=== PATIENT | female | born 1950 | race American Indian/Alaskan Native ===

== ENCOUNTER 2016-08-04 18:14 | Inpatient (IN) | payer MEDICAID ==
[2016-08-04] MEDS ORDERED: NACL 0.9% 1000 ML 1,000 ML ONE (18:52)
[2016-08-04] MEDS ORDERED: NACL 0.9% 1000 ML 1,000 ML IV ONE (18:55)
[2016-08-04] MEDS ORDERED: PROTONIX IV ONE (20:48)
--- NOTE | 2016-08-04 20:48 | Emergency Department Report ---
ED General Adult HPI - General Chief complaint: Altered Mental Status Stated complaint: AMS Time Seen by Provider: 08/04/16 20:34 Source: EMS, RN notes reviewed Mode of arrival: Stretcher Limitations: Physical Limitation - History of Present Illness Initial comments: This is a 66-year-old female. History is limited as the patient is essentially nonverbal. As per review of old medical records, her primary care doctor is Dr. Camacho Mccormack. Patient has a history of stroke with left-sided hemiparesis. Patient recently admitted to the hospital for GI bleed. Patient is sent to the ER for altered mental status. As per triage nurse documentation: Patient unresponsive with agonal breathing, per EMS arrival patient responding, blood sugar 69, given 1 L of D5." Patient found to have hypotension in the field, blood pressure 80/51. No further history is available. Patient and includes medical records are unable to describe exacerbating or relieving factors. -: unknown Severity scale (0 -10): 0 Consistency: other (per hpi) Improves with: other (per hpi) Worsens with: other (per hpi) Associated Symptoms: confusion, shortness of breath, weakness - Related Data Home Medications Medication Instructions Recorded Confirmed Last Taken Ascorbic Acid [Vitamin C] 500 mg PO Q12H 09/12/15 07/13/16 07/11/16 Aspirin [Adult Low Dose Aspirin EC] 81 mg PO DAILY 09/12/15 07/13/16 07/11/16 Baclofen [Lioresal] 10 mg PO TID 09/12/15 07/13/16 07/11/16 Carvedilol [Coreg] 12.5 mg PO BID 09/12/15 07/13/16 07/11/16 Citalopram [celeXA] 10 mg PO QDAY 09/12/15 07/13/16 07/11/16 Cyclobenzaprine [Flexeril 10 MG 10 mg PO BID PRN 09/12/15 07/13/16 07/11/16 TAB] Gabapentin [Neurontin] 600 mg PO Q8H 09/12/15 07/13/16 07/11/16 Ipratropium/Albuterol Sulfate 1 ampul IH Q6HR 09/12/15 07/13/16 Unknown [Duoneb 0.5 mg-3 mg/3 ml Soln] LORazepam [Ativan] 0.5 mg PO TID 09/12/15 07/13/16 07/11/16 Levothyroxine [Synthroid] 125 mcg PO DAILY 09/12/15 07/13/16 07/11/16 Lisinopril [Zestril TAB] 20 mg PO BID 09/12/15 07/13/16 07/11/16 Magnesium Hydroxide [Milk of 400 mg PO DAILY 09/12/15 07/13/16 07/11/16 Magnesia] Omeprazole [PriLOSEC] 40 mg PO QDAY 09/12/15 07/13/16 07/11/16 Oxycodone HCl/Acetaminophen 1 each PO Q6HR PRN 09/12/15 07/13/16 Unknown [Percocet 10/325 mg] Potassium Chloride [KCl 20 meq 20 meq PO QDAY 09/12/15 07/13/16 07/11/16 ORAL LIQ] Sennosides/Docusate Sodium [Dok 1 each PO DAILY 09/12/15 07/13/16 07/11/16 Plus Tablet] buPROPion [Wellbutrin] 75 mg PO DAILY 09/12/15 07/13/16 07/11/16 clonazePAM [KlonoPIN] 2 mg PO BID 09/12/15 07/13/16 07/10/16 Pravastatin Sodium [Pravastatin] 10 mg PO QHS 07/13/16 07/13/16 07/11/16 Previous Rx's Medication Instructions Recorded Last Taken Type Pantoprazole [Protonix TAB] 40 mg PO QDAY #30 tablet 07/15/16 Unknown Rx Allergies Allergy/AdvReac Type Severity Reaction Status Date / Time ibuprofen Allergy Unknown Verified 09/12/15 23:04 Penicillins Allergy Unknown Verified 09/12/15 23:04 ED Review of Systems ROS: Stated complaint: AMS Other details as noted in HPI ED Past Medical Hx - Past Medical History Hx Hypertension: Yes (CHF (stable), ) Hx CVA: Yes Hx Congestive Heart Failure: Yes Hx Diabetes: Yes Hx GERD: Yes Hx COPD: Yes Additional medical history: HYPOTHROIDISM - Surgical History Hx Pacemaker: Yes Hx Internal Defibrillator: Yes - Social History Smoking Status: Unknown if ever smoked - Medications Home Medications: Home Medications Medication Instructions Recorded Confirmed Last Taken Type Ascorbic Acid [Vitamin C] 500 mg PO Q12H 09/12/15 07/13/16 07/11/16 History Aspirin [Adult Low Dose Aspirin EC] 81 mg PO DAILY 09/12/15 07/13/16 07/11/16 History Baclofen [Lioresal] 10 mg PO TID 09/12/15 07/13/16 07/11/16 History Carvedilol [Coreg] 12.5 mg PO BID 09/12/15 07/13/16 07/11/16 History Citalopram [celeXA] 10 mg PO QDAY 09/12/15 07/13/16 07/11/16 History Cyclobenzaprine [Flexeril 10 MG 10 mg PO BID PRN 09/12/15 07/13/16 07/11/16 History TAB] Gabapentin [Neurontin] 600 mg PO Q8H 09/12/15 07/13/16 07/11/16 History Ipratropium/Albuterol Sulfate 1 ampul IH Q6HR 09/12/15 07/13/16 Unknown History [Duoneb 0.5 mg-3 mg/3 ml Soln] LORazepam [Ativan] 0.5 mg PO TID 09/12/15 07/13/16 07/11/16 History Levothyroxine [Synthroid] 125 mcg PO DAILY 09/12/15 07/13/16 07/11/16 History Lisinopril [Zestril TAB] 20 mg PO BID 09/12/15 07/13/16 07/11/16 History Magnesium Hydroxide [Milk of 400 mg PO DAILY 09/12/15 07/13/16 07/11/16 History Magnesia] Omeprazole [PriLOSEC] 40 mg PO QDAY 09/12/15 07/13/16 07/11/16 History Oxycodone HCl/Acetaminophen 1 each PO Q6HR PRN 09/12/15 07/13/16 Unknown History [Percocet 10/325 mg] Potassium Chloride [KCl 20 meq 20 meq PO QDAY 09/12/15 07/13/16 07/11/16 History ORAL LIQ] Sennosides/Docusate Sodium [Dok 1 each PO DAILY 09/12/15 07/13/16 07/11/16 History Plus Tablet] buPROPion [Wellbutrin] 75 mg PO DAILY 09/12/15 07/13/1617 History clonazePAM [KlonoPIN] 2 mg PO BID 09/12/15 07/13/16 07/10/16 History Pravastatin Sodium [Pravastatin] 10 mg PO QHS 07/13/16 07/13/16 07/11/16 History Pantoprazole [Protonix TAB] 40 mg PO QDAY #30 tablet 07/15/16 Unknown Rx ED Physical Exam - General Limitations: Altered Mental Status, Physical Limitation General appearance: in no apparent distress - Head Head exam: Present: atraumatic, normocephalic - Eye Eye exam: Present: normal appearance - ENT ENT exam: Present: mucous membranes moist - Neck Neck exam: Present: normal inspection - Respiratory Respiratory exam: Present: normal lung sounds bilaterally. Absent: respiratory distress, wheezes, rales, rhonchi - Cardiovascular Cardiovascular Exam: Present: regular rate, normal rhythm, normal heart sounds. Absent: bradycardia, tachycardia, irregular rhythm, systolic murmur, diastolic murmur, rubs, gallop - GI/Abdominal GI/Abdominal exam: Present: soft, normal bowel sounds. Absent: distended, tenderness, guarding, rebound, rigid, pulsatile mass - Rectal Rectal exam: Present: normal inspection, heme (+) stool (brown stool) - Extremities Exam Extremities exam: Present: normal inspection, normal capillary refill, other ( patient has left-sided hemiparesis. Moves right upper extremity, right lower extremity spontaneously). Absent: calf tenderness - Back Exam Back exam: Present: normal inspection. Absent: CVA tenderness (R), CVA tenderness (L) - Neurological Exam Neurological exam: Present: altered, motor sensory deficit, other (chronic left- sided hemiparesis. Patient makes nonsensical sounds. Moves right upper extremity, right lower extremity) - Psychiatric Psychiatric exam: Present: normal affect, normal mood, anxious - Skin Skin exam: Present: warm, dry, intact, normal color. Absent: rash ED Course Vital Signs 08/04/16 08/04/16 08/04/16 18:20 20:40 20:43 Temperature 97.8 F 97.6 F Pulse Rate 71 69 Respiratory 12 16 Rate Blood Pressure 80/51 111/55 Blood Pressure 80/51 [Right] O2 Sat by Pulse 100 100 Oximetry 08/04/16 08/04/16 08/04/16 20:44 21:00 21:33 Temperature Pulse Rate 69 71 Respiratory 8 L 14 Rate Blood Pressure 111/55 Blood Pressure 145/84 [Right] O2 Sat by Pulse 100 99 100 Oximetry 08/04/16 08/05/16 23:34 00:40 Temperature Pulse Rate Respiratory Rate Blood Pressure 145/84 147/72 Blood Pressure [Right] O2 Sat by Pulse 97 98 Oximetry - Reevaluation(s) Reevaluation #1: 08/04/16 22:23 differential diagnosis: Hypoglycemia, hypoxemic respiratory failure, pneumonia, pulmonary embolus, urinary tract infection, subacute stroke , electrolyte derangement, metabolic derangement, toxic/metabolic encephalopathy , natural history of multiple chronic issues Assessment and plan: 66-year-old female with undifferentiated hypotension, now resolving, undifferentiated agonal breathing, now resolving, somewhat hypoxemic on ABG. Noncontrast CT scan of brain is negative, the patient is not a TPA candidate given that we do not have an exact onset of symptoms. She is protecting her airway currently. X-ray the chest is negative. Laboratory studies otherwise unremarkable. Reevaluation #2: 08/05/16 01:17 patient had unexplained hypoxemia. We attempted to call family, nobody answered. Nobody has returned our phone call. Therefore, I administratively consented the patient for CT scan with contrast. The CT scan did not demonstrate pneumonia or pulmonary embolus. Patient has had some episodes of bradypnea while in the ER. Given her unexplained hypotension, unexplained respiratory rate, patient will be admitted for observation. The Hospital physician, Dr. Moore, graciously accepts the patient to his service. ED Medical Decision Making - Lab Data Result diagrams: 08/04/16 21:43 08/04/16 19:55 Vital Signs 08/04/16 08/04/16 08/04/16 18:20 20:43 20:44 Temperature 97.8 F 97.6 F Pulse Rate 71 Respiratory 12 Rate Blood Pressure 80/51 Blood Pressure 80/51 [Right] O2 Sat by Pulse 100 100 Oximetry 08/04/16 21:33 Temperature Pulse Rate 71 Respiratory 14 Rate Blood Pressure Blood Pressure 145/84 [Right] O2 Sat by Pulse 100 Oximetry Lab Results 08/04/16 08/04/16 08/04/16 Range/Units 18:46 19:55 20:29 WBC (4.5-11.0) K/mm3 RBC (3.65-5.03) M/mm3 Hgb (10.1-14.3) gm/dl Hct (30.3-42.9) % MCV (79-97) fl MCH (28-32) pg MCHC (30-34) % RDW (13.2-15.2) % Plt Count (140-440) K/mm3 Lymph % (Auto) Barren % (Auto) Eos % (Auto) Baso % (Auto) Lymph # Barren # Eos # Baso # Seg Neutrophils % Seg Neutrophils # POC ABG pH (7.35-7.45) POC ABG pCO2 (35-45) POC ABG pO2 (80-105) POC ABG HCO3 POC ABG Total CO2 POC ABG O2 Sat POC ABG Base Excess FiO2 % Sodium 139 (137-145) mmol/L Potassium 5.0 (3.6-5.0) mmol/L Chloride 99.8 (98-107) mmol/L Carbon Dioxide 26 (22-30) mmol/L Anion Gap 18 mmol/L BUN 15 (7-17) mg/dL Creatinine 1.3 H (0.7-1.2) mg/dL Estimated GFR 50 ml/min BUN/Creatinine Ratio 11.53 % Glucose 89 (65-100) mg/dL POC Glucose 132 H (70-105) Lactic Acid 2.00 (0.7-2.0) mmol/L Calcium 9.3 (8.4-10.2) mg/dL Total Bilirubin < 0.20 (0.1-1.2) mg/dL AST 13 (5-40) units/L ALT 8 (7-56) units/L Alkaline Phosphatase 138 H (35-129) units/L Total Protein 7.1 (6.3-8.2) g/dL Albumin 3.6 L (3.9-5) g/dL Albumin/Globulin Ratio 1.0 % Urine Color (Yellow) Urine Turbidity (Clear) Urine pH (5.0-7.0) Ur Specific Braggs (1.003-1.030) Urine Protein (Negative) mg/dL Urine Glucose (UA) (Negative) mg/dL Urine Ketones (Negative) mg/dL Urine Blood (Negative) Urine Nitrite (Negative) Urine Bilirubin (Negative) Urine Urobilinogen (<2.0) mg/dL Ur Leukocyte Esterase (Negative) Urine WBC (Auto) (0.0-6.0) /HPF Urine RBC (Auto) (0.0-6.0) /HPF Amorphous Crystals Urine Opiates Screen Urine Methadone Screen Acetaminophen (10.0-30.0) ug/mL Ur Barbiturates Screen Ur Phencyclidine Scrn Ur Amphetamines Screen Urine Cocaine Screen U Marijuana (THC) Screen 08/04/16 08/04/16 08/04/16 Range/Units 21:02 21:11 21:11 WBC (4.5-11.0) K/mm3 RBC (3.65-5.03) M/mm3 Hgb (10.1-14.3) gm/dl Hct (30.3-42.9) % MCV (79-97) fl MCH (28-32) pg MCHC (30-34) % RDW (13.2-15.2) % Plt Count (140-440) K/mm3 Lymph % (Auto) Barren % (Auto) Eos % (Auto) Baso % (Auto) Lymph # Barren # Eos # Baso # Seg Neutrophils % Seg Neutrophils # POC ABG pH 7.395 (7.35-7.45) POC ABG pCO2 45.0 (35-45) POC ABG pO2 74 L (80-105) POC ABG HCO3 27.6 POC ABG Total CO2 29 POC ABG O2 Sat 95 POC ABG Base Excess 3 FiO2 21 % Sodium (137-145) mmol/L Potassium (3.6-5.0) mmol/L Chloride (98-107) mmol/L Carbon Dioxide (22-30) mmol/L Anion Gap mmol/L BUN (7-17) mg/dL Creatinine (0.7-1.2) mg/dL Estimated GFR ml/min BUN/Creatinine Ratio % Glucose (65-100) mg/dL POC Glucose (70-105) Lactic Acid (0.7-2.0) mmol/L Calcium (8.4-10.2) mg/dL Total Bilirubin (0.1-1.2) mg/dL AST (5-40) units/L ALT (7-56) units/L Alkaline Phosphatase (35-129) units/L Total Protein (6.3-8.2) g/dL Albumin (3.9-5) g/dL Albumin/Globulin Ratio % Urine Color Straw (Yellow) Urine Turbidity Clear (Clear) Urine pH 5.0 (5.0-7.0) Ur Specific Braggs 1.006 (1.003-1.030) Urine Protein <15 mg/dl (Negative) mg/dL Urine Glucose (UA) 50 (Negative) mg/dL Urine Ketones Neg (Negative) mg/dL Urine Blood Neg (Negative) Urine Nitrite Neg (Negative) Urine Bilirubin Neg (Negative) Urine Urobilinogen < 2.0 (<2.0) mg/dL Ur Leukocyte Esterase Neg (Negative) Urine WBC (Auto) < 1.0 (0.0-6.0) /HPF Urine RBC (Auto) 2.0 (0.0-6.0) /HPF Amorphous Crystals Few Urine Opiates Screen Presumptive negative Urine Methadone Screen Presumptive negative Acetaminophen (10.0-30.0) ug/mL Ur Barbiturates Screen Presumptive negative Ur Phencyclidine Scrn Presumptive negative Ur Amphetamines Screen Presumptive negative Urine Cocaine Screen Presumptive negative U Marijuana (THC) Screen Presumptive negative 08/04/16 08/04/16 Range/Units 21:22 21:43 WBC 8.0 (4.5-11.0) K/mm3 RBC 3.40 L (3.65-5.03) M/mm3 Hgb 9.2 L (10.1-14.3) gm/dl Hct 29.2 L (30.3-42.9) % MCV 86 (79-97) fl MCH 27 L (28-32) pg MCHC 31 (30-34) % RDW 16.2 H (13.2-15.2) % Plt Count 383 (140-440) K/mm3 Lymph % (Auto) Environmental Journalist Barren % (Auto) Environmental Journalist Eos % (Auto) Environmental Journalist Baso % (Auto) Environmental Journalist Lymph # Environmental Journalist Barren # Environmental Journalist Eos # Environmental Journalist Baso # Environmental Journalist Seg Neutrophils % Environmental Journalist Seg Neutrophils # Environmental Journalist POC ABG pH (7.35-7.45) POC ABG pCO2 (35-45) POC ABG pO2 (80-105) POC ABG HCO3 POC ABG Total CO2 POC ABG O2 Sat POC ABG Base Excess FiO2 % Sodium (137-145) mmol/L Potassium (3.6-5.0) mmol/L Chloride (98-107) mmol/L Carbon Dioxide (22-30) mmol/L Anion Gap mmol/L BUN (7-17) mg/dL Creatinine (0.7-1.2) mg/dL Estimated GFR ml/min BUN/Creatinine Ratio % Glucose (65-100) mg/dL POC Glucose (70-105) Lactic Acid (0.7-2.0) mmol/L Calcium (8.4-10.2) mg/dL Total Bilirubin (0.1-1.2) mg/dL AST (5-40) units/L ALT (7-56) units/L Alkaline Phosphatase (35-129) units/L Total Protein (6.3-8.2) g/dL Albumin (3.9-5) g/dL Albumin/Globulin Ratio % Urine Color (Yellow) Urine Turbidity (Clear) Urine pH (5.0-7.0) Ur Specific Braggs (1.003-1.030) Urine Protein (Negative) mg/dL Urine Glucose (UA) (Negative) mg/dL Urine Ketones (Negative) mg/dL Urine Blood (Negative) Urine Nitrite (Negative) Urine Bilirubin (Negative) Urine Urobilinogen (<2.0) mg/dL Ur Leukocyte Esterase (Negative) Urine WBC (Auto) (0.0-6.0) /HPF Urine RBC (Auto) (0.0-6.0) /HPF Amorphous Crystals Urine Opiates Screen Urine Methadone Screen Acetaminophen < 15.0 (10.0-30.0) ug/mL Ur Barbiturates Screen Ur Phencyclidine Scrn Ur Amphetamines Screen Urine Cocaine Screen U Marijuana (THC) Screen - EKG Data -: EKG Interpreted by Co - EKG Data 08/04/16 22:25 normal sinus, 67 bpm, left axis deviation, motion artifact, poor R progression, first-degree AV block, abnormal EKG. Not consistent with STEMI. - Radiology Data Radiology results: report reviewed, image reviewed Noncontrast CT scan of the brain is negative. X-ray of the chest negative, left-sided cardiac device is noted. CT scan of the chest was negative for pneumonia, negative for pulmonary embolus Critical care attestation.: If time is entered above; I have spent that time in minutes in the direct care of this critically ill patient, excluding procedure time. ED Disposition Clinical Impression: Altered mental status, Hypotension, Hypoxemia Disposition: OP ADMITTED IP TO THIS HOSP Is pt being admited?: Yes Does the pt Need Aspirin: No Condition: Fair Referrals: PRIMARY CARE,MD [Primary Care Provider] - 3-5 Days
[2016-08-04 20:57] LABS: Alanine Aminotransferase 8 units/L (7-56); Albumin 3.6 g/dL (3.9-5); Alkaline Phosphatase 138 units/L (35-129); Anion Gap 18 mmol/L; BUN/Creatinine Ratio 11.53; Bilirubin,Total < 0.20 mg/dL (0.1-1.2); Blood Urea Nitrogen 15 mg/dL (7-17); Calcium 9.3 mg/dL (8.4-10.2); Carbon Dioxide 26 mmol/L (22-30); Chloride 99.8 mmol/L (98-107); Glucose 89 mg/dL (65-100); Sodium 139 mmol/L (137-145); Total Protein 7.1 g/dL (6.3-8.2)
[2016-08-04 21:09] LABS: ISTAT Base Excess 3; ISTAT HCO3 27.6; ISTAT PH 7.395 (7.35-7.45); ISTAT PO2 74 (80-105); ISTAT SO2 95; ISTAT TCO2 29
[2016-08-04 21:24] LABS: Urine Drugs of Abuse Note Disclamer
[2016-08-04 21:46] LABS: Bilirubin,Urine NEG (Negative); Blood,Urine NEG (Negative); Ketones,Urine NEG (Negative); Leukocyte Esterase,Urine NEG (Negative); Nitrite,Urine NEG (Negative); Protein,Urine <15 mg/dL mg/dL (Negative); Urobilinogen,Urine < 2.0 mg/dL (<2.0); WBC,Urine < 1.0 /HPF (0.0-6.0)
--- NOTE | 2016-08-04 21:57 | Cat Scan Report ---
FINAL REPORT PROCEDURE: CT HEAD/BRAIN WO CON TECHNIQUE: Computerized tomography of the head was performed without contrast material. HISTORY: ams COMPARISON: September 13, 2015 FINDINGS: Skull and scalp: Normal. Paranasal sinuses: Normal. Ventricles and subarachnoid spaces: Moderate dilatation. Cerebrum: No evidence of hemorrhage, acute infarction or mass. Moderate atrophy. Diffuse volume loss with encephalomalacia of the right frontal and parietal lobes. Cerebellum and brainstem: No evidence of hemorrhage, acute infarction or mass. There is stable increased density of the left side of the mid brain with calcification, axial series 2 images 30 and 31. Vasculature: Atherosclerotic calcifications. Comments: None. IMPRESSION: Involutional change with advanced volume loss and encephalomalacia on the right. Stable calcification of the left mid brain.
[2016-08-04 22:04] LABS: Hematocrit 29.2 % (30.3-42.9); Hemoglobin 9.2 gm/dl (10.1-14.3); Mean Corpuscular HGB Conc 31 % (30-34); Mean Corpuscular Hemoglobin 27 pg (28-32); Mean Corpuscular Volume 86 fl (79-97); Platelet Count 383 K/mm3 (140-440); Red Cell Distribution Width 16.2 % (13.2-15.2)
[2016-08-04 22:48] LABS: Magnesium 2.8 mg/dL (1.7-2.3)
--- NOTE | 2016-08-04 23:54 | Admit Criteria Form ---
Admission Criteria Documentation: MENTAL STATUS CHANGE Clinical Indications for Inpatient Care (Place 'X' for any and all applicable criteria): Ongoing inpatient care may be needed for 1 or more of the following(1)(2)(3)(5)( 6): [ X]I. Suspected serious etiology (eg, medical disorder, PLATING OPERATOR event) of altered mental status [ ]II. Danger to self or others not manageable at lower level of care [ ]III. Grave disability (eg, inability to perform self care necessary at lower level of care) [ ]IV. Agitation or inappropriate behavior interfering with care for primary condition (eg, attempting to discontinue lines or drains prematurely, unable to cooperate with respiratory care) [ ]V. Delirium [A] [D][E] as described by 1 or more of the following(26): [ ]a) Delirium due to alcohol or sedative [F] withdrawal [ ]b) Delirium of uncertain etiology that has not responded to appropriate empiric treatment [ ]c) Delirium that prevents performance of a life-sustaining function (eg, feeding or hydrating oneself) [ ]. General contraindications and/or Inappropriate clinical situations for Observational Care in patients with Mental Status Change, when ANY ONE of the following is required: [ ]a) Prediction of prolongation of LOS based on ANY ONE of the following may be considered as a contraindication for observational care 2, 3, 4, 5, 6, 7, 8, 9, 10, 11 [ ]i) Age > 65 yrs. [ ]ii) Patient arriving by ambulance [ ]iii) Patient with high acuity [ ]iv) Patient requiring vital sign monitoring [ ]v) Patient on IV medication [ ]b) Systolic blood pressures greater than or equal to 180mmHg 3, 12 [ ]c) Patient with altered mental status including delirium and other alteration of consciousness, (3) [ ]d) Patient whose discharge disposition will be to a [facility] home or rehabilitation home should not be managed in Emergency Department Observation Unit. CMS rule requires 3 days hospital stay before such placement.3,13 [ ]e) Patient with failure to thrive due to broad array of etiologies 3,16,17 [ ]f) Inability to ambulate 3,14 Extended stay beyond goal length of stay for the primary condition may be needed until ALL of the following are present(3)(5): [ ]a) Underlying medical etiology of mental status change is absent, or has been established and adequately treated [ ]b) Danger to self or others is absent or manageable at lower level of care. [ ]c) Behavior crisis management, including physical or chemical restraints, is not required or available at lower level of car [ ]d) Substance or alcohol withdrawal is absent or manageable at lower level of care. [ ]e) Behavioral symptoms (eg, agitation, somnolence, inappropriate behavior) are absent, or are manageable at lower level of care. The original [facility] [employer] content created by [facility] [employer] has been revised. The portions of the content which have been revised are identified through the use of italic text or in bold, and [facility] has neither reviewed nor approved the modified material. All other unmodified content is copyright [facility] [employer]. Please see references footnoted in the original [facility] edition 2016 Admission Criteria Met: Yes
--- NOTE | 2016-08-05 00:54 | Cat Scan Report ---
FINAL REPORT EXAM: CT ANGIO CHEST HISTORY: pna vs pe TECHNIQUE: High-resolution helical axial images were obtained of the chest during intravenous administration of iodinated contrast. Images are reconstructed in the sagittal and coronal planes. PRIORS: CT of the abdomen and pelvis from 07/12/2016 FINDINGS: There is no evidence of pulmonary embolism, the pulmonary arteries opacify normally. There is a left-sided AICD that appears adequately positioned. There is atherosclerotic calcification of the thoracic aorta without aneurysm or dissection. There is atherosclerotic calcification in the coronary arteries. The heart size is normal. There is mild lingular subsegmental atelectasis. Otherwise, the lungs are clear. Images through the upper abdomen are unremarkable. There is a stable moderate compression fracture of T12 vertebral body. IMPRESSION: 1. No evidence of pulmonary embolism. 2. Coronary artery atherosclerotic disease 3. Mild lingular subsegmental atelectasis 4. Stable moderate T12 compression fracture.
[2016-08-05] MEDS ORDERED: SYNTHROID IV ONE (01:18)
--- NOTE | 2016-08-05 02:41 | History and Physical Report ---
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 07/14/16 EGD done showed bleeding vessels on the lesser curvature and 3 clips were placed who present with AMS, hypotension 80/51 prior to arrival. As per triage nurse documentation: "Patient unresponsive with agonal breathing, per EMS arrival patient responding, blood sugar 69, given 1 L of D5." No further history is available. Patient and includes medical records are unable to describe exacerbating or relieving factors. CTA with chest: No PE, coronary artery disease, mild lingular subsegmental atelectasis, stable moderate T12 compression fracture. Primary care doctor is Dr. Camacho Mccormack. Past medical history: As HPI Past surgical history: Pacemaker hysterectomy Social history: [facility], no current alcohol tobacco or drug use Family history: Hypertension Medications and Allergies Allergies Allergy/AdvReac Type Severity Reaction Status Date / Time ibuprofen Allergy Unknown Verified 09/12/15 23:04 Penicillins Allergy Unknown Verified 09/12/15 23:04 Home Medications Medication Instructions Recorded Confirmed Last Taken Type Ascorbic Acid [Vitamin C] 500 mg PO Q12H 09/12/15 07/13/16 07/11/16 History Aspirin [Adult Low Dose Aspirin EC] 81 mg PO DAILY 09/12/15 07/13/16 07/11/16 History Baclofen [Lioresal] 10 mg PO TID 09/12/15 07/13/16 07/11/16 History Carvedilol [Coreg] 12.5 mg PO BID 09/12/15 07/13/16 07/11/16 History Citalopram [celeXA] 10 mg PO QDAY 09/12/15 07/13/16 07/11/16 History Cyclobenzaprine [Flexeril 10 MG 10 mg PO BID PRN 09/12/15 07/13/16 07/11/16 History TAB] Gabapentin [Neurontin] 600 mg PO Q8H 09/12/15 07/13/16 07/11/16 History Ipratropium/Albuterol Sulfate 1 ampul IH Q6HR 09/12/15 07/13/16 Unknown History [Duoneb 0.5 mg-3 mg/3 ml Soln] LORazepam [Ativan] 0.5 mg PO TID 09/12/15 07/13/16 07/11/16 History Levothyroxine [Synthroid] 125 mcg PO DAILY 09/12/15 07/13/16 07/11/16 History Lisinopril [Zestril TAB] 20 mg PO BID 09/12/15 07/13/16 07/11/16 History Magnesium Hydroxide [Milk of 400 mg PO DAILY 09/12/15 07/13/16 07/11/16 History Magnesia] Omeprazole [PriLOSEC] 40 mg PO QDAY 09/12/15 07/13/16 07/11/16 History Oxycodone HCl/Acetaminophen 1 each PO Q6HR PRN 09/12/15 07/13/16 Unknown History [Percocet 10/325 mg] Potassium Chloride [KCl 20 meq 20 meq PO QDAY 09/12/15 07/13/16 07/11/16 History ORAL LIQ] Sennosides/Docusate Sodium [Dok 1 each PO DAILY 09/12/15 07/13/16 07/11/16 History Plus Tablet] buPROPion [Wellbutrin] 75 mg PO DAILY 09/12/15 07/13/16 07/11/16 History clonazePAM [KlonoPIN] 2 mg PO BID 09/12/15 07/13/16 07/10/16 History Pravastatin Sodium [Pravastatin] 10 mg PO QHS 07/13/16 07/13/16 07/11/16 History Pantoprazole [Protonix TAB] 40 mg PO QDAY #30 tablet 07/15/16 Unknown Rx Active Meds: Active Medications Albuterol/Ipratropium (Duoneb 0.5 Mg-3 Mg/3 Ml Soln) 1 ampul IH Q12HR ZULMA Ascorbic Acid (Vitamin C) 500 mg PO Q12H ZULMA Baclofen (Lioresal) 10 mg PO TID ZULMA Bupropion HCl (Wellbutrin) 75 mg PO DAILY ZULMA Citalopram Hydrobromide (Celexa) 10 mg PO QDAY ZULMA Clonazepam (Klonopin) 2 mg PO BID ZULMA Levothyroxine Sodium (Synthroid) 125 mcg PO DAILY ZULMA Lorazepam (Ativan) 0.5 mg PO TID ZULMA Miscellaneous Medication (Gabapentin [Neurontin]) 600 mg PO Q8H ZULMA Miscellaneous Medication (Oxycodone Hcl/Acetaminophen [Percocet 10/325 Mg]) 1 each PO Q6HR PRN PRN Reason: Pain Miscellaneous Medication (Potassium Chloride [Kcl 20 Meq Oral Liq]) 20 meq PO QDAY ZULMA Miscellaneous Medication (Pravastatin Sodium [Pravastatin]) 10 mg PO QHS ZULMA Pantoprazole Sodium (Protonix) 40 mg PO QDAY ZULMA Review of Systems ROS unobtainable: due to mental status Exam - Physical Exam Narrative exam: GEN: Ill appearing chronic debilitated NAD, AWAKE, ALERT, confused HEENT: NCAT, PERRL, EOMI, OP SEVERELY DRY CRUSTY AND PASTY LIPS NECK: SUPPLE, NO THYROMEGALY, NO JVD, NO LAD CVS: RRR, NORMAL S1S2 LUNGS/CHEST: CTA B, NORMAL CHEST EXPANSION B, GOOD AIR ENTRY B ABD: SOFT NTND, GBS, NO REBOUND OR GUARDING EXT/SKIN: Poor skin turgor, capillary refill >2 seconds MSK: Severely contracted extremities 4 NEURO: CN 2-12 GROSSLY INTACT, she doesn't follow commands PSY: Confused - Constitutional Vitals: Temp Pulse Resp BP Pulse Ox 97.6 F 83 19 149/73 99 08/04/16 20:43 08/05/16 01:00 08/05/16 01:00 08/05/16 01:00 08/05/16 01:00 Results - Labs CBC & Chem 7: 08/04/16 21:43 08/04/16 19:55 Labs: Abnormal lab results 08/04/16 08/04/16 08/04/16 Range/Units 18:46 19:55 21:02 RBC (3.65-5.03) M/mm3 Hgb (10.1-14.3) gm/dl Hct (30.3-42.9) % MCH (28-32) pg RDW (13.2-15.2) % POC ABG pO2 74 L (80-105) Creatinine 1.3 H (0.7-1.2) mg/dL POC Glucose 132 H (70-105) Magnesium (1.7-2.3) mg/dL Alkaline Phosphatase 138 H (35-129) units/L Albumin 3.6 L (3.9-5) g/dL TSH (0.270-4.200) mlU/mL Salicylates (2.8-20.0) mg/dL 08/04/16 08/04/16 08/04/16 Range/Units 21:22 21:22 21:22 RBC (3.65-5.03) M/mm3 Hgb (10.1-14.3) gm/dl Hct (30.3-42.9) % MCH (28-32) pg RDW (13.2-15.2) % POC ABG pO2 (80-105) Creatinine (0.7-1.2) mg/dL POC Glucose (70-105) Magnesium 2.80 H (1.7-2.3) mg/dL Alkaline Phosphatase (35-129) units/L Albumin (3.9-5) g/dL TSH 15.540 H (0.270-4.200) mlU/mL Salicylates < 0.3 L (2.8-20.0) mg/dL 08/04/16 Range/Units 21:43 RBC 3.40 L (3.65-5.03) M/mm3 Hgb 9.2 L (10.1-14.3) gm/dl Hct 29.2 L (30.3-42.9) % MCH 27 L (28-32) pg RDW 16.2 H (13.2-15.2) % POC ABG pO2 (80-105) Creatinine (0.7-1.2) mg/dL POC Glucose (70-105) Magnesium (1.7-2.3) mg/dL Alkaline Phosphatase (35-129) units/L Albumin (3.9-5) g/dL TSH (0.270-4.200) mlU/mL Salicylates (2.8-20.0) mg/dL Assessment and Plan Patient is a 66-year-old woman from [facility] with a plethora of comorbidities including diabetes mellitus type 2, hypertension, coronary artery disease, CHF, hypothyroidism, COPD, 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 07/14/16 EGD done showed bleeding vessels on the lesser curvature and 3 clips were placed who present with AMS, hypotension 80/51 prior to arrival. As per triage nurse documentation: "Patient unresponsive with agonal breathing, per EMS arrival patient responding, blood sugar 69, given 1 L of D5." No further history is available. Patient and includes medical records are unable to describe exacerbating or relieving factors. CTA with chest: No PE, coronary artery disease, mild lingular subsegmental atelectasis, stable moderate T12 compression fracture. CT of the head without acute stroke. -Altered mental status with encephalopathy, patient appears to be severely dehydrated, I don't know if she's been eating or drinking therefore she may not be taken her medication her TSH is extremely high, will use IV levothyroxine -Hypotension due to hypovolemia: Treat with IV fluids -Acute on chronic blood loss anemia: Continue to monitor closely -DVT prophylaxis: SCDs only due to recent history of GI bleed Full code
[2016-08-05] MEDS ORDERED: PERCOCET 5/325 PO PRN (03:09)
[2016-08-05] MEDS: VITAMIN C PO SCH ×2 (03:25→18:14)
[2016-08-05] MEDS: D5NS 1,000 ML IV SCH (03:25)
[2016-08-05] MEDS: NEURONTIN PO SCH ×3 (06:14→21:54)
[2016-08-05] MEDS: SYNTHROID IV SCH (06:58)
[2016-08-05] MEDS: LIORESAL PO SCH ×3 (08:00→19:58)
[2016-08-05] MEDS: ATIVAN PO SCH ×3 (08:00→19:58)
--- NOTE | 2016-08-05 09:24 | XRay Report ---
AP CHEST: HISTORY: Altered mental status AP view of the chest demonstrates a normal mediastinal and cardiac contour with clear lungs and normal bony and soft tissue structures. Single lead pacemaker devices unchanged since 07/13/16. IMPRESSION: Unremarkable AP chest.
[2016-08-05] MEDS ORDERED: POTASSIUM CHLORIDE 20 MEQ PO SCH (10:00)
[2016-08-05] MEDS: celeXA PO SCH (10:00)
[2016-08-05] MEDS ORDERED: SYNTHROID PO SCH (10:00)
[2016-08-05] MEDS: PROTONIX PO SCH (10:00)
[2016-08-05] MEDS: WELLBUTRIN PO SCH (10:00)
[2016-08-05 10:07] LABS: Hematocrit 29.3 % (30.3-42.9); Hemoglobin 9.5 gm/dl (10.1-14.3); Mean Corpuscular HGB Conc 32 % (30-34); Mean Corpuscular Hemoglobin 27 pg (28-32); Mean Corpuscular Volume 84 fl (79-97); Platelet Count 383 K/mm3 (140-440); Red Blood Count 3.47 M/mm3 (3.65-5.03); Red Cell Distribution Width 16.3 % (13.2-15.2); White Blood Count 9.2 K/mm3 (4.5-11.0)
--- NOTE | 2016-08-05 10:39 | Event Note ---
Date: 08/05/16 Patient from SNF presented with altered mental status,hypotension. She was seen and examined. Continue current management.
[2016-08-05 10:47] LABS: Anion Gap 22 mmol/L; Blood Urea Nitrogen 11 mg/dL (7-17); Calcium 9.1 mg/dL (8.4-10.2); Carbon Dioxide 22 mmol/L (22-30); Chloride 100.7 mmol/L (98-107); Glucose 76 mg/dL (65-100); Potassium 5.1 mmol/L (3.6-5.0); Sodium 140 mmol/L (137-145)
[2016-08-05] MEDS: DUONEB 0.5 MG-3 MG/3 ML SOLN IH SCH ×2 (11:15→21:06)
[2016-08-05] MEDS: ZOCOR PO SCH (21:54)
[2016-08-06] MEDS: D5NS 1,000 ML IV SCH ×2 (00:07→09:29)
[2016-08-06] MEDS: VITAMIN C PO SCH ×3 (03:00→22:21)
[2016-08-06] MEDS: NEURONTIN PO SCH ×3 (05:47→22:21)
[2016-08-06] MEDS: SYNTHROID IV SCH (05:48)
[2016-08-06 08:37] LABS: Hematocrit 25.7 % (30.3-42.9); Hemoglobin 8.4 gm/dl (10.1-14.3); Mean Corpuscular HGB Conc 33 % (30-34); Mean Corpuscular Hemoglobin 28 pg (28-32); Mean Corpuscular Volume 85 fl (79-97); Platelet Count 316 K/mm3 (140-440); Red Blood Count 3.02 M/mm3 (3.65-5.03); Red Cell Distribution Width 16.5 % (13.2-15.2); White Blood Count 8.4 K/mm3 (4.5-11.0)
[2016-08-06] MEDS: DUONEB 0.5 MG-3 MG/3 ML SOLN IH SCH ×2 (08:47→19:40)
[2016-08-06 08:53] LABS: Anion Gap 18 mmol/L; BUN/Creatinine Ratio 7.77; Blood Urea Nitrogen 7 mg/dL (7-17); Calcium 8.8 mg/dL (8.4-10.2); Carbon Dioxide 23 mmol/L (22-30); Chloride 105.8 mmol/L (98-107); Glucose 91 mg/dL (65-100); Potassium 3.9 mmol/L (3.6-5.0); Sodium 143 mmol/L (137-145)
[2016-08-06] MEDS: LIORESAL PO SCH ×3 (09:20→21:00)
[2016-08-06] MEDS: celeXA PO SCH (09:20)
[2016-08-06] MEDS: PROTONIX PO SCH (09:20)
[2016-08-06] MEDS: WELLBUTRIN PO SCH (09:20)
[2016-08-06] MEDS: ATIVAN PO SCH ×3 (09:20→21:00)
--- NOTE | 2016-08-06 10:24 | Progress Note ---
Assessment and Plan Assessment and plan: Encephalopathy. improving. Neurochecks q 6h Hypoglycemia. On ivf D5NS Diabetes mellitus type 2. Fingerstick glucose qac and HS Hypertension. BP stable. Hypothyroidism. She is on Synthroid Chronic CHF COPD. Currently no shortness of breath. Hypotension. BP improved, on IV fluids. Full CODE STATUS DVT Prophylaxis with SCDs only. She had recent GI bleed Hospitalist Physical - Physical exam Narrative exam: Gen appearance: Not in acute distress, HEENT: Normocephalic, atraumatic Neck:supple, no JVD Lungs : Clear to auscultation Bilateral . No rales or wheezing Heart :S1-S2 regular, no murmurs, rubs or gallop Abdomen: soft, non tender, non-distended,normal bowel sounds Extremities:no edema no clubbing or cyanosis, Neuro: Lethargic, - Constitutional Vitals: Temp Pulse Resp BP Pulse Ox 98.7 F 87 18 122/75 96 08/06/16 08:15 08/06/16 08:50 08/06/16 08:50 08/06/16 08:15 08/06/16 04:25 Results - Labs CBC & Chem 7: 08/06/16 07:28 08/06/16 07:28 Labs: Laboratory Last Values WBC 8.4 K/mm3 (4.5-11.0) 08/06/16 07:28 RBC 3.02 M/mm3 (3.65-5.03) L 08/06/16 07:28 Hgb 8.4 gm/dl (10.1-14.3) L 08/06/16 07:28 Hct 25.7 % (30.3-42.9) L 08/06/16 07:28 MCV 85 fl (79-97) 08/06/16 07:28 MCH 28 pg (28-32) 08/06/16 07:28 MCHC 33 % (30-34) 08/06/16 07:28 RDW 16.5 % (13.2-15.2) H 08/06/16 07:28 Plt Count 316 K/mm3 (140-440) 08/06/16 07:28 Lymph % (Auto) Feed Research Technician 08/04/16 21:43 [place] % (Auto) Feed Research Technician 08/04/16 21:43 Eos % (Auto) Feed Research Technician 08/04/16 21:43 Baso % (Auto) Feed Research Technician 08/04/16 21:43 Lymph # Feed Research Technician 08/04/16 21:43 [place] # Feed Research Technician 08/04/16 21:43 Eos # Feed Research Technician 08/04/16 21:43 Baso # Feed Research Technician 08/04/16 21:43 Seg Neutrophils % Feed Research Technician 08/04/16 21:43 Seg Neutrophils # Feed Research Technician 08/04/16 21:43 POC ABG pH 7.395 (7.35-7.45) 08/04/16 21:02 POC ABG pCO2 45.0 (35-45) 08/04/16 21:02 POC ABG pO2 74 (80-105) L 08/04/16 21:02 POC ABG HCO3 27.6 08/04/16 21:02 POC ABG Total CO2 29 08/04/16 21:02 POC ABG O2 Sat 95 08/04/16 21:02 POC ABG Base Excess 3 08/04/16 21:02 FiO2 21 % 08/04/16 21:02 Sodium 143 mmol/L (137-145) 08/06/16 07:28 Potassium 3.9 mmol/L (3.6-5.0) D 08/06/16 07:28 Chloride 105.8 mmol/L (98-107) 08/06/16 07:28 Carbon Dioxide 23 mmol/L (22-30) 08/06/16 07:28 Anion Gap 18 mmol/L 08/06/16 07:28 BUN 7 mg/dL (7-17) 08/06/16 07:28 Creatinine 0.9 mg/dL (0.7-1.2) 08/06/16 07:28 Estimated GFR > 60 ml/min 08/06/16 07:28 BUN/Creatinine Ratio 7.77 % 08/06/16 07:28 Glucose 91 mg/dL (65-100) 08/06/16 07:28 POC Glucose 95 (70-105) 08/06/16 05:57 Lactic Acid 2.00 mmol/L (0.7-2.0) 08/04/16 20:29 Calcium 8.8 mg/dL (8.4-10.2) 08/06/16 07:28 Magnesium 2.80 mg/dL (1.7-2.3) H 08/04/16 21:22 Total Bilirubin < 0.20 mg/dL (0.1-1.2) 08/04/16 19:55 AST 13 units/L (5-40) 08/04/16 19:55 ALT 8 units/L (7-56) 08/04/16 19:55 Alkaline Phosphatase 138 units/L (35-129) H 08/04/16 19:55 Ammonia 41.0 umol/L (25-60) 08/04/16 21:43 Total Creatine Kinase 84 units/L (30-135) 08/04/16 21:22 Troponin T 0.011 ng/mL (0.00-0.029) 08/04/16 21:22 NT-Pro-B Natriuret Pep 192.9 pg/mL (0-900) 08/04/16 21:22 Total Protein 7.1 g/dL (6.3-8.2) 08/04/16 19:55 Albumin 3.6 g/dL (3.9-5) L 08/04/16 19:55 Albumin/Globulin Ratio 1.0 % 08/04/16 19:55 TSH 15.540 mlU/mL (0.270-4.200) H 08/04/16 21:22 Free T4 1.16 ng/dL (0.76-1.46) 08/05/16 09:40 Urine Color Straw (Yellow) 08/04/16 21:11 Urine Turbidity Clear (Clear) 08/04/16 21:11 Urine pH 5.0 (5.0-7.0) 08/04/16 21:11 Ur Specific [place] 1.006 (1.003-1.030) 08/04/16 21:11 Urine Protein <15 mg/dl mg/dL (Negative) 08/04/16 21:11 Urine Glucose (UA) 50 mg/dL (Negative) 08/04/16 21:11 Urine Ketones Neg mg/dL (Negative) 08/04/16 21:11 Urine Blood Neg (Negative) 08/04/16 21:11 Urine Nitrite Neg (Negative) 08/04/16 21:11 Urine Bilirubin Neg (Negative) 08/04/16 21:11 Urine Urobilinogen < 2.0 mg/dL (<2.0) 08/04/16 21:11 Ur Leukocyte Esterase Neg (Negative) 08/04/16 21:11 Urine WBC (Auto) < 1.0 /HPF (0.0-6.0) 08/04/16 21:11 Urine RBC (Auto) 2.0 /HPF (0.0-6.0) 08/04/16 21:11 Amorphous Crystals Few 08/04/16 21:11 Salicylates < 0.3 mg/dL (2.8-20.0) L 08/04/16 21:22 Urine Opiates Screen Presumptive negative 08/04/16 21:11 Urine Methadone Screen Presumptive negative 08/04/16 21:11 Acetaminophen < 15.0 ug/mL (10.0-30.0) 08/04/16 21:22 Ur Barbiturates Screen Presumptive negative 08/04/16 21:11 Ur Phencyclidine Scrn Presumptive negative 08/04/16 21:11 Ur Amphetamines Screen Presumptive negative 08/04/16 21:11 U Benzodiazepines Scrn Presumptive positive 08/04/16 21:11 Urine Cocaine Screen Presumptive negative 08/04/16 21:11 U Marijuana (THC) Screen Presumptive negative 08/04/16 21:11 Drugs of Abuse Note Disclamer 08/04/16 21:11
[2016-08-06] MEDS ORDERED: POTASSIUM CHLORIDE PO SCH (13:00)
[2016-08-06] MEDS: ZOCOR PO SCH (22:20)
[2016-08-07] MEDS: NEURONTIN PO SCH ×2 (06:15→15:16)
[2016-08-07] MEDS: SYNTHROID IV SCH (06:17)
--- NOTE | 2016-08-07 08:50 | Discharge Summary ---
Providers - Providers Date of Admission: 08/05/16 02:29 Date of discharge: 08/07/16 Attending physician: GIRISH CHUN 08/05/16 03:19 Speech Therapy Evaluation and Treat [CONS] Routine Reason For Exam: failed swallow screen Primary care physician: BREAD PACKER Hospitalization Condition: Fair Disposition: DC/TX SNF W [facility] CERT - Discharge Diagnoses (1) Acute metabolic encephalopathy due to hypoglycemia Status: Acute (2) Hypertension Status: Acute Qualifiers: Hypertension type: H (3) Hypothyroidism Status: Acute Qualifiers: Hypothyroidism type: H (4) COPD (chronic obstructive pulmonary disease) Status: Chronic Qualifiers: COPD type: C Chronic bronchitis type: C Emphysema type: E (5) History of stroke with residual deficit Status: Chronic Core Measure Documentation - Palliative Care Palliative Care/ Comfort Measures: Not Applicable Exam - Constitutional Vitals: Temp Pulse Resp BP Pulse Ox 98.1 F 113 H 20 155/97 97 08/07/16 08:10 08/07/16 08:10 08/07/16 08:10 08/07/16 08:10 08/07/16 08:10 Plan Activity: advance as tolerated Diet: other (pureed diet, low fat, low chol, low Sodium) Additional Instructions: 1.To follow up with Physician at SNF in 3-5 days Follow up with: PRIMARY CARE, [Primary Care Provider] - 3-5 Days Prescriptions: Carvedilol [Coreg] 12.5 mg PO BID #60 tablet Lisinopril [Zestril TAB] 20 mg PO QDAY #30 tablet
[2016-08-07] MEDS: LIORESAL PO SCH ×2 (08:52→15:16)
[2016-08-07] MEDS: ATIVAN PO SCH ×2 (08:53→15:16)
[2016-08-07] MEDS: DUONEB 0.5 MG-3 MG/3 ML SOLN IH SCH (10:27)
[2016-08-07] MEDS: PROTONIX PO SCH (11:13)
[2016-08-07] MEDS: WELLBUTRIN PO SCH (11:13)
[2016-08-07] MEDS: celeXA PO SCH (11:14)
[2016-08-07] MEDS: VITAMIN C PO SCH (11:14)
[2016-08-07 18:40] VITALS: BP 140/84
== END 2016-08-07 19:08 | DRG 314 ==
LOC: ED 18:14 → 3A 08-05 02:29
PROVIDERS: ADMIT Internal Medicine; ATTEND Internal Medicine
PROC: 4A033R1 Measurement of Arterial Saturation, Peripheral, Percutaneous Approach (ICD-10-PCS; principal; 2016-08-04)
DX: I95.9 Hypotension, unspecified (principal); R53.2 Functional quadriplegia; G93.41 Metabolic encephalopathy; D62 Acute posthemorrhagic anemia; E03.9 Hypothyroidism, unspecified; I69.354 Hemiplegia and hemiparesis following cerebral infarction affecting left non-dominant side; I11.0 Hypertensive heart disease with heart failure; I50.9 Heart failure, unspecified; E11.649 Type 2 diabetes mellitus with hypoglycemia without coma; K21.9 Gastro-esophageal reflux disease without esophagitis; R09.02 Hypoxemia; I25.10 Atherosclerotic heart disease of native coronary artery without angina pectoris; E86.1 Hypovolemia; J44.9 Chronic obstructive pulmonary disease, unspecified; Z88.0 Allergy status to penicillin; Z95.0 Presence of cardiac pacemaker; Z90.710 Acquired absence of both cervix and uterus; Z82.49 Family history of ischemic heart disease and other diseases of the circulatory system
CPT/HCPCS: 36415; 51701; 70450; 71010; 71275; 80048; 80053; 80307; 80320; 81001; 82140; 82271; 82550; 82803; 82962; 83735; 83880; 84439; 84443; 84484; 85025; 85027; 87086; 93005; 93010; 94640; 96361; 96374; 96375; C9113; G0480; J7030; J7042; Q9967

== ENCOUNTER 2017-03-15 09:55 | Outpatient (CLI) | payer MEDICAID ==
[2017-03-15 10:52] LABS: Blood Urea Nitrogen 8 mg/dL (7-17)
--- NOTE | 2017-03-15 14:39 | Cat Scan Report ---
CT CHEST WITH CONTRAST: HISTORY: Lung mass. COMPARISON: none. TECHNIQUE: Helical CT in 1.25mm intervals following IV contrast. Sagittal and coronal reformatted images. FINDINGS: Thyroid gland: Normal. Tracheobronchial tree: Normal. Esophagus: Normal. Heart: Normal. Single lead pacemaker device is in position. Pericardium: Normal. Mediastinum: Normal. Lung Galvan: Normal. No evidence for parenchymal lung disease, nodule or mass. Pleural Spaces: Normal. Musculoskeletal: Normal. IMPRESSION: Unremarkable CT chest with contrast. No lung mass is detected.
== END 2017-03-15 09:56 | disposition home or self-care (01) ==
LOC: CT 09:55
PROVIDERS: ATTEND Internal Medicine
DX: R91.8 Other nonspecific abnormal finding of lung field (principal); I11.0 Hypertensive heart disease with heart failure; I50.9 Heart failure, unspecified; J44.9 Chronic obstructive pulmonary disease, unspecified; Z95.0 Presence of cardiac pacemaker
CPT/HCPCS: 36415; 71260; 82565; 84520; Q9967

== ENCOUNTER 2017-04-20 21:05 | Emergency (ER) | payer MEDICAID, MEDICARE ==
[2017-04-20 22:26] LABS: Basophils % (Auto) 0.5 % (0.0-1.8); Eosinophils # (Auto) 0.4 K/mm3 (0.0-0.4); Eosinophils % (Auto) 4.3 % (0.0-4.3); Hematocrit 31.2 % (30.3-42.9); Hemoglobin 9.8 gm/dl (10.1-14.3); Lymphocytes # (Auto) 3.2 K/mm3 (1.2-5.4); Lymphocytes % (Auto) 34.9 % (13.4-35.0); Mean Corpuscular HGB Conc 31 % (30-34); Mean Corpuscular Volume 80 fl (79-97); Monocytes # (Auto) 0.7 K/mm3 (0.0-0.8); Monocytes % (Auto) 7.6 % (0.0-7.3); Platelet Count 288 K/mm3 (140-440); Red Blood Count 3.89 M/mm3 (3.65-5.03); Red Cell Distribution Width 15.9 % (13.2-15.2)
[2017-04-20 22:29] LABS: Mean Corpuscular Hemoglobin 25 pg (28-32)
[2017-04-20 22:33] LABS: Alanine Aminotransferase 7 units/L (7-56); Albumin 3.7 g/dL (3.9-5); BUN/Creatinine Ratio 28; Blood Urea Nitrogen 11 mg/dL (7-17); Calcium 8.6 mg/dL (8.4-10.2); Hemolysis Index 4
--- NOTE | 2017-04-20 23:21 | Emergency Department Report ---
ED Abdominal Pain HPI - General Chief Complaint: Abdominal Pain Stated Complaint: ABD PAIN Time Seen by Provider: 04/20/17 21:57 Source: patient, EMS Mode of arrival: Stretcher Limitations: Altered Mental Status - History of Present Illness Initial Comments: 67-year-old female with a past medical history of asthma, CHF, CVA with left- sided deficits, COPD, diabetes, GERD, hypertension, hypothyroidism, and pacemaker placement presents to the hospital complaints of abdominal pain from [facility]. Patient states she has snakes moving around her stomach and abdominal distention. Patient was given a laxative L leak C assisted prior to arrival. Positive passing gas and examination. Abdominal discomfort reported. Patient is oriented to self, place "hospital", but not to year. - Related Data Home Medications Medication Instructions Recorded Confirmed Last Taken Ascorbic Acid [Vitamin C] 500 mg PO Q12H 09/12/15 08/07/16 07/11/16 Aspirin [Adult Low Dose Aspirin EC] 81 mg PO DAILY 09/12/15 08/07/16 07/11/16 Baclofen [Lioresal] 10 mg PO TID 09/12/15 08/07/16 07/11/16 Citalopram [celeXA] 10 mg PO QDAY 09/12/15 08/07/16 07/11/16 Cyclobenzaprine [Flexeril 10 MG 10 mg PO BID PRN 09/12/15 08/07/16 07/11/16 TAB] Gabapentin [Neurontin] 600 mg PO Q8H 09/12/15 08/07/16 07/11/16 Ipratropium/Albuterol Sulfate 1 ampul IH Q6HR PRN 09/12/15 08/07/16 Unknown [DUONEB *Not for PRN Use*] LORazepam [Ativan] 0.5 mg PO TID 09/12/15 08/07/16 07/11/16 Levothyroxine [Synthroid] 125 mcg PO DAILY 09/12/15 08/07/16 07/11/16 Magnesium Hydroxide [Milk of 30 ml PO HS 09/12/15 08/07/16 07/11/16 Magnesia] Omeprazole [PriLOSEC] 40 mg PO QDAY 09/12/15 08/07/16 07/11/16 Oxycodone HCl/Acetaminophen 1 each PO Q6HR PRN 09/12/15 08/07/16 Unknown [Percocet 10/325 mg] Potassium Chloride [KCl 20 meq 20 meq PO QDAY 09/12/15 08/07/16 07/11/16 ORAL LIQ] Sennosides/Docusate Sodium [Dok 1 each PO DAILY 09/12/15 08/07/16 07/11/16 Plus Tablet] buPROPion [Wellbutrin] 75 mg PO DAILY 09/12/15 08/07/16 07/11/16 clonazePAM [KlonoPIN] 2 mg PO BID 09/12/15 08/07/16 07/10/16 Pravastatin Sodium [Pravastatin] 10 mg PO QHS 07/13/16 08/07/16 07/11/16 Previous Rx's Medication Instructions Recorded Last Taken Type Carvedilol [Coreg] 12.5 mg PO BID #60 tablet 08/07/16 Unknown Rx Lisinopril [Zestril TAB] 20 mg PO QDAY #30 tablet 08/07/16 Unknown Rx Polyethylene Glycol 3350 [Miralax 17 gm PO QDAY PRN #7 packet 04/21/17 Unknown Rx 3350] Allergies Allergy/AdvReac Type Severity Reaction Status Date / Time ibuprofen Allergy Unknown Verified 09/12/15 23:04 Penicillins Allergy Unknown Verified 09/12/15 23:04 ED Review of Systems ROS: Stated complaint: ABD PAIN Other details as noted in HPI Comment: All other systems reviewed and negative Other: Constitutional: No fevers chills Eyes: No eye pain visual changes ENT: No ear pain or throat pain Neck: Denies pain Respiratory: Denies cough wheezing shortness of breath Cardiovascular: Denies chest pain GI: As per HPI : Denies dysuria Musculoskeletal: Denies back pain Skin: Denies rash, lesions, erythema Neurologic: Denies headache, residual left-sided CVA deficits Psychiatric: Denies suicidal ideation, hallucinations ED Past Medical Hx - Past Medical History Previous Medical History?: Yes Hx Hypertension: Yes (CHF (stable), ) Hx CVA: Yes Hx Congestive Heart Failure: Yes Hx Diabetes: Yes Hx GERD: Yes Hx Asthma: No Hx COPD: Yes Additional medical history: HYPOTHROIDISM - Surgical History Past Surgical History?: Yes Hx Pacemaker: Yes Hx Internal Defibrillator: Yes - Social History Smoking Status: Never Smoker Substance Use Type: Prescribed - Medications Home Medications: Home Medications Medication Instructions Recorded Confirmed Last Taken Type Ascorbic Acid [Vitamin C] 500 mg PO Q12H 09/12/15 08/07/16 07/11/16 History Aspirin [Adult Low Dose Aspirin EC] 81 mg PO DAILY 09/12/15 08/07/16 07/11/16 History Baclofen [Lioresal] 10 mg PO TID 09/12/15 08/07/16 07/11/16 History Citalopram [celeXA] 10 mg PO QDAY 09/12/15 08/07/16 07/11/16 History Cyclobenzaprine [Flexeril 10 MG 10 mg PO BID PRN 09/12/15 08/07/16 07/11/16 History TAB] Gabapentin [Neurontin] 600 mg PO Q8H 09/12/15 08/07/16 07/11/16 History Ipratropium/Albuterol Sulfate 1 ampul IH Q6HR PRN 09/12/15 08/07/16 Unknown History [DUONEB *Not for PRN Use*] LORazepam [Ativan] 0.5 mg PO TID 09/12/15 08/07/16 07/11/16 History Levothyroxine [Synthroid] 125 mcg PO DAILY 09/12/15 08/07/16 07/11/16 History Magnesium Hydroxide [Milk of 30 ml PO HS 09/12/15 08/07/16 07/11/16 History Magnesia] Omeprazole [PriLOSEC] 40 mg PO QDAY 09/12/15 08/07/16 07/11/16 History Oxycodone HCl/Acetaminophen 1 each PO Q6HR PRN 09/12/15 08/07/16 Unknown History [Percocet 10/325 mg] Potassium Chloride [KCl 20 meq 20 meq PO QDAY 09/12/15 08/07/16 07/11/16 History ORAL LIQ] Sennosides/Docusate Sodium [Dok 1 each PO DAILY 09/12/15 08/07/16 07/11/16 History Plus Tablet] buPROPion [Wellbutrin] 75 mg PO DAILY 09/12/15 08/07/16 07/11/16 History clonazePAM [KlonoPIN] 2 mg PO BID 09/12/15 08/07/16 07/10/16 History Pravastatin Sodium [Pravastatin] 10 mg PO QHS 07/13/16 08/07/16 07/11/16 History Carvedilol [Coreg] 12.5 mg PO BID #60 tablet 08/07/16 Unknown Rx Lisinopril [Zestril TAB] 20 mg PO QDAY #30 tablet 08/07/16 Unknown Rx Polyethylene Glycol 3350 [Miralax 17 gm PO QDAY PRN #7 packet 04/21/17 Unknown Rx 3350] ED Physical Exam - General Limitations: Altered Mental Status - Other Other exam information: General: No limitations, patient is alert in no acute distress Head exam: Atraumatic, normocephalic Eyes exam: Normal appearance ENT: Moist mucous membrane, normal oropharynx Neck exam: Normal inspection, full range of motion, no meningismus nontender Respiratory exam: Clear to auscultation bilateral, no wheezes, rales, crackles Cardiovascular: Normal rate and rhythm Abdomen: Soft, distended, denies tenderness, normal bowel sounds, no rebound or guarding. Positive flatus Extremity: Full range of motion normal inspection no deformity Back: Normal Inspection, full range of motion, no tenderness Neurologic: Alert, oriented x2, cranial nerves intact, left-sided weakness with contraction and paralysis of left upper extremity. Very minimal movement of left lower extremity. No right-sided deficit Psychiatric: normal affect, normal mood Skin: Warm, dry, intact ED Course Vital Signs 04/20/17 04/20/17 04/20/17 21:31 21:37 21:44 Temperature 98.5 F 98.5 F Pulse Rate 96 H Respiratory 19 Rate Blood Pressure 101/58 101/58 O2 Sat by Pulse 100 96 Oximetry 04/20/17 04/20/17 04/20/17 21:45 22:00 22:15 Temperature Pulse Rate Respiratory Rate Blood Pressure 101/58 116/72 101/58 O2 Sat by Pulse 96 98 96 Oximetry 04/20/17 04/20/17 04/20/17 22:30 22:45 23:00 Temperature Pulse Rate Respiratory Rate Blood Pressure 117/80 116/72 115/76 O2 Sat by Pulse 99 97 95 Oximetry 04/20/17 04/20/17 04/20/17 23:15 23:30 23:36 Temperature Pulse Rate Respiratory Rate Blood Pressure 117/80 116/75 115/76 O2 Sat by Pulse 96 95 97 Oximetry 04/20/17 04/21/17 04/21/17 23:45 00:00 05:53 Temperature Pulse Rate Respiratory Rate Blood Pressure 115/76 101/63 103/78 O2 Sat by Pulse 96 94 Oximetry ED Medical Decision Making - Lab Data Result diagrams: 04/20/17 21:52 04/20/17 21:52 Lab Results 04/20/17 04/20/17 04/20/17 Range/Units 21:52 21:52 21:52 WBC 9.3 (4.5-11.0) K/mm3 RBC 3.89 (3.65-5.03) M/mm3 Hgb 9.8 L (10.1-14.3) gm/dl Hct 31.2 (30.3-42.9) % MCV 80 (79-97) fl MCH 25 L (28-32) pg MCHC 31 (30-34) % RDW 15.9 H (13.2-15.2) % Plt Count 288 (140-440) K/mm3 Lymph % (Auto) 34.9 (13.4-35.0) % Falls % (Auto) 7.6 H (0.0-7.3) % Eos % (Auto) 4.3 (0.0-4.3) % Baso % (Auto) 0.5 (0.0-1.8) % Lymph # 3.2 (1.2-5.4) K/mm3 Falls # 0.7 (0.0-0.8) K/mm3 Eos # 0.4 (0.0-0.4) K/mm3 Baso # 0.0 (0.0-0.1) K/mm3 Seg Neutrophils % 52.7 (40.0-70.0) % Seg Neutrophils # 4.9 (1.8-7.7) K/mm3 Sodium 141 (137-145) mmol/L Potassium 4.6 (3.6-5.0) mmol/L Chloride 100.9 (98-107) mmol/L Carbon Dioxide 28 (22-30) mmol/L Anion Gap 17 mmol/L BUN 11 (7-17) mg/dL Creatinine 0.4 L (0.7-1.2) mg/dL Estimated GFR > 60 ml/min BUN/Creatinine Ratio 28 % Glucose 110 H (65-100) mg/dL Calcium 8.6 (8.4-10.2) mg/dL Total Bilirubin < 0.20 (0.1-1.2) mg/dL AST 11 (5-40) units/L ALT 7 (7-56) units/L Alkaline Phosphatase 113 (35-129) units/L Total Protein 6.7 (6.3-8.2) g/dL Albumin 3.7 L (3.9-5) g/dL Albumin/Globulin Ratio 1.2 % Lipase 24 (13-60) units/L - Radiology Data Radiology results: report reviewed CT abdomen and pelvis noncontrast: Bilateral renal cysts. No kidney stones. No hydronephrosis. Large amount of stool in the colon including sigmoid and rectum. No obstruction or colitis. No free air or ascites - Medical Decision Making Abdominal distention Positive constipation comforted by CT scan without other acute findings Patient was elected to prior to arrival had some mild bowel movements prior to CT Patient received a soapsuds enema with additional bowel movement 1 dose of by mouth lactulose provided - Differential Diagnosis constipation, obstruction Critical Care Time: No Critical care attestation.: If time is entered above; I have spent that time in minutes in the direct care of this critically ill patient, excluding procedure time. ED Disposition Clinical Impression: Constipation Disposition: DC-01 TO HOME OR SELFCARE Is pt being admited?: No Does the pt Need Aspirin: No Condition: Stable Instructions: Constipation (ED) Additional Instructions: Take the prescribed medication or a laxative as needed for constipation. Return is symptoms worsen. Prescriptions: Polyethylene Glycol 3350 [Miralax 3350] 17 gm PO QDAY PRN #7 packet PRN Reason: Constipation Referrals: JODY SINGH MD [Primary Care Provider] - 3-5 Days Time of Disposition: 06:02
--- NOTE | 2017-04-21 00:48 | Cat Scan Report ---
FINAL REPORT PROCEDURE: CT ABDOMEN PELVIS WO CON TECHNIQUE: Computerized axial tomography of the abdomen and pelvis was performed without intravenous contrast. This study is performed without intravascular contrast material and its sensitivity for abdominal and pelvic pathology, including neoplasms, inflammation, abscess, free fluid, thrombosis, arterial dissection and infarction, is reduced compared with a contrast enhanced study. HISTORY: abdominal distention COMPARISON: No prior studies are available for comparison. FINDINGS: Visualized lower thorax: No significant abnormality. Liver: Normal size and attenuation. Spleen: Normal size and attenuation. Gallbladder and biliary system: Normal. Pancreas: Normal. Adrenals: Normal. Kidneys: There are bilateral kidney cysts. There are no kidney stones. There is no hydronephrosis. There are vascular calcifications at the renal [place] bilaterally.. GI tract: There is a large amount of stool in the colon including the sigmoid and rectum. There is no obstruction or colitis. The stomach and small bowel are unremarkable. The appendix is not discretely identified. There is no indirect evidence of appendicitis.. Lymph nodes and mesentery: Normal. Vasculature: There is calcified plaque in the abdominal aorta and branches. There is no aneurysm.. Bladder: Normal. Reproductive organs: There has been a hysterectomy.. Peritoneum: There is no ascites or free air, abscess or adenopathy.. Musculoskeletal structures: No significant abnormality. Other: None. IMPRESSION: There are bilateral kidney cysts. There are no kidney stones. There is no hydronephrosis. There are vascular calcifications at the renal [place] bilaterally.. There is a large amount of stool in the colon including the sigmoid and rectum. There is no obstruction or colitis. The stomach and small bowel are unremarkable. The appendix is not discretely identified. There is no indirect evidence of appendicitis.. There has been a hysterectomy.. There is no ascites or free air, abscess or adenopathy.. .
[2017-04-21] MEDS ORDERED: CEPHULAC PO ONE (01:27)
[2017-04-21] MEDS ORDERED: CEPHULAC ONE (03:43)
[2017-04-21 07:01] VITALS: BP 136/79
== END 2017-04-21 07:30 | disposition home or self-care (01) ==
LOC: ED 21:05
DX: K59.00 Constipation, unspecified (principal); I11.0 Hypertensive heart disease with heart failure; I50.9 Heart failure, unspecified; E11.9 Type 2 diabetes mellitus without complications; K21.9 Gastro-esophageal reflux disease without esophagitis; Z95.1 Presence of aortocoronary bypass graft; Z79.82 Long term (current) use of aspirin; Z88.6 Allergy status to analgesic agent; Z88.0 Allergy status to penicillin
CPT/HCPCS: 36415; 74176; 80053; 83690; 85025; 99284

== ENCOUNTER 2017-12-15 08:34 | Inpatient (IN) | payer MEDICAID ==
--- NOTE | 2017-12-15 09:14 | Emergency Department Report ---
ED General Adult HPI - General Chief complaint: Altered Mental Status Stated complaint: GENERAL WEAKNESS LABORED BREATHING Time Seen by Provider: 12/15/17 09:00 Source: EMS Mode of arrival: Stretcher Limitations: Altered Mental Status - History of Present Illness Initial comments: Patient is a 67-year-old [place] female who was sent to a [place] [facility] care facility yesterday secondary to prolonged hospital stay where the patient had a posterior intracranial hemorrhage patient is now on a trach for oxygenation and has a PEG tube for feedings. Patient was sent to the emergency department this morning because of some respiratory distress. It was noted at the [place] [facility] the patient's systolic blood pressure was in the 60s. Patient at baseline is nonverbal according to the hospitalist to care for the majority of her stay patient every once in a while will open her eyes but for the most part is nonverbal and sleeps most of the day. Patient has not been febrile to our knowledge. - Related Data Home Medications Medication Instructions Recorded Confirmed Last Taken Ascorbic Acid [Vitamin C] 500 mg PO Q12H 09/12/15 10/29/17 07/11/16 Baclofen [Lioresal] 10 mg PO TID 09/12/15 10/29/17 07/11/16 Cyclobenzaprine [Flexeril 10 MG 10 mg PO BID PRN 09/12/15 10/29/17 07/11/16 TAB] Ipratropium/Albuterol Sulfate 1 ampul IH Q6HR PRN 09/12/15 10/29/17 Unknown [DUONEB *Not for PRN Use*] LORazepam [Ativan] 0.5 mg PO TID 09/12/15 10/29/17 07/11/16 Magnesium Hydroxide [Milk of 30 ml PO HS 09/12/15 10/29/17 07/11/16 Magnesia] Oxycodone HCl/Acetaminophen 1 each PO Q6HR PRN 09/12/15 10/29/17 Unknown [Percocet 10/325 mg] clonazePAM [KlonoPIN] 2 mg PO BID 09/12/15 10/29/17 07/10/16 Pravastatin Sodium [Pravastatin] 10 mg PO QHS 07/13/16 10/29/17 07/11/16 Aspirin [Aspirin BABY CHEW TAB] 81 mg PO QDAY 10/29/17 10/29/17 Unknown Citalopram [celeXA] 20 mg PO QDAY 10/29/17 10/29/17 Unknown Docusate Sodium [Colace] 100 mg PO BID 10/29/17 10/29/17 Unknown Gabapentin [Neurontin] 600 mg PO TID 10/29/17 10/29/17 Unknown Levothyroxine [Synthroid] 125 mcg PO QAM 10/29/17 10/29/17 Unknown Lubiprostone (Nf) [Amitiza Cap 24 mcg PO BIDWM 10/29/17 10/29/17 Unknown (Nf)] Pantoprazole [Protonix] 40 mg PO QAM 10/29/17 10/29/17 Unknown Potassium Chloride [K-Dur] 20 meq PO QDAY 10/29/17 10/29/17 Unknown Sennosides [Senna] 8.6 mg PO BID 10/29/17 10/29/17 Unknown Previous Rx's Medication Instructions Recorded Last Taken Type Carvedilol [Coreg] 12.5 mg PO BID #60 tablet 08/07/16 Unknown Rx Lisinopril [Zestril TAB] 20 mg PO QDAY #30 tablet 08/07/16 Unknown Rx Polyethylene Glycol 3350 [Miralax 17 gm PO QDAY PRN #7 packet 04/21/17 Unknown Rx 3350] Allergies Allergy/AdvReac Type Severity Reaction Status Date / Time ibuprofen Allergy Unknown Verified 09/12/15 23:04 Penicillins Allergy Unknown Verified 09/12/15 23:04 ED Review of Systems ROS: Stated complaint: GENERAL WEAKNESS LABORED BREATHING Other details as noted in HPI Comment: Unobtainable due to pts medical conditions ED Past Medical Hx - Past Medical History Previous Medical History?: Yes Hx Hypertension: Yes Hx CVA: Yes Hx Congestive Heart Failure: Yes Hx Diabetes: Yes Hx Deep Vein Thrombosis: No Hx GERD: Yes Hx Renal Disease: No Hx Asthma: No Hx COPD: Yes Additional medical history: HYPOTHROIDISM - Surgical History Hx Pacemaker: No Hx Internal Defibrillator: No - Social History Smoking Status: Unknown if ever smoked - Medications Home Medications: Home Medications Medication Instructions Recorded Confirmed Last Taken Type Ascorbic Acid [Vitamin C] 500 mg PO Q12H 09/12/15 10/29/17 07/11/16 History Baclofen [Lioresal] 10 mg PO TID 09/12/15 10/29/17 07/11/16 History Cyclobenzaprine [Flexeril 10 MG 10 mg PO BID PRN 09/12/15 10/29/17 07/11/16 History TAB] Ipratropium/Albuterol Sulfate 1 ampul IH Q6HR PRN 09/12/15 10/29/17 Unknown History [DUONEB *Not for PRN Use*] LORazepam [Ativan] 0.5 mg PO TID 09/12/15 10/29/17 07/11/16 History Magnesium Hydroxide [Milk of 30 ml PO HS 09/12/15 10/29/17 07/11/16 History Magnesia] Oxycodone HCl/Acetaminophen 1 each PO Q6HR PRN 09/12/15 10/29/17 Unknown History [Percocet 10/325 mg] clonazePAM [KlonoPIN] 2 mg PO BID 09/12/15 10/29/17 07/10/16 History Pravastatin Sodium [Pravastatin] 10 mg PO QHS 07/13/16 10/29/17 07/11/16 History Carvedilol [Coreg] 12.5 mg PO BID #60 tablet 08/07/16 10/29/17 Unknown Rx Lisinopril [Zestril TAB] 20 mg PO QDAY #30 tablet 08/07/16 10/29/17 Unknown Rx Polyethylene Glycol 3350 [Miralax 17 gm PO QDAY PRN #7 packet 04/21/17 10/29/17 Unknown Rx 3350] Aspirin [Aspirin BABY CHEW TAB] 81 mg PO QDAY 10/29/17 10/29/17 Unknown History Citalopram [celeXA] 20 mg PO QDAY 10/29/17 10/29/17 Unknown History Docusate Sodium [Colace] 100 mg PO BID 10/29/17 10/29/17 Unknown History Gabapentin [Neurontin] 600 mg PO TID 10/29/17 10/29/17 Unknown History Levothyroxine [Synthroid] 125 mcg PO QAM 10/29/17 10/29/17 Unknown History Lubiprostone (Nf) [Amitiza Cap 24 mcg PO BIDWM 10/29/17 10/29/17 Unknown History (Nf)] Pantoprazole [Protonix] 40 mg PO QAM 10/29/17 10/29/17 Unknown History Potassium Chloride [K-Dur] 20 meq PO QDAY 10/29/17 10/29/17 Unknown History Sennosides [Senna] 8.6 mg PO BID 10/29/17 10/29/17 Unknown History ED Physical Exam - General Limitations: Altered Mental Status General appearance: in no apparent distress - Head Head exam: Present: atraumatic, normocephalic - Eye Eye exam: Present: normal appearance - Neck Neck exam: Present: other (patient has a trach in place. Patient has been suctioned.) - Respiratory Respiratory exam: Present: normal lung sounds bilaterally. Absent: respiratory distress, wheezes, rales, rhonchi - Cardiovascular Cardiovascular Exam: Present: regular rate, normal rhythm - GI/Abdominal GI/Abdominal exam: Present: soft, distended, normal bowel sounds. Absent: tenderness, guarding, rebound, rigid - Neurological Exam Neurological exam: Present: other (lethargic) ED Course Vital Signs 12/15/17 12/15/17 12/15/17 08:39 08:42 08:46 Temperature 98.5 F Pulse Rate 78 109 H 80 Respiratory 36 H 12 41 H Rate Blood Pressure 117/34 O2 Sat by Pulse 100 76 L Oximetry 12/15/17 12/15/17 12/15/17 09:01 09:15 09:31 Temperature Pulse Rate 78 78 Respiratory 40 H 43 H 43 H Rate Blood Pressure 77/41 77/41 O2 Sat by Pulse 72 L 76 L 65 L Oximetry 12/15/17 12/15/17 09:45 09:48 Temperature Pulse Rate Respiratory 45 H 45 H Rate Blood Pressure 84/41 O2 Sat by Pulse 82 L 98 Oximetry ED Medical Decision Making - Lab Data Result diagrams: 12/15/17 09:22 12/15/17 09:22 Lab Results 12/15/17 12/15/17 12/15/17 Range/Units 09:22 09:22 10:53 WBC 22.2 H (4.5-11.0) K/mm3 RBC 2.66 L (3.65-5.03) M/mm3 Hgb 8.1 L (10.1-14.3) gm/dl Hct 25.2 L (30.3-42.9) % MCV 95 (79-97) fl MCH 30 (28-32) pg MCHC 32 (30-34) % RDW 18.4 H (13.2-15.2) % Plt Count 529 H (140-440) K/mm3 Add Manual Diff Complete Total Counted 200 Seg Neuts % (Manual) 73.0 H (40.0-70.0) % Band Neutrophils % 5.0 % Lymphocytes % (Manual) 11.0 L (13.4-35.0) % Reactive Lymphs % (Man) 0 % Monocytes % (Manual) 6.5 (0.0-7.3) % Eosinophils % (Manual) 3.0 (0.0-4.3) % Basophils % (Manual) 1.0 (0.0-1.8) % Metamyelocytes % 0.5 % Myelocytes % 0 % Promyelocytes % 0 % Blast Cells % 0 % Nucleated RBC % Not Reportable Seg Neutrophils # Man 16.2 H (1.8-7.7) K/mm3 Band Neutrophils # 1.1 K/mm3 Lymphocytes # (Manual) 2.4 (1.2-5.4) K/mm3 Abs React Lymphs (Man) 0.0 K/mm3 Monocytes # (Manual) 1.4 H (0.0-0.8) K/mm3 Eosinophils # (Manual) 0.7 H (0.0-0.4) K/mm3 Basophils # (Manual) 0.2 H (0.0-0.1) K/mm3 Metamyelocytes # 0.1 K/mm3 Myelocytes # 0.0 K/mm3 Promyelocytes # 0.0 K/mm3 Blast Cells # 0.0 K/mm3 WBC Morphology Not Reportable Hypersegmented Neuts Not Reportable Hyposegmented Neuts Not Reportable Hypogranular Neuts Not Reportable Smudge Cells Not Reportable Toxic Granulation Not Reportable Toxic Vacuolation Not Reportable Dohle Bodies Not Reportable Pelger-Huet Anomaly Not Reportable Eileen Rods Not Reportable Platelet Estimate Consistent w auto Clumped Platelets Not Reportable Plt Clumps, EDTA Not Reportable Large Platelets Not Reportable Giant Platelets Not Reportable Platelet Satelliting Not Reportable Plt Morphology Comment Not Reportable RBC Morphology Not Reportable Dimorphic RBCs Not Reportable Polychromasia 1+ Hypochromasia 1+ Poikilocytosis Not Reportable Anisocytosis 1+ Microcytosis Not Reportable Macrocytosis 1+ Spherocytes Not Reportable Pappenheimer Bodies Not Reportable Sickle Cells Not Reportable Target Cells Not Reportable Tear Drop Cells Few Ovalocytes Few Helmet Cells Not Reportable [place] Bodies Not Reportable [place] Rings Not Reportable Beeler Cells Not Reportable Bite Cells Not Reportable Crenated Cell Not Reportable Elliptocytes Few Acanthocytes (Spur) Not Reportable Rouleaux Not Reportable Hemoglobin C Crystals Not Reportable Schistocytes Rare Malaria parasites Not Reportable Adrinao Bodies Not Reportable Hem Pathologist Commnt No Sodium 134 L (137-145) mmol/L Potassium 5.6 H D (3.6-5.0) mmol/L Chloride 96.8 L (98-107) mmol/L Carbon Dioxide 22 (22-30) mmol/L Anion Gap 21 mmol/L BUN 18 H (7-17) mg/dL Creatinine 0.9 D (0.7-1.2) mg/dL Estimated GFR > 60 ml/min BUN/Creatinine Ratio 20 % Glucose 114 H (65-100) mg/dL Lactic Acid 2.50 H* (0.7-2.0) mmol/L Calcium 9.2 (8.4-10.2) mg/dL - Radiology Data interpreted by me: X-ray shows intact trach as well as a pacing device present. On the right middle lobe there is slight haziness that could be a very early infiltrate secondary to aspiration. - Medical Decision Making Patient is a 67-year-old female coming from a [place] [facility] care facility for respiratory distress. Patient is breathing is much improved after suctioning on arrival. X -ray shows possible early infiltrate in the right middle lobe. It is possible that the patient may have aspirated during respiratory distress. [facility] Dr. schrader shows a hypo-intensive episode is improved since the patient has been here. Patient is continued to be nonverbal and poorly responsive however this is patient's baseline. Patient be admitted to the hospitalist service at this time secondary to elevated lactic acid and leukocytosis with possible aspiration pneumonitis. Critical Care Time: Yes (30) Critical care attestation.: If time is entered above; I have spent that time in minutes in the direct care of this critically ill patient, excluding procedure time. ED Disposition Clinical Impression: Aspiration pneumonia Qualifiers: Aspiration pneumonia type: unspecified Laterality: right Lung location: middle lobe of lung Qualified Code(s): J69.0 - Pneumonitis due to inhalation of food and vomit Altered mental state Qualifiers: Altered mental status type: unspecified Qualified Code(s): R41.82 - Altered mental status, unspecified Leukocytosis Qualifiers: Leukocytosis type: unspecified Qualified Code(s): D72.829 - Elevated white blood cell count, unspecified Disposition: 09 OP ADMIT IP TO THIS HOSP Is pt being admited?: Yes Does the pt Need Aspirin: No Condition: Poor Instructions: Bacterial Pneumonia (ED) Referrals: JODY SINGH MD [Primary Care Provider] - 3-5 Days Time of Disposition: 12:50
[2017-12-15 10:09] LABS: Hematocrit 25.2 % (30.3-42.9); Hemoglobin 8.1 gm/dl (10.1-14.3); Mean Corpuscular HGB Conc 32 % (30-34); Mean Corpuscular Hemoglobin 30 pg (28-32); Mean Corpuscular Volume 95 fl (79-97); Red Blood Count 2.66 M/mm3 (3.65-5.03); Red Cell Distribution Width 18.4 % (13.2-15.2)
[2017-12-15 10:22] LABS: Platelet Count 529 K/mm3 (140-440)
[2017-12-15] MEDS ORDERED: NACL 0.9% 500 ML 500 ML IV ONE (10:23)
[2017-12-15 10:36] LABS: BUN/Creatinine Ratio 20; Blood Urea Nitrogen 18 mg/dL (7-17); Calcium 9.2 mg/dL (8.4-10.2); Hemolysis Index 75
[2017-12-15] MEDS ORDERED: VANCOMYCIN 1,500 MG in NACL 0.9% 500 ML 500 ML IV ONE (10:45)
[2017-12-15] MEDS ORDERED: VANCOMYCIN PHARMACY TO DOSE IV SCH (11:00)
[2017-12-15 11:03] LABS: Band Neutrophils # (Manual) 1.1 K/mm3; Monocytes % (Manual) 6.5 % (0.0-7.3); Total Cells Counted 200
[2017-12-15 11:04] LABS: Anisocytosis 1+; Hypochromasia 1+; Macrocytosis 1+; Ovalocytes Few; Platelet Estimate Consistent w Auto; Schistocytes Rare; Tear Drop Cells Few
--- NOTE | 2017-12-15 11:13 | XRay Report ---
FINAL REPORT EXAM: XR CHEST 1V AP HISTORY: labored breathing TECHNIQUE: Frontal chest x-ray. PRIORS: Chest x-ray December 04, 2017. FINDINGS: Cardiac silhouette is within normal limits. Aortic calcifications. Left cardiac device is intact. There is no effusion. There is no pneumothorax. There is no consolidation. There are no suspicious osseous lesions. Tracheostomy tube is intact. IMPRESSION: No acute cardiopulmonary findings.
[2017-12-15] MEDS ORDERED: APRESOLINE IV ONE (11:39)
[2017-12-15 12:48] LABS: Bilirubin,Urine NEG (Negative); Blood,Urine NEG (Negative); Color,Urine Yellow (Yellow); Protein,Urine <15 mg/dL mg/dL (Negative); Urobilinogen,Urine < 2.0 mg/dL (<2.0); WBC,Urine < 1.0 /HPF (0.0-6.0)
--- NOTE | 2017-12-15 12:49 | History and Physical Report ---
History of Present Illness Chief complaint: low oxygen level History of present illness: 67 YO Female SNF Resident with COPD, Chronic Respiratory Failure (Trach to Vent) , CHF, HTN, Hypothyroidism, CVA, Contracture, CAD presents to ED for evaluation. Pt is nonverbal and unable to provide history. Pt history taken from ED staff, EMS, and SNF staff. per staff, the patient was found to have tube feeding in her oral cavity overnight as well as low oxygen saturation combined with a systolic blood pressure in the 60's. EMS notified and patient transported to [facility] for further care and evaluation. Pt seen and evaluated in ED and found to have Sepsis, Aspiration Pneumonia, Encephalopathy, and Acidosis. No further history obtainable. Pt admitted to telemetry. Past History Past Medical History: CAD, COPD, heart failure, stroke Past Surgical History: Other (Trach/Peg placement. ) Social history: . denies: smoking, alcohol abuse, prescription drug abuse Family history: hypertension Medications and Allergies Allergies Allergy/AdvReac Type Severity Reaction Status Date / Time ibuprofen Allergy Unknown Verified 09/12/15 23:04 Penicillins Allergy Unknown Verified 09/12/15 23:04 Home Medications Medication Instructions Recorded Confirmed Last Taken Type Ascorbic Acid [Vitamin C] 500 mg PO Q12H 09/12/15 10/29/17 07/11/16 History Baclofen [Lioresal] 10 mg PO TID 09/12/15 10/29/17 07/11/16 History Cyclobenzaprine [Flexeril 10 MG 10 mg PO BID PRN 09/12/15 10/29/17 07/11/16 History TAB] Ipratropium/Albuterol Sulfate 1 ampul IH Q6HR PRN 09/12/15 10/29/17 Unknown History [DUONEB *Not for PRN Use*] LORazepam [Ativan] 0.5 mg PO TID 09/12/15 10/29/17 07/11/16 History Magnesium Hydroxide [Milk of 30 ml PO HS 09/12/15 10/29/17 07/11/16 History Magnesia] Oxycodone HCl/Acetaminophen 1 each PO Q6HR PRN 09/12/15 10/29/17 Unknown History [Percocet 10/325 mg] clonazePAM [KlonoPIN] 2 mg PO BID 09/12/15 10/29/17 07/10/16 History Pravastatin Sodium [Pravastatin] 10 mg PO QHS 07/13/16 10/29/17 07/11/16 History Carvedilol [Coreg] 12.5 mg PO BID #60 tablet 08/07/16 10/29/17 Unknown Rx Lisinopril [Zestril TAB] 20 mg PO QDAY #30 tablet 08/07/16 10/29/17 Unknown Rx Polyethylene Glycol 3350 [Miralax 17 gm PO QDAY PRN #7 packet 04/21/17 10/29/17 Unknown Rx 3350] Aspirin [Aspirin BABY CHEW TAB] 81 mg PO QDAY 10/29/17 10/29/17 Unknown History Citalopram [celeXA] 20 mg PO QDAY 10/29/17 10/29/17 Unknown History Docusate Sodium [Colace] 100 mg PO BID 10/29/17 10/29/17 Unknown History Gabapentin [Neurontin] 600 mg PO TID 10/29/17 10/29/17 Unknown History Levothyroxine [Synthroid] 125 mcg PO QAM 10/29/17 10/29/17 Unknown History Lubiprostone (Nf) [Amitiza Cap 24 mcg PO BIDWM 10/29/17 10/29/17 Unknown History (Nf)] Pantoprazole [Protonix] 40 mg PO QAM 10/29/17 10/29/17 Unknown History Potassium Chloride [K-Dur] 20 meq PO QDAY 10/29/17 10/29/17 Unknown History Sennosides [Senna] 8.6 mg PO BID 10/29/17 10/29/17 Unknown History Active Meds: Active Medications Levofloxacin/Dextrose (Levaquin 750mg/150ml) 750 mg in 150 mls @ 100 mls/hr IV Q24HR ZULMA; Protocol Vancomycin HCl (Vancomycin/Ns 1 Gm/250 Ml) 1 gm in 250 mls @ 166.667 mls/hr IV Q12H ZULMA Review of Systems ROS unobtainable: due to mental status Exam - Constitutional Vitals: Temp Pulse Resp BP Pulse Ox 98.5 F 78 45 H 84/41 98 12/15/17 08:39 12/15/17 09:15 12/15/17 09:48 12/15/17 09:45 12/15/17 09:48 General appearance: Present: severe distress - EENT Eyes: Present: miosis - Neck Neck: Present: supple - Respiratory Respiratory effort: labored Respiratory: bilateral: diminished, rhonchi - Cardiovascular Rhythm: other (tachycardia) Heart Sounds: Present: S1 & S2. Absent: rub, click - Extremities Extremities: pulses symmetrical, No edema Extremity abnormal: edema Peripheral Pulses: within normal limits - Abdominal General gastrointestinal: Present: soft, non-tender, non-distended, normal bowel sounds Female genitourinary: Present: normal - Integumentary Integumentary: Present: clear, dry - Musculoskeletal Musculoskeletal: generalized weakness - Psychiatric Psychiatric: no appropriate mood/affect, no intact judgment & insight, no memory intact - Neurologic Neurologic: focal deficits, no moves all extremities, no gait normal Results - Labs CBC & Chem 7: 12/15/17 09:22 12/15/17 09:22 Labs: Abnormal lab results 12/15/17 12/15/17 12/15/17 Range/Units 09:22 09:22 10:53 WBC 22.2 H (4.5-11.0) K/mm3 RBC 2.66 L (3.65-5.03) M/mm3 Hgb 8.1 L (10.1-14.3) gm/dl Hct 25.2 L (30.3-42.9) % RDW 18.4 H (13.2-15.2) % Plt Count 529 H (140-440) K/mm3 Seg Neuts % (Manual) 73.0 H (40.0-70.0) % Lymphocytes % (Manual) 11.0 L (13.4-35.0) % Seg Neutrophils # Man 16.2 H (1.8-7.7) K/mm3 Monocytes # (Manual) 1.4 H (0.0-0.8) K/mm3 Eosinophils # (Manual) 0.7 H (0.0-0.4) K/mm3 Basophils # (Manual) 0.2 H (0.0-0.1) K/mm3 Sodium 134 L (137-145) mmol/L Potassium 5.6 H D (3.6-5.0) mmol/L Chloride 96.8 L (98-107) mmol/L BUN 18 H (7-17) mg/dL Glucose 114 H (65-100) mg/dL Lactic Acid 2.50 H* (0.7-2.0) mmol/L Assessment and Plan - Patient Problems (1) Aspiration pneumonia Current Visit: Yes Status: Acute Qualifiers: Laterality: right Lung location: middle lobe of lung Plan to address problem: IV antibiotic therapy, Chest x ray, blood cultures, aspiration precautions, continue vent support, nutrition consult for tube feedings. (2) Sepsis Current Visit: Yes Status: Acute Qualifiers: Sepsis type: sepsis due to unspecified organism Qualified Code(s): A41.9 - Sepsis, unspecified organism Plan to address problem: IV antibiotic therapy, serial lactic acid, IVF resuscitation therapy, monitor uop q shift, blood cultures, urinalysis, (3) Respiratory failure Current Visit: Yes Status: Acute Qualifiers: Chronicity: acute on chronic Respiratory failure complication: hypoxia Qualified Code(s): J96.21 - Acute and chronic respiratory failure with hypoxia Plan to address problem: supplemental oxygen, nebulizer therapy, trach to vent support, chest x ray, pulse oximetry, telemetry monitoring. (4) Acidosis Current Visit: Yes Status: Acute (5) COPD (chronic obstructive pulmonary disease) Current Visit: No Status: Chronic Qualifiers: COPD type: chronic bronchitis Plan to address problem: supportive care, trach to vent, nebulizer therapy, pulse oximetry. (6) Acidosis Current Visit: Yes Status: Acute Plan to address problem: IVf resuscitation therapy, treat sepsis, repeat bmp, (7) DVT prophylaxis Current Visit: Yes Status: Acute Plan to address problem: SCD to BLE while in bed.
[2017-12-15] MEDS ORDERED: ZOFRAN IV PRN (12:56)
[2017-12-15] MEDS ORDERED: VANCOMYCIN 1,750 MG in NACL 0.9% 500 ML 500 ML IV ONE (12:56)
[2017-12-15] MEDS ORDERED: SODIUM CHLORIDE FLUSH SYRINGE 10 ML IV PRN (12:56)
[2017-12-15] MEDS ORDERED: NACL 0.9% 1000 ML IV ONE (12:56)
[2017-12-15] MEDS ORDERED: MIRALAX 3350 PO PRN (13:03)
[2017-12-15] MEDS ORDERED: FLEXERIL PO PRN (13:03)
[2017-12-15] MEDS ORDERED: NON-FORMULARY (Oxycodone Hcl/Acetaminophen [Percocet 10/325 Mg] 1 EACH) PO PRN (13:03)
[2017-12-15] MEDS ORDERED: DUONEB *Not for PRN Use IH (13:03)
[2017-12-15] MEDS ORDERED: NON-FORMULARY (Lubiprostone (Nf) 24 MCG) PO SCH (13:15)
[2017-12-15] MEDS ORDERED: PROVENTIL IH PRN (13:32)
[2017-12-15] MEDS ORDERED: NACL 0.9% 1000 ML 2,000 ML ONE (13:40)
[2017-12-15] MEDS ORDERED: ROXICODONE PO PRN (13:55)
[2017-12-15] MEDS ORDERED: LEVAQUIN 750MG/150ML 750 MG/150 ML BAG IV ONE (14:07)
[2017-12-15] MEDS: LEVAQUIN 750MG/150ML 750 MG/150 ML BAG IV SCH (14:08)
[2017-12-15] MEDS: ATIVAN PO SCH ×2 (14:48→20:00)
[2017-12-15] MEDS: LIORESAL PO SCH ×2 (14:48→22:00)
[2017-12-15] MEDS: NEURONTIN PO SCH ×2 (14:49→20:00)
[2017-12-15] MEDS: VITAMIN C PO SCH (15:18)
[2017-12-15] MEDS: PERCOCET 5/325 PO PRN (15:19)
[2017-12-15] MEDS: PRAVACHOL PO SCH (22:00)
[2017-12-15] MEDS: COREG PO SCH (22:00)
[2017-12-15] MEDS: MILK OF MAGNESIA PO SCH (22:00)
[2017-12-15] MEDS: COLACE PO SCH (22:00)
[2017-12-15] MEDS: SENOKOT PO SCH (22:00)
[2017-12-15] MEDS: SODIUM CHLORIDE FLUSH SYRINGE 10 ML IV SCH (22:00)
[2017-12-15] MEDS: LOVENOX SUB-Q SCH (22:00)
[2017-12-15] MEDS ORDERED: NON-FORMULARY (Pravastatin Sodium [Pravastatin] 10 MG) PO SCH (22:00)
[2017-12-15] MEDS ORDERED: VANCOMYCIN/NS 1 GM/250 ML 1 GM/250 ML BAG IV SCH (23:00)
[2017-12-16] MEDS: VANCOMYCIN 1,500 MG in NACL 0.9% 500 ML 500 ML IV SCH ×2 (05:42→17:58)
[2017-12-16] MEDS: SYNTHROID PO SCH (05:47)
[2017-12-16] MEDS: VITAMIN C PO SCH ×2 (05:47→15:34)
[2017-12-16] MEDS ORDERED: K-DUR PO SCH (10:00)
[2017-12-16] MEDS: POTASSIUM CHLORIDE FEEDTUBE SCH ×2 (11:00→11:16)
[2017-12-16] MEDS: PROTONIX PO SCH (11:16)
[2017-12-16] MEDS: LEVAQUIN 750MG/150ML 750 MG/150 ML BAG IV SCH (11:16)
[2017-12-16] MEDS: BABY ASPIRIN PO SCH (11:16)
[2017-12-16] MEDS: COLACE PO SCH (11:17)
[2017-12-16] MEDS: ATIVAN PO SCH ×2 (11:19→15:28)
[2017-12-16] MEDS: celeXA PO SCH ×2 (11:19→15:27)
[2017-12-16] MEDS: SODIUM CHLORIDE FLUSH SYRINGE 10 ML IV SCH (11:20)
[2017-12-16] MEDS: SENOKOT PO SCH (11:20)
[2017-12-16] MEDS: COREG PO SCH (11:36)
[2017-12-16] MEDS: ZESTRIL PO SCH (11:38)
[2017-12-16 12:23] LABS: BUN/Creatinine Ratio 33; Blood Urea Nitrogen 13 mg/dL (7-17); Calcium 8.2 mg/dL (8.4-10.2); Hemolysis Index 15
[2017-12-16 12:25] LABS: Hematocrit 21.8 % (30.3-42.9); Hemoglobin 6.8 gm/dl (10.1-14.3); Mean Corpuscular HGB Conc 31 % (30-34); Mean Corpuscular Hemoglobin 29 pg (28-32); Mean Corpuscular Volume 94 fl (79-97); Platelet Count 467 K/mm3 (140-440); Red Blood Count 2.33 M/mm3 (3.65-5.03); Red Cell Distribution Width 18.7 % (13.2-15.2)
[2017-12-16] MEDS ORDERED: PANCREAZE DR 10,500 UNIT FEEDTUBE PRN (14:16)
[2017-12-16] MEDS ORDERED: SIMPLE SYRUP FEEDTUBE PRN ×2 (14:16)
[2017-12-16] MEDS ORDERED: SODIUM BICARBONATE FEEDTUBE PRN (14:16)
--- NOTE | 2017-12-16 14:35 | Progress Note ---
<RONNY JIMENEZ - Last Filed: 12/16/17 15:09> Assessment and Plan Assessment and plan: 1. Chronic Respiratory failure ((s/p trach)) Continue supplemental oxygen via trach Nebulizer treatment PRN chest x ray result renew, no acute findings Continue pulm toilet 2. 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 Metabolic encephalopathy Continue to Assess for responsiveness remain unresponsive, 4. Hypertension. BP stable, continue current regimen Monitor BP per unit protocol 5. CHF/Cardiomyopathy (EF unknown) 6. DM type 2 Glycemic management Insulin coverage per sliding scale 7. COPD (s/p trach) Continue nebs PRN Continue maintenance therapy 8. Hypothyroidism. Continue home meds 9. Anemia (H&H 6.2) Recheck H&H today, if continue to decrease PRBCs PRN 10. 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 Hospitalist Physical - Constitutional Vitals: Temp Pulse Resp BP Pulse Ox 98.0 F 76 18 146/69 100 12/16/17 08:44 12/16/17 11:38 12/16/17 10:00 12/16/17 11:38 12/16/17 10:00 General appearance: Present: severe distress Results - Labs CBC & Chem 7: 12/16/17 11:14 12/16/17 11:14 Labs: Laboratory Last Values WBC 13.1 K/mm3 (4.5-11.0) H 12/16/17 11:14 RBC 2.33 M/mm3 (3.65-5.03) L 12/16/17 11:14 Hgb 6.8 gm/dl (10.1-14.3) L 12/16/17 11:14 Hct 21.8 % (30.3-42.9) L 12/16/17 11:14 MCV 94 fl (79-97) 12/16/17 11:14 MCH 29 pg (28-32) 12/16/17 11:14 MCHC 31 % (30-34) 12/16/17 11:14 RDW 18.7 % (13.2-15.2) H 12/16/17 11:14 Plt Count 467 K/mm3 (140-440) H 12/16/17 11:14 Add Manual Diff Complete 12/15/17 09:22 Total Counted 200 12/15/17 09:22 Seg Neuts % (Manual) 73.0 % (40.0-70.0) H 12/15/17 09:22 Band Neutrophils % 5.0 % 12/15/17 09:22 Lymphocytes % (Manual) 11.0 % (13.4-35.0) L 12/15/17 09:22 Reactive Lymphs % (Man) 0 % 12/15/17 09:22 Monocytes % (Manual) 6.5 % (0.0-7.3) 12/15/17 09:22 Eosinophils % (Manual) 3.0 % (0.0-4.3) 12/15/17 09:22 Basophils % (Manual) 1.0 % (0.0-1.8) 12/15/17 09:22 Metamyelocytes % 0.5 % 12/15/17 09:22 Myelocytes % 0 % 12/15/17 09:22 Promyelocytes % 0 % 12/15/17 09:22 Blast Cells % 0 % 12/15/17 09:22 Nucleated RBC % Not Reportable 12/15/17 09:22 Seg Neutrophils # Man 16.2 K/mm3 (1.8-7.7) H 12/15/17 09:22 Band Neutrophils # 1.1 K/mm3 12/15/17 09:22 Lymphocytes # (Manual) 2.4 K/mm3 (1.2-5.4) 12/15/17 09:22 Abs React Lymphs (Man) 0.0 K/mm3 12/15/17 09:22 Monocytes # (Manual) 1.4 K/mm3 (0.0-0.8) H 12/15/17 09:22 Eosinophils # (Manual) 0.7 K/mm3 (0.0-0.4) H 12/15/17 09:22 Basophils # (Manual) 0.2 K/mm3 (0.0-0.1) H 12/15/17 09:22 Metamyelocytes # 0.1 K/mm3 12/15/17 09:22 Myelocytes # 0.0 K/mm3 12/15/17 09:22 Promyelocytes # 0.0 K/mm3 12/15/17 09:22 Blast Cells # 0.0 K/mm3 12/15/17 09:22 WBC Morphology Not Reportable 12/15/17 09:22 Hypersegmented Neuts Not Reportable 12/15/17 09:22 Hyposegmented Neuts Not Reportable 12/15/17 09:22 Hypogranular Neuts Not Reportable 12/15/17 09:22 Smudge Cells Not Reportable 12/15/17 09:22 Toxic Granulation Not Reportable 12/15/17 09:22 Toxic Vacuolation Not Reportable 12/15/17 09:22 Dohle Bodies Not Reportable 12/15/17 09:22 Pelger-Huet Anomaly Not Reportable 12/15/17 09:22 Eileen Rods Not Reportable 12/15/17 09:22 Platelet Estimate Consistent w auto 12/15/17 09:22 Clumped Platelets Not Reportable 12/15/17 09:22 Plt Clumps, EDTA Not Reportable 12/15/17 09:22 Large Platelets Not Reportable 12/15/17 09:22 Giant Platelets Not Reportable 12/15/17 09:22 Platelet Satelliting Not Reportable 12/15/17 09:22 Plt Morphology Comment Not Reportable 12/15/17 09:22 RBC Morphology Not Reportable 12/15/17 09:22 Dimorphic RBCs Not Reportable 12/15/17 09:22 Polychromasia 1+ 12/15/17 09:22 Hypochromasia 1+ 12/15/17 09:22 Poikilocytosis Not Reportable 12/15/17 09:22 Anisocytosis 1+ 12/15/17 09:22 Microcytosis Not Reportable 12/15/17 09:22 Macrocytosis 1+ 12/15/17 09:22 Spherocytes Not Reportable 12/15/17 09:22 Pappenheimer Bodies Not Reportable 12/15/17 09:22 Sickle Cells Not Reportable 12/15/17 09:22 Target Cells Not Reportable 12/15/17 09:22 Tear Drop Cells Few 12/15/17 09:22 Ovalocytes Few 12/15/17 09:22 Helmet Cells Not Reportable 12/15/17 09:22 [place] Bodies Not Reportable 12/15/17 09:22 [place] Rings Not Reportable 12/15/17 09:22 [place] Cells Not Reportable 12/15/17 09:22 Bite Cells Not Reportable 12/15/17 09:22 Crenated Cell Not Reportable 12/15/17 09:22 Elliptocytes Few 12/15/17 09:22 Acanthocytes (Spur) Not Reportable 12/15/17 09:22 Rouleaux Not Reportable 12/15/17 09:22 Hemoglobin C Crystals Not Reportable 12/15/17 09:22 Schistocytes Rare 12/15/17 09:22 Malaria parasites Not Reportable 12/15/17 09:22 Adriano Bodies Not Reportable 12/15/17 09:22 Hem Pathologist Commnt No 12/15/17 09:22 Sodium 137 mmol/L (137-145) 12/16/17 11:14 Potassium 4.5 mmol/L (3.6-5.0) 12/16/17 11:14 Chloride 107.0 mmol/L (98-107) 12/16/17 11:14 Carbon Dioxide 21 mmol/L (22-30) L 12/16/17 11:14 Anion Gap 14 mmol/L 12/16/17 11:14 BUN 13 mg/dL (7-17) 12/16/17 11:14 Creatinine 0.4 mg/dL (0.7-1.2) L D 12/16/17 11:14 Estimated GFR > 60 ml/min 12/16/17 11:14 BUN/Creatinine Ratio 33 % 12/16/17 11:14 Glucose 91 mg/dL (65-100) 12/16/17 11:14 Lactic Acid 1.90 mmol/L (0.7-2.0) 12/15/17 19:36 Calcium 8.2 mg/dL (8.4-10.2) L 12/16/17 11:14 Urine Color Yellow (Yellow) 12/15/17 12:39 Urine Turbidity Clear (Clear) 12/15/17 12:39 Urine pH 7.0 (5.0-7.0) 12/15/17 12:39 Ur Specific [place] 1.009 (1.003-1.030) 12/15/17 12:39 Urine Protein <15 mg/dl mg/dL (Negative) 12/15/17 12:39 Urine Glucose (UA) Neg mg/dL (Negative) 12/15/17 12:39 Urine Ketones Neg mg/dL (Negative) 12/15/17 12:39 Urine Blood Neg (Negative) 12/15/17 12:39 Urine Nitrite Neg (Negative) 12/15/17 12:39 Urine Bilirubin Neg (Negative) 12/15/17 12:39 Urine Urobilinogen < 2.0 mg/dL (<2.0) 12/15/17 12:39 Ur Leukocyte Esterase Neg (Negative) 12/15/17 12:39 Urine WBC (Auto) < 1.0 /HPF (0.0-6.0) 12/15/17 12:39 Urine RBC (Auto) 2.0 /HPF (0.0-6.0) 12/15/17 12:39 U Epithel Cells (Auto) 1.0 /HPF (0-13.0) 12/15/17 12:39 <LEXY ESTEVEZ R - Last Filed: 12/17/17 08:47> Assessment and Plan Assessment and plan: I saw and evaluated the patient on the day of service. I agree with the findings and the plan of care as documented in the Nurse Practitioner's~note, with the following corrections and additions. severe anemia: repeat h/h, if still low will transfuse 1 unit PRBC. History Interval history: pt seen and examined h/h dropped today, no active bleeding per RN No family at bedside Hospitalist Physical - Physical exam Narrative exam: General appearance: Present: mild distress - EENT Eyes: Present: miosis - Neck Neck: Present: supple - Respiratory Respiratory effort: labored Respiratory: bilateral: diminished, rhonchi - Cardiovascular Rhythm: other (tachycardia) Heart Sounds: Present: S1 & S2. Absent: rub, click - Extremities Extremities: pulses symmetrical, No edema Extremity abnormal: edema Peripheral Pulses: within normal limits - Abdominal General gastrointestinal: Present: soft, non-tender, non-distended, normal bowel sounds Female genitourinary: Present: normal - Integumentary Integumentary: Present: clear, dry - Musculoskeletal Musculoskeletal: generalized weakness - Psychiatric Psychiatric: no appropriate mood/affect, no intact judgment & insight, no memory intact - Neurologic Neurologic: focal deficits, no moves all extremities, no gait normal - Constitutional Vitals: Temp Pulse Resp BP Pulse Ox 98.0 F 64 18 104/67 100 12/17/17 06:52 12/17/17 06:52 12/17/17 06:52 12/17/17 06:52 12/17/17 06:52 Results - Labs CBC & Chem 7: 12/16/17 14:51 12/16/17 11:14 Labs: Laboratory Last Values WBC 13.1 K/mm3 (4.5-11.0) H 12/16/17 11:14 RBC 2.33 M/mm3 (3.65-5.03) L 12/16/17 11:14 Hgb 6.8 gm/dl (10.1-14.3) L 12/16/17 14:51 Hct 21.7 % (30.3-42.9) L 12/16/17 14:51 MCV 94 fl (79-97) 12/16/17 11:14 MCH 29 pg (28-32) 12/16/17 11:14 MCHC 31 % (30-34) 12/16/17 11:14 RDW 18.7 % (13.2-15.2) H 12/16/17 11:14 Plt Count 467 K/mm3 (140-440) H 12/16/17 11:14 Add Manual Diff Complete 12/15/17 09:22 Total Counted 200 12/15/17 09:22 Seg Neuts % (Manual) 73.0 % (40.0-70.0) H 12/15/17 09:22 Band Neutrophils % 5.0 % 12/15/17 09:22 Lymphocytes % (Manual) 11.0 % (13.4-35.0) L 12/15/17 09:22 Reactive Lymphs % (Man) 0 % 12/15/17 09:22 Monocytes % (Manual) 6.5 % (0.0-7.3) 12/15/17 09:22 Eosinophils % (Manual) 3.0 % (0.0-4.3) 12/15/17 09:22 Basophils % (Manual) 1.0 % (0.0-1.8) 12/15/17 09:22 Metamyelocytes % 0.5 % 12/15/17 09:22 Myelocytes % 0 % 12/15/17 09:22 Promyelocytes % 0 % 12/15/17 09:22 Blast Cells % 0 % 12/15/17 09:22 Nucleated RBC % Not Reportable 12/15/17 09:22 Seg Neutrophils # Man 16.2 K/mm3 (1.8-7.7) H 12/15/17 09:22 Band Neutrophils # 1.1 K/mm3 12/15/17 09:22 Lymphocytes # (Manual) 2.4 K/mm3 (1.2-5.4) 12/15/17 09:22 Abs React Lymphs (Man) 0.0 K/mm3 12/15/17 09:22 Monocytes # (Manual) 1.4 K/mm3 (0.0-0.8) H 12/15/17 09:22 Eosinophils # (Manual) 0.7 K/mm3 (0.0-0.4) H 12/15/17 09:22 Basophils # (Manual) 0.2 K/mm3 (0.0-0.1) H 12/15/17 09:22 Metamyelocytes # 0.1 K/mm3 12/15/17 09:22 Myelocytes # 0.0 K/mm3 12/15/17 09:22 Promyelocytes # 0.0 K/mm3 12/15/17 09:22 Blast Cells # 0.0 K/mm3 12/15/17 09:22 WBC Morphology Not Reportable 12/15/17 09:22 Hypersegmented Neuts Not Reportable 12/15/17 09:22 Hyposegmented Neuts Not Reportable 12/15/17 09:22 Hypogranular Neuts Not Reportable 12/15/17 09:22 Smudge Cells Not Reportable 12/15/17 09:22 Toxic Granulation Not Reportable 12/15/17 09:22 Toxic Vacuolation Not Reportable 12/15/17 09:22 Dohle Bodies Not Reportable 12/15/17 09:22 Pelger-Huet Anomaly Not Reportable 12/15/17 09:22 Eileen Rods Not Reportable 12/15/17 09:22 Platelet Estimate Consistent w auto 12/15/17 09:22 Clumped Platelets Not Reportable 12/15/17 09:22 Plt Clumps, EDTA Not Reportable 12/15/17 09:22 Large Platelets Not Reportable 12/15/17 09:22 Giant Platelets Not Reportable 12/15/17 09:22 Platelet Satelliting Not Reportable 12/15/17 09:22 Plt Morphology Comment Not Reportable 12/15/17 09:22 RBC Morphology Not Reportable 12/15/17 09:22 Dimorphic RBCs Not Reportable 12/15/17 09:22 Polychromasia 1+ 12/15/17 09:22 Hypochromasia 1+ 12/15/17 09:22 Poikilocytosis Not Reportable 12/15/17 09:22 Anisocytosis 1+ 12/15/17 09:22 Microcytosis Not Reportable 12/15/17 09:22 Macrocytosis 1+ 12/15/17 09:22 Spherocytes Not Reportable 12/15/17 09:22 Pappenheimer Bodies Not Reportable 12/15/17 09:22 Sickle Cells Not Reportable 12/15/17 09:22 Target Cells Not Reportable 12/15/17 09:22 Tear Drop Cells Few 12/15/17 09:22 Ovalocytes Few 12/15/17 09:22 Helmet Cells Not Reportable 12/15/17 09:22 [place] Bodies Not Reportable 12/15/17 09:22 [place] Rings Not Reportable 12/15/17 09:22 [place] Cells Not Reportable 12/15/17 09:22 Bite Cells Not Reportable 12/15/17 09:22 Crenated Cell Not Reportable 12/15/17 09:22 Elliptocytes Few 12/15/17 09:22 Acanthocytes (Spur) Not Reportable 12/15/17 09:22 Rouleaux Not Reportable 12/15/17 09:22 Hemoglobin C Crystals Not Reportable 12/15/17 09:22 Schistocytes Rare 12/15/17 09:22 Malaria parasites Not Reportable 12/15/17 09:22 Adriano Bodies Not Reportable 12/15/17 09:22 Hem Pathologist Commnt No 12/15/17 09:22 Sodium 137 mmol/L (137-145) 12/16/17 11:14 Potassium 4.5 mmol/L (3.6-5.0) 12/16/17 11:14 Chloride 107.0 mmol/L (98-107) 12/16/17 11:14 Carbon Dioxide 21 mmol/L (22-30) L 12/16/17 11:14 Anion Gap 14 mmol/L 12/16/17 11:14 BUN 13 mg/dL (7-17) 12/16/17 11:14 Creatinine 0.4 mg/dL (0.7-1.2) L D 12/16/17 11:14 Estimated GFR > 60 ml/min 12/16/17 11:14 BUN/Creatinine Ratio 33 % 12/16/17 11:14 Glucose 91 mg/dL (65-100) 12/16/17 11:14 Lactic Acid 1.90 mmol/L (0.7-2.0) 12/15/17 19:36 Calcium 8.2 mg/dL (8.4-10.2) L 12/16/17 11:14 Iron 32 ug/dL (37-170) L 12/16/17 22:27 TIBC 296 mcg/dL (250-450) 12/16/17 22:27 Vitamin B12 1675 pg/mL (211-911) H 12/16/17 22:27 Urine Color Yellow (Yellow) 12/15/17 12:39 Urine Turbidity Clear (Clear) 12/15/17 12:39 Urine pH 7.0 (5.0-7.0) 12/15/17 12:39 Ur Specific [place] 1.009 (1.003-1.030) 12/15/17 12:39 Urine Protein <15 mg/dl mg/dL (Negative) 12/15/17 12:39 Urine Glucose (UA) Neg mg/dL (Negative) 12/15/17 12:39 Urine Ketones Neg mg/dL (Negative) 12/15/17 12:39 Urine Blood Neg (Negative) 12/15/17 12:39 Urine Nitrite Neg (Negative) 12/15/17 12:39 Urine Bilirubin Neg (Negative) 12/15/17 12:39 Urine Urobilinogen < 2.0 mg/dL (<2.0) 12/15/17 12:39 Ur Leukocyte Esterase Neg (Negative) 12/15/17 12:39 Urine WBC (Auto) < 1.0 /HPF (0.0-6.0) 12/15/17 12:39 Urine RBC (Auto) 2.0 /HPF (0.0-6.0) 12/15/17 12:39 U Epithel Cells (Auto) 1.0 /HPF (0-13.0) 12/15/17 12:39 Blood Type A POSITIVE 12/16/17 22:27 Antibody Screen Negative 12/16/17 22:27 Crossmatch See Detail 12/16/17 22:27
[2017-12-16 15:21] LABS: Hematocrit 21.7 % (30.3-42.9); Hemoglobin 6.8 gm/dl (10.1-14.3)
[2017-12-16] MEDS: LIORESAL PO SCH ×3 (15:25→21:00)
[2017-12-16] MEDS: NEURONTIN PO SCH ×3 (15:25→21:00)
[2017-12-16] MEDS ORDERED: NACL 0.9% 500 ML 500 ML IV ONE (21:16)
[2017-12-16 23:06] LABS: Iron 32 ug/dL (37-170); Total Iron Binding Capacity 296 mcg/dL (250-450)
[2017-12-17] MEDS: LOVENOX SUB-Q SCH ×2 (00:08→22:24)
[2017-12-17] MEDS: PRAVACHOL PO SCH ×2 (00:09→22:24)
[2017-12-17] MEDS: COLACE PO SCH ×3 (00:10→22:29)
[2017-12-17] MEDS: SENOKOT PO SCH ×3 (00:10→22:23)
[2017-12-17] MEDS: MILK OF MAGNESIA PO SCH ×2 (00:10→22:25)
[2017-12-17] MEDS: ATIVAN PO SCH ×4 (00:11→22:25)
[2017-12-17] MEDS: COREG PO SCH ×3 (00:11→22:24)
[2017-12-17] MEDS: SODIUM CHLORIDE FLUSH SYRINGE 10 ML IV SCH ×3 (00:12→22:29)
[2017-12-17] MEDS ORDERED: NACL 0.9% 500 ML 500 ML IV ONE (05:00)
[2017-12-17] MEDS: SYNTHROID PO SCH (05:23)
[2017-12-17] MEDS: VITAMIN C PO SCH ×2 (06:16→18:47)
[2017-12-17] MEDS: VANCOMYCIN/NS 1 GM/250 ML 1 GM/250 ML BAG IV SCH (07:52)
[2017-12-17] MEDS: BABY ASPIRIN PO SCH (10:09)
[2017-12-17] MEDS: POTASSIUM CHLORIDE FEEDTUBE SCH (10:09)
[2017-12-17] MEDS: celeXA PO SCH (10:10)
[2017-12-17] MEDS: LIORESAL PO SCH ×3 (10:10→22:28)
[2017-12-17] MEDS: NEURONTIN PO SCH ×3 (10:13→22:29)
[2017-12-17] MEDS: LEVAQUIN 750MG/150ML 750 MG/150 ML BAG IV SCH (10:15)
[2017-12-17 10:24] LABS: Hematocrit 24.9 % (30.3-42.9); Mean Corpuscular HGB Conc 32 % (30-34); Mean Corpuscular Hemoglobin 30 pg (28-32); Mean Corpuscular Volume 93 fl (79-97); Platelet Count 430 K/mm3 (140-440); Red Blood Count 2.67 M/mm3 (3.65-5.03); Red Cell Distribution Width 17.5 % (13.2-15.2)
[2017-12-17] MEDS: PROTONIX PO SCH (10:38)
[2017-12-17] MEDS: ZESTRIL PO SCH (10:41)
[2017-12-17 10:56] LABS: BUN/Creatinine Ratio 20; Blood Urea Nitrogen 8 mg/dL (7-17); Calcium 8.2 mg/dL (8.4-10.2); Hemolysis Index 19
[2017-12-17] MEDS ORDERED: PANCREAZE DR 10,500 UNIT FEEDTUBE PRN (12:25)
[2017-12-17] MEDS ORDERED: SIMPLE SYRUP FEEDTUBE PRN ×2 (12:25)
[2017-12-17] MEDS ORDERED: SODIUM BICARBONATE FEEDTUBE PRN (12:25)
--- NOTE | 2017-12-17 17:42 | Progress Note ---
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 BP stable, continue current regimen Monitor BP /CHF/Cardiomyopathy (EF 45-50%) cont medical Mx /DM type 2 Glycemic management Insulin coverage per sliding scale / COPD (s/p trach) Continue nebs PRN Continue maintenance therapy / Hypothyroidism. 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 Brief history: Patient is a 67-year-old [place] female who was sent to a group home just a day ago secondary to prolonged hospital stay where the patient had a posterior intracranial hemorrhage s/p trach for oxygenation and has a PEG tube for feedings. Patient was sent to the emergency department next day because of some respiratory distress. It was noted at the group home the patient's systolic blood pressure was in the 60s. Subjective Date of service: 12/17/17 Interval history: pt seen and examined h/h dropped today, no active bleeding per RN No family at bedside Objective - Exam Narrative Exam: General appearance: Present: mild distress - EENT Eyes: Present: miosis - Neck Neck: Present: supple - Respiratory Respiratory effort: labored Respiratory: bilateral: diminished, rhonchi - Cardiovascular Rhythm: other (tachycardia) Heart Sounds: Present: S1 & S2. Absent: rub, click - Extremities Extremities: pulses symmetrical, No edema Extremity abnormal: edema Peripheral Pulses: within normal limits - Abdominal General gastrointestinal: Present: soft, non-tender, non-distended, normal bowel sounds Female genitourinary: Present: normal - Integumentary Integumentary: Present: clear, dry - Musculoskeletal Musculoskeletal: generalized weakness - Psychiatric Psychiatric: no appropriate mood/affect, no intact judgment & insight, no memory intact - Neurologic Neurologic: focal deficits, no moves all extremities, no gait normal - Constitutional Vitals: Vital Signs - 12hr 12/17/17 12/17/17 12/17/17 05:52 06:22 06:52 Temperature 97.7 F 97.9 F 98.0 F Pulse Rate 70 70 64 Respiratory 20 20 18 Rate Blood Pressure 118/55 100/70 104/67 Blood Pressure [Left] O2 Sat by Pulse 99 100 100 Oximetry O2 Sat by Pulse Oximetry [ Assessment] 12/17/17 12/17/17 12/17/17 09:03 10:00 10:21 Temperature 99.4 F Pulse Rate 66 Respiratory 24 19 Rate Blood Pressure Blood Pressure [Left] O2 Sat by Pulse 100 100 100 Oximetry O2 Sat by Pulse Oximetry [ Assessment] 12/17/17 12/17/17 11:00 12:54 Temperature 97.5 F L Pulse Rate 67 Respiratory 22 Rate Blood Pressure Blood Pressure 125/59 [Left] O2 Sat by Pulse 100 Oximetry O2 Sat by Pulse 100 Oximetry [ Assessment] - Labs CBC & Chem 7: 12/17/17 10:03 12/17/17 10:03 Labs: Abnormal lab results 12/16/17 12/16/17 12/16/17 Range/Units 22:27 22:27 22:27 RBC (3.65-5.03) M/mm3 Hgb (10.1-14.3) gm/dl Hct (30.3-42.9) % RDW (13.2-15.2) % Chloride (98-107) mmol/L Creatinine (0.7-1.2) mg/dL Calcium (8.4-10.2) mg/dL Iron 32 L (37-170) ug/dL Vitamin B12 1675 H (211-911) pg/mL Crossmatch See Detail 12/17/17 12/17/17 Range/Units 10:03 10:03 RBC 2.67 L (3.65-5.03) M/mm3 Hgb 8.0 L (10.1-14.3) gm/dl Hct 24.9 L (30.3-42.9) % RDW 17.5 H (13.2-15.2) % Chloride 107.8 H (98-107) mmol/L Creatinine 0.4 L (0.7-1.2) mg/dL Calcium 8.2 L (8.4-10.2) mg/dL Iron (37-170) ug/dL Vitamin B12 (211-911) pg/mL Crossmatch
[2017-12-18] MEDS: VITAMIN C PO SCH ×2 (01:39→14:05)
[2017-12-18 04:55] LABS: Hematocrit 25.9 % (30.3-42.9); Hemoglobin 8.4 gm/dl (10.1-14.3); Mean Corpuscular HGB Conc 33 % (30-34); Mean Corpuscular Hemoglobin 30 pg (28-32); Mean Corpuscular Volume 93 fl (79-97); Platelet Count 410 K/mm3 (140-440); Red Blood Count 2.79 M/mm3 (3.65-5.03)
[2017-12-18] MEDS: SYNTHROID PO SCH (06:10)
[2017-12-18] MEDS: LEVAQUIN 750MG/150ML 750 MG/150 ML BAG IV SCH (10:24)
[2017-12-18] MEDS: ATIVAN PO SCH ×3 (10:25→22:20)
[2017-12-18] MEDS: SENOKOT PO SCH ×2 (10:25→22:20)
[2017-12-18] MEDS: ZESTRIL PO SCH (10:25)
[2017-12-18] MEDS: NEURONTIN PO SCH ×3 (10:25→22:19)
[2017-12-18] MEDS: COLACE PO SCH (10:25)
[2017-12-18] MEDS: BABY ASPIRIN PO SCH (10:25)
[2017-12-18] MEDS: celeXA PO SCH (10:25)
[2017-12-18] MEDS: LIORESAL PO SCH ×3 (10:25→22:19)
[2017-12-18] MEDS: PROTONIX PO SCH (10:26)
[2017-12-18] MEDS: COREG PO SCH ×2 (10:26→22:20)
[2017-12-18] MEDS: SODIUM CHLORIDE FLUSH SYRINGE 10 ML IV SCH ×2 (10:26→22:21)
[2017-12-18] MEDS: POTASSIUM CHLORIDE FEEDTUBE SCH (10:26)
--- NOTE | 2017-12-18 14:35 | Progress Note ---
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 -BP stable, continue current regimen -Monitor BP H/O CHF/Cardiomyopathy (EF 45-50%) -No acute exacerbation -cont medical Mx DM type 2 -stable H/o COPD (s/p trach) -Continue nebs PRN Hypothyroidism. Continue synthroid Acute on chronic Anemia -s/p 1 unit PRBC transfusion -H/H improved, will monitor H/O Dysphagia due to CVA (s/p PEG) -Continue nutrition support via peg-tube -Aspiration precaution DVT prophylaxis- Lovenox History Interval history: Patient is nonverbal. No reported issues by the nurse. Hospitalist Physical - Constitutional Vitals: Temp Pulse Resp BP Pulse Ox 97.6 F 83 16 136/75 97 12/18/17 12:11 12/18/17 12:11 12/18/17 12:11 12/18/17 12:11 12/18/17 12:11 General appearance: Present: other (patient is tachypneic) - EENT Eyes: Present: PERRL ENT: other (excess sputum noted in mucosa) - Neck Neck: Present: supple - Respiratory Respiratory effort: labored Respiratory: bilateral: diminished - Cardiovascular Rhythm: regular Heart Sounds: Present: S1 & S2 - Extremities Extremities: No edema (with contracture) - Abdominal General gastrointestinal: soft, non-tender, normal bowel sounds, other (peg tube noted) - Neurologic Neurologic: other (patient is nonverbal) Results - Labs CBC & Chem 7: 12/18/17 03:19 12/17/17 10:03 Labs: Laboratory Last Values WBC 9.5 K/mm3 (4.5-11.0) 12/18/17 03:19 RBC 2.79 M/mm3 (3.65-5.03) L 12/18/17 03:19 Hgb 8.4 gm/dl (10.1-14.3) L 12/18/17 03:19 Hct 25.9 % (30.3-42.9) L 12/18/17 03:19 MCV 93 fl (79-97) 12/18/17 03:19 MCH 30 pg (28-32) 12/18/17 03:19 MCHC 33 % (30-34) 12/18/17 03:19 RDW 19.0 % (13.2-15.2) H 12/18/17 03:19 Plt Count 410 K/mm3 (140-440) 12/18/17 03:19 Add Manual Diff Complete 12/15/17 09:22 Total Counted 200 12/15/17 09:22 Seg Neuts % (Manual) 73.0 % (40.0-70.0) H 12/15/17 09:22 Band Neutrophils % 5.0 % 12/15/17 09:22 Lymphocytes % (Manual) 11.0 % (13.4-35.0) L 12/15/17 09:22 Reactive Lymphs % (Man) 0 % 12/15/17 09:22 Monocytes % (Manual) 6.5 % (0.0-7.3) 12/15/17 09:22 Eosinophils % (Manual) 3.0 % (0.0-4.3) 12/15/17 09:22 Basophils % (Manual) 1.0 % (0.0-1.8) 12/15/17 09:22 Metamyelocytes % 0.5 % 12/15/17 09:22 Myelocytes % 0 % 12/15/17 09:22 Promyelocytes % 0 % 12/15/17 09:22 Blast Cells % 0 % 12/15/17 09:22 Nucleated RBC % Not Reportable 12/15/17 09:22 Seg Neutrophils # Man 16.2 K/mm3 (1.8-7.7) H 12/15/17 09:22 Band Neutrophils # 1.1 K/mm3 12/15/17 09:22 Lymphocytes # (Manual) 2.4 K/mm3 (1.2-5.4) 12/15/17 09:22 Abs React Lymphs (Man) 0.0 K/mm3 12/15/17 09:22 Monocytes # (Manual) 1.4 K/mm3 (0.0-0.8) H 12/15/17 09:22 Eosinophils # (Manual) 0.7 K/mm3 (0.0-0.4) H 12/15/17 09:22 Basophils # (Manual) 0.2 K/mm3 (0.0-0.1) H 12/15/17 09:22 Metamyelocytes # 0.1 K/mm3 12/15/17 09:22 Myelocytes # 0.0 K/mm3 12/15/17 09:22 Promyelocytes # 0.0 K/mm3 12/15/17 09:22 Blast Cells # 0.0 K/mm3 12/15/17 09:22 WBC Morphology Not Reportable 12/15/17 09:22 Hypersegmented Neuts Not Reportable 12/15/17 09:22 Hyposegmented Neuts Not Reportable 12/15/17 09:22 Hypogranular Neuts Not Reportable 12/15/17 09:22 Smudge Cells Not Reportable 12/15/17 09:22 Toxic Granulation Not Reportable 12/15/17 09:22 Toxic Vacuolation Not Reportable 12/15/17 09:22 Dohle Bodies Not Reportable 12/15/17 09:22 Pelger-Huet Anomaly Not Reportable 12/15/17 09:22 Eileen Rods Not Reportable 12/15/17 09:22 Platelet Estimate Consistent w auto 12/15/17 09:22 Clumped Platelets Not Reportable 12/15/17 09:22 Plt Clumps, EDTA Not Reportable 12/15/17 09:22 Large Platelets Not Reportable 12/15/17 09:22 Giant Platelets Not Reportable 12/15/17 09:22 Platelet Satelliting Not Reportable 12/15/17 09:22 Plt Morphology Comment Not Reportable 12/15/17 09:22 RBC Morphology Not Reportable 12/15/17 09:22 Dimorphic RBCs Not Reportable 12/15/17 09:22 Polychromasia 1+ 12/15/17 09:22 Hypochromasia 1+ 12/15/17 09:22 Poikilocytosis Not Reportable 12/15/17 09:22 Anisocytosis 1+ 12/15/17 09:22 Microcytosis Not Reportable 12/15/17 09:22 Macrocytosis 1+ 12/15/17 09:22 Spherocytes Not Reportable 12/15/17 09:22 Pappenheimer Bodies Not Reportable 12/15/17 09:22 Sickle Cells Not Reportable 12/15/17 09:22 Target Cells Not Reportable 12/15/17 09:22 Tear Drop Cells Few 12/15/17 09:22 Ovalocytes Few 12/15/17 09:22 Helmet Cells Not Reportable 12/15/17 09:22 [place] Bodies Not Reportable 12/15/17 09:22 Carmi Rings Not Reportable 12/15/17 09:22 [place] Cells Not Reportable 12/15/17 09:22 Bite Cells Not Reportable 12/15/17 09:22 Crenated Cell Not Reportable 12/15/17 09:22 Elliptocytes Few 12/15/17 09:22 Acanthocytes (Spur) Not Reportable 12/15/17 09:22 Rouleaux Not Reportable 12/15/17 09:22 Hemoglobin C Crystals Not Reportable 12/15/17 09:22 Schistocytes Rare 12/15/17 09:22 Malaria parasites Not Reportable 12/15/17 09:22 Adriano Bodies Not Reportable 12/15/17 09:22 Hem Pathologist Commnt No 12/15/17 09:22 Sodium 140 mmol/L (137-145) 12/17/17 10:03 Potassium 4.0 mmol/L (3.6-5.0) 12/17/17 10:03 Chloride 107.8 mmol/L (98-107) H 12/17/17 10:03 Carbon Dioxide 22 mmol/L (22-30) 12/17/17 10:03 Anion Gap 14 mmol/L 12/17/17 10:03 BUN 8 mg/dL (7-17) 12/17/17 10:03 Creatinine 0.4 mg/dL (0.7-1.2) L 12/17/17 10:03 Estimated GFR > 60 ml/min 12/17/17 10:03 BUN/Creatinine Ratio 20 % 12/17/17 10:03 Glucose 78 mg/dL (65-100) 12/17/17 10:03 Lactic Acid 1.90 mmol/L (0.7-2.0) 12/15/17 19:36 Calcium 8.2 mg/dL (8.4-10.2) L 12/17/17 10:03 Iron 32 ug/dL (37-170) L 12/16/17 22: TIBC 296 mcg/dL (250-450) 12/16/17 22: Vitamin B12 1675 pg/mL (211-911) H 12/16/17 22:27 Urine Color Yellow (Yellow) 12/15/17 12:39 Urine Turbidity Clear (Clear) 12/15/17 12:39 Urine pH 7.0 (5.0-7.0) 12/15/17 12:39 Ur Specific [place] 1.009 (1.003-1.030) 12/15/17 12:39 Urine Protein <15 mg/dl mg/dL (Negative) 12/15/17 12:39 Urine Glucose (UA) Neg mg/dL (Negative) 12/15/17 12:39 Urine Ketones Neg mg/dL (Negative) 12/15/17 12:39 Urine Blood Neg (Negative) 12/15/17 12:39 Urine Nitrite Neg (Negative) 12/15/17 12:39 Urine Bilirubin Neg (Negative) 12/15/17 12:39 Urine Urobilinogen < 2.0 mg/dL (<2.0) 12/15/17 12:39 Ur Leukocyte Esterase Neg (Negative) 12/15/17 12:39 Urine WBC (Auto) < 1.0 /HPF (0.0-6.0) 12/15/17 12:39 Urine RBC (Auto) 2.0 /HPF (0.0-6.0) 12/15/17 12:39 U Epithel Cells (Auto) 1.0 /HPF (0-13.0) 12/15/17 12:39 Blood Type A POSITIVE 12/16/17: Antibody Screen Negative 12/16/17: Crossmatch See Detail 12/16/17
--- NOTE | 2017-12-18 15:10 | Gastroenterology Consultation ---
<FINA LAMBERT - Last Filed: 12/18/17 15:46> History of Present Illness - Reason for Consult Consult date: 12/18/17 possible GI bleed Requesting physician: LEXY ESTEVEZ - History of Present Illness Patient is a 67 y/o female SNF resident with PMH of COPD, chronic respiratory failure (s/p trach), CHF, HTN, hypothyroidism, CVA (s/p PEG), and CAD who was brought to ED via EMS for respiratory distress and was admitted for sepsis, aspiration penumonia, encephalopathy, and acidosis. GI has been consulted for a possible GI bleed after her H/H dropped 2 days ago. She received 1 unit PRBCs with H/H now stable. This afternoon patient was resting in bed w/o acute distress. She is nonverbal and unable to provide history with no family at bedside (attempted to call son with no answer). History obtained via chart review. There have been no active signs of bleeding such as hematemesis, melena , or hematochezia per nursing. Stool for occult is pending. Upon exam, PEG site is benign w/o s/s of infection or bleeding. Currently tolerating TFs. No evidence of abd pain or N/V. Rectal revealed brown stool. Patient is previously known to our service from a consult 06/2016 for a GI bleed with CGE. She underwent an EGD at that time that showed severe esophagitis and a gastric ulcer with visible vessel requiring clipping. Last or previous colonoscopy unknown. Past History Past Medical History: CAD, COPD, diabetes, heart failure, hypothyroidism, stroke Past Surgical History: hysterectomy, Other (Trach/Peg placement, pacemaker? 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 denies: smoking, alcohol abuse, prescription drug abuse Family history: hypertension Medications and Allergies Allergies Allergy/AdvReac Type Severity Reaction Status Date / Time ibuprofen Allergy Unknown Verified 09/12/15 23:04 Penicillins Allergy Unknown Verified 09/12/15 23:04 Home Medications Medication Instructions Recorded Confirmed Last Taken Type Ascorbic Acid [Vitamin C] 500 mg PO Q12H 09/12/15 12/17/17 07/11/16 History Baclofen [Lioresal] 10 mg PO TID 09/12/15 12/17/17 07/11/16 History Ipratropium/Albuterol Sulfate 1 ampul IH Q6HR PRN 09/12/15 12/17/17 Unknown History [DUONEB *Not for PRN Use*] Magnesium Hydroxide [Milk of 30 ml PO HS 09/12/15 12/17/17 07/11/16 History Magnesia] clonazePAM [KlonoPIN] 2 mg PO BID 09/12/15 12/17/17 07/10/16 History Pravastatin Sodium [Pravastatin] 10 mg PO QHS 07/13/16 12/17/17 07/11/16 History Carvedilol [Coreg] 12.5 mg PO BID #60 tablet 08/07/16 12/17/17 Unknown Rx Lisinopril [Zestril TAB] 20 mg PO QDAY #30 tablet 08/07/16 12/17/17 Unknown Rx Polyethylene Glycol 3350 [Miralax 17 gm PO QDAY PRN #7 packet 04/21/17 12/17/17 Unknown Rx 3350] Aspirin [Aspirin BABY CHEW TAB] 81 mg PO QDAY 10/29/17 12/17/17 Unknown History Citalopram [celeXA] 20 mg PO QDAY 10/29/17 12/17/17 Unknown History Docusate Sodium [Colace] 100 mg PO BID 10/29/17 12/17/17 Unknown History Gabapentin [Neurontin] 600 mg PO TID 10/29/17 12/17/17 Unknown History Levothyroxine [Synthroid] 125 mcg PO QAM 10/29/17 12/17/17 Unknown History Pantoprazole [Protonix] 40 mg PO QAM 10/29/17 12/17/17 Unknown History Potassium Chloride [K-Dur] 20 meq PO QDAY 10/29/17 12/17/17 Unknown History Sennosides [Senna] 8.6 mg PO BID 10/29/17 12/17/17 Unknown History Active Meds: Active Medications Acetaminophen (Tylenol) 650 mg PO Q4H PRN PRN Reason: Pain MILD(1-3)/Fever >100.5/BIRD Albuterol (Proventil) 2.5 mg IH Q4HRT PRN PRN Reason: Shortness Of Breath Lipase/Protease/Amylase (Ella Dr 10,500 Unit) 1 each FEEDTUBE PRN PRN PRN Reason: For Clogged Feeding Tube Ascorbic Acid (Vitamin C) 500 mg PO Q12H [facility] Last Admin: 12/18/17 14:05 Dose: 500 mg Aspirin (Baby Aspirin) 81 mg PO QDAY [facility] Last Admin: 12/18/17 10:25 Dose: 81 mg Baclofen (Lioresal) 10 mg PO TID [facility] Last Admin: 12/18/17 14:05 Dose: 10 mg Carvedilol (Coreg) 12.5 mg PO BID [facility] Last Admin: 12/18/17 10:26 Dose: 12.5 mg Citalopram Hydrobromide (Celexa) 20 mg PO QDAY [facility] Last Admin: 12/18/17 10:25 Dose: 20 mg Clonazepam (Klonopin) 2 mg PO BID [facility] Last Admin: 12/18/17 10:25 Dose: 2 mg Cyclobenzaprine HCl (Flexeril) 10 mg PO BID PRN PRN Reason: Muscle Spasm Docusate Sodium (Colace) 100 mg PO BID [facility] Last Admin: 12/18/17 10:25 Dose: 100 mg Enoxaparin Sodium (Lovenox) 40 mg SUB-Q QDAY@2200 [facility] Last Admin: 12/17/17 22:24 Dose: 40 mg Gabapentin (Neurontin) 600 mg PO TID [facility] Last Admin: 12/18/17 14:05 Dose: 600 mg Levofloxacin/Dextrose (Levaquin 750mg/150ml) 750 mg in 150 mls @ 100 mls/hr IV Q24HR [facility]; Protocol Last Admin: 12/18/17 10:24 Dose: 100 mls/hr Levothyroxine Sodium (Synthroid) 125 mcg PO QAM@0600 [facility] Last Admin: 12/18/17 06:10 Dose: 125 mcg Lisinopril (Zestril) 20 mg PO QDAY [facility] Last Admin: 12/18/17 10:25 Dose: 20 mg Lorazepam (Ativan) 0.5 mg PO TID [facility] Last Admin: 12/18/17 14:05 Dose: 0.5 mg Magnesium Hydroxide (Milk Of Magnesia) 30 ml PO HS [facility] Last Admin: 12/17/17 22:25 Dose: 30 ml Miscellaneous Medication (Lubiprostone (Nf)) 24 mcg PO BIDWM [facility] Ondansetron HCl (Zofran) 4 mg IV Q8H PRN PRN Reason: Nausea And Vomiting Oxycodone HCl (Roxicodone) 5 mg PO Q6H PRN PRN Reason: Pain, Moderate (4-6) Last Admin: 12/15/17 15:19 Dose: 5 mg Oxycodone/Acetaminophen (Percocet 5/325) 1 tab PO Q6H PRN PRN Reason: Pain, Moderate (4-6) Last Admin: 12/15/17 15:19 Dose: 1 tab Pantoprazole Sodium (Protonix) 40 mg PO QAM [facility] Last Admin: 12/18/17 10:26 Dose: 40 mg Polyethylene Glycol (Miralax 3350) 17 gm PO QDAY PRN PRN Reason: Constipation Pravastatin Sodium (Pravachol) 10 mg PO QHS [facility] Last Admin: 12/17/17 22:24 Dose: 10 mg Senna (Senokot) 8.6 mg PO BID [facility] Last Admin: 12/18/17 10:25 Dose: 8.6 mg Simple Syrup (Simple Syrup) 15 ml FEEDTUBE PRN PRN PRN Reason: Hypoglycemia Simple Syrup (Simple Syrup) 30 ml FEEDTUBE PRN PRN PRN Reason: Hypoglycemia Sodium Bicarbonate (Sodium Bicarbonate) 325 mg FEEDTUBE PRN PRN PRN Reason: For Clogged Feeding Tube Sodium Chloride (Sodium Chloride Flush Syringe 10 Ml) 10 ml IV BID [facility] Last Admin: 12/18/17 10:26 Dose: 10 ml Sodium Chloride (Sodium Chloride Flush Syringe 10 Ml) 10 ml IV PRN PRN PRN Reason: LINE FLUSH Review of Systems - Review of Systems ROS unobtainable: due to mental status Exam - Constitutional Vital Signs: Temp Pulse Resp BP Pulse Ox 97.6 F 83 16 136/75 97 12/18/17 12:11 12/18/17 12:11 12/18/17 12:11 12/18/17 12:11 12/18/17 12:11 General appearance: no acute distress, other (chronically ill) - EENT ENT: other (+trach) - Respiratory Respiratory: bilateral: other (coarse) - Cardiovascular Rhythm: regular Heart Sounds: Present: S1 & S2 - Gastrointestinal General gastrointestinal: Present: soft, non-distended, normal bowel sounds, other (+PEG) Rectal Exam: stool brown - Neurologic Neurological: other (unable to assess) - Labs CBC & Chem 7: 12/18/17 03:19 12/17/17 10:03 Lab Results: Laboratory Results - last 24 hr 12/18/17 03:19 WBC 9.5 RBC 2.79 L Hgb 8.4 L Hct 25.9 L MCV 93 MCH 30 MCHC 33 RDW 19.0 H Plt Count 410 Assessment and Plan 1.possible GI bleed? 2.acute on chronic anemia -HGB 8.4- stable s/p transfusion -continue to monitor H/H and transfuse as needed -currently on ASA and lovenox w/o active signs of bleeding -stool for occult pending -last EGD 06/2016 revealed severe esophagitis and ulcer w/ visible vessel in body of stomach (greater curvature) requiring clips x 3 -etiology unclear- likely multifactorial -given multiple comorbids, recommend conservative management at this time unless overt bleeding develops -okay to continue TFs and anticoagulation as needed -continue PPI and supportive care -will follow 3.acute on chronic hypoxic respiratory failure 4.SIRS 5.CVA (hx of dysphagia-s/p PEG) 6.chronic encephalopathy 7.HTN 8.H/O CHF/cardiomyopathy 9.H/O COPD 10.hypothyroidism <SILVINO MENDEZ - Last Filed: 12/18/17 16:06> Medications and Allergies Active Meds: Active Medications Acetaminophen (Tylenol) 650 mg PO Q4H PRN PRN Reason: Pain MILD(1-3)/Fever >100.5/BIRD Albuterol (Proventil) 2.5 mg IH Q4HRT PRN PRN Reason: Shortness Of Breath Lipase/Protease/Amylase (Ella Ochoa 10,500 Unit) 1 each FEEDTUBE PRN PRN PRN Reason: For Clogged Feeding Tube Ascorbic Acid (Vitamin C) 500 mg PO Q12H [facility] Last Admin: 12/18/17 14:05 Dose: 500 mg Aspirin (Baby Aspirin) 81 mg PO QDAY [facility] Last Admin: 12/18/17 10:25 Dose: 81 mg Baclofen (Lioresal) 10 mg PO TID [facility] Last Admin: 12/18/17 14:05 Dose: 10 mg Carvedilol (Coreg) 12.5 mg PO BID [facility] Last Admin: 12/18/17 10:26 Dose: 12.5 mg Citalopram Hydrobromide (Celexa) 20 mg PO QDAY [facility] Last Admin: 12/18/17 10:25 Dose: 20 mg Clonazepam (Klonopin) 2 mg PO BID [facility] Last Admin: 12/18/17 10:25 Dose: 2 mg Cyclobenzaprine HCl (Flexeril) 10 mg PO BID PRN PRN Reason: Muscle Spasm Docusate Sodium (Colace) 100 mg PO BID [facility] Last Admin: 12/18/17 10:25 Dose: 100 mg Enoxaparin Sodium (Lovenox) 40 mg SUB-Q QDAY@2200 [facility] Last Admin: 12/17/17 22:24 Dose: 40 mg Gabapentin (Neurontin) 600 mg PO TID [facility] Last Admin: 12/18/17 14:05 Dose: 600 mg Levofloxacin/Dextrose (Levaquin 750mg/150ml) 750 mg in 150 mls @ 100 mls/hr IV Q24HR [facility]; Protocol Last Admin: 12/18/17 10:24 Dose: 100 mls/hr Levothyroxine Sodium (Synthroid) 125 mcg PO QAM@0600 [facility] Last Admin: 12/18/17 06:10 Dose: 125 mcg Lisinopril (Zestril) 20 mg PO QDAY [facility] Last Admin: 12/18/17 10:25 Dose: 20 mg Lorazepam (Ativan) 0.5 mg PO TID [facility] Last Admin: 12/18/17 14:05 Dose: 0.5 mg Magnesium Hydroxide (Milk Of Magnesia) 30 ml PO HS [facility] Last Admin: 12/17/17 22:25 Dose: 30 ml Miscellaneous Medication (Lubiprostone (Nf)) 24 mcg PO BIDWM [facility] Ondansetron HCl (Zofran) 4 mg IV Q8H PRN PRN Reason: Nausea And Vomiting Oxycodone HCl (Roxicodone) 5 mg PO Q6H PRN PRN Reason: Pain, Moderate (4-6) Last Admin: 12/15/17 15:19 Dose: 5 mg Oxycodone/Acetaminophen (Percocet 5/325) 1 tab PO Q6H PRN PRN Reason: Pain, Moderate (4-6) Last Admin: 12/15/17 15:19 Dose: 1 tab Pantoprazole Sodium (Protonix) 40 mg PO QAM [facility] Last Admin: 09/25/18 10:26 Dose: 40 mg Polyethylene Glycol (Miralax 3350) 17 gm PO QDAY PRN PRN Reason: Constipation Pravastatin Sodium (Pravachol) 10 mg PO QHS [facility] Last Admin: 12/17/17 22:24 Dose: 10 mg Senna (Senokot) 8.6 mg PO BID [facility] Last Admin: 12/18/17 10:25 Dose: 8.6 mg Simple Syrup (Simple Syrup) 15 ml FEEDTUBE PRN PRN PRN Reason: Hypoglycemia Simple Syrup (Simple Syrup) 30 ml FEEDTUBE PRN PRN PRN Reason: Hypoglycemia Sodium Bicarbonate (Sodium Bicarbonate) 325 mg FEEDTUBE PRN PRN PRN Reason: For Clogged Feeding Tube Sodium Chloride (Sodium Chloride Flush Syringe 10 Ml) 10 ml IV BID [facility] Last Admin: 12/18/17 10:26 Dose: 10 ml Sodium Chloride (Sodium Chloride Flush Syringe 10 Ml) 10 ml IV PRN PRN PRN Reason: LINE FLUSH Exam - Constitutional Vital Signs: Temp Pulse Resp BP Pulse Ox 97.6 F 83 16 136/75 97 12/18/17 12:11 12/18/17 12:11 12/18/17 12:11 12/18/17 12:11 12/18/17 12:11 - Labs CBC & Chem 7: 12/18/17 03:19 12/17/17 10:03 Lab Results: Laboratory Results - last 24 hr 12/18/17 03:19 WBC 9.5 RBC 2.79 L Hgb 8.4 L Hct 25.9 L MCV 93 MCH 30 MCHC 33 RDW 19.0 H Plt Count 410 Assessment and Plan Pt seen and examined. Agree with note above. Pt with h/o PUD with bleeding in the past. Presents with anemia but without signs of overt gi bleeding. BUN also normal and no blood/melena on rectal exam. will monitor/manage conservatively from gi stand point unless there is a change in clinical course/ signs of bleeding. rest as above.
[2017-12-18] MEDS: VANCOMYCIN/NS 1 GM/250 ML 1 GM/250 ML BAG IV SCH (18:08)
[2017-12-18] MEDS: MILK OF MAGNESIA PO SCH (22:19)
[2017-12-18] MEDS: PRAVACHOL PO SCH (22:20)
[2017-12-18] MEDS: COLACE FEEDTUBE SCH (22:21)
[2017-12-18] MEDS: LOVENOX SUB-Q SCH (22:21)
[2017-12-19] MEDS: VITAMIN C PO SCH ×2 (02:30→14:39)
[2017-12-19] MEDS: SYNTHROID PO SCH (05:24)
[2017-12-19 05:30] LABS: Basophils # (Auto) 0.1 K/mm3 (0.0-0.1); Basophils % (Auto) 0.7 % (0.0-1.8); Eosinophils # (Auto) 0.1 K/mm3 (0.0-0.4); Eosinophils % (Auto) 1.7 % (0.0-4.3); Hematocrit 25.8 % (30.3-42.9); Hemoglobin 8.7 gm/dl (10.1-14.3); Lymphocytes % (Auto) 22.9 % (13.4-35.0); Mean Corpuscular HGB Conc 34 % (30-34); Mean Corpuscular Hemoglobin 31 pg (28-32); Mean Corpuscular Volume 92 fl (79-97); Monocytes # (Auto) 0.5 K/mm3 (0.0-0.8); Monocytes % (Auto) 5.8 % (0.0-7.3); Platelet Count 394 K/mm3 (140-440); Red Blood Count 2.81 M/mm3 (3.65-5.03); Red Cell Distribution Width 19.6 % (13.2-15.2)
--- NOTE | 2017-12-19 09:02 | Progress Note ---
Assessment and Plan Assessment and plan: Acute on chronic Anemia -s/p 1 unit PRBC transfusion -H/H improved, will monitor Acute on Chronic hypoxic respiratory failure (s/p trach)) -Continue supplemental oxygen via trach -Continue pulm toilet Chronic encephalopathy -Prognosis is poor Hypertension. -BP stable, continue current regimen -Monitor BP H/O CHF/Cardiomyopathy (EF 45-50%) -No acute exacerbation -cont medical Mx DM type 2 -stable H/o COPD (s/p trach) -Continue nebs PRN Hypothyroidism. Continue synthroid H/O Dysphagia due to CVA (s/p PEG) -Continue nutrition support via peg-tube -Aspiration precaution DVT prophylaxis- Lovenox Further patient mgt per hospital course 25 mins Total Time Spent with Patient (Minutes): 25 mins History Interval history: No new complaints No family at bedside. Hospitalist Physical - Constitutional Vitals: Temp Pulse Resp BP Pulse Ox 98.0 F 82 18 129/74 98 12/19/17 05:35 12/19/17 05:35 12/19/17 05:35 12/19/17 05:35 12/19/17 05:35 General appearance: Present: no acute distress, other (patient is tachypneic) - EENT Eyes: Present: PERRL ENT: other (increased oral secretions) - Respiratory Respiratory: bilateral: diminished, rhonchi, other (coarse AE) - Cardiovascular Rhythm: regular Heart Sounds: Present: S1 & S2 - Extremities Extremities: pulses symmetrical Extremity abnormal: edema - Abdominal General gastrointestinal: soft, non-distended, normal bowel sounds - Integumentary Integumentary: Present: clear, warm, dry - Psychiatric Psychiatric: other (UNABLE TO ASSESS) Results - Labs CBC & Chem 7: 12/19/17 04:55 12/17/17 10:03 Labs: Laboratory Last Values WBC 8.9 K/mm3 (4.5-11.0) 12/19/17 04:55 RBC 2.81 M/mm3 (3.65-5.03) L 12/19/17 04:55 Hgb 8.7 gm/dl (10.1-14.3) L 12/19/17 04:55 Hct 25.8 % (30.3-42.9) L 12/19/17 04:55 MCV 92 fl (79-97) 12/19/17 04:55 MCH 31 pg (28-32) 12/19/17 04:55 MCHC 34 % (30-34) 12/19/17 04:55 RDW 19.6 % (13.2-15.2) H 12/19/17 04:55 Plt Count 394 K/mm3 (140-440) 12/19/17 04:55 Lymph % (Auto) 22.9 % (13.4-35.0) 12/19/17 04:55 [place] % (Auto) 5.8 % (0.0-7.3) 12/19/17 04:55 Eos % (Auto) 1.7 % (0.0-4.3) 12/19/17 04:55 Baso % (Auto) 0.7 % (0.0-1.8) 12/19/17 04:55 Lymph # 2.0 K/mm3 (1.2-5.4) 12/19/17 04:55 [place] # 0.5 K/mm3 (0.0-0.8) 12/19/17 04:55 Eos # 0.1 K/mm3 (0.0-0.4) 12/19/17 04:55 Baso # 0.1 K/mm3 (0.0-0.1) 12/19/17 04:55 Add Manual Diff Complete 12/15/17 09:22 Total Counted 200 12/15/17 09:22 Seg Neutrophils % 68.9 % (40.0-70.0) 12/19/17 04:55 Seg Neuts % (Manual) 73.0 % (40.0-70.0) H 12/15/17 09:22 Band Neutrophils % 5.0 % 12/15/17 09:22 Lymphocytes % (Manual) 11.0 % (13.4-35.0) L 12/15/17 09:22 Reactive Lymphs % (Man) 0 % 12/15/17 09:22 Monocytes % (Manual) 6.5 % (0.0-7.3) 12/15/17 09:22 Eosinophils % (Manual) 3.0 % (0.0-4.3) 12/15/17 09:22 Basophils % (Manual) 1.0 % (0.0-1.8) 12/15/17 09:22 Metamyelocytes % 0.5 % 12/15/17 09:22 Myelocytes % 0 % 12/15/17 09:22 Promyelocytes % 0 % 12/15/17 09:22 Blast Cells % 0 % 12/15/17 09:22 Nucleated RBC % Not Reportable 12/15/17 09:22 Seg Neutrophils # 6.1 K/mm3 (1.8-7.7) 12/19/17 04:55 Seg Neutrophils # Man 16.2 K/mm3 (1.8-7.7) H 12/15/17 09:22 Band Neutrophils # 1.1 K/mm3 12/15/17 09:22 Lymphocytes # (Manual) 2.4 K/mm3 (1.2-5.4) 12/15/17 09:22 Abs React Lymphs (Man) 0.0 K/mm3 12/15/17 09:22 Monocytes # (Manual) 1.4 K/mm3 (0.0-0.8) H 12/15/17 09:22 Eosinophils # (Manual) 0.7 K/mm3 (0.0-0.4) H 12/15/17 09:22 Basophils # (Manual) 0.2 K/mm3 (0.0-0.1) H 12/15/17 09:22 Metamyelocytes # 0.1 K/mm3 12/15/17 09:22 Myelocytes # 0.0 K/mm3 12/15/17 09:22 Promyelocytes # 0.0 K/mm3 12/15/17 09:22 Blast Cells # 0.0 K/mm3 12/15/17 09:22 WBC Morphology Not Reportable 12/15/17 09:22 Hypersegmented Neuts Not Reportable 12/15/17 09:22 Hyposegmented Neuts Not Reportable 12/15/17 09:22 Hypogranular Neuts Not Reportable 12/15/17 09:22 Smudge Cells Not Reportable 12/15/17 09:22 Toxic Granulation Not Reportable 12/15/17 09:22 Toxic Vacuolation Not Reportable 12/15/17 09:22 Dohle Bodies Not Reportable 12/15/17 09:22 Pelger-Huet Anomaly Not Reportable 12/15/17 09:22 Eileen Rods Not Reportable 12/15/17 09:22 Platelet Estimate Consistent w auto 12/15/17 09:22 Clumped Platelets Not Reportable 12/15/17 09:22 Plt Clumps, EDTA Not Reportable 12/15/17 09:22 Large Platelets Not Reportable 12/15/17 09:22 Giant Platelets Not Reportable 12/15/17 09:22 Platelet Satelliting Not Reportable 12/15/17 09:22 Plt Morphology Comment Not Reportable 12/15/17 09:22 RBC Morphology Not Reportable 12/15/17 09:22 Dimorphic RBCs Not Reportable 12/15/17 09:22 Polychromasia 1+ 12/15/17 09:22 Hypochromasia 1+ 12/15/17 09:22 Poikilocytosis Not Reportable 12/15/17 09:22 Anisocytosis 1+ 12/15/17 09:22 Microcytosis Not Reportable 12/15/17 09:22 Macrocytosis 1+ 12/15/17 09:22 Spherocytes Not Reportable 12/15/17 09:22 Pappenheimer Bodies Not Reportable 12/15/17 09:22 Sickle Cells Not Reportable 12/15/17 09:22 Target Cells Not Reportable 12/15/17 09:22 Tear Drop Cells Few 12/15/17 09:22 Ovalocytes Few 12/15/17 09:22 Helmet Cells Not Reportable 12/15/17 09:22 [place] Bodies Not Reportable 12/15/17 09:22 [place] Rings Not Reportable 12/15/17 09:22 [place] Cells Not Reportable 12/15/17 09:22 Bite Cells Not Reportable 12/15/17 09:22 Crenated Cell Not Reportable 12/15/17 09:22 Elliptocytes Few 12/15/17 09:22 Acanthocytes (Spur) Not Reportable 12/15/17 09:22 Rouleaux Not Reportable 12/15/17 09:22 Hemoglobin C Crystals Not Reportable 12/15/17 09:22 Schistocytes Rare 12/15/17 09:22 Malaria parasites Not Reportable 12/15/17 09:22 [place] Bodies Not Reportable 12/15/17 09:22 Hem Pathologist Commnt No 12/15/17 09:22 Sodium 140 mmol/L (137-145) 12/17/17 10:03 Potassium 4.0 mmol/L (3.6-5.0) 12/17/17 10:03 Chloride 107.8 mmol/L (98-107) H 12/17/17 10:03 Carbon Dioxide 22 mmol/L (22-30) 12/17/17 10:03 Anion Gap 14 mmol/L 12/17/17 10:03 BUN 8 mg/dL (7-17) 12/17/17 10:03 Creatinine 0.4 mg/dL (0.7-1.2) L 12/17/17 10:03 Estimated GFR > 60 ml/min 12/17/17 10:03 BUN/Creatinine Ratio 20 % 12/17/17 10:03 Glucose 78 mg/dL (65-100) 12/17/17 10:03 Lactic Acid 1.90 mmol/L (0.7-2.0) 12/15/17 19:36 Calcium 8.2 mg/dL (8.4-10.2) L 12/17/17 10:03 Iron 32 ug/dL (37-170) L 12/16/17 22:27 TIBC 296 mcg/dL (250-450) 12/16/17 22:27 Vitamin B12 1675 pg/mL (211-911) H 12/16/17 22:27 Urine Color Yellow (Yellow) 12/15/17 12:39 Urine Turbidity Clear (Clear) 12/15/17 12:39 Urine pH 7.0 (5.0-7.0) 12/15/17 12:39 Ur Specific [place] 1.009 (1.003-1.030) 12/15/17 12:39 Urine Protein <15 mg/dl mg/dL (Negative) 12/15/17 12:39 Urine Glucose (UA) Neg mg/dL (Negative) 12/15/17 12:39 Urine Ketones Neg mg/dL (Negative) 12/15/17 12:39 Urine Blood Neg (Negative) 12/15/17 12:39 Urine Nitrite Neg (Negative) 12/15/17 12:39 Urine Bilirubin Neg (Negative) 12/15/17 12:39 Urine Urobilinogen < 2.0 mg/dL (<2.0) 12/15/17 12:39 Ur Leukocyte Esterase Neg (Negative) 12/15/17 12:39 Urine WBC (Auto) < 1.0 /HPF (0.0-6.0) 12/15/17 12:39 Urine RBC (Auto) 2.0 /HPF (0.0-6.0) 12/15/17 12:39 U Epithel Cells (Auto) 1.0 /HPF (0-13.0) 12/15/17 12:39 Blood Type A POSITIVE 12/16/17 22:27 Antibody Screen Negative 12/16/17 22:27 Crossmatch See Detail 12/16/17 22:27 - Imaging and Cardiology Chest x-ray: report reviewed, image reviewed
[2017-12-19] MEDS: LEVAQUIN 750MG/150ML 750 MG/150 ML BAG IV SCH (10:39)
[2017-12-19] MEDS: ZESTRIL PO SCH (10:40)
[2017-12-19] MEDS: LIORESAL PO SCH ×3 (10:40→21:02)
[2017-12-19] MEDS: BABY ASPIRIN PO SCH (10:40)
[2017-12-19] MEDS: COREG PO SCH ×2 (10:40→22:55)
[2017-12-19] MEDS: PROTONIX PO SCH (10:40)
[2017-12-19] MEDS: celeXA PO SCH (10:40)
[2017-12-19] MEDS: NEURONTIN PO SCH ×3 (10:40→21:02)
[2017-12-19] MEDS: ATIVAN PO SCH ×3 (10:40→21:02)
[2017-12-19] MEDS: SENOKOT PO SCH ×2 (10:40→22:54)
[2017-12-19] MEDS: COLACE FEEDTUBE SCH ×2 (10:40→22:54)
[2017-12-19] MEDS: SODIUM CHLORIDE FLUSH SYRINGE 10 ML IV SCH ×2 (10:41→22:55)
--- NOTE | 2017-12-19 12:18 | Gastroenterology Progress Note ---
<FINA LAMBERT - Last Filed: 12/19/17 12:18> Assessment and Plan 1.possible GI bleed? (h/o PUD) 2.acute on chronic anemia -HGB 8.7- stable s/p transfusion -continue to monitor H/H and transfuse as needed -currently on ASA and lovenox-no active signs of bleeding -last EGD 06/2016 revealed severe esophagitis and ulcer w/ visible vessel in body of stomach (greater curvature) requiring clips x 3 -etiology unclear- likely multifactorial (no clinical evidence of overt GI bleeding) -given multiple comorbids, recommend conservative management at this time unless overt bleeding develops -okay to continue TFs and anticoagulation as needed -continue PPI and supportive care -no further GI recommendations at this time -will sign off, please call if needed 3.acute on chronic hypoxic respiratory failure 4.SIRS 5.CVA (hx of dysphagia-s/p PEG) 6.chronic encephalopathy 7.HTN 8.H/O CHF/cardiomyopathy 9.H/O COPD 10.hypothyroidism Subjective Date of service: 12/19/17 Principal diagnosis: possible GI bleed Interval history: No acute distress. No active signs of bleeding overnight or this am. Objective - Constitutional Vitals: Temp Pulse Resp BP Pulse Ox 97.9 F 80 20 148/79 99 12/19/17 08:20 12/19/17 08:20 12/19/17 09:37 12/19/17 08:20 12/19/17 11:03 General appearance: no acute distress, other (chronically ill) - EENT ENT: other (+trach) - Respiratory Respiratory: bilateral: other (coarse) - Cardiovascular Rhythm: regular Heart Sounds: Present: S1 & S2 - Gastrointestinal General gastrointestinal: Present: soft, non-distended, normal bowel sounds, other (+PEG) - Labs CBC & Chem 7: 12/19/17 04:55 12/17/17 10:03 Labs: Laboratory Results - last 24 hr 12/19/17 04:55 WBC 8.9 RBC 2.81 L Hgb 8.7 L Hct 25.8 L MCV 92 MCH 31 MCHC 34 RDW 19.6 H Plt Count 394 Lymph % (Auto) 22.9 [place] % (Auto) 5.8 Eos % (Auto) 1.7 Baso % (Auto) 0.7 Lymph # 2.0 [place] # 0.5 Eos # 0.1 Baso # 0.1 Seg Neutrophils % 68.9 Seg Neutrophils # 6.1 <SILVINO MENDEZ - Last Filed: 12/19/17 23:21> Assessment and Plan Pt seen and examined. Agree with note above. No signs of overt gi bleeding. will manage conservatively from gi stand point. will sign off, please call as needed or with questions. Objective - Constitutional Vitals: Temp Pulse Resp BP Pulse Ox 98.7 F 90 22 121/68 97 12/19/17 20:05 12/19/17 22:55 12/19/17 20:05 12/19/17 22:55 12/19/17 20:05 - Labs CBC & Chem 7: 12/19/17 04:55 12/17/17 10:03 Labs: Laboratory Results - last 24 hr 12/19/17 04:55 WBC 8.9 RBC 2.81 L Hgb 8.7 L Hct 25.8 L MCV 92 MCH 31 MCHC 34 RDW 19.6 H Plt Count 394 Lymph % (Auto) 22.9 [place] % (Auto) 5.8 Eos % (Auto) 1.7 Baso % (Auto) 0.7 Lymph # 2.0 [place] # 0.5 Eos # 0.1 Baso # 0.1 Seg Neutrophils % 68.9 Seg Neutrophils # 6.1
[2017-12-19] MEDS: PRAVACHOL PO SCH (22:54)
[2017-12-19] MEDS: MILK OF MAGNESIA PO SCH (22:54)
[2017-12-19] MEDS: LOVENOX SUB-Q SCH (22:54)
[2017-12-20 01:46] LABS: Hematocrit 27.4 % (30.3-42.9); Hemoglobin 8.7 gm/dl (10.1-14.3); Mean Corpuscular HGB Conc 32 % (30-34); Mean Corpuscular Hemoglobin 30 pg (28-32); Mean Corpuscular Volume 93 fl (79-97); Platelet Count 409 K/mm3 (140-440); Red Blood Count 2.93 M/mm3 (3.65-5.03)
[2017-12-20 01:52] LABS: Red Cell Distribution Width 20.4 % (13.2-15.2)
[2017-12-20 02:20] LABS: Alanine Aminotransferase 27 units/L (7-56); Albumin 3.4 g/dL (3.9-5); BUN/Creatinine Ratio 20; Blood Urea Nitrogen 12 mg/dL (7-17); Calcium 9.2 mg/dL (8.4-10.2); Hemolysis Index 3
[2017-12-20] MEDS: VITAMIN C PO SCH ×2 (03:29→21:43)
[2017-12-20] MEDS: SYNTHROID PO SCH (06:15)
[2017-12-20] MEDS: LIORESAL PO SCH ×3 (08:36→22:34)
[2017-12-20] MEDS: NEURONTIN PO SCH ×3 (08:37→22:35)
[2017-12-20] MEDS: ATIVAN PO SCH ×3 (08:37→21:50)
[2017-12-20] MEDS: LEVAQUIN 750MG/150ML 750 MG/150 ML BAG IV SCH (11:43)
[2017-12-20] MEDS: PROTONIX PO SCH (11:44)
[2017-12-20] MEDS: COREG PO SCH ×2 (11:44→21:51)
[2017-12-20] MEDS: BABY ASPIRIN PO SCH (11:44)
[2017-12-20] MEDS: ZESTRIL PO SCH (11:44)
[2017-12-20] MEDS: celeXA PO SCH (11:44)
[2017-12-20] MEDS: SENOKOT PO SCH ×2 (11:44→21:52)
[2017-12-20] MEDS: COLACE FEEDTUBE SCH ×2 (11:44→22:11)
--- NOTE | 2017-12-20 11:52 | XRay Report ---
AP CHEST: HISTORY: Suspect aspiration AP view of the chest demonstrates a normal mediastinal and cardiac contour with clear lungs and normal bony and soft tissue structures. Tracheostomy and single lead pacemaker are in position. IMPRESSION: Unremarkable AP chest.
--- NOTE | 2017-12-20 16:46 | Progress Note ---
Assessment and Plan Assessment and plan: Suspected Aspiration repeat CXR Hold TF Suction pt prn Acute on chronic Anemia -s/p 1 unit PRBC transfusion -H/H improved, will monitor Acute on Chronic hypoxic respiratory failure (s/p trach)) -Continue supplemental oxygen via trach -Continue pulm toilet Hypertension. -BP stable, continue current regimen -Monitor BP H/O CHF/Cardiomyopathy (EF 45-50%) -No acute exacerbation -cont medical Mx Chronic physical debility. turn pt per unit protocol DM type 2 -stable H/o COPD (s/p trach) -Continue nebs PRN Hypothyroidism. Continue synthroid. Chronic encephalopathy -suspect Anoxic encephalopathy Aspiration precautions at all times DVT prophylaxis- Lovenox Further patient mgt per hospital course 30 mins Total Time Spent with Patient (Minutes): 30 mins History Interval history: Tube feeding noted in the Trach, tube feeding on hold for now. No family at bedside. Hospitalist Physical - Constitutional Vitals: Temp Pulse Resp BP Pulse Ox 98.2 F 96 H 93 H 136/70 95 12/20/17 16:12/20/17 16:12/20/17 16:12/20/17 16:12/20/17 11:52 General appearance: Present: no acute distress, mild distress, obese, other ( patient is tachypneic) - EENT Eyes: Present: PERRL ENT: other (increased oral secretions) - Neck Neck: Present: supple - Respiratory Respiratory: bilateral: diminished, rales, rhonchi - Cardiovascular Rhythm: regular Heart Sounds: Present: S1 & S2 - Extremities Extremities: pulses intact, pulses symmetrical, normal temperature, normal color Extremity abnormal: edema - Abdominal General gastrointestinal: soft, non-distended, normal bowel sounds - Integumentary Integumentary: Present: clear, warm, dry - Psychiatric Psychiatric: other (unable to assess) - Neurologic Neurologic: other (unable to assess) - Allied Health Allied health notes reviewed: nursing, social work, case management Results - Labs CBC & Chem 7: 12/20/17 00:12 12/20/17 00:12 Labs: Laboratory Last Values WBC 12.2 K/mm3 (4.5-11.0) H 12/20/17 00:12 RBC 2.93 M/mm3 (3.65-5.03) L 12/20/17 00:12 Hgb 8.7 gm/dl (10.1-14.3) L 12/20/17 00:12 Hct 27.4 % (30.3-42.9) L 12/20/17 00:12 MCV 93 fl (79-97) 12/20/17 00:12 MCH 30 pg (28-32) 12/20/17 00:12 MCHC 32 % (30-34) 12/20/17 00:12 RDW 20.4 % (13.2-15.2) H 12/20/17 00:12 Plt Count 409 K/mm3 (140-440) 12/20/17 00:12 Lymph % (Auto) 22.9 % (13.4-35.0) 12/19/17 04:55 [place] % (Auto) 5.8 % (0.0-7.3) 12/19/17 04:55 Eos % (Auto) 1.7 % (0.0-4.3) 12/19/17 04:55 Baso % (Auto) 0.7 % (0.0-1.8) 12/19/17 04:55 Lymph # 2.0 K/mm3 (1.2-5.4) 12/19/17 04:55 [place] # 0.5 K/mm3 (0.0-0.8) 12/19/17 04:55 Eos # 0.1 K/mm3 (0.0-0.4) 12/19/17 04:55 Baso # 0.1 K/mm3 (0.0-0.1) 12/19/17 04:55 Add Manual Diff Complete 12/15/17 09:22 Total Counted 200 12/15/17 09:22 Seg Neutrophils % 68.9 % (40.0-70.0) 12/19/17 04:55 Seg Neuts % (Manual) 73.0 % (40.0-70.0) H 12/15/17 09:22 Band Neutrophils % 5.0 % 12/15/17 09:22 Lymphocytes % (Manual) 11.0 % (13.4-35.0) L 12/15/17 09:22 Reactive Lymphs % (Man) 0 % 12/15/17 09:22 Monocytes % (Manual) 6.5 % (0.0-7.3) 12/15/17 09:22 Eosinophils % (Manual) 3.0 % (0.0-4.3) 12/15/17 09:22 Basophils % (Manual) 1.0 % (0.0-1.8) 12/15/17 09:22 Metamyelocytes % 0.5 % 12/15/17 09:22 Myelocytes % 0 % 12/15/17 09:22 Promyelocytes % 0 % 12/15/17 09:22 Blast Cells % 0 % 12/15/17 09:22 Nucleated RBC % Not Reportable 12/15/17 09:22 Seg Neutrophils # 6.1 K/mm3 (1.8-7.7) 12/19/17 04:55 Seg Neutrophils # Man 16.2 K/mm3 (1.8-7.7) H 12/15/17 09:22 Band Neutrophils # 1.1 K/mm3 12/15/17 09:22 Lymphocytes # (Manual) 2.4 K/mm3 (1.2-5.4) 12/15/17 09:22 Abs React Lymphs (Man) 0.0 K/mm3 12/15/17 09:22 Monocytes # (Manual) 1.4 K/mm3 (0.0-0.8) H 12/15/17 09:22 Eosinophils # (Manual) 0.7 K/mm3 (0.0-0.4) H 12/15/17 09:22 Basophils # (Manual) 0.2 K/mm3 (0.0-0.1) H 12/15/17 09:22 Metamyelocytes # 0.1 K/mm3 12/15/17 09:22 Myelocytes # 0.0 K/mm3 12/15/17 09:22 Promyelocytes # 0.0 K/mm3 12/15/17 09:22 Blast Cells # 0.0 K/mm3 12/15/17 09:22 WBC Morphology Not Reportable 12/15/17 09:22 Hypersegmented Neuts Not Reportable 12/15/17 09:22 Hyposegmented Neuts Not Reportable 12/15/17 09:22 Hypogranular Neuts Not Reportable 12/15/17 09:22 Smudge Cells Not Reportable 12/15/17 09:22 Toxic Granulation Not Reportable 12/15/17 09:22 Toxic Vacuolation Not Reportable 12/15/17 09:22 Dohle Bodies Not Reportable 12/15/17 09:22 Pelger-Huet Anomaly Not Reportable 12/15/17 09:22 Eileen Rods Not Reportable 12/15/17 09:22 Platelet Estimate Consistent w auto 12/15/17 09:22 Clumped Platelets Not Reportable 12/15/17 09:22 Plt Clumps, EDTA Not Reportable 12/15/17 09:22 Large Platelets Not Reportable 12/15/17 09:22 Giant Platelets Not Reportable 12/15/17 09:22 Platelet Satelliting Not Reportable 12/15/17 09:22 Plt Morphology Comment Not Reportable 12/15/17 09:22 RBC Morphology Not Reportable 12/15/17 09:22 Dimorphic RBCs Not Reportable 12/15/17 09:22 Polychromasia 1+ 12/15/17 09:22 Hypochromasia 1+ 12/15/17 09:22 Poikilocytosis Not Reportable 12/15/17 09:22 Anisocytosis 1+ 12/15/17 09:22 Microcytosis Not Reportable 12/15/17 09:22 Macrocytosis 1+ 12/15/17 09:22 Spherocytes Not Reportable 12/15/17 09:22 Pappenheimer Bodies Not Reportable 12/15/17 09:22 Sickle Cells Not Reportable 12/15/17 09:22 Target Cells Not Reportable 12/15/17 09:22 Tear Drop Cells Few 12/15/17 09:22 Ovalocytes Few 12/15/17 09:22 Helmet Cells Not Reportable 12/15/17 09:22 [place] Bodies Not Reportable 12/15/17 09:22 [place] Rings Not Reportable 12/15/17 09:22 [place] Cells Not Reportable 12/15/17 09:22 Bite Cells Not Reportable 12/15/17 09:22 Crenated Cell Not Reportable 12/15/17 09:22 Elliptocytes Few 12/15/17 09:22 Acanthocytes (Spur) Not Reportable 12/15/17 09:22 Rouleaux Not Reportable 12/15/17 09:22 Hemoglobin C Crystals Not Reportable 12/15/17 09:22 Schistocytes Rare 12/15/17 09:22 Malaria parasites Not Reportable 12/15/17 09:22 Adriano Bodies Not Reportable 12/15/17 09:22 Hem Pathologist Commnt No 12/15/17 09:22 Sodium 140 mmol/L (137-145) 12/20/17 00:12 Potassium 4.4 mmol/L (3.6-5.0) 12/20/17 00:12 Chloride 100.3 mmol/L (98-107) 12/20/17 00:12 Carbon Dioxide 27 mmol/L (22-30) 12/20/17 00:12 Anion Gap 17 mmol/L 12/20/17 00:12 BUN 12 mg/dL (7-17) 12/20/17 00:12 Creatinine 0.6 mg/dL (0.7-1.2) L 12/20/17 00:12 Estimated GFR > 60 ml/min 12/20/17 00:12 BUN/Creatinine Ratio 20 % 12/20/17 00:12 Glucose 102 mg/dL (65-100) H 12/20/17 00:12 POC Glucose 122 (70-105) H 12/20/17 11:51 Lactic Acid 1.90 mmol/L (0.7-2.0) 12/15/17 19:36 Calcium 9.2 mg/dL (8.4-10.2) 12/20/17 00:12 Iron 32 ug/dL (37-170) L 12/16/17 22:27 TIBC 296 mcg/dL (250-450) 12/16/17 22:27 Total Bilirubin 0.20 mg/dL (0.1-1.2) 12/20/17 00:12 AST 25 units/L (5-40) 12/20/17 00:12 ALT 27 units/L (7-56) 12/20/17 00:12 Alkaline Phosphatase 115 units/L (35-129) 12/20/17 00:12 Total Protein 7.0 g/dL (6.3-8.2) 12/20/17 00:12 Albumin 3.4 g/dL (3.9-5) L 12/20/17 00:12 Albumin/Globulin Ratio 0.9 % 12/20/17 00:12 Vitamin B12 1675 pg/mL (211-911) H 12/16/17 22:27 Urine Color Yellow (Yellow) 12/15/17 12:39 Urine Turbidity Clear (Clear) 12/15/17 12:39 Urine pH 7.0 (5.0-7.0) 12/15/17 12:39 Ur Specific [place] 1.009 (1.003-1.030) 12/15/17 12:39 Urine Protein <15 mg/dl mg/dL (Negative) 12/15/17 12:39 Urine Glucose (UA) Neg mg/dL (Negative) 12/15/17 12:39 Urine Ketones Neg mg/dL (Negative) 12/15/17 12:39 Urine Blood Neg (Negative) 12/15/17 12:39 Urine Nitrite Neg (Negative) 12/15/17 12:39 Urine Bilirubin Neg (Negative) 12/15/17 12:39 Urine Urobilinogen < 2.0 mg/dL (<2.0) 12/15/17 12:39 Ur Leukocyte Esterase Neg (Negative) 12/15/17 12:39 Urine WBC (Auto) < 1.0 /HPF (0.0-6.0) 12/15/17 12:39 Urine RBC (Auto) 2.0 /HPF (0.0-6.0) 12/15/17 12:39 U Epithel Cells (Auto) 1.0 /HPF (0-13.0) 12/15/17 12:39 Blood Type A POSITIVE 12/16/17 22: Antibody Screen Negative 12/16/17 22: Crossmatch See Detail 12/16/17 22:27 - Imaging and Cardiology Chest x-ray: report reviewed, image reviewed
[2017-12-20] MEDS ORDERED: NACL 0.9% 250ML 250 ML IV ONE (21:06)
[2017-12-20] MEDS ORDERED: NACL 0.9% 250ML 250 ML ONE (21:10)
[2017-12-20] MEDS ORDERED: AZACTAM/NS 1 GM/50 ML 1 GM/50 ML VIAL IV ONE (21:24)
--- NOTE | 2017-12-20 21:29 | Event Note ---
CODE MET Patient hypotensive with systolic blood pressure OF the 64 Give IV fluid to 50, start Levophed drip Transfer to ICU, do blood culture, give a dose of aztreonam Consult critical care The high probability of a clinically significant, sudden or life threatening deterioration of the [respiratory, hemodynamic and neurological] system(s) required my full and direct attention, intervention and personal management. The aggregate critical care time was [35] minutes. This time is in addition to time spent performing reported procedures but includes the following: [x] Data Review and interpretation [x] Patient assessment and monitoring of vital signs [x] Documentation [x] Medication orders and management
[2017-12-20] MEDS: LEVOPHED DRIP 4 MG/NS 250 ML 4 MG/250 ML BAG IV SCH (21:39)
[2017-12-20] MEDS: SODIUM CHLORIDE FLUSH SYRINGE 10 ML IV SCH ×2 (21:43→22:36)
[2017-12-20] MEDS: MILK OF MAGNESIA PO SCH (21:51)
[2017-12-20] MEDS: PRAVACHOL PO SCH (22:33)
[2017-12-20] MEDS: LOVENOX SUB-Q SCH (22:34)
--- NOTE | 2017-12-21 00:22 | XRay Report ---
FINAL REPORT EXAM: XR CHEST 1V AP HISTORY: central line placement TECHNIQUE: Single AP portable radiograph of the chest was obtained. Examination is rotated, limiting evaluation of line placement. PRIORS: Several prior radiographs, most recent dated 12/15/2017. FINDINGS: Cardiac silhouette is within normal limits. Aortic calcifications. Low lung volumes and probable bibasilar atelectasis. There is no effusion. There is no pneumothorax. There are no suspicious osseous lesions. Tracheostomy tube is intact. Left-sided dual lead pacemaker noted. A vertically oriented line is noted in the right cervical soft tissues which may represent and internal jugular line, clinical correlation requested. The distal aspect of the line overlies the mid superior vena cava. IMPRESSION: No radiographic evidence of acute cardiopulmonary disease. Tracheostomy tube and probable right IJ central line-tip overlies the medial mid superior vena cava. Recommend repeat AP radiograph without rotation when the patient is able.
[2017-12-21 01:13] LABS: Hemoglobin 8.4 gm/dl (10.1-14.3); Mean Corpuscular HGB Conc 32 % (30-34); Mean Corpuscular Hemoglobin 30 pg (28-32); Mean Corpuscular Volume 93 fl (79-97); Platelet Count 340 K/mm3 (140-440); Red Blood Count 2.79 M/mm3 (3.65-5.03)
[2017-12-21 01:14] LABS: Red Cell Distribution Width 20.7 % (13.2-15.2)
[2017-12-21] MEDS: VITAMIN C PO SCH ×2 (01:50→15:25)
--- NOTE | 2017-12-21 02:25 | Emergency Department Report ---
HPI - General Chief Complaint: Altered Mental Status Time Seen by Provider: 12/15/17 09:00 - HPI HPI: I was called by Dr. Elle Da Silva the hospitalist airline lounge receptionist to come and insert a central line for Ms. Knight who is admitted in ICU. Patient needed a central line for IV Levophed infusion. On arrival Ms. Knight is unconscious and has a tracheostomy. She is unable to give consent for the central line procedure. So double doctors signature was required because no family member could be reached at this time. Please refer to my procedure note for details of the right internal jugular central line placement by me. ED Past Medical Hx - Past Medical History Previous Medical History?: Yes Hx Hypertension: Yes Hx CVA: Yes Hx Congestive Heart Failure: Yes Hx Diabetes: Yes Hx Deep Vein Thrombosis: No Hx GERD: Yes Hx Renal Disease: No Hx Asthma: No Hx COPD: Yes Additional medical history: HYPOTHROIDISM - Surgical History Hx Pacemaker: No Hx Internal Defibrillator: No - Social History Smoking Status: Unknown if ever smoked - Medications Home Medications: Home Medications Medication Instructions Recorded Confirmed Last Taken Type Ascorbic Acid [Vitamin C] 500 mg PO Q12H 09/12/15 12/17/17 07/11/16 History Baclofen [Lioresal] 10 mg PO TID 09/12/15 12/17/17 07/11/16 History Ipratropium/Albuterol Sulfate 1 ampul IH Q6HR PRN 09/12/15 12/17/17 Unknown History [DUONEB *Not for PRN Use*] Magnesium Hydroxide [Milk of 30 ml PO HS 09/12/15 12/17/17 07/11/16 History Magnesia] clonazePAM [KlonoPIN] 2 mg PO BID 09/12/15 12/17/17 07/10/16 History Pravastatin Sodium [Pravastatin] 10 mg PO QHS 07/13/16 12/17/17 07/11/16 History Carvedilol [Coreg] 12.5 mg PO BID #60 tablet 08/07/16 12/17/17 Unknown Rx Lisinopril [Zestril TAB] 20 mg PO QDAY #30 tablet 08/07/16 12/17/17 Unknown Rx Polyethylene Glycol 3350 [Miralax 17 gm PO QDAY PRN #7 packet 04/21/17 12/17/17 Unknown Rx 3350] Aspirin [Aspirin BABY CHEW TAB] 81 mg PO QDAY 10/29/17 12/17/17 Unknown History Citalopram [celeXA] 20 mg PO QDAY 10/29/17 12/17/17 Unknown History Docusate Sodium [Colace] 100 mg PO BID 10/29/17 12/17/17 Unknown History Gabapentin [Neurontin] 600 mg PO TID 10/29/17 12/17/17 Unknown History Levothyroxine [Synthroid] 125 mcg PO QAM 10/29/17 12/17/17 Unknown History Pantoprazole [Protonix] 40 mg PO QAM 10/29/17 12/17/17 Unknown History Potassium Chloride [K-Dur] 20 meq PO QDAY 10/29/17 12/17/17 Unknown History Sennosides [Senna] 8.6 mg PO BID 10/29/17 12/17/17 Unknown History ED Review of Systems ROS: Stated complaint: GENERAL WEAKNESS LABORED BREATHING Other details as noted in HPI Physical Exam - Physical Exam Vital Signs: Vital Signs 12/15/17 12/15/17 12/15/17 08:39 08:42 08:46 Temperature 98.5 F Pulse Rate 78 109 H 80 Respiratory 36 H 12 41 H Rate Blood Pressure 117/34 O2 Sat by Pulse 100 76 L Oximetry O2 Sat by Pulse Oximetry [ Assessment] 12/15/17 12/15/17 12/15/17 09:01 09:15 09:31 Temperature Pulse Rate 78 78 Respiratory 40 H 43 H 43 H Rate Blood Pressure 77/41 77/41 O2 Sat by Pulse 72 L 76 L 65 L Oximetry O2 Sat by Pulse Oximetry [ Assessment] 12/15/17 12/15/17 12/15/17 09:45 09:48 10:01 Temperature Pulse Rate Respiratory 45 H 45 H 45 H Rate Blood Pressure 84/41 94/20 O2 Sat by Pulse 82 L 98 100 Oximetry O2 Sat by Pulse Oximetry [ Assessment] 12/15/17 12/15/17 12/15/17 10:15 10:31 10:45 Temperature Pulse Rate Respiratory 49 H 47 H 44 H Rate Blood Pressure 94/20 94/20 94/20 O2 Sat by Pulse 80 L 96 87 Oximetry O2 Sat by Pulse Oximetry [ Assessment] 12/15/17 12/15/17 12/15/17 11:01 11:15 11:31 Temperature Pulse Rate 80 Respiratory 44 H 42 H 39 H Rate Blood Pressure 164/111 164/111 189/140 O2 Sat by Pulse Oximetry O2 Sat by Pulse Oximetry [ Assessment] 12/15/17 12/15/17 12/15/17 11:45 12:01 12:15 Temperature Pulse Rate 80 80 80 Respiratory 33 H 34 H 38 H Rate Blood Pressure 199/139 111/48 111/48 O2 Sat by Pulse 99 Oximetry O2 Sat by Pulse Oximetry [ Assessment] 12/15/17 12/15/17 12/15/17 12:31 12:45 13:00 Temperature Pulse Rate 80 81 80 Respiratory 30 H 23 19 Rate Blood Pressure 110/69 103/63 101/58 O2 Sat by Pulse 90 Oximetry O2 Sat by Pulse Oximetry [ Assessment] 12/15/17 12/15/17 12/15/17 13:15 13:30 13:45 Temperature Pulse Rate 78 78 76 Respiratory 21 22 21 Rate Blood Pressure 99/58 90/54 102/51 O2 Sat by Pulse 92 87 91 Oximetry O2 Sat by Pulse Oximetry [ Assessment] 12/15/17 12/15/17 12/15/17 14:00 14:15 14:30 Temperature Pulse Rate 76 72 72 Respiratory 21 19 18 Rate Blood Pressure 96/49 93/50 89/47 O2 Sat by Pulse 91 92 Oximetry O2 Sat by Pulse 97 Oximetry [ Assessment] 12/15/17 12/15/17 12/15/17 14:45 15:00 15:15 Temperature Pulse Rate 72 72 72 Respiratory 22 20 22 Rate Blood Pressure 83/46 94/51 93/54 O2 Sat by Pulse 97 96 98 Oximetry O2 Sat by Pulse Oximetry [ Assessment] 12/15/17 12/15/17 12/15/17 15:30 15:45 16:00 Temperature Pulse Rate 72 72 72 Respiratory 16 17 15 Rate Blood Pressure 102/52 100/55 90/53 O2 Sat by Pulse 99 Oximetry O2 Sat by Pulse Oximetry [ Assessment] 12/15/17 12/15/17 12/15/17 16:15 16:30 16:51 Temperature Pulse Rate 75 74 72 Respiratory 16 18 21 Rate Blood Pressure 90/53 107/55 98/61 O2 Sat by Pulse 100 83 L Oximetry O2 Sat by Pulse Oximetry [ Assessment] 12/15/17 12/15/1718 17:00 17:11 17:21 Temperature Pulse Rate 71 71 72 Respiratory 15 16 17 Rate Blood Pressure 90/56 90/56 93/50 O2 Sat by Pulse 92 94 97 Oximetry O2 Sat by Pulse Oximetry [ Assessment] 12/15/17 12/15/17 12/15/17 17:30 17:41 17:51 Temperature Pulse Rate 72 Respiratory 13 17 24 Rate Blood Pressure 103/60 103/60 101/55 O2 Sat by Pulse 100 92 97 Oximetry O2 Sat by Pulse Oximetry [ Assessment] 12/15/17 12/15/17 12/15/17 18:00 18:30 18:32 Temperature 97.9 F Pulse Rate 73 73 Respiratory 16 20 Rate Blood Pressure 91/53 91/57 O2 Sat by Pulse 98 100 Oximetry O2 Sat by Pulse Oximetry [ Assessment] 12/15/17 12/15/17 12/15/17 18:39 19:33 19:40 Temperature Pulse Rate Respiratory Rate Blood Pressure 103/68 118/67 O2 Sat by Pulse 94 Oximetry O2 Sat by Pulse 98 Oximetry [ Assessment] 12/15/17 12/15/17 12/15/17 20:24 21:30 22:00 Temperature 97.7 F Pulse Rate 71 Respiratory 20 20 Rate Blood Pressure 96/57 O2 Sat by Pulse 100 98 Oximetry O2 Sat by Pulse 98 Oximetry [ Assessment] 12/15/17 12/16/17 12/16/17 23:51 00:56 04:24 Temperature 97.2 F L Pulse Rate 70 Respiratory 22 Rate Blood Pressure 102/56 O2 Sat by Pulse 100 Oximetry O2 Sat by Pulse 100 100 Oximetry [ Assessment] 12/16/17 05:22 Temperature 97.4 F L Pulse Rate 78 Respiratory 22 Rate Blood Pressure 116/94 O2 Sat by Pulse 100 Oximetry O2 Sat by Pulse Oximetry [ Assessment] ED Course Vital Signs 12/15/17 12/15/17 12/15/17 08:39 08:42 08:46 Temperature 98.5 F Pulse Rate 78 109 H 80 Respiratory 36 H 12 41 H Rate Blood Pressure 117/34 O2 Sat by Pulse 100 76 L Oximetry O2 Sat by Pulse Oximetry [ Assessment] 12/15/17 12/15/17 12/15/17 09:01 09:15 09:31 Temperature Pulse Rate 78 78 Respiratory 40 H 43 H 43 H Rate Blood Pressure 77/41 77/41 O2 Sat by Pulse 72 L 76 L 65 L Oximetry O2 Sat by Pulse Oximetry [ Assessment] 12/15/17 12/15/17 12/15/17 09:45 09:48 10:01 Temperature Pulse Rate Respiratory 45 H 45 H 45 H Rate Blood Pressure 84/41 94/20 O2 Sat by Pulse 82 L 98 100 Oximetry O2 Sat by Pulse Oximetry [ Assessment] 12/15/17 12/15/17 12/15/17 10:15 10:31 10:45 Temperature Pulse Rate Respiratory 49 H 47 H 44 H Rate Blood Pressure 94/20 94/20 94/20 O2 Sat by Pulse 80 L 96 87 Oximetry O2 Sat by Pulse Oximetry [ Assessment] 12/15/17 12/15/17 12/15/17 11:01 11:15 11:31 Temperature Pulse Rate 80 Respiratory 44 H 42 H 39 H Rate Blood Pressure 164/111 164/111 189/140 O2 Sat by Pulse Oximetry O2 Sat by Pulse Oximetry [ Assessment] 12/15/17 12/15/17 12/15/17 11:45 12:01 12:15 Temperature Pulse Rate 80 80 80 Respiratory 33 H 34 H 38 H Rate Blood Pressure 199/139 111/48 111/48 O2 Sat by Pulse 99 Oximetry O2 Sat by Pulse Oximetry [ Assessment] 12/15/17 12/15/17 12/15/17 12:31 12:45 13:00 Temperature Pulse Rate 80 81 80 Respiratory 30 H 23 19 Rate Blood Pressure 110/69 103/63 101/58 O2 Sat by Pulse 90 Oximetry O2 Sat by Pulse Oximetry [ Assessment] 12/15/17 12/15/17 12/15/17 13:15 13:30 13:45 Temperature Pulse Rate 78 78 76 Respiratory 21 22 21 Rate Blood Pressure 99/58 90/54 102/51 O2 Sat by Pulse 92 87 91 Oximetry O2 Sat by Pulse Oximetry [ Assessment] 12/15/17 12/15/17 12/15/17 14:00 14:15 14:30 Temperature Pulse Rate 76 72 72 Respiratory 21 19 18 Rate Blood Pressure 96/49 93/50 89/47 O2 Sat by Pulse 91 92 Oximetry O2 Sat by Pulse 97 Oximetry [ Assessment] 12/15/17 12/15/17 12/15/17 14:45 15:00 15:15 Temperature Pulse Rate 72 72 72 Respiratory 22 20 22 Rate Blood Pressure 83/46 94/51 93/54 O2 Sat by Pulse 97 96 98 Oximetry O2 Sat by Pulse Oximetry [ Assessment] 12/15/17 12/15/17 12/15/17 15:30 15:45 16:00 Temperature Pulse Rate 72 72 72 Respiratory 16 17 15 Rate Blood Pressure 102/52 100/55 90/53 O2 Sat by Pulse 99 Oximetry O2 Sat by Pulse Oximetry [ Assessment] 12/15/17 12/15/17 12/15/17 16:15 16:30 16:51 Temperature Pulse Rate 75 74 72 Respiratory 16 18 21 Rate Blood Pressure 90/53 107/55 98/61 O2 Sat by Pulse 100 83 L Oximetry O2 Sat by Pulse Oximetry [ Assessment] 12/15/17 12/15/17 12/15/17 17:00 17:11 17:21 Temperature Pulse Rate 71 71 72 Respiratory 15 16 17 Rate Blood Pressure 90/56 90/56 93/50 O2 Sat by Pulse 92 94 97 Oximetry O2 Sat by Pulse Oximetry [ Assessment] 12/15/17 12/15/17 12/15/17 17:30 17:41 17:51 Temperature Pulse Rate 72 Respiratory 13 17 24 Rate Blood Pressure 103/60 103/60 101/55 O2 Sat by Pulse 100 92 97 Oximetry O2 Sat by Pulse Oximetry [ Assessment] 12/15/17 12/15/17 12/15/17 18:00 18:30 18:32 Temperature 97.9 F Pulse Rate 73 73 Respiratory 16 20 Rate Blood Pressure 91/53 91/57 O2 Sat by Pulse 98 100 Oximetry O2 Sat by Pulse Oximetry [ Assessment] 12/15/17 12/15/17 12/15/17 18:39 19:33 19:40 Temperature Pulse Rate Respiratory Rate Blood Pressure 103/68 118/67 O2 Sat by Pulse 94 Oximetry O2 Sat by Pulse 98 Oximetry [ Assessment] 12/15/17 12/15/17 12/15/17 20:24 21:30 22:00 Temperature 97.7 F Pulse Rate 71 Respiratory 20 20 Rate Blood Pressure 96/57 O2 Sat by Pulse 100 98 Oximetry O2 Sat by Pulse 98 Oximetry [ Assessment] 12/15/17 12/16/17 12/16/17 23:51 00:56 04:24 Temperature 97.2 F L Pulse Rate 70 Respiratory 22 Rate Blood Pressure 102/56 O2 Sat by Pulse 100 Oximetry O2 Sat by Pulse 100 100 Oximetry [ Assessment] 12/16/17 05:22 Temperature 97.4 F L Pulse Rate 78 Respiratory 22 Rate Blood Pressure 116/94 O2 Sat by Pulse 100 Oximetry O2 Sat by Pulse Oximetry [ Assessment] - Central Line Placement Right IJ Consent Obtained: emergent situation (Double doctors signature completed in the chart.) Time Out Performed: Yes Patient Placed on Monitor/Pulse Ox: Yes MD Prep: mask, gown, gloves Central Line Prep: Chlorhexidine scrub, sterile drapes applied Local Anesthesia Used: Lidocaine 1% Amount of Anesthesia Used (mls): 3 Ultrasound Used for Placement: Yes Central Line Lumen Inserted: triple Bloods Obtained for Lab: Yes Central Line Position: good blood return, all ports aspirated, flus, sutured in place with 2-0 Dressing Applied: Tegaderm Post Procedure X-Ray: tip of catheter in good p Patient Tolerated Procedure: well Complications: none ED Medical Decision Making - Lab Data Result diagrams: 12/21/17 01:05 12/20/17 00:12 Critical care attestation.: If time is entered above; I have spent that time in minutes in the direct care of this critically ill patient, excluding procedure time. ED Disposition Clinical Impression: Hypotension Qualifiers: Hypotension type: unspecified hypotension type Qualified Code(s): I95.9 - Hypotension, unspecified Disposition: OP ADMIT IP TO THIS HOSP Is pt being admited?: Yes Does the pt Need Aspirin: No Condition: Poor
[2017-12-21] MEDS: LEVOPHED DRIP 4 MG/NS 250 ML 4 MG/250 ML BAG IV SCH ×3 (03:53→20:07)
[2017-12-21] MEDS: LIORESAL PO SCH ×3 (08:56→20:09)
[2017-12-21] MEDS ORDERED: LEVAQUIN 750MG/150ML 750 MG/150 ML BAG IV SCH (10:00)
[2017-12-21] MEDS: LEVAQUIN 750MG/150ML 750 MG/150 ML BAG IV SCH (10:03)
[2017-12-21] MEDS: COREG PO SCH ×2 (10:04→22:11)
[2017-12-21] MEDS: SENOKOT PO SCH ×2 (10:04→22:28)
[2017-12-21] MEDS: BABY ASPIRIN PO SCH (10:41)
[2017-12-21] MEDS: PREVACID SOLUTAB FEEDTUBE SCH (10:42)
--- NOTE | 2017-12-21 14:36 | Progress Note ---
Assessment and Plan Assessment and plan: Septic Shock continue and wean off levophed as tolerated Aspiration Pneumonia continue IV abx aspiration precautions at all times Chronic Encephalopathuy, suspect Anoxic encephalopathy aspiration precautions supportive care Chronic physical debility turn pt h/o CVA bed bound Chronic Anemia monitor H/H closely Overall prognosis is Guarded Remains at risk of deterioration, 30 mins spent Disposition Plan: per hospital course Total Time Spent with Patient (Minutes): 30 mins History Interval history: Code MET was called to pt's room last night. BP was severely low, Central line placement was done by the ED attending Pt was transferred to the ICU on Levophed drip Pt seen and exam. Remains on Levophed 7.5 mcgs. No family at bedside. Overnight update from RN by bedside appreciated. Hospitalist Physical - Constitutional Vitals: Temp Pulse Resp BP Pulse Ox 97.5 F L 68 12 116/57 100 12/21/17 12:00 12/21/17 13:15 12/21/17 13:15 12/21/17 13:15 12/21/17 13:15 General appearance: Present: no acute distress, mild distress, obese - EENT Eyes: Present: PERRL ENT: other (unable to assess as pt is encephaloapthic) - Neck Neck: Present: supple, other (TLC ) - Respiratory Respiratory: bilateral: diminished, rhonchi - Cardiovascular Rhythm: regular Heart Sounds: Present: S1 & S2 - Extremities Extremities: normal temperature, normal color Extremity abnormal: edema - Abdominal General gastrointestinal: soft, non-distended, normal bowel sounds - Integumentary Integumentary: Present: clear, warm, dry - Psychiatric Psychiatric: other (unable to assess due to AMS) - Neurologic Neurologic: other (ENCEPHALOPATHIC) - Allied Health Allied health notes reviewed: nursing, social work, case management Results - Labs CBC & Chem 7: 12/21/17 01:05 12/20/17 00:12 Labs: Laboratory Last Values WBC 13.3 K/mm3 (4.5-11.0) H 12/21/17 01:05 RBC 2.79 M/mm3 (3.65-5.03) L 12/21/17 01:05 Hgb 8.4 gm/dl (10.1-14.3) L 12/21/17 01:05 Hct 26.0 % (30.3-42.9) L 12/21/17 01:05 MCV 93 fl (79-97) 12/21/17 01:05 MCH 30 pg (28-32) 12/21/17 01:05 MCHC 32 % (30-34) 12/21/17 01:05 RDW 20.7 % (13.2-15.2) H 12/21/17 01:05 Plt Count 340 K/mm3 (140-440) 12/21/17 01:05 Lymph % (Auto) 22.9 % (13.4-35.0) 12/19/17 04:55 [place] % (Auto) 5.8 % (0.0-7.3) 12/19/17 04:55 Eos % (Auto) 1.7 % (0.0-4.3) 12/19/17 04:55 Baso % (Auto) 0.7 % (0.0-1.8) 12/19/17 04:55 Lymph # 2.0 K/mm3 (1.2-5.4) 12/19/17 04:55 [place] # 0.5 K/mm3 (0.0-0.8) 12/19/17 04:55 Eos # 0.1 K/mm3 (0.0-0.4) 12/19/17 04:55 Baso # 0.1 K/mm3 (0.0-0.1) 12/19/17 04:55 Add Manual Diff Complete 12/15/17 09:22 Total Counted 200 12/15/17 09:22 Seg Neutrophils % 68.9 % (40.0-70.0) 12/19/17 04:55 Seg Neuts % (Manual) 73.0 % (40.0-70.0) H 12/15/17 09:22 Band Neutrophils % 5.0 % 12/15/17 09:22 Lymphocytes % (Manual) 11.0 % (13.4-35.0) L 12/15/17 09:22 Reactive Lymphs % (Man) 0 % 12/15/17 09:22 Monocytes % (Manual) 6.5 % (0.0-7.3) 12/15/17 09:22 Eosinophils % (Manual) 3.0 % (0.0-4.3) 12/15/17 09:22 Basophils % (Manual) 1.0 % (0.0-1.8) 12/15/17 09:22 Metamyelocytes % 0.5 % 12/15/17 09:22 Myelocytes % 0 % 12/15/17 09:22 Promyelocytes % 0 % 12/15/17 09:22 Blast Cells % 0 % 12/15/17 09:22 Nucleated RBC % Not Reportable 12/15/17 09:22 Seg Neutrophils # 6.1 K/mm3 (1.8-7.7) 12/19/17 04:55 Seg Neutrophils # Man 16.2 K/mm3 (1.8-7.7) H 12/15/17 09:22 Band Neutrophils # 1.1 K/mm3 12/15/17 09:22 Lymphocytes # (Manual) 2.4 K/mm3 (1.2-5.4) 12/15/17 09:22 Abs React Lymphs (Man) 0.0 K/mm3 12/15/17 09:22 Monocytes # (Manual) 1.4 K/mm3 (0.0-0.8) H 12/15/17 09:22 Eosinophils # (Manual) 0.7 K/mm3 (0.0-0.4) H 12/15/17 09:22 Basophils # (Manual) 0.2 K/mm3 (0.0-0.1) H 12/15/17 09:22 Metamyelocytes # 0.1 K/mm3 12/15/17 09:22 Myelocytes # 0.0 K/mm3 12/15/17 09:22 Promyelocytes # 0.0 K/mm3 12/15/17 09:22 Blast Cells # 0.0 K/mm3 12/15/17 09:22 WBC Morphology Not Reportable 12/15/17 09:22 Hypersegmented Neuts Not Reportable 12/15/17 09:22 Hyposegmented Neuts Not Reportable 12/15/17 09:22 Hypogranular Neuts Not Reportable 12/15/17 09:22 Smudge Cells Not Reportable 12/15/17 09:22 Toxic Granulation Not Reportable 12/15/17 09:22 Toxic Vacuolation Not Reportable 12/15/17 09:22 Dohle Bodies Not Reportable 12/15/17 09:22 Pelger-Huet Anomaly Not Reportable 12/15/17 09:22 Eileen Rods Not Reportable 12/15/17 09:22 Platelet Estimate Consistent w auto 12/15/17 09:22 Clumped Platelets Not Reportable 12/15/17 09:22 Plt Clumps, EDTA Not Reportable 12/15/17 09:22 Large Platelets Not Reportable 12/15/17 09:22 Giant Platelets Not Reportable 12/15/17 09:22 Platelet Satelliting Not Reportable 12/15/17 09:22 Plt Morphology Comment Not Reportable 12/15/17 09:22 RBC Morphology Not Reportable 12/15/17 09:22 Dimorphic RBCs Not Reportable 12/15/17 09:22 Polychromasia 1+ 12/15/17 09:22 Hypochromasia 1+ 12/15/17 09:22 Poikilocytosis Not Reportable 12/15/17 09:22 Anisocytosis 1+ 12/15/17 09:22 Microcytosis Not Reportable 12/15/17 09:22 Macrocytosis 1+ 12/15/17 09:22 Spherocytes Not Reportable 12/15/17 09:22 Pappenheimer Bodies Not Reportable 12/15/17 09:22 Sickle Cells Not Reportable 12/15/17 09:22 Target Cells Not Reportable 12/15/17 09:22 Tear Drop Cells Few 12/15/17 09:22 Ovalocytes Few 12/15/17 09:22 Helmet Cells Not Reportable 12/15/17 09:22 Boone-Sachse Bodies Not Reportable 12/15/17 09:22 Taft Rings Not Reportable 12/15/17 09:22 Elvin Cells Not Reportable 12/15/17 09:22 Bite Cells Not Reportable 12/15/17 09:22 Crenated Cell Not Reportable 12/15/17 09:22 Elliptocytes Few 12/15/17 09:22 Acanthocytes (Spur) Not Reportable 12/15/17 09:22 Rouleaux Not Reportable 12/15/17 09:22 Hemoglobin C Crystals Not Reportable 12/15/17 09:22 Schistocytes Rare 12/15/17 09:22 Malaria parasites Not Reportable 12/15/17 09:22 Adriano Bodies Not Reportable 12/15/17 09:22 Hem Pathologist Commnt No 12/15/17 09:22 Sodium 140 mmol/L (137-145) 12/20/17 00:12 Potassium 4.4 mmol/L (3.6-5.0) 12/20/17 00:12 Chloride 100.3 mmol/L (98-107) 12/20/17 00:12 Carbon Dioxide 27 mmol/L (22-30) 12/20/17 00:12 Anion Gap 17 mmol/L 12/20/17 00:12 BUN 12 mg/dL (7-17) 12/20/17 00:12 Creatinine 0.6 mg/dL (0.7-1.2) L 12/20/17 00:12 Estimated GFR > 60 ml/min 12/20/17 00:12 BUN/Creatinine Ratio 20 % 12/20/17 00:12 Glucose 102 mg/dL (65-100) H 12/20/17 00:12 POC Glucose 109 (70-105) H 12/21/17 13:07 Lactic Acid 1.90 mmol/L (0.7-2.0) 12/15/17 19:36 Calcium 9.2 mg/dL (8.4-10.2) 12/20/17 00:12 Iron 32 ug/dL (37-170) L 12/16/17 22:27 TIBC 296 mcg/dL (250-450) 12/16/17 22:27 Total Bilirubin 0.20 mg/dL (0.1-1.2) 12/20/17 00:12 AST 25 units/L (5-40) 12/20/17 00:12 ALT 27 units/L (7-56) 12/20/17 00:12 Alkaline Phosphatase 115 units/L (35-129) 12/20/17 00:12 Total Protein 7.0 g/dL (6.3-8.2) 12/20/17 00:12 Albumin 3.4 g/dL (3.9-5) L 12/20/17 00:12 Albumin/Globulin Ratio 0.9 % 12/20/17 00:12 Vitamin B12 1675 pg/mL (211-911) H 12/16/17 22:27 RBC Folic Acid >1000 ng/mL (>280) 12/16/17 22:27 Urine Color Yellow (Yellow) 12/15/17 12:39 Urine Turbidity Clear (Clear) 12/15/17 12:39 Urine pH 7.0 (5.0-7.0) 12/15/17 12:39 Ur Specific [place] 1.009 (1.003-1.030) 12/15/17 12:39 Urine Protein <15 mg/dl mg/dL (Negative) 12/15/17 12:39 Urine Glucose (UA) Neg mg/dL (Negative) 12/15/17 12:39 Urine Ketones Neg mg/dL (Negative) 12/15/17 12:39 Urine Blood Neg (Negative) 12/15/17 12:39 Urine Nitrite Neg (Negative) 12/15/17 12:39 Urine Bilirubin Neg (Negative) 12/15/17 12:39 Urine Urobilinogen < 2.0 mg/dL (<2.0) 12/15/17 12:39 Ur Leukocyte Esterase Neg (Negative) 12/15/17 12:39 Urine WBC (Auto) < 1.0 /HPF (0.0-6.0) 12/15/17 12:39 Urine RBC (Auto) 2.0 /HPF (0.0-6.0) 12/15/17 12:39 U Epithel Cells (Auto) 1.0 /HPF (0-13.0) 12/15/17 12:39 Blood Type A POSITIVE 12/16/17 22:27 Antibody Screen Negative 12/16/17 22:27 Crossmatch See Detail 12/16/17 22:27 - Imaging and Cardiology Chest x-ray: report reviewed, image reviewed
[2017-12-21] MEDS: MILK OF MAGNESIA PO SCH (22:29)
[2017-12-22 00:59] LABS: Hematocrit 21.2 % (30.3-42.9); Hemoglobin 7.5 gm/dl (10.1-14.3); Mean Corpuscular HGB Conc 35 % (30-34); Mean Corpuscular Hemoglobin 32 pg (28-32); Mean Corpuscular Volume 91 fl (79-97); Platelet Count 304 K/mm3 (140-440); Red Blood Count 2.33 M/mm3 (3.65-5.03); Red Cell Distribution Width 19.4 % (13.2-15.2)
[2017-12-22 01:27] LABS: Alanine Aminotransferase 24 units/L (7-56); Albumin 3.1 g/dL (3.9-5); BUN/Creatinine Ratio 23; Blood Urea Nitrogen 14 mg/dL (7-17); Calcium 8.6 mg/dL (8.4-10.2); Hemolysis Index 0
[2017-12-22] MEDS: VITAMIN C PO SCH ×2 (02:00→14:15)
[2017-12-22] MEDS: LEVAQUIN 750MG/150ML 750 MG/150 ML BAG IV SCH (09:24)
[2017-12-22] MEDS: LIORESAL PO SCH ×3 (09:24→20:00)
[2017-12-22] MEDS: PREVACID SOLUTAB FEEDTUBE SCH (09:25)
[2017-12-22] MEDS: BABY ASPIRIN PO SCH (09:25)
[2017-12-22] MEDS: COREG PO SCH ×2 (10:00→21:42)
--- NOTE | 2017-12-22 13:01 | Progress Note ---
Assessment and Plan Assessment and plan: 67-year-old -[place] female with medical history significant for massive CVA, patient was comatose and on PEG and trach for long time. He was discharged to [facility] and presented back to the hospital, for respiratory failure, and low blood pressure. Patient is admitted to ICU Septic Shock - continue and wean off levophed as tolerated - patient is off levophed, will continue to monitor Aspiration Pneumonia continue IV abx aspiration precautions at all times Chronic Encephalopathuy, suspect Anoxic encephalopathy aspiration precautions supportive care Chronic physical debility h/o CVA bed bound, comatose, on PEG and trach Chronic Anemia monitor H/H closely Will transfuse as needed if Hemoglobin is below 7 Prognosis poor Physician to make any meaningful recovery. History Interval history: Patient was seen and evaluated this morning, patient was comatose, on PEG and trach. Patient discharged recently from the hospital. Hospitalist Physical - Physical exam Narrative exam: Not in cardiopulmonary distress. On trach and PEG. Biting her tongue. The patient appeared well nourished and normally developed. Vital signs as documented. Head exam is unremarkable. No scleral icterus . Neck is without jugular venous distension, thyromegaly, or carotid bruits. Lungs are clear to auscultation. Cardiac exam reveals regular rate and Rhythm. Abdominal exam reveals normal bowel sounds, no masses, no organomegaly and no aortic enlargement. Extremities are contracted. 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 - Constitutional Vitals: Temp Pulse Resp BP Pulse Ox 97.5 F L 87 17 112/58 100 12/22/17 08:00 12/22/17 10:00 12/22/17 10:00 12/22/17 10:00 12/22/17 10:00 General appearance: Present: no acute distress, mild distress, obese Results - Labs CBC & Chem 7: 12/22/17 00:34 12/22/17 00:34 Labs: Laboratory Last Values WBC 9.0 K/mm3 (4.5-11.0) 12/22/17 00:34 RBC 2.33 M/mm3 (3.65-5.03) L 12/22/17 00:34 Hgb 7.5 gm/dl (10.1-14.3) L 12/22/17 00:34 Hct 21.2 % (30.3-42.9) L 12/22/17 00:34 MCV 91 fl (79-97) 12/22/17 00:34 MCH 32 pg (28-32) 12/22/17 00:34 MCHC 35 % (30-34) H 12/22/17 00:34 RDW 19.4 % (13.2-15.2) H 12/22/17 00:34 Plt Count 304 K/mm3 (140-440) 12/22/17 00:34 Lymph % (Auto) 22.9 % (13.4-35.0) 12/19/17 04:55 Becker % (Auto) 5.8 % (0.0-7.3) 12/19/17 04:55 Eos % (Auto) 1.7 % (0.0-4.3) 12/19/17 04:55 Baso % (Auto) 0.7 % (0.0-1.8) 12/19/17 04:55 Lymph # 2.0 K/mm3 (1.2-5.4) 12/19/17 04:55 Becker # 0.5 K/mm3 (0.0-0.8) 12/19/17 04:55 Eos # 0.1 K/mm3 (0.0-0.4) 12/19/17 04:55 Baso # 0.1 K/mm3 (0.0-0.1) 12/19/17 04:55 Add Manual Diff Complete 12/15/17 09:22 Total Counted 200 12/15/17 09:22 Seg Neutrophils % 68.9 % (40.0-70.0) 12/19/17 04:55 Seg Neuts % (Manual) 73.0 % (40.0-70.0) H 12/15/17 09:22 Band Neutrophils % 5.0 % 12/15/17 09:22 Lymphocytes % (Manual) 11.0 % (13.4-35.0) L 12/15/17 09:22 Reactive Lymphs % (Man) 0 % 12/15/17 09:22 Monocytes % (Manual) 6.5 % (0.0-7.3) 12/15/17 09:22 Eosinophils % (Manual) 3.0 % (0.0-4.3) 12/15/17 09:22 Basophils % (Manual) 1.0 % (0.0-1.8) 12/15/17 09:22 Metamyelocytes % 0.5 % 12/15/17 09:22 Myelocytes % 0 % 12/15/17 09:22 Promyelocytes % 0 % 12/15/17 09:22 Blast Cells % 0 % 12/15/17 09:22 Nucleated RBC % Not Reportable 12/15/17 09:22 Seg Neutrophils # 6.1 K/mm3 (1.8-7.7) 12/19/17 04:55 Seg Neutrophils # Man 16.2 K/mm3 (1.8-7.7) H 12/15/17 09:22 Band Neutrophils # 1.1 K/mm3 12/15/17 09:22 Lymphocytes # (Manual) 2.4 K/mm3 (1.2-5.4) 12/15/17 09:22 Abs React Lymphs (Man) 0.0 K/mm3 12/15/17 09:22 Monocytes # (Manual) 1.4 K/mm3 (0.0-0.8) H 12/15/17 09:22 Eosinophils # (Manual) 0.7 K/mm3 (0.0-0.4) H 12/15/17 09:22 Basophils # (Manual) 0.2 K/mm3 (0.0-0.1) H 12/15/17 09:22 Metamyelocytes # 0.1 K/mm3 12/15/17 09:22 Myelocytes # 0.0 K/mm3 12/15/17 09:22 Promyelocytes # 0.0 K/mm3 12/15/17 09:22 Blast Cells # 0.0 K/mm3 12/15/17 09:22 WBC Morphology Not Reportable 12/15/17 09:22 Hypersegmented Neuts Not Reportable 12/15/17 09:22 Hyposegmented Neuts Not Reportable 12/15/17 09:22 Hypogranular Neuts Not Reportable 12/15/17 09:22 Smudge Cells Not Reportable 12/15/17 09:22 Toxic Granulation Not Reportable 12/15/17 09:22 Toxic Vacuolation Not Reportable 12/15/17 09:22 Dohle Bodies Not Reportable 12/15/17 09:22 Pelger-Huet Anomaly Not Reportable 12/15/17 09:22 Eileen Rods Not Reportable 12/15/17 09:22 Platelet Estimate Consistent w auto 12/15/17 09:22 Clumped Platelets Not Reportable 12/15/17 09:22 Plt Clumps, EDTA Not Reportable 12/15/17 09:22 Large Platelets Not Reportable 12/15/17 09:22 Giant Platelets Not Reportable 12/15/17 09:22 Platelet Satelliting Not Reportable 12/15/17 09:22 Plt Morphology Comment Not Reportable 12/15/17 09:22 RBC Morphology Not Reportable 12/15/17 09:22 Dimorphic RBCs Not Reportable 12/15/17 09:22 Polychromasia 1+ 12/15/17 09:22 Hypochromasia 1+ 12/15/17 09:22 Poikilocytosis Not Reportable 12/15/17 09:22 Anisocytosis 1+ 12/15/17 09:22 Microcytosis Not Reportable 12/15/17 09:22 Macrocytosis 1+ 12/15/17 09:22 Spherocytes Not Reportable 12/15/17 09:22 Pappenheimer Bodies Not Reportable 12/15/17 09:22 Sickle Cells Not Reportable 12/15/17 09:22 Target Cells Not Reportable 12/15/17 09:22 Tear Drop Cells Few 12/15/17 09:22 Ovalocytes Few 12/15/17 09:22 Helmet Cells Not Reportable 12/15/17 09:22 [place] Bodies Not Reportable 12/15/17 09:22 Selden Rings Not Reportable 12/15/17 09:22 Carroll Cells Not Reportable 12/15/17 09:22 Bite Cells Not Reportable 12/15/17 09:22 Crenated Cell Not Reportable 12/15/17 09:22 Elliptocytes Few 12/15/17 09:22 Acanthocytes (Spur) Not Reportable 12/15/17 09:22 Rouleaux Not Reportable 12/15/17 09:22 Hemoglobin C Crystals Not Reportable 12/15/17 09:22 Schistocytes Rare 12/15/17 09:22 Malaria parasites Not Reportable 12/15/17 09:22 Adriano Bodies Not Reportable 12/15/17 09:22 Hem Pathologist Commnt No 12/15/17 09:22 Sodium 140 mmol/L (137-145) 12/22/17 00:34 Potassium 4.1 mmol/L (3.6-5.0) 12/22/17 00:34 Chloride 103.4 mmol/L (98-107) 12/22/17 00:34 Carbon Dioxide 28 mmol/L (22-30) 12/22/17 00:34 Anion Gap 13 mmol/L 12/22/17 00:34 BUN 14 mg/dL (7-17) 12/22/17 00:34 Creatinine 0.6 mg/dL (0.7-1.2) L 12/22/17 00:34 Estimated GFR > 60 ml/min 12/22/17 00:34 BUN/Creatinine Ratio 23 % 12/22/17 00:34 Glucose 95 mg/dL (65-100) 12/22/17 00:34 POC Glucose 93 (70-105) 12/22/17 11:42 Lactic Acid 1.90 mmol/L (0.7-2.0) 12/15/17 19:36 Calcium 8.6 mg/dL (8.4-10.2) 12/22/17 00:34 Iron 32 ug/dL (37-170) L 12/16/17 22:27 TIBC 296 mcg/dL (250-450) 12/16/17 22:27 Total Bilirubin 0.20 mg/dL (0.1-1.2) 12/22/17 00:34 AST 29 units/L (5-40) 12/22/17 00:34 ALT 24 units/L (7-56) 12/22/17 00:34 Alkaline Phosphatase 108 units/L (35-129) 12/22/17 00:34 Total Protein 6.5 g/dL (6.3-8.2) 12/22/17 00:34 Albumin 3.1 g/dL (3.9-5) L 12/22/17 00:34 Albumin/Globulin Ratio 0.9 % 12/22/17 00:34 Vitamin B12 1675 pg/mL (211-911) H 12/16/17 22:27 RBC Folic Acid >1000 ng/mL (>280) 12/16/17 22:27 Urine Color Yellow (Yellow) 12/15/17 12:39 Urine Turbidity Clear (Clear) 12/15/17 12:39 Urine pH 7.0 (5.0-7.0) 12/15/17 12:39 Ur Specific Morrice 1.009 (1.003-1.030) 12/15/17 12:39 Urine Protein <15 mg/dl mg/dL (Negative) 12/15/17 12:39 Urine Glucose (UA) Neg mg/dL (Negative) 12/15/17 12:39 Urine Ketones Neg mg/dL (Negative) 12/15/17 12:39 Urine Blood Neg (Negative) 12/15/17 12:39 Urine Nitrite Neg (Negative) 12/15/17 12:39 Urine Bilirubin Neg (Negative) 12/15/17 12:39 Urine Urobilinogen < 2.0 mg/dL (<2.0) 12/15/17 12:39 Ur Leukocyte Esterase Neg (Negative) 12/15/17 12:39 Urine WBC (Auto) < 1.0 /HPF (0.0-6.0) 12/15/17 12:39 Urine RBC (Auto) 2.0 /HPF (0.0-6.0) 12/15/17 12:39 U Epithel Cells (Auto) 1.0 /HPF (0-13.0) 12/15/17 12:39 Blood Type A POSITIVE 12/16/17 22: Antibody Screen Negative 12/16/17 22: Crossmatch See Detail 12/16/17 22:27
[2017-12-22] MEDS: SENOKOT PO SCH ×2 (14:15→21:43)
--- NOTE | 2017-12-22 15:05 | Consultation ---
History of Present Illness Consult date: 12/22/17 Requesting physician: TRE MOFFETT History of present illness: PULMONARY/CCM CONSULT NOTE (Full dictation # [id number]) Please see dictated notes for full details Past History Past Medical History: CAD, COPD, diabetes, heart failure, hypothyroidism, stroke Past Surgical History: hysterectomy, Other (Trach/Peg placement, pacemaker? ) Social history: , other (long-term resident). denies: smoking, alcohol abuse, prescription drug abuse Family history: hypertension Medications and Allergies Allergies Allergy/AdvReac Type Severity Reaction Status Date / Time ibuprofen Allergy Unknown Verified 09/12/15 23:04 Penicillins Allergy Unknown Verified 09/12/15 23:04 Home Medications Medication Instructions Recorded Confirmed Last Taken Type Ascorbic Acid [Vitamin C] 500 mg PO Q12H 09/12/15 12/17/17 07/11/16 History Baclofen [Lioresal] 10 mg PO TID 09/12/15 12/17/17 07/11/16 History Ipratropium/Albuterol Sulfate 1 ampul IH Q6HR PRN 09/12/15 12/17/17 Unknown History [DUONEB *Not for PRN Use*] Magnesium Hydroxide [Milk of 30 ml PO HS 09/12/15 12/17/17 07/11/16 History Magnesia] clonazePAM [KlonoPIN] 2 mg PO BID 09/12/15 12/17/17 07/10/16 History Pravastatin Sodium [Pravastatin] 10 mg PO QHS 07/13/16 12/17/17 07/11/16 History Carvedilol [Coreg] 12.5 mg PO BID #60 tablet 08/07/16 12/17/17 Unknown Rx Lisinopril [Zestril TAB] 20 mg PO QDAY #30 tablet 08/07/16 12/17/17 Unknown Rx Polyethylene Glycol 3350 [Miralax 17 gm PO QDAY PRN #7 packet 04/21/17 12/17/17 Unknown Rx 3350] Aspirin [Aspirin BABY CHEW TAB] 81 mg PO QDAY 10/29/17 12/17/17 Unknown History Citalopram [celeXA] 20 mg PO QDAY 10/29/17 12/17/17 Unknown History Docusate Sodium [Colace] 100 mg PO BID 10/29/17 12/17/17 Unknown History Gabapentin [Neurontin] 600 mg PO TID 10/29/17 12/17/17 Unknown History Levothyroxine [Synthroid] 125 mcg PO QAM 10/29/17 12/17/17 Unknown History Pantoprazole [Protonix] 40 mg PO QAM 10/29/17 12/17/17 Unknown History Potassium Chloride [K-Dur] 20 meq PO QDAY 10/29/17 12/17/17 Unknown History Sennosides [Senna] 8.6 mg PO BID 10/29/17 12/17/17 Unknown History Active Meds: Active Medications Acetaminophen (Tylenol) 650 mg PO Q4H PRN PRN Reason: Pain MILD(1-3)/Fever >100.5/BIRD Albuterol (Proventil) 2.5 mg IH Q4HRT PRN PRN Reason: Shortness Of Breath Ascorbic Acid (Vitamin C) 500 mg PO Q12H [facility] Last Admin: 12/22/17 14:15 Dose: 500 mg Aspirin (Baby Aspirin) 81 mg PO QDAY [facility] Last Admin: 12/22/17 09:25 Dose: 81 mg Baclofen (Lioresal) 10 mg PO TID [facility] Last Admin: 12/22/17 14:15 Dose: 10 mg Carvedilol (Coreg) 12.5 mg PO BID [facility] Last Admin: 12/22/17 10:00 Dose: Not Given Clonazepam (Klonopin) 2 mg PO BID [facility] Last Admin: 12/22/17 09:25 Dose: 2 mg Cyclobenzaprine HCl (Flexeril) 10 mg PO BID PRN PRN Reason: Muscle Spasm Norepinephrine (Levophed Drip 4 Mg/Ns 250 Ml) 4 mg in 250 mls @ 7.5 mls/hr IV TITR [facility]; Protocol Last Titration: 12/22/17 09:39 Dose: 0 mcg/min, 0 mls/hr Levofloxacin/Dextrose (Levaquin 750mg/150ml) 750 mg in 150 mls @ 100 mls/hr IV Q24HR [facility]; Protocol Last Admin: 12/22/17 09:24 Dose: 100 mls/hr Lansoprazole (Prevacid Solutab) 30 mg FEEDTUBE QDAY [facility] Last Admin: 12/22/17 09:25 Dose: 30 mg Magnesium Hydroxide (Milk Of Magnesia) 30 ml PO HS [facility] Last Admin: 12/21/17 22:29 Dose: Not Given Oxycodone HCl (Roxicodone) 5 mg PO Q6H PRN PRN Reason: Pain, Moderate (4-6) Last Admin: 12/15/17 15:19 Dose: 5 mg Oxycodone/Acetaminophen (Percocet 5/325) 1 tab PO Q6H PRN PRN Reason: Pain, Moderate (4-6) Last Admin: 12/15/17 15:19 Dose: 1 tab Polyethylene Glycol (Miralax 3350) 17 gm PO QDAY PRN PRN Reason: Constipation Senna (Senokot) 8.6 mg PO BID [facility] Last Admin: 12/22/17 14:15 Dose: Not Given Simple Syrup (Simple Syrup) 15 ml FEEDTUBE PRN PRN PRN Reason: Hypoglycemia Simple Syrup (Simple Syrup) 30 ml FEEDTUBE PRN PRN PRN Reason: Hypoglycemia Physical Examination Vital signs: Vital Signs Temp Pulse Resp BP Pulse Ox 98.5 F 78 36 H 117/34 100 12/15/17 08:39 12/15/17 08:39 12/15/17 08:39 12/15/17 08:39 12/15/17 08:39 Results - Laboratory Findings CBC and BMP: 12/22/17 00:34 12/22/17 00:34 Abnormal lab findings: Abnormal Labs 12/15/17 12/15/17 12/15/17 09:22 09:22 10:53 WBC 22.2 H RBC 2.66 L Hgb 8.1 L Hct 25.2 L MCHC RDW 18.4 H Plt Count 529 H Seg Neuts % (Manual) 73.0 H Lymphocytes % (Manual) 11.0 L Seg Neutrophils # Man 16.2 H Monocytes # (Manual) 1.4 H Eosinophils # (Manual) 0.7 H Basophils # (Manual) 0.2 H Sodium 134 L Potassium 5.6 H D Chloride 96.8 L Carbon Dioxide BUN 18 H Creatinine Glucose 114 H POC Glucose Lactic Acid 2.50 H* Calcium Iron Albumin Vitamin B12 Crossmatch 12/15/17 12/16/17 12/16/17 13:21 11:14 11:14 WBC 13.1 H RBC 2.33 L Hgb 6.8 L Hct 21.8 L MCHC RDW 18.7 H Plt Count 467 H Seg Neuts % (Manual) Lymphocytes % (Manual) Seg Neutrophils # Man Monocytes # (Manual) Eosinophils # (Manual) Basophils # (Manual) Sodium Potassium Chloride Carbon Dioxide 21 L BUN Creatinine 0.4 L D Glucose POC Glucose Lactic Acid 2.60 H* Calcium 8.2 L Iron Albumin Vitamin B12 Crossmatch 12/16/17 12/16/17 12/16/17 14:51 22:27 22:27 WBC RBC Hgb 6.8 L Hct 21.7 L MCHC RDW Plt Count Seg Neuts % (Manual) Lymphocytes % (Manual) Seg Neutrophils # Man Monocytes # (Manual) Eosinophils # (Manual) Basophils # (Manual) Sodium Potassium Chloride Carbon Dioxide BUN Creatinine Glucose POC Glucose Lactic Acid Calcium Iron 32 L Albumin Vitamin B12 Crossmatch See Detail 12/16/17 12/17/17 12/17/17 22:27 10:03 10:03 WBC RBC 2.67 L Hgb 8.0 L Hct 24.9 L MCHC RDW 17.5 H Plt Count Seg Neuts % (Manual) Lymphocytes % (Manual) Seg Neutrophils # Man Monocytes # (Manual) Eosinophils # (Manual) Basophils # (Manual) Sodium Potassium Chloride 107.8 H Carbon Dioxide BUN Creatinine 0.4 L Glucose POC Glucose Lactic Acid Calcium 8.2 L Iron Albumin Vitamin B12 1675 H Crossmatch 12/18/17 12/19/17 12/20/17 03:19 04:55 00:12 WBC 12.2 H RBC 2.79 L 2.81 L 2.93 L Hgb 8.4 L 8.7 L 8.7 L Hct 25.9 L 25.8 L 27.4 L MCHC RDW 19.0 H 19.6 H 20.4 H Plt Count Seg Neuts % (Manual) Lymphocytes % (Manual) Seg Neutrophils # Man Monocytes # (Manual) Eosinophils # (Manual) Basophils # (Manual) Sodium Potassium Chloride Carbon Dioxide BUN Creatinine Glucose POC Glucose Lactic Acid Calcium Iron Albumin Vitamin B12 Crossmatch 12/20/17 12/20/17 12/20/17 00:12 11:51 21:02 WBC RBC Hgb Hct MCHC RDW Plt Count Seg Neuts % (Manual) Lymphocytes % (Manual) Seg Neutrophils # Man Monocytes # (Manual) Eosinophils # (Manual) Basophils # (Manual) Sodium Potassium Chloride Carbon Dioxide BUN Creatinine 0.6 L Glucose 102 H POC Glucose 122 H 108 H Lactic Acid Calcium Iron Albumin 3.4 L Vitamin B12 Crossmatch 12/21/17 12/21/17 12/21/17 01:05 13:07 17:43 WBC 13.3 H RBC 2.79 L Hgb 8.4 L Hct 26.0 L MCHC RDW 20.7 H Plt Count Seg Neuts % (Manual) Lymphocytes % (Manual) Seg Neutrophils # Man Monocytes # (Manual) Eosinophils # (Manual) Basophils # (Manual) Sodium Potassium Chloride Carbon Dioxide BUN Creatinine Glucose POC Glucose 109 H 115 H Lactic Acid Calcium Iron Albumin Vitamin B12 Crossmatch 12/22/17 12/22/17 00:34 00:34 WBC RBC 2.33 L Hgb 7.5 L Hct 21.2 L MCHC 35 H RDW 19.4 H Plt Count Seg Neuts % (Manual) Lymphocytes % (Manual) Seg Neutrophils # Man Monocytes # (Manual) Eosinophils # (Manual) Basophils # (Manual) Sodium Potassium Chloride Carbon Dioxide BUN Creatinine 0.6 L Glucose POC Glucose Lactic Acid Calcium Iron Albumin 3.1 L Vitamin B12 Crossmatch
[2017-12-22] MEDS ORDERED: TRANSDERM-SCOP TD SCH (16:00)
[2017-12-22 17:00] LABS: C-Reactive Protein 12.2 mg/dL (0.00-1.30)
[2017-12-22] MEDS: ROBINUL PO SCH (20:00)
[2017-12-22] MEDS: MILK OF MAGNESIA PO SCH (21:43)
[2017-12-22] MEDS: HEPARIN SUB-Q SCH (21:52)
[2017-12-23] MEDS: VITAMIN C PO SCH ×2 (02:00→14:42)
--- NOTE | 2017-12-23 03:48 | Consultation ---
PULMONARY CRITICAL CARE CONSULTATION CONSULTING PHYSICIAN: Dr. Evgeny Harrison. REASON FOR CONSULTATION: Ventilator management and sepsis. CHIEF COMPLAINT AND HISTORY OF PRESENT ILLNESS: The patient is a 67-year-old -[place] female with past medical history significant for a diagnosis of really chronic respiratory failure, status post tracheostomy and also, history of cerebrovascular accident just completed a prolonged hospitalization stay in the ICU secondary to sepsis and difficulty liberating her from the mechanical ventilator. She was transferred to SNF facility, brought back into the Emergency Room on or about the 12/15/2017 secondary to hypotension, systolic blood pressures in the 60s. In the emergency room, she was diagnosed with sepsis and an aspiration pneumonia. It seems like they were able to improve her blood pressure in the Emergency Room and transfer her to the regular medical floor. A couple of nights ago, she became hypotensive, blood pressure systolics in the 60s. She received IV fluids. She was started on Levophed drip and ultimately transferred back into the Intensive Care Unit where I was asked to assist with management. When I stopped by to see her, she was resting in bed. She remains encephalopathic and a lot of frothy secretions pink tinged occasionally were coming out of her tracheostomy tube. Since she has been here, no vomiting, although they do report an aspiration pneumonia at initial presentation from the [facility]. There has been no reported seizure activity since she has been in the hospital. The above is as much of the history of presentation as I have. PAST MEDICAL HISTORY: Hypertension, cerebrovascular accident, history of congestive heart failure, history of chronic obstructive lung disease, diabetes, hypothyroidism. She is also obese. PAST SURGICAL HISTORY: She has had an implanted cardiac device. She has had a tracheostomy. She is status post percutaneous endoscopic gastrostomy tube placement. MEDICATIONS: She was on at the time I stopped by to see her, according to the medication administration record included the following: Tylenol 650 mg p.o. q. p.r.n. mild pain or fever; all p.o. meds via the feeding tube. Albuterol 2.5 mg nebulized q. 4 hours p.r.n. shortness of breath, vitamin C 500 mg p.o. q. 12, aspirin 81 mg p.o. daily, baclofen 10 mg p.o. t.i.d., Coreg 12.5 mg p.o. b.i.d., Klonopin 2 mg p.o. b.i.d., Flexeril 10 mg p.o. b.i.d. p.r.n. muscle spasms, Prevacid 30 mg p.o. daily, Levaquin 750 mg IV daily, Levophed drip had been going at 4 mcg per minute, roxicodone 5 mg p.o. q.6 hours p.r.n. moderate pain, polyethylene glycol 17 g p.o. daily p.r.n. constipation, Senokot 8.6 mg p.o. b.i.d. scheduled. ALLERGIES: IBUPROFEN AND PENICILLINS. Nature of this allergy is unknown. DIET: Obese lady, no significant weight loss or gain since I have last seen her. FAMILY AND SOCIAL HISTORY: Resident of Healthcare associated facilities over the past few months at least that I know. No current alcohol, tobacco, or illicit drug use or abuse. Remote history is unknown. Family history otherwise unknown. REVIEW OF SYSTEMS: Unobtainable secondary to the patient's medical and mental condition since she has been here, though no gross hematochezia or melena, no gross hematuria, no hematemesis, no hemoptysis, no bloody tracheal secretions, no witnessed seizures. Review of systems is otherwise as in the body of the history above. PHYSICAL EXAMINATION: VITAL SIGNS: At presentation over here and since really she has been afebrile on presentation, temperature 98.5 degrees Fahrenheit with a pulse of 78, respiratory rate of 36, blood pressure 117/34, oxygen sats 100%, inspired oxygen concentration at that time was not recorded. At the time I stopped by to see her, she was on a trach collar, 28% FIO2 with O2 sats of about 99. GENERAL: She is elderly looking -[place] female, normocephalic, atraumatic, lying in bed with mildly increased respiratory distress. HEAD, EYES, EARS, NOSE AND THROAT: She is anicteric. No conjunctival erythema. No gross jugular venous distention. Oropharynx appears to be a Mallampati #4. Oropharynx is moist. Midline tracheostomy tube, I believe a Shiley #6 with significant frothy exudation in the tube. Grossly, no palpable lymph nodes in the supraclavicular or submandibular lymph node chains. LUNGS: Auscultation of both lung wong, bilateral rhonchi referred upper airway sounds. No active wheezing. HEART: Heart sounds 1 and 2 were heard, regular rate and rhythm at the time of my evaluation, without rubs or murmurs. ABDOMEN: Soft, full, bowel sounds are positive, nontender. No palpable hepatosplenomegaly, percutaneous endoscopic gastrostomy tube is in place. No significant bleeding or exudation around it. EXTREMITIES: Without overt digital clubbing or cyanosis. Trace pedal edema. NEUROLOGIC: Pupils are equal, round, about 4 mm bilaterally, reactive to light. Extraocular muscle movements could not be adequately assessed. She had contractures to both upper and lower extremities. Not following commands. SKIN: Poor turgor without cellulitis or overt rash. LABORATORY DATA: From my review are as follows: Admission white cell count 22,200 with a hemoglobin of 8.1, hematocrit of 25.2, platelet count 529. No band forms of significance. Serum sodium was 134, potassium 5.6, chloride 97, bicarbonate 22, BUN 18, creatinine 0.9, glucose 114. Lactic acid level was elevated at 2.5. Urinalysis is unremarkable. Today, white count is within normal limits. Hemoglobin is 7.5, BUN 14, creatinine 0.6. All cultures, tracheal blood cultures since admission, no growth to date. Stool guaiac was also done, it was positive for occult blood. Radiographic studies have been reviewed. I have also reviewed the radiologist's interpretation. Really her lung wong are mostly clear at admission. No focal infiltrates, implanted cardiac device in the left upper anterior chest wall, borderline cardiomegaly, no gross pneumothorax, no gross bony fracture. Most recent chest x-ray, mild increase in interstitial edema, possible developing right lower lobe infiltrate, probably just artifact secondary to very poor positioning of the patient. ASSESSMENT AND PLAN: 1. Severe sepsis with shock. 2. Leukocytosis, probably secondary to occult aspiration. 3. Acute on chronic hypoxemic respiratory failure. 4. Chronic encephalopathy secondary to both cerebrovascular injury, possibly or minus anoxic encephalopathy component. 5. History of cerebrovascular accident. 6. Anemia that is chronic and normocytic. 7. Oropharyngeal dysphagia. 8. Obesity. 9. Adult failure to thrive. PLAN: We will wean aggressively off the Levophed and keeping mean arterial pressures greater than or equal to about 65 mmHg. We will continue Levaquin monotherapy. I note that the lactic acid level did normalize at admission. I will repeat the lactic acid level and address. I will also repeat a CRP level at this point. We will continue to follow electrolytes and correct as necessary. She may benefit from some gentle diuresis at a point. We will add Robinul on scopolamine to help control the secretions. We will continue her chronic disease medications otherwise. Aspiration precautions will be maintained. She is appropriately on GI prophylaxis. She will be placed on DVT prophylaxis. Flu and pneumonia vaccination will be addressed per protocol. Thank you very much for the consult, Dr. Whyte and Dr. Harrison. We will follow along and make further recommendations as picture progresses/becomes clearer. She is critically ill on life-sustaining interventions including vasopressor support at high risk for further deterioration in the cardiovascular and respiratory systems including the risk of . At this point, I have spent about 40 minutes of critical care time without overlap and excluding any procedural time that may be necessary. I should mention she also has a right IJ central line tip in good position. We will keep that in place for now. It will be discontinued upon transfer out of the Intensive Care Unit. JOB# [id number] TREMAYNE/JUJU MARTÍNEZ
[2017-12-23 05:25] LABS: Hematocrit 22.5 % (30.3-42.9); Hemoglobin 7.4 gm/dl (10.1-14.3)
[2017-12-23 05:35] LABS: INR 0.99 (0.87-1.13)
[2017-12-23] MEDS: LIORESAL PO SCH ×3 (08:49→20:31)
[2017-12-23] MEDS: ROBINUL PO SCH ×3 (08:49→20:31)
[2017-12-23] MEDS: LEVAQUIN 750MG/150ML 750 MG/150 ML BAG IV SCH (11:53)
[2017-12-23] MEDS: HEPARIN SUB-Q SCH ×2 (11:53→22:21)
[2017-12-23] MEDS: BABY ASPIRIN PO SCH (11:54)
[2017-12-23] MEDS: COREG PO SCH ×2 (11:54→22:21)
[2017-12-23] MEDS: SENOKOT PO SCH ×2 (11:54→22:20)
[2017-12-23] MEDS: PREVACID SOLUTAB FEEDTUBE SCH (11:54)
--- NOTE | 2017-12-23 12:48 | Progress Note ---
Assessment and Plan Assessment and plan: 67-year-old -[place] female with medical history significant for massive CVA, patient was comatose and on PEG and trach for long time. He was discharged to [facility] from the hospital and presented back to the hospital, for respiratory failure, and low blood pressure. Patient is admitted to ICU Septic Shock - continue and wean off levophed as tolerated - patient is off levophed, will continue to monitor - Blood culture grew gram-negative rods, and is on Levaquin Aspiration Pneumonia continue IV abx aspiration precautions at all times Chronic Encephalopathuy, suspect Anoxic encephalopathy aspiration precautions supportive care Chronic physical debility h/o CVA bed bound, comatose, on PEG and trach Chronic Anemia monitor H/H closely Will transfuse as needed if Hemoglobin is below 7 Prognosis poor Physician to make any meaningful recovery. History Interval history: Patient was seen and evaluated this morning, patient was comatose, on PEG and trach. Patient discharged recently from the hospital. Hospitalist Physical - Physical exam Narrative exam: Not in cardiopulmonary distress. On trach and PEG. Biting her tongue. The patient appeared well nourished and normally developed. Vital signs as documented. Head exam is unremarkable. No scleral icterus . Neck is without jugular venous distension, thyromegaly, or carotid bruits. Lungs are clear to auscultation. Cardiac exam reveals regular rate and Rhythm. Abdominal exam reveals normal bowel sounds, no masses, no organomegaly and no aortic enlargement. Extremities are contracted. 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 - Constitutional Vitals: Temp Pulse Resp BP Pulse Ox 98.4 F 80 13 114/62 100 12/23/17 12:00 12/23/17 12:30 12/23/17 12:30 12/23/17 12:30 12/23/17 12:30 General appearance: Present: no acute distress, mild distress, obese Results - Labs CBC & Chem 7: 12/23/17 04:55 12/22/17 00:34 Labs: Laboratory Last Values WBC 9.0 K/mm3 (4.5-11.0) 12/22/17 00:34 RBC 2.33 M/mm3 (3.65-5.03) L 12/22/17 00:34 Hgb 7.4 gm/dl (10.1-14.3) L 12/23/17 04:55 Hct 22.5 % (30.3-42.9) L 12/23/17 04:55 MCV 91 fl (79-97) 12/22/17 00:34 MCH 32 pg (28-32) 12/22/17 00:34 MCHC 35 % (30-34) H 12/22/17 00:34 RDW 19.4 % (13.2-15.2) H 12/22/17 00:34 Plt Count 304 K/mm3 (140-440) 12/22/17 00:34 Lymph % (Auto) 22.9 % (13.4-35.0) 12/19/17 04:55 [place] % (Auto) 5.8 % (0.0-7.3) 12/19/17 04:55 Eos % (Auto) 1.7 % (0.0-4.3) 12/19/17 04:55 Baso % (Auto) 0.7 % (0.0-1.8) 12/19/17 04:55 Lymph # 2.0 K/mm3 (1.2-5.4) 12/19/17 04:55 [place] # 0.5 K/mm3 (0.0-0.8) 12/19/17 04:55 Eos # 0.1 K/mm3 (0.0-0.4) 12/19/17 04:55 Baso # 0.1 K/mm3 (0.0-0.1) 12/19/17 04:55 Add Manual Diff Complete 12/15/17 09:22 Total Counted 200 12/15/17 09:22 Seg Neutrophils % 68.9 % (40.0-70.0) 12/19/17 04:55 Seg Neuts % (Manual) 73.0 % (40.0-70.0) H 12/15/17 09:22 Band Neutrophils % 5.0 % 12/15/17 09:22 Lymphocytes % (Manual) 11.0 % (13.4-35.0) L 12/15/17 09:22 Reactive Lymphs % (Man) 0 % 12/15/17 09:22 Monocytes % (Manual) 6.5 % (0.0-7.3) 12/15/17 09:22 Eosinophils % (Manual) 3.0 % (0.0-4.3) 12/15/17 09:22 Basophils % (Manual) 1.0 % (0.0-1.8) 12/15/17 09:22 Metamyelocytes % 0.5 % 12/15/17 09:22 Myelocytes % 0 % 12/15/17 09:22 Promyelocytes % 0 % 12/15/17 09:22 Blast Cells % 0 % 12/15/17 09:22 Nucleated RBC % Not Reportable 12/15/17 09:22 Seg Neutrophils # 6.1 K/mm3 (1.8-7.7) 12/19/17 04:55 Seg Neutrophils # Man 16.2 K/mm3 (1.8-7.7) H 12/15/17 09:22 Band Neutrophils # 1.1 K/mm3 12/15/17 09:22 Lymphocytes # (Manual) 2.4 K/mm3 (1.2-5.4) 12/15/17 09:22 Abs React Lymphs (Man) 0.0 K/mm3 12/15/17 09:22 Monocytes # (Manual) 1.4 K/mm3 (0.0-0.8) H 12/15/17 09:22 Eosinophils # (Manual) 0.7 K/mm3 (0.0-0.4) H 12/15/17 09:22 Basophils # (Manual) 0.2 K/mm3 (0.0-0.1) H 12/15/17 09:22 Metamyelocytes # 0.1 K/mm3 12/15/17 09:22 Myelocytes # 0.0 K/mm3 12/15/17 09:22 Promyelocytes # 0.0 K/mm3 12/15/17 09:22 Blast Cells # 0.0 K/mm3 12/15/17 09:22 WBC Morphology Not Reportable 12/15/17 09:22 Hypersegmented Neuts Not Reportable 12/15/17 09:22 Hyposegmented Neuts Not Reportable 12/15/17 09:22 Hypogranular Neuts Not Reportable 12/15/17 09:22 Smudge Cells Not Reportable 12/15/17 09:22 Toxic Granulation Not Reportable 12/15/17 09:22 Toxic Vacuolation Not Reportable 12/15/17 09:22 Dohle Bodies Not Reportable 12/15/17 09:22 Pelger-Huet Anomaly Not Reportable 12/15/17 09:22 Eileen Rods Not Reportable 12/15/17 09:22 Platelet Estimate Consistent w auto 12/15/17 09:22 Clumped Platelets Not Reportable 12/15/17 09:22 Plt Clumps, EDTA Not Reportable 12/15/17 09:22 Large Platelets Not Reportable 12/15/17 09:22 Giant Platelets Not Reportable 12/15/17 09:22 Platelet Satelliting Not Reportable 12/15/17 09:22 Plt Morphology Comment Not Reportable 12/15/17 09:22 RBC Morphology Not Reportable 12/15/17 09:22 Dimorphic RBCs Not Reportable 12/15/17 09:22 Polychromasia 1+ 12/15/17 09:22 Hypochromasia 1+ 12/15/17 09:22 Poikilocytosis Not Reportable 12/15/17 09:22 Anisocytosis 1+ 12/15/17 09:22 Microcytosis Not Reportable 12/15/17 09:22 Macrocytosis 1+ 12/15/17 09:22 Spherocytes Not Reportable 12/15/17 09:22 Pappenheimer Bodies Not Reportable 12/15/17 09:22 Sickle Cells Not Reportable 12/15/17 09:22 Target Cells Not Reportable 12/15/17 09:22 Tear Drop Cells Few 12/15/17 09:22 Ovalocytes Few 12/15/17 09:22 Helmet Cells Not Reportable 12/15/17 09:22 [place] Bodies Not Reportable 12/15/17 09:22 [place] Rings Not Reportable 12/15/17 09:22 [place] Cells Not Reportable 12/15/17 09:22 Bite Cells Not Reportable 12/15/17 09:22 Crenated Cell Not Reportable 12/15/17 09:22 Elliptocytes Few 12/15/17 09:22 Acanthocytes (Spur) Not Reportable 12/15/17 09:22 Rouleaux Not Reportable 12/15/17 09:22 Hemoglobin C Crystals Not Reportable 12/15/17 09:22 Schistocytes Rare 12/15/17 09:22 Malaria parasites Not Reportable 12/15/17 09:22 Adriano Bodies Not Reportable 12/15/17 09:22 Hem Pathologist Commnt No 12/15/17 09:22 PT 13.6 Sec. (12.2-14.9) 12/23/17 04:55 INR 0.99 (0.87-1.13) 12/23/17 04:55 Sodium 140 mmol/L (137-145) 12/22/17 00:34 Potassium 4.1 mmol/L (3.6-5.0) 12/22/17 00:34 Chloride 103.4 mmol/L (98-107) 12/22/17 00:34 Carbon Dioxide 28 mmol/L (22-30) 12/22/17 00:34 Anion Gap 13 mmol/L 12/22/17 00:34 BUN 14 mg/dL (7-17) 12/22/17 00:34 Creatinine 0.6 mg/dL (0.7-1.2) L 12/22/17 00:34 Estimated GFR > 60 ml/min 12/22/17 00:34 BUN/Creatinine Ratio 23 % 12/22/17 00:34 Glucose 95 mg/dL (65-100) 12/22/17 00:34 POC Glucose 109 (70-105) H 12/23/17 12:15 Lactic Acid 0.70 mmol/L (0.7-2.0) 12/22/17 16:10 Calcium 8.6 mg/dL (8.4-10.2) 12/22/17 00:34 Magnesium 2.50 mg/dL (1.7-2.3) H 12/22/17 16:10 Iron 32 ug/dL (37-170) L 12/16/17 22:27 TIBC 296 mcg/dL (250-450) 12/16/17 22:27 Total Bilirubin 0.20 mg/dL (0.1-1.2) 12/22/17 00:34 AST 29 units/L (5-40) 12/22/17 00:34 ALT 24 units/L (7-56) 12/22/17 00:34 Alkaline Phosphatase 108 units/L (35-129) 12/22/17 00:34 C-Reactive Protein 12.20 mg/dL (0.00-1.30) H 12/22/17 16:10 Total Protein 6.5 g/dL (6.3-8.2) 12/22/17 00:34 Albumin 3.1 g/dL (3.9-5) L 12/22/17 00:34 Albumin/Globulin Ratio 0.9 % 12/22/17 00:34 Vitamin B12 1675 pg/mL (211-911) H 12/16/17 22:27 RBC Folic Acid >1000 ng/mL (>280) 12/16/17 22:27 Urine Color Yellow (Yellow) 12/15/17 12:39 Urine Turbidity Clear (Clear) 12/15/17 12:39 Urine pH 7.0 (5.0-7.0) 12/15/17 12:39 Ur Specific [place] 1.009 (1.003-1.030) 12/15/17 12:39 Urine Protein <15 mg/dl mg/dL (Negative) 12/15/17 12:39 Urine Glucose (UA) Neg mg/dL (Negative) 12/15/17 12:39 Urine Ketones Neg mg/dL (Negative) 12/15/17 12:39 Urine Blood Neg (Negative) 12/15/17 12:39 Urine Nitrite Neg (Negative) 12/15/17 12:39 Urine Bilirubin Neg (Negative) 12/15/17 12:39 Urine Urobilinogen < 2.0 mg/dL (<2.0) 12/15/17 12:39 Ur Leukocyte Esterase Neg (Negative) 12/15/17 12:39 Urine WBC (Auto) < 1.0 /HPF (0.0-6.0) 12/15/17 12:39 Urine RBC (Auto) 2.0 /HPF (0.0-6.0) 12/15/17 12:39 U Epithel Cells (Auto) 1.0 /HPF (0-13.0) 12/15/17 12:39 Blood Type A POSITIVE 12/16/17 22: Antibody Screen Negative 12/16/17 22: Crossmatch See Detail 12/16/17:
--- NOTE | 2017-12-23 16:09 | Progress Note ---
Assessment and Plan Severe sepsis with shock. Leukocytosis, probably secondary to occult aspiration. Acute on chronic hypoxemic respiratory failure. Chronic encephalopathy (secondary to both CVA +/- anoxic encephalopathy component) History of cerebrovascular accident. Anemia (chronic disease; normocytic) Oropharyngeal dysphagia. Obesity. Adult failure to thrive. Hypertension. Congestive heart failure. Diabetes. Gastroesophageal reflux disease. Chronic obstructive lung disease. Hypothyroidism. - reduce Coreg to 6.35 mg bid - continue t-piece trials RTC as tolerated - continue to wean FiO2 to keep sats > 90% - continue aspiration precautions - continue mobility protocol for pressure ulcer prophylaxis - continue robinul and scopolamine for secretion control - continue AB's (de-escalate based on clinical and microbiologic data) - continue GI & VTE prophylaxis - continue mobility protocol for pressure ulcer prophylaxis - continue other care per attending / other consultants - continue other care per attending/other consultants ... OK to transfer to medical floor Subjective Date of service: 12/23/17 Principal diagnosis: Acute CVA with encephalopathy; Acute Resp Failure s/p MVS; Sepsis Syndrome Interval history: Patient is seen today for: Acute CVA with encephalopathy; Acute Resp Failure s/ p MVS; Sepsis Syndrome Seen and examined at bedside; 24hour events reviewed; nursing and respiratory care staff consulted; no adverse overnight events reported to me; tolerating t- piece this am; no tongue biting; no emesis or overt aspiration; secretions much better; remains off levophed; SBP's a little low post Coreg dosing but good MAP Objective Vital Signs - 12hr 12/23/17 12/23/17 12/23/17 04:13 04:15 04:30 Temperature Pulse Rate 90 88 Pulse Rate [ Apical] Respiratory 19 19 Rate Blood Pressure 126/69 116/74 O2 Sat by Pulse 100 100 Oximetry O2 Sat by Pulse 100 Oximetry [ Assessment] 12/23/17 12/23/17 12/23/17 04:45 05:00 05:15 Temperature Pulse Rate 85 83 84 Pulse Rate [ Apical] Respiratory 16 17 18 Rate Blood Pressure 125/71 119/70 128/77 O2 Sat by Pulse 100 100 100 Oximetry O2 Sat by Pulse Oximetry [ Assessment] 12/23/17 12/23/17 12/23/17 05:30 05:45 05:57 Temperature Pulse Rate 87 83 Pulse Rate [ 85 Apical] Respiratory 17 17 16 Rate Blood Pressure 120/83 133/70 O2 Sat by Pulse 100 100 99 Oximetry O2 Sat by Pulse Oximetry [ Assessment] 12/23/17 12/23/17 12/23/17 06:00 06:15 06:30 Temperature Pulse Rate 85 83 87 Pulse Rate [ Apical] Respiratory 19 16 20 Rate Blood Pressure 128/76 133/81 115/90 O2 Sat by Pulse 100 100 100 Oximetry O2 Sat by Pulse Oximetry [ Assessment] 12/23/17 12/23/17 12/23/17 06:45 07:00 07:15 Temperature Pulse Rate 85 82 85 Pulse Rate [ Apical] Respiratory 16 16 17 Rate Blood Pressure 136/72 111/80 133/75 O2 Sat by Pulse 99 100 100 Oximetry O2 Sat by Pulse Oximetry [ Assessment] 12/23/17 12/23/17 12/23/17 07:30 07:45 08:00 Temperature 98.3 F Pulse Rate 93 H 83 86 Pulse Rate [ Apical] Respiratory 20 16 19 Rate Blood Pressure 121/81 123/70 132/67 O2 Sat by Pulse 100 100 100 Oximetry O2 Sat by Pulse Oximetry [ Assessment] 12/23/17 12/23/17 12/23/17 08:15 08:30 08:45 Temperature Pulse Rate 83 85 85 Pulse Rate [ Apical] Respiratory 17 18 17 Rate Blood Pressure 118/78 114/70 113/69 O2 Sat by Pulse 100 100 100 Oximetry O2 Sat by Pulse Oximetry [ Assessment] 12/23/17 12/23/17 12/23/17 09:00 09:15 09:18 Temperature Pulse Rate 87 85 Pulse Rate [ Apical] Respiratory 15 17 Rate Blood Pressure 121/76 133/73 O2 Sat by Pulse 100 100 100 Oximetry O2 Sat by Pulse 100 Oximetry [ Assessment] 12/23/17 12/23/17 12/23/17 09:30 09:45 10:00 Temperature Pulse Rate 84 85 83 Pulse Rate [ 83 Apical] Respiratory 16 16 14 Rate Blood Pressure 125/73 120/72 129/75 O2 Sat by Pulse 100 100 100 Oximetry O2 Sat by Pulse Oximetry [ Assessment] 12/23/17 12/23/17 12/23/17 10:15 10:30 10:45 Temperature Pulse Rate 84 84 83 Pulse Rate [ Apical] Respiratory 16 15 15 Rate Blood Pressure 119/83 136/70 110/74 O2 Sat by Pulse 100 100 100 Oximetry O2 Sat by Pulse Oximetry [ Assessment] 12/23/17 12/23/17 12/23/17 11:00 11:15 11:30 Temperature Pulse Rate 86 83 87 Pulse Rate [ Apical] Respiratory 13 14 16 Rate Blood Pressure 121/72 125/69 134/76 O2 Sat by Pulse 100 100 100 Oximetry O2 Sat by Pulse Oximetry [ Assessment] 12/23/17 12/23/17 12/23/17 11:45 11:54 12:00 Temperature 98.4 F Pulse Rate 85 83 86 Pulse Rate [ Apical] Respiratory 14 13 Rate Blood Pressure 130/64 130/64 129/68 O2 Sat by Pulse 100 100 Oximetry O2 Sat by Pulse Oximetry [ Assessment] 12/23/17 12/23/17 12/23/17 12:15 12:30 12:45 Temperature Pulse Rate 86 80 78 Pulse Rate [ Apical] Respiratory 13 13 13 Rate Blood Pressure 123/66 114/62 105/52 O2 Sat by Pulse 100 100 100 Oximetry O2 Sat by Pulse Oximetry [ Assessment] 12/23/17 12/23/17 12/23/17 13:00 13:15 13:30 Temperature Pulse Rate 79 78 79 Pulse Rate [ Apical] Respiratory 16 16 17 Rate Blood Pressure 92/55 99/58 96/57 O2 Sat by Pulse 100 100 100 Oximetry O2 Sat by Pulse Oximetry [ Assessment] 12/23/17 12/23/17 12/23/17 13:45 14:00 14:15 Temperature Pulse Rate 79 78 81 Pulse Rate [ 77 Apical] Respiratory 18 19 15 Rate Blood Pressure 102/60 113/57 103/68 O2 Sat by Pulse 100 100 100 Oximetry O2 Sat by Pulse Oximetry [ Assessment] 12/23/17 14:30 Temperature Pulse Rate 77 Pulse Rate [ Apical] Respiratory 15 Rate Blood Pressure 97/67 O2 Sat by Pulse 100 Oximetry O2 Sat by Pulse Oximetry [ Assessment] Constitutional: no acute distress, other (elderly AAF, normocephalic and atraumatic) Eyes: non-icteric ENT: oropharynx moist, other (midline tracheostomy tube) Neck: supple, no lymphadenopathy, no JVD, other (No thyromegaly) Effort: mildly labored Ascultation: Bilateral: diminished breath sounds, rhonchi Percussion: Bilateral: not dull Cardiovascular: regular rate and rhythm, other (No R/M) Gastrointestinal: normoactive bowel sounds, soft, non-tender, non-distended, other (PEG tube; No HSM) Integumentary: other (poor turgor) Extremities: no cyanosis, no edema, pulses normal, no ischemia or petechiae Neurologic: pupils equal and round, CN II-XII normal, other (+ pedal contractures; encephalopathic) Psychiatric: other (unable to assess) CBC and BMP: 12/23/17 04:55 12/22/17 00:34 ABG, PT/INR, D-dimer: PT/INR, D-dimer PT 13.6 Sec. (12.2-14.9) 12/23/17 04:55 INR 0.99 (0.87-1.13) 12/23/17 04:55 Abnormal lab findings: Abnormal Labs 12/15/17 12/15/17 12/15/17 09:22 09:22 10:53 WBC 22.2 H RBC 2.66 L Hgb 8.1 L Hct 25.2 L MCHC RDW 18.4 H Plt Count 529 H Seg Neuts % (Manual) 73.0 H Lymphocytes % (Manual) 11.0 L Seg Neutrophils # Man 16.2 H Monocytes # (Manual) 1.4 H Eosinophils # (Manual) 0.7 H Basophils # (Manual) 0.2 H Sodium 134 L Potassium 5.6 H D Chloride 96.8 L Carbon Dioxide BUN 18 H Creatinine Glucose 114 H POC Glucose Lactic Acid 2.50 H* Calcium Magnesium Iron C-Reactive Protein Albumin Vitamin B12 Crossmatch 12/15/17 12/16/17 12/16/17 13:21 11:14 11:14 WBC 13.1 H RBC 2.33 L Hgb 6.8 L Hct 21.8 L MCHC RDW 18.7 H Plt Count 467 H Seg Neuts % (Manual) Lymphocytes % (Manual) Seg Neutrophils # Man Monocytes # (Manual) Eosinophils # (Manual) Basophils # (Manual) Sodium Potassium Chloride Carbon Dioxide 21 L BUN Creatinine 0.4 L D Glucose POC Glucose Lactic Acid 2.60 H* Calcium 8.2 L Magnesium Iron C-Reactive Protein Albumin Vitamin B12 Crossmatch 12/16/17 12/16/17 12/16/17 14:51 22:27 22:27 WBC RBC Hgb 6.8 L Hct 21.7 L MCHC RDW Plt Count Seg Neuts % (Manual) Lymphocytes % (Manual) Seg Neutrophils # Man Monocytes # (Manual) Eosinophils # (Manual) Basophils # (Manual) Sodium Potassium Chloride Carbon Dioxide BUN Creatinine Glucose POC Glucose Lactic Acid Calcium Magnesium Iron 32 L C-Reactive Protein Albumin Vitamin B12 Crossmatch See Detail 12/16/17 12/17/17 12/17/17 22:27 10:03 10:03 WBC RBC 2.67 L Hgb 8.0 L Hct 24.9 L MCHC RDW 17.5 H Plt Count Seg Neuts % (Manual) Lymphocytes % (Manual) Seg Neutrophils # Man Monocytes # (Manual) Eosinophils # (Manual) Basophils # (Manual) Sodium Potassium Chloride 107.8 H Carbon Dioxide BUN Creatinine 0.4 L Glucose POC Glucose Lactic Acid Calcium 8.2 L Magnesium Iron C-Reactive Protein Albumin Vitamin B12 1675 H Crossmatch 12/18/17 12/19/17 12/20/17 03:19 04:55 00:12 WBC 12.2 H RBC 2.79 L 2.81 L 2.93 L Hgb 8.4 L 8.7 L 8.7 L Hct 25.9 L 25.8 L 27.4 L MCHC RDW 19.0 H 19.6 H 20.4 H Plt Count Seg Neuts % (Manual) Lymphocytes % (Manual) Seg Neutrophils # Man Monocytes # (Manual) Eosinophils # (Manual) Basophils # (Manual) Sodium Potassium Chloride Carbon Dioxide BUN Creatinine Glucose POC Glucose Lactic Acid Calcium Magnesium Iron C-Reactive Protein Albumin Vitamin B12 Crossmatch 12/20/17 12/20/17 12/20/17 00:12 11:51 21:02 WBC RBC Hgb Hct MCHC RDW Plt Count Seg Neuts % (Manual) Lymphocytes % (Manual) Seg Neutrophils # Man Monocytes # (Manual) Eosinophils # (Manual) Basophils # (Manual) Sodium Potassium Chloride Carbon Dioxide BUN Creatinine 0.6 L Glucose 102 H POC Glucose 122 H 108 H Lactic Acid Calcium Magnesium Iron C-Reactive Protein Albumin 3.4 L Vitamin B12 Crossmatch 12/21/17 12/21/17 12/21/17 01:05 13:07 17:43 WBC 13.3 H RBC 2.79 L Hgb 8.4 L Hct 26.0 L MCHC RDW 20.7 H Plt Count Seg Neuts % (Manual) Lymphocytes % (Manual) Seg Neutrophils # Man Monocytes # (Manual) Eosinophils # (Manual) Basophils # (Manual) Sodium Potassium Chloride Carbon Dioxide BUN Creatinine Glucose POC Glucose 109 H 115 H Lactic Acid Calcium Magnesium Iron C-Reactive Protein Albumin Vitamin B12 Crossmatch 12/22/17 12/22/17 12/22/17 00:34 00:34 16:10 WBC RBC 2.33 L Hgb 7.5 L Hct 21.2 L MCHC 35 H RDW 19.4 H Plt Count Seg Neuts % (Manual) Lymphocytes % (Manual) Seg Neutrophils # Man Monocytes # (Manual) Eosinophils # (Manual) Basophils # (Manual) Sodium Potassium Chloride Carbon Dioxide BUN Creatinine 0.6 L Glucose POC Glucose Lactic Acid Calcium Magnesium 2.50 H Iron C-Reactive Protein 12.20 H Albumin 3.1 L Vitamin B12 Crossmatch 12/23/17 12/23/17 04:55 12:15 WBC RBC Hgb 7.4 L Hct 22.5 L MCHC RDW Plt Count Seg Neuts % (Manual) Lymphocytes % (Manual) Seg Neutrophils # Man Monocytes # (Manual) Eosinophils # (Manual) Basophils # (Manual) Sodium Potassium Chloride Carbon Dioxide BUN Creatinine Glucose POC Glucose 109 H Lactic Acid Calcium Magnesium Iron C-Reactive Protein Albumin Vitamin B12 Crossmatch Chest x-ray: image reviewed Allied health notes reviewed: nursing
[2017-12-23] MEDS: MILK OF MAGNESIA PO SCH ×2 (23:21→23:36)
[2017-12-24] MEDS: VITAMIN C PO SCH ×2 (02:50→14:51)
[2017-12-24 07:45] LABS: BUN/Creatinine Ratio 18; Blood Urea Nitrogen 9 mg/dL (7-17); Calcium 9.1 mg/dL (8.4-10.2); Hemolysis Index 6
[2017-12-24] MEDS: LIORESAL PO SCH ×3 (09:12→20:19)
[2017-12-24] MEDS: BABY ASPIRIN PO SCH (09:37)
[2017-12-24] MEDS: SENOKOT PO SCH ×2 (09:37→21:18)
[2017-12-24] MEDS: PREVACID SOLUTAB FEEDTUBE SCH (09:37)
[2017-12-24] MEDS: COREG PO SCH ×2 (09:37→21:18)
[2017-12-24] MEDS: HEPARIN SUB-Q SCH ×2 (09:38→21:18)
[2017-12-24] MEDS: LEVAQUIN 750MG/150ML 750 MG/150 ML BAG IV SCH (09:38)
[2017-12-24] MEDS: ROBINUL PO SCH ×3 (09:44→20:19)
--- NOTE | 2017-12-24 10:41 | Progress Note ---
Assessment and Plan Severe sepsis with shock. Leukocytosis, probably secondary to occult aspiration. Acute on chronic hypoxemic respiratory failure. Chronic encephalopathy (secondary to both CVA +/- anoxic encephalopathy component) History of cerebrovascular accident. Anemia (chronic disease; normocytic) Oropharyngeal dysphagia. Obesity. Adult failure to thrive. Hypertension. Congestive heart failure. Diabetes. Gastroesophageal reflux disease. Chronic obstructive lung disease. Hypothyroidism. -secretion management, add scopolamine to therapy - continue robinul for secretion control -trach care, airway clearance - continue AB's (de-escalate based on clinical and microbiologic data) -aerosolized tobramycin for 5 days for therapy, GNR in tracheal aspirate with increased tracheal secretions - continue t-piece trials RTC as tolerated - continue to wean FiO2 to keep sats > 90% - continue aspiration precautions - continue mobility protocol for pressure ulcer prevention ... OK to transfer to [facility] -discharge planning discussed in rounds FULL CODE status Subjective Date of service: 12/24/17 Principal diagnosis: Acute CVA with encephalopathy; Acute Resp Failure s/p MVS; Sepsis Syndrome Interval history: Patient is seen today for: Acute CVA with encephalopathy; Acute Respiratory Failure s/p MVS; Sepsis Syndrome Seen and examined at bedside; 24hour events reviewed; nursing and respiratory care staff consulted; no adverse overnight events reported to me; tolerating ATP ; episodically bites her tongue, tracheal secretions on going, no emesis or overt aspiration; remains off vasopressor support; RN and RT do not report any overnight events Discussed in IDT rounds Objective Vital Signs - 12hr 12/23/17 12/23/17 12/23/17 22:45 23:00 23:15 Temperature Pulse Rate 91 H 92 H 87 Pulse Rate [ Apical] Respiratory 17 20 19 Rate Blood Pressure 140/78 143/78 144/69 O2 Sat by Pulse 100 100 99 Oximetry 12/23/17 12/23/17 12/23/17 23:25 23:30 23:45 Temperature 98.4 F Pulse Rate 85 86 Pulse Rate [ Apical] Respiratory 18 18 Rate Blood Pressure 156/63 143/78 O2 Sat by Pulse 98 99 Oximetry 12/24/17 12/24/17 12/24/17 00:00 00:15 00:30 Temperature Pulse Rate 86 85 85 Pulse Rate [ Apical] Respiratory 18 17 17 Rate Blood Pressure 143/70 129/75 118/69 O2 Sat by Pulse 98 98 98 Oximetry 12/24/17 12/24/17 12/24/17 00:45 01:00 01:15 Temperature Pulse Rate 85 88 79 Pulse Rate [ Apical] Respiratory 18 46 H 14 Rate Blood Pressure 132/60 142/80 142/80 O2 Sat by Pulse 98 99 99 Oximetry 12/24/17 12/24/17 12/24/17 01:31 01:45 02:00 Temperature Pulse Rate 84 80 84 Pulse Rate [ Apical] Respiratory 19 16 18 Rate Blood Pressure 124/67 122/61 134/67 O2 Sat by Pulse 100 98 99 Oximetry 12/24/17 12/24/17 12/24/17 02:15 02:30 02:45 Temperature Pulse Rate 79 78 85 Pulse Rate [ Apical] Respiratory 15 15 18 Rate Blood Pressure 123/62 112/59 132/71 O2 Sat by Pulse 99 99 99 Oximetry 12/24/17 12/24/17 12/24/17 03:00 03:15 03:30 Temperature Pulse Rate 85 83 82 Pulse Rate [ Apical] Respiratory 18 19 17 Rate Blood Pressure 130/65 125/68 117/70 O2 Sat by Pulse 99 99 99 Oximetry 12/24/17 12/24/17 12/24/17 03:37 03:45 04:00 Temperature 97.7 F Pulse Rate 83 81 Pulse Rate [ 82 Apical] Respiratory 19 15 Rate Blood Pressure 123/81 112/71 O2 Sat by Pulse 100 100 Oximetry 12/24/17 12/24/17 12/24/17 04:15 04:31 04:45 Temperature Pulse Rate 83 85 78 Pulse Rate [ Apical] Respiratory 17 20 14 Rate Blood Pressure 116/67 127/67 118/58 O2 Sat by Pulse 99 100 100 Oximetry 12/24/17 12/24/17 12/24/17 05:00 05:15 05:30 Temperature Pulse Rate 83 84 82 Pulse Rate [ Apical] Respiratory 18 18 15 Rate Blood Pressure 107/60 125/65 113/59 O2 Sat by Pulse 100 100 100 Oximetry 12/24/17 12/24/17 12/24/17 05:45 06:01 06:15 Temperature Pulse Rate 83 84 Pulse Rate [ Apical] Respiratory 18 19 20 Rate Blood Pressure 110/63 113/59 113/59 O2 Sat by Pulse 100 100 100 Oximetry 12/24/17 12/24/17 12/24/17 06:30 06:45 07:00 Temperature Pulse Rate 81 81 79 Pulse Rate [ Apical] Respiratory 17 17 17 Rate Blood Pressure 117/66 125/68 134/70 O2 Sat by Pulse 100 99 99 Oximetry 12/24/17 12/24/17 12/24/17 07:15 07:30 07:45 Temperature Pulse Rate 87 81 81 Pulse Rate [ Apical] Respiratory 22 18 18 Rate Blood Pressure 134/70 156/79 141/75 O2 Sat by Pulse 100 100 100 Oximetry 12/24/17 12/24/17 12/24/17 08:00 08:15 08:30 Temperature 98.1 F Pulse Rate 81 82 83 Pulse Rate [ Apical] Respiratory 18 19 18 Rate Blood Pressure 130/76 136/66 153/72 O2 Sat by Pulse 100 100 100 Oximetry 12/24/17 12/24/17 12/24/17 08:39 08:45 09:00 Temperature Pulse Rate 85 83 Pulse Rate [ Apical] Respiratory 19 19 Rate Blood Pressure 149/78 140/81 O2 Sat by Pulse 100 100 100 Oximetry 12/24/17 12/24/17 09:15 09:37 Temperature Pulse Rate 85 86 Pulse Rate [ Apical] Respiratory 19 Rate Blood Pressure 155/79 113/49 O2 Sat by Pulse 99 Oximetry Constitutional: no acute distress, other (elderly AAF, normocephalic and atraumatic) Eyes: non-icteric ENT: oropharynx moist, other (midline tracheostomy tube) Neck: supple, no lymphadenopathy, no JVD, other (No thyromegaly) Effort: mildly labored Ascultation: Bilateral: diminished breath sounds, rhonchi Percussion: Bilateral: not dull Cardiovascular: regular rate and rhythm, other (No R/M) Gastrointestinal: normoactive bowel sounds, soft, non-tender, non-distended, other (PEG tube; No HSM) Integumentary: other (poor turgor) Extremities: no cyanosis, no edema, pulses normal, no ischemia or petechiae Neurologic: pupils equal and round, CN II-XII normal, other (+ pedal contractures; encephalopathic) Psychiatric: other (unable to assess) CBC and BMP: 12/23/17 04:55 12/24/17 06:45 ABG, PT/INR, D-dimer: PT/INR, D-dimer PT 13.6 Sec. (12.2-14.9) 12/23/17 04:55 INR 0.99 (0.87-1.13) 12/23/17 04:55 Abnormal lab findings: Abnormal Labs 12/15/17 12/15/17 12/15/17 09:22 09:22 10:53 WBC 22.2 H RBC 2.66 L Hgb 8.1 L Hct 25.2 L MCHC RDW 18.4 H Plt Count 529 H Seg Neuts % (Manual) 73.0 H Lymphocytes % (Manual) 11.0 L Seg Neutrophils # Man 16.2 H Monocytes # (Manual) 1.4 H Eosinophils # (Manual) 0.7 H Basophils # (Manual) 0.2 H Sodium 134 L Potassium 5.6 H D Chloride 96.8 L Carbon Dioxide BUN 18 H Creatinine Glucose 114 H POC Glucose Lactic Acid 2.50 H* Calcium Magnesium Iron C-Reactive Protein Albumin Vitamin B12 Crossmatch 12/15/17 12/16/17 12/16/17 13:21 11:14 11:14 WBC 13.1 H RBC 2.33 L Hgb 6.8 L Hct 21.8 L MCHC RDW 18.7 H Plt Count 467 H Seg Neuts % (Manual) Lymphocytes % (Manual) Seg Neutrophils # Man Monocytes # (Manual) Eosinophils # (Manual) Basophils # (Manual) Sodium Potassium Chloride Carbon Dioxide 21 L BUN Creatinine 0.4 L D Glucose POC Glucose Lactic Acid 2.60 H* Calcium 8.2 L Magnesium Iron C-Reactive Protein Albumin Vitamin B12 Crossmatch 12/16/17 12/16/17 12/16/17 14:51 22:27 22:27 WBC RBC Hgb 6.8 L Hct 21.7 L MCHC RDW Plt Count Seg Neuts % (Manual) Lymphocytes % (Manual) Seg Neutrophils # Man Monocytes # (Manual) Eosinophils # (Manual) Basophils # (Manual) Sodium Potassium Chloride Carbon Dioxide BUN Creatinine Glucose POC Glucose Lactic Acid Calcium Magnesium Iron 32 L C-Reactive Protein Albumin Vitamin B12 Crossmatch See Detail 12/16/17 12/17/17 12/17/17 22:27 10:03 10:03 WBC RBC 2.67 L Hgb 8.0 L Hct 24.9 L MCHC RDW 17.5 H Plt Count Seg Neuts % (Manual) Lymphocytes % (Manual) Seg Neutrophils # Man Monocytes # (Manual) Eosinophils # (Manual) Basophils # (Manual) Sodium Potassium Chloride 107.8 H Carbon Dioxide BUN Creatinine 0.4 L Glucose POC Glucose Lactic Acid Calcium 8.2 L Magnesium Iron C-Reactive Protein Albumin Vitamin B12 1675 H Crossmatch 12/18/17 12/19/17 12/20/17 03:19 04:55 00:12 WBC 12.2 H RBC 2.79 L 2.81 L 2.93 L Hgb 8.4 L 8.7 L 8.7 L Hct 25.9 L 25.8 L 27.4 L MCHC RDW 19.0 H 19.6 H 20.4 H Plt Count Seg Neuts % (Manual) Lymphocytes % (Manual) Seg Neutrophils # Man Monocytes # (Manual) Eosinophils # (Manual) Basophils # (Manual) Sodium Potassium Chloride Carbon Dioxide BUN Creatinine Glucose POC Glucose Lactic Acid Calcium Magnesium Iron C-Reactive Protein Albumin Vitamin B12 Crossmatch 12/20/17 12/20/17 12/20/17 00:12 11:51 21:02 WBC RBC Hgb Hct MCHC RDW Plt Count Seg Neuts % (Manual) Lymphocytes % (Manual) Seg Neutrophils # Man Monocytes # (Manual) Eosinophils # (Manual) Basophils # (Manual) Sodium Potassium Chloride Carbon Dioxide BUN Creatinine 0.6 L Glucose 102 H POC Glucose 122 H 108 H Lactic Acid Calcium Magnesium Iron C-Reactive Protein Albumin 3.4 L Vitamin B12 Crossmatch 12/21/17 12/21/17 12/21/17 01:05 13:07 17:43 WBC 13.3 H RBC 2.79 L Hgb 8.4 L Hct 26.0 L MCHC RDW 20.7 H Plt Count Seg Neuts % (Manual) Lymphocytes % (Manual) Seg Neutrophils # Man Monocytes # (Manual) Eosinophils # (Manual) Basophils # (Manual) Sodium Potassium Chloride Carbon Dioxide BUN Creatinine Glucose POC Glucose 109 H 115 H Lactic Acid Calcium Magnesium Iron C-Reactive Protein Albumin Vitamin B12 Crossmatch 12/22/17 12/22/17 12/22/17 00:34 00:34 16:10 WBC RBC 2.33 L Hgb 7.5 L Hct 21.2 L MCHC 35 H RDW 19.4 H Plt Count Seg Neuts % (Manual) Lymphocytes % (Manual) Seg Neutrophils # Man Monocytes # (Manual) Eosinophils # (Manual) Basophils # (Manual) Sodium Potassium Chloride Carbon Dioxide BUN Creatinine 0.6 L Glucose POC Glucose Lactic Acid Calcium Magnesium 2.50 H Iron C-Reactive Protein 12.20 H Albumin 3.1 L Vitamin B12 Crossmatch 12/23/17 12/23/17 12/24/17 04:55 12:15 05:16 WBC RBC Hgb 7.4 L Hct 22.5 L MCHC RDW Plt Count Seg Neuts % (Manual) Lymphocytes % (Manual) Seg Neutrophils # Man Monocytes # (Manual) Eosinophils # (Manual) Basophils # (Manual) Sodium Potassium Chloride Carbon Dioxide BUN Creatinine Glucose POC Glucose 109 H 111 H Lactic Acid Calcium Magnesium Iron C-Reactive Protein Albumin Vitamin B12 Crossmatch 12/24/17 06:45 WBC RBC Hgb Hct MCHC RDW Plt Count Seg Neuts % (Manual) Lymphocytes % (Manual) Seg Neutrophils # Man Monocytes # (Manual) Eosinophils # (Manual) Basophils # (Manual) Sodium 136 L Potassium Chloride Carbon Dioxide BUN Creatinine 0.5 L Glucose POC Glucose Lactic Acid Calcium Magnesium Iron C-Reactive Protein Albumin Vitamin B12 Crossmatch Allied health notes reviewed: nursing
--- NOTE | 2017-12-24 12:57 | Progress Note ---
Assessment and Plan Assessment and plan: 67-year-old -[place] female with medical history significant for massive CVA, patient was comatose and on PEG and trach for long time. [facility] and presented back to the hospital, for respiratory failure, and low blood pressure. Patient is admitted to ICU Septic Shock - continue and wean off levophed as tolerated - patient is off levophed, will continue to monitor - Blood culture grew gram-negative rods, and is on Levaquin Aspiration Pneumonia continue IV abx aspiration precautions at all times Pulmonary recommends to transfer her to MICU for frequent suction on scopolamine Chronic Encephalopathuy, suspect Anoxic encephalopathy aspiration precautions supportive care Chronic physical debility h/o CVA bed bound, comatose, on PEG and trach Chronic Anemia monitor H/H closely Will transfuse as needed if Hemoglobin is below 7 Prognosis poor Physician to make any meaningful recovery. Disposition - transfer to MICU History Interval history: Patient was seen and evaluated this morning, patient was comatose, on PEG and trach. Patient is comatose. No family member were in the room. Hospitalist Physical - Physical exam Narrative exam: Not in cardiopulmonary distress. On trach and PEG. Biting her tongue. The patient appeared well nourished and normally developed. Vital signs as documented. Head exam is unremarkable. No scleral icterus . Neck is without jugular venous distension, thyromegaly, or carotid bruits. Lungs are clear to auscultation. Cardiac exam reveals regular rate and Rhythm. Abdominal exam reveals normal bowel sounds, no masses, no organomegaly and no aortic enlargement. Extremities are contracted. [employer]: Comatose. - Constitutional Vitals: Temp Pulse Resp BP Pulse Ox 98.1 F 82 18 96/51 99 12/24/17 08:00 12/24/17 11:15 12/24/17 11:15 12/24/17 11:15 12/24/17 11:15 General appearance: Present: no acute distress, mild distress, obese Results - Labs CBC & Chem 7: 12/23/17 04:55 12/24/17 06:45 Labs: Laboratory Last Values WBC 9.0 K/mm3 (4.5-11.0) 12/22/17 00:34 RBC 2.33 M/mm3 (3.65-5.03) L 12/22/17 00:34 Hgb 7.4 gm/dl (10.1-14.3) L 12/23/17 04:55 Hct 22.5 % (30.3-42.9) L 12/23/17 04:55 MCV 91 fl (79-97) 12/22/17 00:34 MCH 32 pg (28-32) 12/22/17 00:34 MCHC 35 % (30-34) H 12/22/17 00:34 RDW 19.4 % (13.2-15.2) H 12/22/17 00:34 Plt Count 304 K/mm3 (140-440) 12/22/17 00:34 Lymph % (Auto) 22.9 % (13.4-35.0) 12/19/17 04:55 [place] % (Auto) 5.8 % (0.0-7.3) 12/19/17 04:55 Eos % (Auto) 1.7 % (0.0-4.3) 12/19/17 04:55 Baso % (Auto) 0.7 % (0.0-1.8) 12/19/17 04:55 Lymph # 2.0 K/mm3 (1.2-5.4) 12/19/17 04:55 [place] # 0.5 K/mm3 (0.0-0.8) 12/19/17 04:55 Eos # 0.1 K/mm3 (0.0-0.4) 12/19/17 04:55 Baso # 0.1 K/mm3 (0.0-0.1) 12/19/17 04:55 Add Manual Diff Complete 12/15/17 09:22 Total Counted 200 12/15/17 09:22 Seg Neutrophils % 68.9 % (40.0-70.0) 12/19/17 04:55 Seg Neuts % (Manual) 73.0 % (40.0-70.0) H 12/15/17 09:22 Band Neutrophils % 5.0 % 12/15/17 09:22 Lymphocytes % (Manual) 11.0 % (13.4-35.0) L 12/15/17 09:22 Reactive Lymphs % (Man) 0 % 12/15/17 09:22 Monocytes % (Manual) 6.5 % (0.0-7.3) 12/15/17 09:22 Eosinophils % (Manual) 3.0 % (0.0-4.3) 12/15/17 09:22 Basophils % (Manual) 1.0 % (0.0-1.8) 12/15/17 09:22 Metamyelocytes % 0.5 % 12/15/17 09:22 Myelocytes % 0 % 12/15/17 09:22 Promyelocytes % 0 % 12/15/17 09:22 Blast Cells % 0 % 12/15/17 09:22 Nucleated RBC % Not Reportable 12/15/17 09:22 Seg Neutrophils # 6.1 K/mm3 (1.8-7.7) 12/19/17 04:55 Seg Neutrophils # Man 16.2 K/mm3 (1.8-7.7) H 12/15/17 09:22 Band Neutrophils # 1.1 K/mm3 12/15/17 09:22 Lymphocytes # (Manual) 2.4 K/mm3 (1.2-5.4) 12/15/17 09:22 Abs React Lymphs (Man) 0.0 K/mm3 12/15/17 09:22 Monocytes # (Manual) 1.4 K/mm3 (0.0-0.8) H 12/15/17 09:22 Eosinophils # (Manual) 0.7 K/mm3 (0.0-0.4) H 12/15/17 09:22 Basophils # (Manual) 0.2 K/mm3 (0.0-0.1) H 12/15/17 09:22 Metamyelocytes # 0.1 K/mm3 12/15/17 09:22 Myelocytes # 0.0 K/mm3 12/15/17 09:22 Promyelocytes # 0.0 K/mm3 12/15/17 09:22 Blast Cells # 0.0 K/mm3 12/15/17 09:22 WBC Morphology Not Reportable 12/15/17 09:22 Hypersegmented Neuts Not Reportable 12/15/17 09:22 Hyposegmented Neuts Not Reportable 12/15/17 09:22 Hypogranular Neuts Not Reportable 12/15/17 09:22 Smudge Cells Not Reportable 12/15/17 09:22 Toxic Granulation Not Reportable 12/15/17 09:22 Toxic Vacuolation Not Reportable 12/15/17 09:22 Dohle Bodies Not Reportable 12/15/17 09:22 Pelger-Huet Anomaly Not Reportable 12/15/17 09:22 Eileen Rods Not Reportable 12/15/17 09:22 Platelet Estimate Consistent w auto 12/15/17 09:22 Clumped Platelets Not Reportable 12/15/17 09:22 Plt Clumps, EDTA Not Reportable 12/15/17 09:22 Large Platelets Not Reportable 12/15/17 09:22 Giant Platelets Not Reportable 12/15/17 09:22 Platelet Satelliting Not Reportable 12/15/17 09:22 Plt Morphology Comment Not Reportable 12/15/17 09:22 RBC Morphology Not Reportable 12/15/17 09:22 Dimorphic RBCs Not Reportable 12/15/17 09:22 Polychromasia 1+ 12/15/17 09:22 Hypochromasia 1+ 12/15/17 09:22 Poikilocytosis Not Reportable 12/15/17 09:22 Anisocytosis 1+ 12/15/17 09:22 Microcytosis Not Reportable 12/15/17 09:22 Macrocytosis 1+ 12/15/17 09:22 Spherocytes Not Reportable 12/15/17 09:22 Pappenheimer Bodies Not Reportable 12/15/17 09:22 Sickle Cells Not Reportable 12/15/17 09:22 Target Cells Not Reportable 12/15/17 09:22 Tear Drop Cells Few 12/15/17 09:22 Ovalocytes Few 12/15/17 09:22 Helmet Cells Not Reportable 12/15/17 09:22 [place]-Kathleen Bodies Not Reportable 12/15/17 09:22 [place] Rings Not Reportable 12/15/17 09:22 [place] Cells Not Reportable 12/15/17 09:22 Bite Cells Not Reportable 12/15/17 09:22 Crenated Cell Not Reportable 12/15/17 09:22 Elliptocytes Few 12/15/17 09:22 Acanthocytes (Spur) Not Reportable 12/15/17 09:22 Rouleaux Not Reportable 12/15/17 09:22 Hemoglobin C Crystals Not Reportable 12/15/17 09:22 Schistocytes Rare 12/15/17 09:22 Malaria parasites Not Reportable 12/15/17 09:22 Adriano Bodies Not Reportable 12/15/17 09:22 Hem Pathologist Commnt No 12/15/17 09:22 PT 13.6 Sec. (12.2-14.9) 12/23/17 04:55 INR 0.99 (0.87-1.13) 12/23/17 04:55 Sodium 136 mmol/L (137-145) L 12/24/17 06:45 Potassium 3.9 mmol/L (3.6-5.0) 12/24/17 06:45 Chloride 98.0 mmol/L (98-107) 12/24/17 06:45 Carbon Dioxide 28 mmol/L (22-30) 12/24/17 06:45 Anion Gap 14 mmol/L 12/24/17 06:45 BUN 9 mg/dL (7-17) 12/24/17 06:45 Creatinine 0.5 mg/dL (0.7-1.2) L 12/24/17 06:45 Estimated GFR > 60 ml/min 12/24/17 06:45 BUN/Creatinine Ratio 18 % 12/24/17 06:45 Glucose 92 mg/dL (65-100) 12/24/17 06:45 POC Glucose 111 (70-105) H 12/24/17 05:16 Lactic Acid 0.70 mmol/L (0.7-2.0) 12/22/17 16:10 Calcium 9.1 mg/dL (8.4-10.2) 12/24/17 06:45 Magnesium 2.50 mg/dL (1.7-2.3) H 12/22/17 16:10 Iron 32 ug/dL (37-170) L 12/16/17 22:27 TIBC 296 mcg/dL (250-450) 12/16/17 22:27 Total Bilirubin 0.20 mg/dL (0.1-1.2) 12/22/17 00:34 AST 29 units/L (5-40) 12/22/17 00:34 ALT 24 units/L (7-56) 12/22/17 00:34 Alkaline Phosphatase 108 units/L (35-129) 12/22/17 00:34 C-Reactive Protein 12.20 mg/dL (0.00-1.30) H 12/22/17 16:10 Total Protein 6.5 g/dL (6.3-8.2) 12/22/17 00:34 Albumin 3.1 g/dL (3.9-5) L 12/22/17 00:34 Albumin/Globulin Ratio 0.9 % 12/22/17 00:34 Vitamin B12 1675 pg/mL (211-911) H 12/16/17 22:27 RBC Folic Acid >1000 ng/mL (>280) 12/16/17 22:27 Urine Color Yellow (Yellow) 12/15/17 12:39 Urine Turbidity Clear (Clear) 12/15/17 12:39 Urine pH 7.0 (5.0-7.0) 12/15/17 12:39 Ur Specific [place] 1.009 (1.003-1.030) 12/15/17 12:39 Urine Protein <15 mg/dl mg/dL (Negative) 12/15/17 12:39 Urine Glucose (UA) Neg mg/dL (Negative) 12/15/17 12:39 Urine Ketones Neg mg/dL (Negative) 12/15/17 12:39 Urine Blood Neg (Negative) 12/15/17 12:39 Urine Nitrite Neg (Negative) 12/15/17 12:39 Urine Bilirubin Neg (Negative) 12/15/17 12:39 Urine Urobilinogen < 2.0 mg/dL (<2.0) 12/15/17 12:39 Ur Leukocyte Esterase Neg (Negative) 12/15/17 12:39 Urine WBC (Auto) < 1.0 /HPF (0.0-6.0) 12/15/17 12:39 Urine RBC (Auto) 2.0 /HPF (0.0-6.0) 12/15/17 12:39 U Epithel Cells (Auto) 1.0 /HPF (0-13.0) 12/15/17 12:39 Blood Type A POSITIVE 12/16/17 Antibody Screen Negative 12/16/17 Crossmatch See Detail 12/16/17:
[2017-12-24] MEDS: TRANSDERM-SCOP TD SCH (13:01)
[2017-12-24] MEDS: MILK OF MAGNESIA PO SCH (21:18)
[2017-12-24] MEDS: TOBRAMYCIN INHALATION (ADULT) IH SCH (22:00)
[2017-12-25] MEDS: VITAMIN C PO SCH ×2 (01:54→15:50)
[2017-12-25] MEDS: LIORESAL PO SCH ×3 (08:30→20:30)
[2017-12-25] MEDS: ROBINUL PO SCH ×3 (08:30→20:30)
[2017-12-25] MEDS: BABY ASPIRIN PO SCH (09:39)
[2017-12-25] MEDS: HEPARIN SUB-Q SCH ×2 (09:39→21:55)
[2017-12-25] MEDS: COREG PO SCH ×2 (09:39→21:54)
[2017-12-25] MEDS: SENOKOT PO SCH ×2 (09:40→21:54)
[2017-12-25] MEDS: PREVACID SOLUTAB FEEDTUBE SCH (09:40)
[2017-12-25] MEDS: TOBRAMYCIN INHALATION (ADULT) IH SCH ×2 (15:53→20:35)
--- NOTE | 2017-12-25 16:32 | Progress Note ---
Assessment and Plan Severe sepsis with shock. Leukocytosis, probably secondary to occult aspiration. Acute on chronic hypoxemic respiratory failure. Chronic encephalopathy (secondary to both CVA +/- anoxic encephalopathy component) History of cerebrovascular accident. Anemia (chronic disease; normocytic) Oropharyngeal dysphagia. Obesity. Adult failure to thrive. Hypertension. Congestive heart failure. Diabetes. Gastroesophageal reflux disease. Chronic obstructive lung disease. Hypothyroidism. - continue secretion management - continue robinul and scopolamine for secretion control -trach care, airway clearance - continue AB's (de-escalate based on clinical and microbiologic data) -aerosolized tobramycin for 5 days for therapy, GNR in tracheal aspirate with increased tracheal secretions -get CXR - continue t-piece trials RTC as tolerated - continue to wean FiO2 to keep sats > 90% - continue aspiration precautions - continue mobility protocol for pressure ulcer prevention FULL CODE status Subjective Date of service: 12/25/17 Principal diagnosis: Acute CVA with encephalopathy; Acute Resp Failure s/p MVS; Sepsis Syndrome Interval history: Patient is seen today for: Acute CVA with encephalopathy; Acute Respiratory Failure s/p MVS; Sepsis Syndrome Seen and examined at bedside; 24hour events reviewed; nursing and respiratory care staff consulted; no adverse overnight events reported to me; tolerating ATP ; episodically bites her tongue, tracheal secretions on going, no emesis or overt aspiration; remains off vasopressor support; RN and RT do not report any overnight events This afternoon, RN notes tachypnea Objective Vital Signs - 12hr 12/25/17 12/25/17 12/25/17 04:55 05:00 05:15 Temperature Pulse Rate 103 H 101 H 98 H Respiratory 27 H 29 H 25 H Rate Blood Pressure 113/63 118/68 118/68 O2 Sat by Pulse 97 97 Oximetry O2 Sat by Pulse 97 Oximetry [ Assessment] 12/25/17 12/25/17 12/25/17 05:31 05:45 06:00 Temperature Pulse Rate 96 H 96 H 90 Respiratory 22 24 18 Rate Blood Pressure 118/68 118/68 118/68 O2 Sat by Pulse 95 99 98 Oximetry O2 Sat by Pulse Oximetry [ Assessment] 12/25/17 12/25/17 12/25/17 06:15 06:31 06:45 Temperature Pulse Rate 97 H 96 H 92 H Respiratory 25 H 23 20 Rate Blood Pressure 120/83 120/83 120/83 O2 Sat by Pulse 96 97 97 Oximetry O2 Sat by Pulse Oximetry [ Assessment] 12/25/17 12/25/17 12/25/17 07:00 07:15 07:31 Temperature Pulse Rate 96 H 97 H 97 H Respiratory 24 26 H 23 Rate Blood Pressure 124/70 124/70 124/70 O2 Sat by Pulse 98 97 98 Oximetry O2 Sat by Pulse Oximetry [ Assessment] 12/25/17 12/25/17 12/25/17 07:45 08:00 08:15 Temperature 98.2 F Pulse Rate 99 H 100 H 100 H Respiratory 27 H 27 H 28 H Rate Blood Pressure 124/70 134/65 134/65 O2 Sat by Pulse 98 97 98 Oximetry O2 Sat by Pulse Oximetry [ Assessment] 12/25/17 12/25/17 12/25/17 08:31 08:45 09:00 Temperature Pulse Rate 100 H 100 H 101 H Respiratory 25 H 24 28 H Rate Blood Pressure 134/65 134/65 127/71 O2 Sat by Pulse 97 99 97 Oximetry O2 Sat by Pulse Oximetry [ Assessment] 12/25/17 12/25/17 12/25/17 09:15 09:31 09:39 Temperature Pulse Rate 101 H 100 H 100 H Respiratory 29 H 23 Rate Blood Pressure 127/71 127/71 127/71 O2 Sat by Pulse 98 98 Oximetry O2 Sat by Pulse Oximetry [ Assessment] 12/25/17 12/25/17 12/25/17 09:45 10:00 10:15 Temperature Pulse Rate 101 H 102 H 101 H Respiratory 27 H 26 H 31 H Rate Blood Pressure 127/71 126/70 126/70 O2 Sat by Pulse 98 98 98 Oximetry O2 Sat by Pulse Oximetry [ Assessment] 12/25/17 12/25/17 12/25/17 10:31 10:45 11:00 Temperature Pulse Rate 95 H 97 H 99 H Respiratory 21 25 H 28 H Rate Blood Pressure 126/70 126/70 117/68 O2 Sat by Pulse 98 98 97 Oximetry O2 Sat by Pulse Oximetry [ Assessment] 12/25/17 12/25/17 12/25/17 11:15 11:31 11:45 Temperature Pulse Rate 99 H 98 H 100 H Respiratory 29 H 22 29 H Rate Blood Pressure 117/68 117/68 117/68 O2 Sat by Pulse 97 97 97 Oximetry O2 Sat by Pulse Oximetry [ Assessment] 12/25/17 12/25/17 12/25/17 12:00 12:15 12:30 Temperature 99.7 F H Pulse Rate 102 H 102 H 102 H Respiratory 32 H 24 28 H Rate Blood Pressure 118/71 118/71 O2 Sat by Pulse 97 97 97 Oximetry O2 Sat by Pulse Oximetry [ Assessment] 12/25/17 12/25/17 12/25/17 12:46 13:00 13:16 Temperature Pulse Rate 108 H 109 H 106 H Respiratory 36 H 33 H 30 H Rate Blood Pressure 118/71 125/74 125/74 O2 Sat by Pulse 96 95 94 Oximetry O2 Sat by Pulse Oximetry [ Assessment] 12/25/17 12/25/17 12/25/17 13:30 13:46 14:00 Temperature Pulse Rate 108 H 107 H 107 H Respiratory 34 H 33 H 29 H Rate Blood Pressure 125/74 125/74 118/69 O2 Sat by Pulse 95 93 94 Oximetry O2 Sat by Pulse Oximetry [ Assessment] 12/25/17 12/25/17 12/25/17 14:16 14:30 14:46 Temperature Pulse Rate 105 H 105 H 104 H Respiratory 30 H 28 H 28 H Rate Blood Pressure 118/69 118/69 118/69 O2 Sat by Pulse 97 98 98 Oximetry O2 Sat by Pulse Oximetry [ Assessment] 12/25/17 12/25/17 12/25/17 15:00 15:16 15:30 Temperature Pulse Rate 107 H 106 H 106 H Respiratory 32 H 30 H 35 H Rate Blood Pressure 118/69 118/69 118/69 O2 Sat by Pulse 98 96 98 Oximetry O2 Sat by Pulse Oximetry [ Assessment] Constitutional: no acute distress, other (elderly AAF, normocephalic and atraumatic) Eyes: non-icteric ENT: oropharynx moist, other (midline tracheostomy tube) Neck: supple, no lymphadenopathy, no JVD, other (No thyromegaly) Effort: mildly labored Ascultation: Bilateral: diminished breath sounds, rhonchi Percussion: Bilateral: not dull Cardiovascular: regular rate and rhythm, other (No R/M) Gastrointestinal: normoactive bowel sounds, soft, non-tender, non-distended, other (PEG tube; No HSM) Integumentary: other (poor turgor) Extremities: no cyanosis, no edema, pulses normal, no ischemia or petechiae Neurologic: pupils equal and round, unable to assess, other (+ pedal contractures; encephalopathic) Psychiatric: other (unable to assess) CBC and BMP: 12/23/17 04:55 12/24/17 06:45 ABG, PT/INR, D-dimer: PT/INR, D-dimer PT 13.6 Sec. (12.2-14.9) 12/23/17 04:55 INR 0.99 (0.87-1.13) 12/23/17 04:55 Abnormal lab findings: Abnormal Labs 12/15/17 12/15/17 12/15/17 09:22 09:22 10:53 WBC 22.2 H RBC 2.66 L Hgb 8.1 L Hct 25.2 L MCHC RDW 18.4 H Plt Count 529 H Seg Neuts % (Manual) 73.0 H Lymphocytes % (Manual) 11.0 L Seg Neutrophils # Man 16.2 H Monocytes # (Manual) 1.4 H Eosinophils # (Manual) 0.7 H Basophils # (Manual) 0.2 H Sodium 134 L Potassium 5.6 H D Chloride 96.8 L Carbon Dioxide BUN 18 H Creatinine Glucose 114 H POC Glucose Lactic Acid 2.50 H* Calcium Magnesium Iron C-Reactive Protein Albumin Vitamin B12 Crossmatch 12/15/17 12/16/17 12/16/17 13:21 11:14 11:14 WBC 13.1 H RBC 2.33 L Hgb 6.8 L Hct 21.8 L MCHC RDW 18.7 H Plt Count 467 H Seg Neuts % (Manual) Lymphocytes % (Manual) Seg Neutrophils # Man Monocytes # (Manual) Eosinophils # (Manual) Basophils # (Manual) Sodium Potassium Chloride Carbon Dioxide 21 L BUN Creatinine 0.4 L D Glucose POC Glucose Lactic Acid 2.60 H* Calcium 8.2 L Magnesium Iron C-Reactive Protein Albumin Vitamin B12 Crossmatch 12/16/17 12/16/17 12/16/17 14:51 22:27 22:27 WBC RBC Hgb 6.8 L Hct 21.7 L MCHC RDW Plt Count Seg Neuts % (Manual) Lymphocytes % (Manual) Seg Neutrophils # Man Monocytes # (Manual) Eosinophils # (Manual) Basophils # (Manual) Sodium Potassium Chloride Carbon Dioxide BUN Creatinine Glucose POC Glucose Lactic Acid Calcium Magnesium Iron 32 L C-Reactive Protein Albumin Vitamin B12 Crossmatch See Detail 12/16/17 12/17/17 12/17/17 22:27 10:03 10:03 WBC RBC 2.67 L Hgb 8.0 L Hct 24.9 L MCHC RDW 17.5 H Plt Count Seg Neuts % (Manual) Lymphocytes % (Manual) Seg Neutrophils # Man Monocytes # (Manual) Eosinophils # (Manual) Basophils # (Manual) Sodium Potassium Chloride 107.8 H Carbon Dioxide BUN Creatinine 0.4 L Glucose POC Glucose Lactic Acid Calcium 8.2 L Magnesium Iron C-Reactive Protein Albumin Vitamin B12 1675 H Crossmatch 12/18/17 12/19/17 12/20/17 03:19 04:55 00:12 WBC 12.2 H RBC 2.79 L 2.81 L 2.93 L Hgb 8.4 L 8.7 L 8.7 L Hct 25.9 L 25.8 L 27.4 L MCHC RDW 19.0 H 19.6 H 20.4 H Plt Count Seg Neuts % (Manual) Lymphocytes % (Manual) Seg Neutrophils # Man Monocytes # (Manual) Eosinophils # (Manual) Basophils # (Manual) Sodium Potassium Chloride Carbon Dioxide BUN Creatinine Glucose POC Glucose Lactic Acid Calcium Magnesium Iron C-Reactive Protein Albumin Vitamin B12 Crossmatch 12/20/17 12/20/17 12/20/17 00:12 11:51 21:02 WBC RBC Hgb Hct MCHC RDW Plt Count Seg Neuts % (Manual) Lymphocytes % (Manual) Seg Neutrophils # Man Monocytes # (Manual) Eosinophils # (Manual) Basophils # (Manual) Sodium Potassium Chloride Carbon Dioxide BUN Creatinine 0.6 L Glucose 102 H POC Glucose 122 H 108 H Lactic Acid Calcium Magnesium Iron C-Reactive Protein Albumin 3.4 L Vitamin B12 Crossmatch 12/21/17 12/21/17 12/21/17 01:05 13:07 17:43 WBC 13.3 H RBC 2.79 L Hgb 8.4 L Hct 26.0 L MCHC RDW 20.7 H Plt Count Seg Neuts % (Manual) Lymphocytes % (Manual) Seg Neutrophils # Man Monocytes # (Manual) Eosinophils # (Manual) Basophils # (Manual) Sodium Potassium Chloride Carbon Dioxide BUN Creatinine Glucose POC Glucose 109 H 115 H Lactic Acid Calcium Magnesium Iron C-Reactive Protein Albumin Vitamin B12 Crossmatch 12/22/17 12/22/17 12/22/17 00:34 00:34 16:10 WBC RBC 2.33 L Hgb 7.5 L Hct 21.2 L MCHC 35 H RDW 19.4 H Plt Count Seg Neuts % (Manual) Lymphocytes % (Manual) Seg Neutrophils # Man Monocytes # (Manual) Eosinophils # (Manual) Basophils # (Manual) Sodium Potassium Chloride Carbon Dioxide BUN Creatinine 0.6 L Glucose POC Glucose Lactic Acid Calcium Magnesium 2.50 H Iron C-Reactive Protein 12.20 H Albumin 3.1 L Vitamin B12 Crossmatch 12/23/17 12/23/17 12/24/17 04:55 12:15 05:16 WBC RBC Hgb 7.4 L Hct 22.5 L MCHC RDW Plt Count Seg Neuts % (Manual) Lymphocytes % (Manual) Seg Neutrophils # Man Monocytes # (Manual) Eosinophils # (Manual) Basophils # (Manual) Sodium Potassium Chloride Carbon Dioxide BUN Creatinine Glucose POC Glucose 109 H 111 H Lactic Acid Calcium Magnesium Iron C-Reactive Protein Albumin Vitamin B12 Crossmatch 12/24/17 12/24/17 12/24/17 06:45 17:57 23:45 WBC RBC Hgb Hct MCHC RDW Plt Count Seg Neuts % (Manual) Lymphocytes % (Manual) Seg Neutrophils # Man Monocytes # (Manual) Eosinophils # (Manual) Basophils # (Manual) Sodium 136 L Potassium Chloride Carbon Dioxide BUN Creatinine 0.5 L Glucose POC Glucose 108 H 108 H Lactic Acid Calcium Magnesium Iron C-Reactive Protein Albumin Vitamin B12 Crossmatch 12/25/17 12/25/17 05:28 11:57 WBC RBC Hgb Hct MCHC RDW Plt Count Seg Neuts % (Manual) Lymphocytes % (Manual) Seg Neutrophils # Man Monocytes # (Manual) Eosinophils # (Manual) Basophils # (Manual) Sodium Potassium Chloride Carbon Dioxide BUN Creatinine Glucose POC Glucose 109 H 113 H Lactic Acid Calcium Magnesium Iron C-Reactive Protein Albumin Vitamin B12 Crossmatch Allied health notes reviewed: nursing
[2017-12-25] MEDS: PERCOCET 5/325 PO PRN (17:00)
--- NOTE | 2017-12-25 18:36 | Progress Note ---
Assessment and Plan Assessment and plan: 67-year-old -[place] female with medical history significant for massive CVA, patient was comatose and on PEG and trach for long time. [facility] was [facility] and presented back to the hospital, for respiratory failure, and low blood pressure. Patient is admitted to ICU Septic Shock - patient is off levophed, will continue to monitor - Blood culture grew gram-negative rods, and is on Levaquin Aspiration Pneumonia continue IV abx aspiration precautions at all times Pulmonary recommends to transfer her to MICU for frequent suction on scopolamine Chronic Encephalopathuy, suspect Anoxic encephalopathy aspiration precautions supportive care Chronic physical debility h/o CVA bed bound, comatose, on PEG and trach Chronic Anemia monitor H/H closely Will transfuse as needed if Hemoglobin is below 7 ?seizure - Discussed with Neurologist - EEG ordered - Will follow Prognosis poor Physician to make any meaningful recovery. Disposition -Discuss with family following Neurology eval History Interval history: Patient was seen and evaluated this morning, patient was comatose, on PEG and trach. Patient is comatose. No family member were in the room. Per nursing staff still requiring lots of suction Hospitalist Physical - Physical exam Narrative exam: Not in cardiopulmonary distress. On trach and PEG. Biting her tongue. The patient appeared well nourished and normally developed. Vital signs as documented. Head exam is unremarkable. No scleral icterus . Neck is without jugular venous distension, thyromegaly, or carotid bruits. Lungs are clear to auscultation. Cardiac exam reveals regular rate and Rhythm. Abdominal exam reveals normal bowel sounds, no masses, no organomegaly and no aortic enlargement. Extremities are contracted. [employer]: Comatose. - Constitutional Vitals: Temp Pulse Resp BP Pulse Ox 99.7 F H 106 H 35 H 118/69 98 12/25/17 12:00 12/25/17 15:30 12/25/17 15:30 12/25/17 15:30 12/25/17 15:30 General appearance: Present: no acute distress, mild distress, obese Results - Labs CBC & Chem 7: 12/26/17 04:21 12/26/17 04:21 Labs: Laboratory Last Values WBC 9.0 K/mm3 (4.5-11.0) 12/22/17 00:34 RBC 2.33 M/mm3 (3.65-5.03) L 12/22/17 00:34 Hgb 7.4 gm/dl (10.1-14.3) L 12/23/17 04:55 Hct 22.5 % (30.3-42.9) L 12/23/17 04:55 MCV 91 fl (79-97) 12/22/17 00:34 MCH 32 pg (28-32) 12/22/17 00:34 MCHC 35 % (30-34) H 12/22/17 00:34 RDW 19.4 % (13.2-15.2) H 12/22/17 00:34 Plt Count 304 K/mm3 (140-440) 12/22/17 00:34 Lymph % (Auto) 22.9 % (13.4-35.0) 12/19/17 04:55 [place] % (Auto) 5.8 % (0.0-7.3) 12/19/17 04:55 Eos % (Auto) 1.7 % (0.0-4.3) 12/19/17 04:55 Baso % (Auto) 0.7 % (0.0-1.8) 12/19/17 04:55 Lymph # 2.0 K/mm3 (1.2-5.4) 12/19/17 04:55 [place] # 0.5 K/mm3 (0.0-0.8) 12/19/17 04:55 Eos # 0.1 K/mm3 (0.0-0.4) 12/19/17 04:55 Baso # 0.1 K/mm3 (0.0-0.1) 12/19/17 04:55 Add Manual Diff Complete 12/15/17 09:22 Total Counted 200 12/15/17 09:22 Seg Neutrophils % 68.9 % (40.0-70.0) 12/19/17 04:55 Seg Neuts % (Manual) 73.0 % (40.0-70.0) H 12/15/17 09:22 Band Neutrophils % 5.0 % 12/15/17 09:22 Lymphocytes % (Manual) 11.0 % (13.4-35.0) L 12/15/17 09:22 Reactive Lymphs % (Man) 0 % 12/15/17 09:22 Monocytes % (Manual) 6.5 % (0.0-7.3) 12/15/17 09:22 Eosinophils % (Manual) 3.0 % (0.0-4.3) 12/15/17 09:22 Basophils % (Manual) 1.0 % (0.0-1.8) 12/15/17 09:22 Metamyelocytes % 0.5 % 12/15/17 09:22 Myelocytes % 0 % 12/15/17 09:22 Promyelocytes % 0 % 12/15/17 09:22 Blast Cells % 0 % 12/15/17 09:22 Nucleated RBC % Not Reportable 12/15/17 09:22 Seg Neutrophils # 6.1 K/mm3 (1.8-7.7) 12/19/17 04:55 Seg Neutrophils # Man 16.2 K/mm3 (1.8-7.7) H 12/15/17 09:22 Band Neutrophils # 1.1 K/mm3 12/15/17 09:22 Lymphocytes # (Manual) 2.4 K/mm3 (1.2-5.4) 12/15/17 09:22 Abs React Lymphs (Man) 0.0 K/mm3 12/15/17 09:22 Monocytes # (Manual) 1.4 K/mm3 (0.0-0.8) H 12/15/17 09:22 Eosinophils # (Manual) 0.7 K/mm3 (0.0-0.4) H 12/15/17 09:22 Basophils # (Manual) 0.2 K/mm3 (0.0-0.1) H 12/15/17 09:22 Metamyelocytes # 0.1 K/mm3 12/15/17 09:22 Myelocytes # 0.0 K/mm3 12/15/17 09:22 Promyelocytes # 0.0 K/mm3 12/15/17 09:22 Blast Cells # 0.0 K/mm3 12/15/17 09:22 WBC Morphology Not Reportable 12/15/17 09:22 Hypersegmented Neuts Not Reportable 12/15/17 09:22 Hyposegmented Neuts Not Reportable 12/15/17 09:22 Hypogranular Neuts Not Reportable 12/15/17 09:22 Smudge Cells Not Reportable 12/15/17 09:22 Toxic Granulation Not Reportable 12/15/17 09:22 Toxic Vacuolation Not Reportable 12/15/17 09:22 Dohle Bodies Not Reportable 12/15/17 09:22 Pelger-Huet Anomaly Not Reportable 12/15/17 09:22 Eileen Rods Not Reportable 12/15/17 09:22 Platelet Estimate Consistent w auto 12/15/17 09:22 Clumped Platelets Not Reportable 12/15/17 09:22 Plt Clumps, EDTA Not Reportable 12/15/17 09:22 Large Platelets Not Reportable 12/15/17 09:22 Giant Platelets Not Reportable 12/15/17 09:22 Platelet Satelliting Not Reportable 12/15/17 09:22 Plt Morphology Comment Not Reportable 12/15/17 09:22 RBC Morphology Not Reportable 12/15/17 09:22 Dimorphic RBCs Not Reportable 12/15/17 09:22 Polychromasia 1+ 12/15/17 09:22 Hypochromasia 1+ 12/15/17 09:22 Poikilocytosis Not Reportable 12/15/17 09:22 Anisocytosis 1+ 12/15/17 09:22 Microcytosis Not Reportable 12/15/17 09:22 Macrocytosis 1+ 12/15/17 09:22 Spherocytes Not Reportable 12/15/17 09:22 Pappenheimer Bodies Not Reportable 12/15/17 09:22 Sickle Cells Not Reportable 12/15/17 09:22 Target Cells Not Reportable 12/15/17 09:22 Tear Drop Cells Few 12/15/17 09:22 Ovalocytes Few 12/15/17 09:22 Helmet Cells Not Reportable 12/15/17 09:22 [place] Bodies Not Reportable 12/15/17 09:22 [place] Rings Not Reportable 12/15/17 09:22 [place] Cells Not Reportable 12/15/17 09:22 Bite Cells Not Reportable 12/15/17 09:22 Crenated Cell Not Reportable 12/15/17 09:22 Elliptocytes Few 12/15/17 09:22 Acanthocytes (Spur) Not Reportable 12/15/17 09:22 Rouleaux Not Reportable 12/15/17 09:22 Hemoglobin C Crystals Not Reportable 12/15/17 09:22 Schistocytes Rare 12/15/17 09:22 Malaria parasites Not Reportable 12/15/17 09:22 [place] Bodies Not Reportable 12/15/17 09:22 Hem Pathologist Commnt No 12/15/17 09:22 PT 13.6 Sec. (12.2-14.9) 12/23/17 04:55 INR 0.99 (0.87-1.13) 12/23/17 04:55 Sodium 136 mmol/L (137-145) L 12/24/17 06:45 Potassium 3.9 mmol/L (3.6-5.0) 12/24/17 06:45 Chloride 98.0 mmol/L (98-107) 12/24/17 06:45 Carbon Dioxide 28 mmol/L (22-30) 12/24/17 06:45 Anion Gap 14 mmol/L 12/24/17 06:45 BUN 9 mg/dL (7-17) 12/24/17 06:45 Creatinine 0.5 mg/dL (0.7-1.2) L 12/24/17 06:45 Estimated GFR > 60 ml/min 12/24/17 06:45 BUN/Creatinine Ratio 18 % 12/24/17 06:45 Glucose 92 mg/dL (65-100) 12/24/17 06:45 POC Glucose 110 (70-105) H 12/25/17 17:49 Lactic Acid 0.70 mmol/L (0.7-2.0) 12/22/17 16:10 Calcium 9.1 mg/dL (8.4-10.2) 12/24/17 06:45 Magnesium 2.50 mg/dL (1.7-2.3) H 12/22/17 16:10 Iron 32 ug/dL (37-170) L 12/16/17 22:27 TIBC 296 mcg/dL (250-450) 12/16/17 22:27 Total Bilirubin 0.20 mg/dL (0.1-1.2) 12/22/17 00:34 AST 29 units/L (5-40) 12/22/17 00:34 ALT 24 units/L (7-56) 12/22/17 00:34 Alkaline Phosphatase 108 units/L (35-129) 12/22/17 00:34 C-Reactive Protein 12.20 mg/dL (0.00-1.30) H 12/22/17 16:10 Total Protein 6.5 g/dL (6.3-8.2) 12/22/17 00:34 Albumin 3.1 g/dL (3.9-5) L 12/22/17 00:34 Albumin/Globulin Ratio 0.9 % 12/22/17 00:34 Vitamin B12 1675 pg/mL (211-911) H 12/16/17 22:27 RBC Folic Acid >1000 ng/mL (>280) 12/16/17 22:27 Urine Color Yellow (Yellow) 12/15/17 12:39 Urine Turbidity Clear (Clear) 12/15/17 12:39 Urine pH 7.0 (5.0-7.0) 12/15/17 12:39 Ur Specific [place] 1.009 (1.003-1.030) 12/15/17 12:39 Urine Protein <15 mg/dl mg/dL (Negative) 12/15/17 12:39 Urine Glucose (UA) Neg mg/dL (Negative) 12/15/17 12:39 Urine Ketones Neg mg/dL (Negative) 12/15/17 12:39 Urine Blood Neg (Negative) 12/15/17 12:39 Urine Nitrite Neg (Negative) 12/15/17 12:39 Urine Bilirubin Neg (Negative) 12/15/17 12:39 Urine Urobilinogen < 2.0 mg/dL (<2.0) 12/15/17 12:39 Ur Leukocyte Esterase Neg (Negative) 12/15/17 12:39 Urine WBC (Auto) < 1.0 /HPF (0.0-6.0) 12/15/17 12:39 Urine RBC (Auto) 2.0 /HPF (0.0-6.0) 12/15/17 12:39 U Epithel Cells (Auto) 1.0 /HPF (0-13.0) 12/15/17 12:39 Blood Type A POSITIVE 12/16/17 Antibody Screen Negative 12/16/17 Crossmatch See Detail 12/16/17
--- NOTE | 2017-12-25 18:40 | XRay Report ---
FINAL REPORT EXAM: XR CHEST 1V AP HISTORY: respiratory failure, tacyhpnea TECHNIQUE: Frontal portable view of the chest Comparison: Chest x-ray dated December 21, 2017 FINDINGS: The tracheostomy tube and right central venous catheter are not significantly changed in appearance. There prominence of the interstitial markings in both lungs similar in appearance to the previous study. The cardiac silhouette is enlarged with single lead AICD. There is atherosclerotic vascular calcification of the thoracic aorta. The bony structures are unremarkable. IMPRESSION: 1. No evidence of an acute pulmonary process. No significant change since previous study dated December 21, 2017.
[2017-12-25] MEDS: MILK OF MAGNESIA PO SCH (21:54)
[2017-12-26] MEDS: VITAMIN C PO SCH ×2 (01:58→17:59)
[2017-12-26 04:58] LABS: Hemoglobin 8.5 gm/dl (10.1-14.3); Mean Corpuscular HGB Conc 33 % (30-34); Mean Corpuscular Hemoglobin 30 pg (28-32); Mean Corpuscular Volume 90 fl (79-97); Platelet Count 321 K/mm3 (140-440); Red Blood Count 2.88 M/mm3 (3.65-5.03); Red Cell Distribution Width 19.4 % (13.2-15.2)
[2017-12-26 05:14] LABS: BUN/Creatinine Ratio 19; Blood Urea Nitrogen 13 mg/dL (7-17); Calcium 9.5 mg/dL (8.4-10.2); Hemolysis Index 6
[2017-12-26] MEDS: ROBINUL PO SCH ×3 (08:28→21:36)
[2017-12-26] MEDS: LIORESAL PO SCH ×3 (08:29→21:36)
--- NOTE | 2017-12-26 08:51 | Progress Note ---
Assessment and Plan Severe sepsis with shock. Leukocytosis, probably secondary to occult aspiration. Acute on chronic hypoxemic respiratory failure. Chronic encephalopathy (secondary to both CVA +/- anoxic encephalopathy component) History of cerebrovascular accident. Anemia (chronic disease; normocytic) Oropharyngeal dysphagia. Obesity. Adult failure to thrive. Hypertension. Congestive heart failure. Diabetes. Gastroesophageal reflux disease. Chronic obstructive lung disease. Hypothyroidism. - continue secretion management - continue robinul and scopolamine for secretion control -trach care, airway clearance - continue AB's (de-escalate based on clinical and microbiologic data) -aerosolized tobramycin for 5 days for therapy, GNR in tracheal aspirate with increased tracheal secretions -get CXR - continue t-piece trials RTC as tolerated - continue to wean FiO2 to keep sats > 90% - continue aspiration precautions - continue mobility protocol for pressure ulcer prevention FULL CODE status Subjective Date of service: 12/26/17 Principal diagnosis: Acute CVA with encephalopathy; Acute Resp Failure s/p MVS; Sepsis Syndrome Interval history: Patient is seen today for: Acute CVA with encephalopathy; Acute Respiratory Failure s/p MVS; Sepsis Syndrome Seen and examined at bedside; 24hour events reviewed; nursing and respiratory care staff consulted; no adverse overnight events reported to me; tolerating ATP ; episodically bites her tongue, tracheal secretions on going, no emesis or overt aspiration; remains off vasopressor support; RN and RT do not report any overnight events This afternoon, RN notes tachypnea Objective Vital Signs - 12hr 12/25/17 12/25/17 12/25/17 21:00 21:16 21:30 Temperature Pulse Rate 105 H 106 H 107 H Respiratory 24 24 25 H Rate Blood Pressure 133/68 131/73 131/73 O2 Sat by Pulse 98 97 98 Oximetry O2 Sat by Pulse 100 Oximetry [ Assessment] 12/25/17 12/25/17 12/25/17 21:46 21:54 22:00 Temperature Pulse Rate 108 H 101 H 101 H Respiratory 27 H 22 Rate Blood Pressure 131/73 133/68 126/57 O2 Sat by Pulse 97 95 Oximetry O2 Sat by Pulse Oximetry [ Assessment] 12/25/17 12/25/17 12/25/17 22:16 22:30 22:39 Temperature Pulse Rate 97 H 97 H 97 H Respiratory 17 18 21 Rate Blood Pressure 133/68 133/68 126/57 O2 Sat by Pulse 95 94 94 Oximetry O2 Sat by Pulse Oximetry [ Assessment] 12/25/17 12/25/17 12/25/17 22:46 23:00 23:08 Temperature Pulse Rate 97 H 97 H 97 H Respiratory 22 20 19 Rate Blood Pressure 133/68 115/64 115/64 O2 Sat by Pulse 94 95 94 Oximetry O2 Sat by Pulse Oximetry [ Assessment] 12/25/17 12/25/17 12/25/17 23:16 23:30 23:46 Temperature Pulse Rate 97 H 97 H 96 H Respiratory 20 21 20 Rate Blood Pressure 126/57 126/57 126/57 O2 Sat by Pulse 95 95 96 Oximetry O2 Sat by Pulse Oximetry [ Assessment] 12/26/17 12/26/17 12/26/17 00:00 00:16 00:30 Temperature 98.6 F Pulse Rate 97 H 97 H 98 H Respiratory 23 20 21 Rate Blood Pressure 122/59 122/59 115/64 O2 Sat by Pulse 96 95 98 Oximetry O2 Sat by Pulse Oximetry [ Assessment] 12/26/17 12/26/17 12/26/17 00:46 01:00 01:16 Temperature Pulse Rate 96 H 95 H 97 H Respiratory 21 20 21 Rate Blood Pressure 115/64 122/59 112/60 O2 Sat by Pulse 98 97 97 Oximetry O2 Sat by Pulse Oximetry [ Assessment] 12/26/17 12/26/17 12/26/17 01:30 01:46 02:00 Temperature Pulse Rate 94 H 97 H 96 H Respiratory 18 29 H 21 Rate Blood Pressure 112/60 112/60 104/61 O2 Sat by Pulse 97 99 96 Oximetry O2 Sat by Pulse Oximetry [ Assessment] 12/26/17 12/26/17 12/26/17 02:16 02:30 02:46 Temperature Pulse Rate 97 H 98 H 97 H Respiratory 24 28 H 28 H Rate Blood Pressure 104/61 104/61 104/61 O2 Sat by Pulse 98 97 97 Oximetry O2 Sat by Pulse Oximetry [ Assessment] 12/26/17 12/26/17 12/26/17 03:00 03:16 03:30 Temperature Pulse Rate 95 H 95 H 97 H Respiratory 21 20 24 Rate Blood Pressure 123/69 123/69 123/69 O2 Sat by Pulse 98 98 98 Oximetry O2 Sat by Pulse Oximetry [ Assessment] 12/26/17 12/26/1718 03:46 04:00 04:16 Temperature 98.5 F Pulse Rate 97 H 96 H 95 H Respiratory 24 22 22 Rate Blood Pressure 123/69 125/69 125/69 O2 Sat by Pulse 98 98 97 Oximetry O2 Sat by Pulse Oximetry [ Assessment] 12/26/17 12/26/17 12/26/17 04:21 04:30 04:46 Temperature Pulse Rate 96 H 95 H Respiratory 21 20 Rate Blood Pressure 125/69 125/69 O2 Sat by Pulse 96 96 Oximetry O2 Sat by Pulse 100 Oximetry [ Assessment] 12/26/17 12/26/17 12/26/17 05:00 05:16 05:30 Temperature Pulse Rate 97 H 96 H 98 H Respiratory 19 23 22 Rate Blood Pressure 125/69 131/78 131/78 O2 Sat by Pulse 97 97 97 Oximetry O2 Sat by Pulse Oximetry [ Assessment] 12/26/17 12/26/17 12/26/17 05:46 06:00 06:16 Temperature Pulse Rate 96 H 94 H 92 H Respiratory 24 22 18 Rate Blood Pressure 131/78 131/78 110/63 O2 Sat by Pulse 99 97 98 Oximetry O2 Sat by Pulse Oximetry [ Assessment] 12/26/17 12/26/17 12/26/17 06:30 06:46 07:00 Temperature Pulse Rate 92 H 93 H 93 H Respiratory 21 22 22 Rate Blood Pressure 110/63 110/63 116/67 O2 Sat by Pulse 98 98 99 Oximetry O2 Sat by Pulse Oximetry [ Assessment] 12/26/17 07:16 Temperature Pulse Rate 92 H Respiratory 21 Rate Blood Pressure 116/67 O2 Sat by Pulse 99 Oximetry O2 Sat by Pulse Oximetry [ Assessment] Constitutional: no acute distress, other (elderly AAF, normocephalic and atraumatic) Eyes: non-icteric ENT: oropharynx moist, other (midline tracheostomy tube) Neck: supple, no lymphadenopathy, no JVD, other (No thyromegaly) Effort: mildly labored Ascultation: Bilateral: diminished breath sounds, rhonchi Percussion: Bilateral: not dull Cardiovascular: regular rate and rhythm, other (No R/M) Gastrointestinal: normoactive bowel sounds, soft, non-tender, non-distended, other (PEG tube; No HSM) Integumentary: other (poor turgor) Extremities: no cyanosis, no edema, pulses normal, no ischemia or petechiae Neurologic: pupils equal and round, unable to assess, other (+ pedal contractures; encephalopathic) Psychiatric: other (unable to assess) CBC and BMP: 12/26/17 04:21 12/26/17 04:21 ABG, PT/INR, D-dimer: PT/INR, D-dimer PT 13.6 Sec. (12.2-14.9) 12/23/17 04:55 INR 0.99 (0.87-1.13) 12/23/17 04:55 Abnormal lab findings: Abnormal Labs 12/15/17 12/15/17 12/15/17 09:22 09:22 10:53 WBC 22.2 H RBC 2.66 L Hgb 8.1 L Hct 25.2 L MCHC RDW 18.4 H Plt Count 529 H Seg Neuts % (Manual) 73.0 H Lymphocytes % (Manual) 11.0 L Seg Neutrophils # Man 16.2 H Monocytes # (Manual) 1.4 H Eosinophils # (Manual) 0.7 H Basophils # (Manual) 0.2 H Sodium 134 L Potassium 5.6 H D Chloride 96.8 L Carbon Dioxide BUN 18 H Creatinine Glucose 114 H POC Glucose Lactic Acid 2.50 H* Calcium Magnesium Iron C-Reactive Protein Albumin Vitamin B12 Crossmatch 12/15/17 12/16/17 12/16/17 13:21 11:14 11:14 WBC 13.1 H RBC 2.33 L Hgb 6.8 L Hct 21.8 L MCHC RDW 18.7 H Plt Count 467 H Seg Neuts % (Manual) Lymphocytes % (Manual) Seg Neutrophils # Man Monocytes # (Manual) Eosinophils # (Manual) Basophils # (Manual) Sodium Potassium Chloride Carbon Dioxide 21 L BUN Creatinine 0.4 L D Glucose POC Glucose Lactic Acid 2.60 H* Calcium 8.2 L Magnesium Iron C-Reactive Protein Albumin Vitamin B12 Crossmatch 12/16/17 12/16/17 12/16/17 14:51 22:27 22:27 WBC RBC Hgb 6.8 L Hct 21.7 L MCHC RDW Plt Count Seg Neuts % (Manual) Lymphocytes % (Manual) Seg Neutrophils # Man Monocytes # (Manual) Eosinophils # (Manual) Basophils # (Manual) Sodium Potassium Chloride Carbon Dioxide BUN Creatinine Glucose POC Glucose Lactic Acid Calcium Magnesium Iron 32 L C-Reactive Protein Albumin Vitamin B12 Crossmatch See Detail 12/16/17 12/17/17 12/17/17 22:27 10:03 10:03 WBC RBC 2.67 L Hgb 8.0 L Hct 24.9 L MCHC RDW 17.5 H Plt Count Seg Neuts % (Manual) Lymphocytes % (Manual) Seg Neutrophils # Man Monocytes # (Manual) Eosinophils # (Manual) Basophils # (Manual) Sodium Potassium Chloride 107.8 H Carbon Dioxide BUN Creatinine 0.4 L Glucose POC Glucose Lactic Acid Calcium 8.2 L Magnesium Iron C-Reactive Protein Albumin Vitamin B12 1675 H Crossmatch 12/18/17 12/19/17 12/20/17 03:19 04:55 00:12 WBC 12.2 H RBC 2.79 L 2.81 L 2.93 L Hgb 8.4 L 8.7 L 8.7 L Hct 25.9 L 25.8 L 27.4 L MCHC RDW 19.0 H 19.6 H 20.4 H Plt Count Seg Neuts % (Manual) Lymphocytes % (Manual) Seg Neutrophils # Man Monocytes # (Manual) Eosinophils # (Manual) Basophils # (Manual) Sodium Potassium Chloride Carbon Dioxide BUN Creatinine Glucose POC Glucose Lactic Acid Calcium Magnesium Iron C-Reactive Protein Albumin Vitamin B12 Crossmatch 12/20/17 12/20/17 12/20/17 00:12 11:51 21:02 WBC RBC Hgb Hct MCHC RDW Plt Count Seg Neuts % (Manual) Lymphocytes % (Manual) Seg Neutrophils # Man Monocytes # (Manual) Eosinophils # (Manual) Basophils # (Manual) Sodium Potassium Chloride Carbon Dioxide BUN Creatinine 0.6 L Glucose 102 H POC Glucose 122 H 108 H Lactic Acid Calcium Magnesium Iron C-Reactive Protein Albumin 3.4 L Vitamin B12 Crossmatch 12/21/17 12/21/17 12/21/17 01:05 13:07 17:43 WBC 13.3 H RBC 2.79 L Hgb 8.4 L Hct 26.0 L MCHC RDW 20.7 H Plt Count Seg Neuts % (Manual) Lymphocytes % (Manual) Seg Neutrophils # Man Monocytes # (Manual) Eosinophils # (Manual) Basophils # (Manual) Sodium Potassium Chloride Carbon Dioxide BUN Creatinine Glucose POC Glucose 109 H 115 H Lactic Acid Calcium Magnesium Iron C-Reactive Protein Albumin Vitamin B12 Crossmatch 12/22/17 12/22/17 12/22/17 00:34 00:34 16:10 WBC RBC 2.33 L Hgb 7.5 L Hct 21.2 L MCHC 35 H RDW 19.4 H Plt Count Seg Neuts % (Manual) Lymphocytes % (Manual) Seg Neutrophils # Man Monocytes # (Manual) Eosinophils # (Manual) Basophils # (Manual) Sodium Potassium Chloride Carbon Dioxide BUN Creatinine 0.6 L Glucose POC Glucose Lactic Acid Calcium Magnesium 2.50 H Iron C-Reactive Protein 12.20 H Albumin 3.1 L Vitamin B12 Crossmatch 12/23/17 12/23/17 12/24/17 04:55 12:15 05:16 WBC RBC Hgb 7.4 L Hct 22.5 L MCHC RDW Plt Count Seg Neuts % (Manual) Lymphocytes % (Manual) Seg Neutrophils # Man Monocytes # (Manual) Eosinophils # (Manual) Basophils # (Manual) Sodium Potassium Chloride Carbon Dioxide BUN Creatinine Glucose POC Glucose 109 H 111 H Lactic Acid Calcium Magnesium Iron C-Reactive Protein Albumin Vitamin B12 Crossmatch 12/24/17 12/24/17 12/24/17 06:45 17:57 23:45 WBC RBC Hgb Hct MCHC RDW Plt Count Seg Neuts % (Manual) Lymphocytes % (Manual) Seg Neutrophils # Man Monocytes # (Manual) Eosinophils # (Manual) Basophils # (Manual) Sodium 136 L Potassium Chloride Carbon Dioxide BUN Creatinine 0.5 L Glucose POC Glucose 108 H 108 H Lactic Acid Calcium Magnesium Iron C-Reactive Protein Albumin Vitamin B12 Crossmatch 12/25/17 12/25/17 12/25/17 05:28 11:57 17:49 WBC RBC Hgb Hct MCHC RDW Plt Count Seg Neuts % (Manual) Lymphocytes % (Manual) Seg Neutrophils # Man Monocytes # (Manual) Eosinophils # (Manual) Basophils # (Manual) Sodium Potassium Chloride Carbon Dioxide BUN Creatinine Glucose POC Glucose 109 H 113 H 110 H Lactic Acid Calcium Magnesium Iron C-Reactive Protein Albumin Vitamin B12 Crossmatch 12/26/17 12/26/17 12/26/17 00:02 04:21 04:21 WBC 11.5 H RBC 2.88 L Hgb 8.5 L Hct 26.0 L MCHC RDW 19.4 H Plt Count Seg Neuts % (Manual) Lymphocytes % (Manual) Seg Neutrophils # Man Monocytes # (Manual) Eosinophils # (Manual) Basophils # (Manual) Sodium 136 L Potassium Chloride 97.8 L Carbon Dioxide BUN Creatinine Glucose 114 H POC Glucose 123 H Lactic Acid Calcium Magnesium Iron C-Reactive Protein Albumin Vitamin B12 Crossmatch Allied health notes reviewed: nursing
[2017-12-26] MEDS: PREVACID SOLUTAB FEEDTUBE SCH (10:31)
[2017-12-26] MEDS: BABY ASPIRIN PO SCH (10:31)
[2017-12-26] MEDS: COREG PO SCH ×2 (10:31→21:36)
[2017-12-26] MEDS: SENOKOT PO SCH ×2 (10:33→21:37)
[2017-12-26] MEDS: HEPARIN SUB-Q SCH ×2 (10:33→21:37)
[2017-12-26] MEDS: TOBRAMYCIN INHALATION (ADULT) IH SCH ×2 (11:09→19:46)
[2017-12-26] MEDS ORDERED: KEPPRA IV ONE (11:30)
[2017-12-26] MEDS ORDERED: D5W IV ONE (11:30)
--- NOTE | 2017-12-26 17:26 | Progress Note ---
Assessment and Plan Assessment and plan: 67-year-old -[place] female with medical history significant for massive CVA, patient was comatose and on PEG and trach for long time. [facility] was [facility] and presented back to the hospital, for respiratory failure, and low blood pressure. Patient is admitted to ICU Septic Shock - patient is off levophed, will continue to monitor - Blood culture grew gram-negative rods, and is on Levaquin Aspiration Pneumonia continue IV abx aspiration precautions at all times Pulmonary recommends to transfer her to MICU for frequent suction on scopolamine Chronic Encephalopathuy, suspect Anoxic encephalopathy aspiration precautions supportive care Chronic physical debility h/o CVA bed bound, comatose, on PEG and trach Chronic Anemia monitor H/H closely Will transfuse as needed if Hemoglobin is below 7 ?seizure - Discussed with Neurologist - EEG ordered - Will follow Prognosis poor Physician to make any meaningful recovery. Disposition -Discuss with family following Neurology eval History Interval history: Patient was seen and evaluated this morning, patient was comatose, on PEG and trach. Patient is comatose. No family member were in the room. Per nursing staff still requiring lots of suction Hospitalist Physical - Physical exam Narrative exam: Not in cardiopulmonary distress. On trach and PEG. Biting her tongue. The patient appeared well nourished and normally developed. Vital signs as documented. Head exam is unremarkable. No scleral icterus . Neck is without jugular venous distension, thyromegaly, or carotid bruits. Lungs are clear to auscultation. Cardiac exam reveals regular rate and Rhythm. Abdominal exam reveals normal bowel sounds, no masses, no organomegaly and no aortic enlargement. Extremities are contracted. AC/DC REWINDER: Comatose. - Constitutional Vitals: Temp Pulse Resp BP Pulse Ox 98.9 F 92 H 19 119/64 97 12/26/17 12:00 12/26/17 17:00 12/26/17 17:00 12/26/17 17:00 12/26/17 17:00 General appearance: Present: no acute distress, mild distress, obese Results - Labs CBC & Chem 7: 12/26/17 04:21 12/26/17 04:21 Labs: Laboratory Last Values WBC 11.5 K/mm3 (4.5-11.0) H 12/26/17 04:21 RBC 2.88 M/mm3 (3.65-5.03) L 12/26/17 04:21 Hgb 8.5 gm/dl (10.1-14.3) L 12/26/17 04:21 Hct 26.0 % (30.3-42.9) L 12/26/17 04:21 MCV 90 fl (79-97) 12/26/17 04:21 MCH 30 pg (28-32) 12/26/17 04:21 MCHC 33 % (30-34) 12/26/17 04:21 RDW 19.4 % (13.2-15.2) H 12/26/17 04:21 Plt Count 321 K/mm3 (140-440) 12/26/17 04:21 Lymph % (Auto) 22.9 % (13.4-35.0) 12/19/17 04:55 Williamson % (Auto) 5.8 % (0.0-7.3) 12/19/17 04:55 Eos % (Auto) 1.7 % (0.0-4.3) 12/19/17 04:55 Baso % (Auto) 0.7 % (0.0-1.8) 12/19/17 04:55 Lymph # 2.0 K/mm3 (1.2-5.4) 12/19/17 04:55 Williamson # 0.5 K/mm3 (0.0-0.8) 12/19/17 04:55 Eos # 0.1 K/mm3 (0.0-0.4) 12/19/17 04:55 Baso # 0.1 K/mm3 (0.0-0.1) 12/19/17 04:55 Add Manual Diff Complete 12/15/17 09:22 Total Counted 200 12/15/17 09:22 Seg Neutrophils % 68.9 % (40.0-70.0) 12/19/17 04:55 Seg Neuts % (Manual) 73.0 % (40.0-70.0) H 12/15/17 09:22 Band Neutrophils % 5.0 % 12/15/17 09:22 Lymphocytes % (Manual) 11.0 % (13.4-35.0) L 12/15/17 09:22 Reactive Lymphs % (Man) 0 % 12/15/17 09:22 Monocytes % (Manual) 6.5 % (0.0-7.3) 12/15/17 09:22 Eosinophils % (Manual) 3.0 % (0.0-4.3) 12/15/17 09:22 Basophils % (Manual) 1.0 % (0.0-1.8) 12/15/17 09:22 Metamyelocytes % 0.5 % 12/15/17 09:22 Myelocytes % 0 % 12/15/17 09:22 Promyelocytes % 0 % 12/15/17 09:22 Blast Cells % 0 % 12/15/17 09:22 Nucleated RBC % Not Reportable 12/15/17 09:22 Seg Neutrophils # 6.1 K/mm3 (1.8-7.7) 12/19/17 04:55 Seg Neutrophils # Man 16.2 K/mm3 (1.8-7.7) H 12/15/17 09:22 Band Neutrophils # 1.1 K/mm3 12/15/17 09:22 Lymphocytes # (Manual) 2.4 K/mm3 (1.2-5.4) 12/15/17 09:22 Abs React Lymphs (Man) 0.0 K/mm3 12/15/17 09:22 Monocytes # (Manual) 1.4 K/mm3 (0.0-0.8) H 12/15/17 09:22 Eosinophils # (Manual) 0.7 K/mm3 (0.0-0.4) H 12/15/17 09:22 Basophils # (Manual) 0.2 K/mm3 (0.0-0.1) H 12/15/17 09:22 Metamyelocytes # 0.1 K/mm3 12/15/17 09:22 Myelocytes # 0.0 K/mm3 12/15/17 09:22 Promyelocytes # 0.0 K/mm3 12/15/17 09:22 Blast Cells # 0.0 K/mm3 12/15/17 09:22 WBC Morphology Not Reportable 12/15/17 09:22 Hypersegmented Neuts Not Reportable 12/15/17 09:22 Hyposegmented Neuts Not Reportable 12/15/17 09:22 Hypogranular Neuts Not Reportable 12/15/17 09:22 Smudge Cells Not Reportable 12/15/17 09:22 Toxic Granulation Not Reportable 09/22/18 09:22 Toxic Vacuolation Not Reportable 12/15/17 09:22 Dohle Bodies Not Reportable 12/15/17 09:22 Pelger-Huet Anomaly Not Reportable 12/15/17 09:22 Eileen Rods Not Reportable 12/15/17 09:22 Platelet Estimate Consistent w auto 12/15/17 09:22 Clumped Platelets Not Reportable 12/15/17 09:22 Plt Clumps, EDTA Not Reportable 12/15/17 09:22 Large Platelets Not Reportable 12/15/17 09:22 Giant Platelets Not Reportable 12/15/17 09:22 Platelet Satelliting Not Reportable 12/15/17 09:22 Plt Morphology Comment Not Reportable 12/15/17 09:22 RBC Morphology Not Reportable 12/15/17 09:22 Dimorphic RBCs Not Reportable 12/15/17 09:22 Polychromasia 1+ 12/15/17 09:22 Hypochromasia 1+ 12/15/17 09:22 Poikilocytosis Not Reportable 12/15/17 09:22 Anisocytosis 1+ 12/15/17 09:22 Microcytosis Not Reportable 12/15/17 09:22 Macrocytosis 1+ 12/15/17 09:22 Spherocytes Not Reportable 12/15/17 09:22 Pappenheimer Bodies Not Reportable 12/15/17 09:22 Sickle Cells Not Reportable 12/15/17 09:22 Target Cells Not Reportable 12/15/17 09:22 Tear Drop Cells Few 12/15/17 09:22 Ovalocytes Few 12/15/17 09:22 Helmet Cells Not Reportable 12/15/17 09:22 Boone-Pinckard Bodies Not Reportable 12/15/17 09:22 [place] Rings Not Reportable 12/15/17 09:22 Elvin Cells Not Reportable 12/15/17 09:22 Bite Cells Not Reportable 12/15/17 09:22 Crenated Cell Not Reportable 12/15/17 09:22 Elliptocytes Few 12/15/17 09:22 Acanthocytes (Spur) Not Reportable 12/15/17 09:22 Rouleaux Not Reportable 12/15/17 09:22 Hemoglobin C Crystals Not Reportable 12/15/17 09:22 Schistocytes Rare 12/15/17 09:22 Malaria parasites Not Reportable 12/15/17 09:22 Adriano Bodies Not Reportable 12/15/17 09:22 Hem Pathologist Commnt No 12/15/17 09:22 PT 13.6 Sec. (12.2-14.9) 12/23/17 04:55 INR 0.99 (0.87-1.13) 12/23/17 04:55 Sodium 136 mmol/L (137-145) L 12/26/17 04:21 Potassium 4.2 mmol/L (3.6-5.0) 12/26/17 04:21 Chloride 97.8 mmol/L (98-107) L 12/26/17 04:21 Carbon Dioxide 27 mmol/L (22-30) 12/26/17 04:21 Anion Gap 15 mmol/L 12/26/17 04:21 BUN 13 mg/dL (7-17) 12/26/17 04:21 Creatinine 0.7 mg/dL (0.7-1.2) 12/26/17 04:21 Estimated GFR > 60 ml/min 12/26/17 04:21 BUN/Creatinine Ratio 19 % 12/26/17 04:21 Glucose 114 mg/dL (65-100) H 12/26/17 04:21 POC Glucose 108 (70-105) H 12/26/17 11:54 Lactic Acid 0.70 mmol/L (0.7-2.0) 12/22/17 16:10 Calcium 9.5 mg/dL (8.4-10.2) 12/26/17 04:21 Magnesium 2.50 mg/dL (1.7-2.3) H 12/22/17 16:10 Iron 32 ug/dL (37-170) L 12/16/17 22:27 TIBC 296 mcg/dL (250-450) 12/16/17 22:27 Total Bilirubin 0.20 mg/dL (0.1-1.2) 12/22/17 00:34 AST 29 units/L (5-40) 12/22/17 00:34 ALT 24 units/L (7-56) 12/22/17 00:34 Alkaline Phosphatase 108 units/L (35-129) 12/22/17 00:34 C-Reactive Protein 12.20 mg/dL (0.00-1.30) H 12/22/17 16:10 Total Protein 6.5 g/dL (6.3-8.2) 12/22/17 00:34 Albumin 3.1 g/dL (3.9-5) L 12/22/17 00:34 Albumin/Globulin Ratio 0.9 % 12/22/17 00:34 Vitamin B12 1675 pg/mL (211-911) H 12/16/17 22:27 RBC Folic Acid >1000 ng/mL (>280) 12/16/17 22:27 Urine Color Yellow (Yellow) 12/15/17 12:39 Urine Turbidity Clear (Clear) 12/15/17 12:39 Urine pH 7.0 (5.0-7.0) 12/15/17 12:39 Ur Specific Needles 1.009 (1.003-1.030) 12/15/17 12:39 Urine Protein <15 mg/dl mg/dL (Negative) 12/15/17 12:39 Urine Glucose (UA) Neg mg/dL (Negative) 12/15/17 12:39 Urine Ketones Neg mg/dL (Negative) 12/15/17 12:39 Urine Blood Neg (Negative) 12/15/17 12:39 Urine Nitrite Neg (Negative) 12/15/17 12:39 Urine Bilirubin Neg (Negative) 12/15/17 12:39 Urine Urobilinogen < 2.0 mg/dL (<2.0) 12/15/17 12:39 Ur Leukocyte Esterase Neg (Negative) 12/15/17 12:39 Urine WBC (Auto) < 1.0 /HPF (0.0-6.0) 12/15/17 12:39 Urine RBC (Auto) 2.0 /HPF (0.0-6.0) 12/15/17 12:39 U Epithel Cells (Auto) 1.0 /HPF (0-13.0) 12/15/17 12:39 Blood Type A POSITIVE 12/16/17 Antibody Screen Negative 12/16/17: Crossmatch See Detail 12/16/17
--- NOTE | 2017-12-26 17:48 | Electroencephalogram Report ---
Electroencephalogram EEG Date of exam: 12/26/17 Description: Preliminary findings: Tachycardia and the EKG channel, slowing diffusely on the right compared to the left, some EMG artifact, no sleep architecture. No epileptiform activity. Interpretation: Preliminary reading: Abnormal comatose electroencephalogram due to slowing on the right for which correlation with imaging is advised. This EEG does not exclude epilepsy of partial onset, up to 4 EEGs over several months may be needed to capture interictal epileptiform activity.
--- NOTE | 2017-12-26 17:59 | Consultation ---
History of Present Illness Consult date: 12/26/17 Requesting physician: SUNDAY SARGETN Reason for Consult: encephalopathy Chief complaint: tongue biting, encephalopathy History of present illness: This 67-year-old -[place] female was readmitted December 15 for respiratory distress with systolic pressure in the 60s. She has been noted to have tongue biting since her teeth tend to be clenched. I started Keppra in case this represented myoclonus related to anoxic encephalopathy from perhaps cardiac arrest or hypoperfusion related to the hypotension. No CT scan of brain is been done this admission. I saw her here in October for acute left middle cerebral artery stroke and noted old right middle cerebral strokes too. Past History Past Medical History: CAD, COPD, diabetes, heart failure, hypothyroidism, stroke Past Surgical History: hysterectomy, Other (Trach/Peg placement, pacemaker? ) Social history: , other (residential resident). denies: smoking, alcohol abuse, prescription drug abuse Family history: hypertension Medications and Allergies Allergies Allergy/AdvReac Type Severity Reaction Status Date / Time ibuprofen Allergy Unknown Verified 09/12/15 23:04 Penicillins Allergy Unknown Verified 09/12/15 23:04 Home Medications Medication Instructions Recorded Confirmed Last Taken Type Ascorbic Acid [Vitamin C] 500 mg PO Q12H 09/12/15 12/17/17 07/11/16 History Baclofen [Lioresal] 10 mg PO TID 09/12/15 12/17/17 07/11/16 History Ipratropium/Albuterol Sulfate 1 ampul IH Q6HR PRN 09/12/15 12/17/17 Unknown History [DUONEB *Not for PRN Use*] Magnesium Hydroxide [Milk of 30 ml PO HS 09/12/15 12/17/17 07/11/16 History Magnesia] clonazePAM [KlonoPIN] 2 mg PO BID 09/12/15 12/17/17 07/10/16 History Pravastatin Sodium [Pravastatin] 10 mg PO QHS 07/13/16 12/17/17 07/11/16 History Carvedilol [Coreg] 12.5 mg PO BID #60 tablet 08/07/16 12/17/17 Unknown Rx Lisinopril [Zestril TAB] 20 mg PO QDAY #30 tablet 08/07/16 12/17/17 Unknown Rx Polyethylene Glycol 3350 [Miralax 17 gm PO QDAY PRN #7 packet 04/21/17 12/17/17 Unknown Rx 3350] Aspirin [Aspirin BABY CHEW TAB] 81 mg PO QDAY 10/29/17 12/17/17 Unknown History Citalopram [celeXA] 20 mg PO QDAY 10/29/17 12/17/17 Unknown History Docusate Sodium [Colace] 100 mg PO BID 10/29/17 12/17/17 Unknown History Gabapentin [Neurontin] 600 mg PO TID 10/29/17 12/17/17 Unknown History Levothyroxine [Synthroid] 125 mcg PO QAM 10/29/17 12/17/17 Unknown History Pantoprazole [Protonix] 40 mg PO QAM 10/29/17 12/17/17 Unknown History Potassium Chloride [K-Dur] 20 meq PO QDAY 10/29/17 12/17/17 Unknown History Sennosides [Senna] 8.6 mg PO BID 10/29/17 12/17/17 Unknown History Active Meds: Active Medications Acetaminophen (Tylenol) 650 mg PO Q4H PRN PRN Reason: Pain MILD(1-3)/Fever >100.5/BIRD Albuterol (Proventil) 2.5 mg IH Q4HRT PRN PRN Reason: Shortness Of Breath Ascorbic Acid (Vitamin C) 500 mg PO Q12H [facility] Last Admin: 12/26/17 01:58 Dose: 500 mg Aspirin (Baby Aspirin) 81 mg PO QDAY [facility] Last Admin: 12/26/17 10:31 Dose: 81 mg Baclofen (Lioresal) 10 mg PO TID [facility] Last Admin: 12/26/17 13:43 Dose: 10 mg Carvedilol (Coreg) 6.25 mg PO BID [facility] Last Admin: 12/26/17 10:31 Dose: 6.25 mg Clonazepam (Klonopin) 2 mg PO BID [facility] Last Admin: 12/26/17 10:31 Dose: 2 mg Cyclobenzaprine HCl (Flexeril) 10 mg PO BID PRN PRN Reason: Muscle Spasm Glycopyrrolate (Robinul) 2 mg PO TID [facility] Last Admin: 12/26/17 13:43 Dose: 2 mg Heparin Sodium (Porcine) (Heparin) 5,000 unit SUB-Q Q12HR [facility] Last Admin: 12/26/17 10:33 Dose: 5,000 unit Lansoprazole (Prevacid Solutab) 30 mg FEEDTUBE QDAY [facility] Last Admin: 12/26/17 10:31 Dose: 30 mg Levetiracetam (Keppra) 750 mg FEEDTUBE Q6H [facility] Magnesium Hydroxide (Milk Of Magnesia) 30 ml PO HS [facility] Last Admin: 12/25/17 21:54 Dose: 30 ml Oxycodone HCl (Roxicodone) 5 mg PO Q6H PRN PRN Reason: Pain, Moderate (4-6) Last Admin: 12/15/17 15:19 Dose: 5 mg Oxycodone/Acetaminophen (Percocet 5/325) 1 tab PO Q6H PRN PRN Reason: Pain, Moderate (4-6) Last Admin: 12/25/17 17:00 Dose: 1 tab Polyethylene Glycol (Miralax 3350) 17 gm PO QDAY PRN PRN Reason: Constipation Scopolamine (Transderm-Scop) 1 each TD Q3D [facility] Last Admin: 12/24/17 13:01 Dose: 1 each Senna (Senokot) 8.6 mg PO BID [facility] Last Admin: 12/26/17 10:33 Dose: 8.6 mg Simple Syrup (Simple Syrup) 15 ml FEEDTUBE PRN PRN PRN Reason: Hypoglycemia Simple Syrup (Simple Syrup) 30 ml FEEDTUBE PRN PRN PRN Reason: Hypoglycemia Tobramycin Sulfate (Tobramycin Inhalation (Adult)) 300 mg IH Q12HRT [facility] Stop: 12/29/17 08:01 Last Admin: 12/26/17 11:09 Dose: Not Given Tobramycin Sulfate (Tobramycin Inhalation (Nicu) (40 Mg/Ml)) 40 mg IH Q12HRT [facility] Review of Systems ROS unobtainable: due to mental status Physical Examination - Vital Signs Vital Signs: Vital Signs Temp Pulse Resp BP Pulse Ox 98.5 F 78 36 H 117/34 100 12/15/17 08:39 12/15/17 08:39 12/15/17 08:39 12/15/17 08:39 12/15/17 08:39 - Physical Exam Narrative exam: General appearance: well developed but obese (per BMI) mid 60s -[place] female in NAD, with tracheotomy tube on T piece setting. HEENT: atraumatic, normocephalic, Neda not enlarged or indurated. No bruits. Oropharynx obscured by endotracheal tube. Neck: supple, no bruits. Heart: cannot hear heart sounds. Extremities: no clubbing or cyanosis, no edema. Cannot feel posterior tibial or dorsalis pedis pulses on either side. Clenched left fist with cortical thumb. Neurologic Exam: Mental status: eyes closed initially but opens them briefly to pain. Does not obey commands. No response to orientation questions. Cranial nerves: no blink to threat, no papilledema on the left but lenses is too opaque on the right to see fundus, (+) SVPs on the left, right pupil is 4 mm and nonreactive perhaps due to dense cataract, (+) Doll's eyes but at times has some quick beating nystagmus to the left, corneals present, no grimace to supraorbital pressure but occasional facial twitching with stimulation as when attempting to open jaw to test gag, cannot assess Lobo, gags slightly positive , cough positive to tracheal suction, cannot assess shoulder shrug or tongue protrusion though spontaneously seems to thrust tongue out left side of mouth but I was able to push it back in after opening the jaw a bit with tongue blade. Cerebellar: cannot assess. Sensory: flexes right upper extremity to nailbed pressure but not on the left. Right foot and knee adducts to nailbed pressure with some knee flexion, left lower extremity produces slight motion to nailbed pressure.. Motor Exam Upper Extremities: pinching of right side of neck results in some tremors of left hand and slight elbow flexion bilaterally and some adduction of right knee and foot. Pinching of left side of neck produces slight flexion both arms and slight wiggling of left toes though not purposeful. No reaction to sternal rub or chest skin pinch Motor Exam Lower Extremities: right knee flexion withdrawal more than left with plantar rub. Reflexes: palmomental is negative, snout is positive, jaw jerk is negative. Triceps are 3 right and 2+ left, biceps are 2+ and brachioradialis are 3 right and 2+ left. Bela's is strongly positive right but cannot test on the left due to clenched fist. Knee jerks are trace to 1, and ankle jerks are 5 right with sustained clonus and one left without clonus. Toes are upgoing bilaterally to Babinski testing. Results - Laboratory Findings CBC and BMP: 12/26/17 04:21 12/26/17 04:21 Abnormal Lab Findings: Abnormal Labs 12/15/17 12/15/17 12/15/17 09:22 09:22 10:53 WBC 22.2 H RBC 2.66 L Hgb 8.1 L Hct 25.2 L MCHC RDW 18.4 H Plt Count 529 H Seg Neuts % (Manual) 73.0 H Lymphocytes % (Manual) 11.0 L Seg Neutrophils # Man 16.2 H Monocytes # (Manual) 1.4 H Eosinophils # (Manual) 0.7 H Basophils # (Manual) 0.2 H Sodium 134 L Potassium 5.6 H D Chloride 96.8 L Carbon Dioxide BUN 18 H Creatinine Glucose 114 H POC Glucose Lactic Acid 2.50 H* Calcium Magnesium Iron C-Reactive Protein Albumin Vitamin B12 Crossmatch 12/15/17 12/16/17 12/16/17 13:21 11:14 11:14 WBC 13.1 H RBC 2.33 L Hgb 6.8 L Hct 21.8 L MCHC RDW 18.7 H Plt Count 467 H Seg Neuts % (Manual) Lymphocytes % (Manual) Seg Neutrophils # Man Monocytes # (Manual) Eosinophils # (Manual) Basophils # (Manual) Sodium Potassium Chloride Carbon Dioxide 21 L BUN Creatinine 0.4 L D Glucose POC Glucose Lactic Acid 2.60 H* Calcium 8.2 L Magnesium Iron C-Reactive Protein Albumin Vitamin B12 Crossmatch 12/16/17 12/16/17 12/16/17 14:51 22:27 22:27 WBC RBC Hgb 6.8 L Hct 21.7 L MCHC RDW Plt Count Seg Neuts % (Manual) Lymphocytes % (Manual) Seg Neutrophils # Man Monocytes # (Manual) Eosinophils # (Manual) Basophils # (Manual) Sodium Potassium Chloride Carbon Dioxide BUN Creatinine Glucose POC Glucose Lactic Acid Calcium Magnesium Iron 32 L C-Reactive Protein Albumin Vitamin B12 Crossmatch See Detail 12/16/17 12/17/17 12/17/17 22:27 10:03 10:03 WBC RBC 2.67 L Hgb 8.0 L Hct 24.9 L MCHC RDW 17.5 H Plt Count Seg Neuts % (Manual) Lymphocytes % (Manual) Seg Neutrophils # Man Monocytes # (Manual) Eosinophils # (Manual) Basophils # (Manual) Sodium Potassium Chloride 107.8 H Carbon Dioxide BUN Creatinine 0.4 L Glucose POC Glucose Lactic Acid Calcium 8.2 L Magnesium Iron C-Reactive Protein Albumin Vitamin B12 1675 H Crossmatch 12/18/17 12/19/17 12/20/17 03:19 04:55 00:12 WBC 12.2 H RBC 2.79 L 2.81 L 2.93 L Hgb 8.4 L 8.7 L 8.7 L Hct 25.9 L 25.8 L 27.4 L MCHC RDW 19.0 H 19.6 H 20.4 H Plt Count Seg Neuts % (Manual) Lymphocytes % (Manual) Seg Neutrophils # Man Monocytes # (Manual) Eosinophils # (Manual) Basophils # (Manual) Sodium Potassium Chloride Carbon Dioxide BUN Creatinine Glucose POC Glucose Lactic Acid Calcium Magnesium Iron C-Reactive Protein Albumin Vitamin B12 Crossmatch 12/20/17 12/20/17 12/20/17 00:12 11:51 21:02 WBC RBC Hgb Hct MCHC RDW Plt Count Seg Neuts % (Manual) Lymphocytes % (Manual) Seg Neutrophils # Man Monocytes # (Manual) Eosinophils # (Manual) Basophils # (Manual) Sodium Potassium Chloride Carbon Dioxide BUN Creatinine 0.6 L Glucose 102 H POC Glucose 122 H 108 H Lactic Acid Calcium Magnesium Iron C-Reactive Protein Albumin 3.4 L Vitamin B12 Crossmatch 12/21/17 12/21/17 12/21/17 01:05 13:07 17:43 WBC 13.3 H RBC 2.79 L Hgb 8.4 L Hct 26.0 L MCHC RDW 20.7 H Plt Count Seg Neuts % (Manual) Lymphocytes % (Manual) Seg Neutrophils # Man Monocytes # (Manual) Eosinophils # (Manual) Basophils # (Manual) Sodium Potassium Chloride Carbon Dioxide BUN Creatinine Glucose POC Glucose 109 H 115 H Lactic Acid Calcium Magnesium Iron C-Reactive Protein Albumin Vitamin B12 Crossmatch 12/22/17 12/22/17 12/22/17 00:34 00:34 16:10 WBC RBC 2.33 L Hgb 7.5 L Hct 21.2 L MCHC 35 H RDW 19.4 H Plt Count Seg Neuts % (Manual) Lymphocytes % (Manual) Seg Neutrophils # Man Monocytes # (Manual) Eosinophils # (Manual) Basophils # (Manual) Sodium Potassium Chloride Carbon Dioxide BUN Creatinine 0.6 L Glucose POC Glucose Lactic Acid Calcium Magnesium 2.50 H Iron C-Reactive Protein 12.20 H Albumin 3.1 L Vitamin B12 Crossmatch 12/23/17 12/23/17 12/24/17 04:55 12:15 05:16 WBC RBC Hgb 7.4 L Hct 22.5 L MCHC RDW Plt Count Seg Neuts % (Manual) Lymphocytes % (Manual) Seg Neutrophils # Man Monocytes # (Manual) Eosinophils # (Manual) Basophils # (Manual) Sodium Potassium Chloride Carbon Dioxide BUN Creatinine Glucose POC Glucose 109 H 111 H Lactic Acid Calcium Magnesium Iron C-Reactive Protein Albumin Vitamin B12 Crossmatch 12/24/17 12/24/17 12/24/17 06:45 17:57 23:45 WBC RBC Hgb Hct MCHC RDW Plt Count Seg Neuts % (Manual) Lymphocytes % (Manual) Seg Neutrophils # Man Monocytes # (Manual) Eosinophils # (Manual) Basophils # (Manual) Sodium 136 L Potassium Chloride Carbon Dioxide BUN Creatinine 0.5 L Glucose POC Glucose 108 H 108 H Lactic Acid Calcium Magnesium Iron C-Reactive Protein Albumin Vitamin B12 Crossmatch 12/25/17 12/25/17 12/25/17 05:28 11:57 17:49 WBC RBC Hgb Hct MCHC RDW Plt Count Seg Neuts % (Manual) Lymphocytes % (Manual) Seg Neutrophils # Man Monocytes # (Manual) Eosinophils # (Manual) Basophils # (Manual) Sodium Potassium Chloride Carbon Dioxide BUN Creatinine Glucose POC Glucose 109 H 113 H 110 H Lactic Acid Calcium Magnesium Iron C-Reactive Protein Albumin Vitamin B12 Crossmatch 12/26/17 12/26/17 12/26/17 00:02 04:21 04:21 WBC 11.5 H RBC 2.88 L Hgb 8.5 L Hct 26.0 L MCHC RDW 19.4 H Plt Count Seg Neuts % (Manual) Lymphocytes % (Manual) Seg Neutrophils # Man Monocytes # (Manual) Eosinophils # (Manual) Basophils # (Manual) Sodium 136 L Potassium Chloride 97.8 L Carbon Dioxide BUN Creatinine Glucose 114 H POC Glucose 123 H Lactic Acid Calcium Magnesium Iron C-Reactive Protein Albumin Vitamin B12 Crossmatch 12/26/17 11:54 WBC RBC Hgb Hct MCHC RDW Plt Count Seg Neuts % (Manual) Lymphocytes % (Manual) Seg Neutrophils # Man Monocytes # (Manual) Eosinophils # (Manual) Basophils # (Manual) Sodium Potassium Chloride Carbon Dioxide BUN Creatinine Glucose POC Glucose 108 H Lactic Acid Calcium Magnesium Iron C-Reactive Protein Albumin Vitamin B12 Crossmatch Assessment and Plan Impression: 1. Possible hypoxic-ischemic encephalopathy 2. Embolic strokes, bilateral 3. Right internal carotid artery occlusion 4. Severe left internal carotid stenosis Plan: 1. EEG which showed slowing on the right, to correlate with CT which I am ordering. 2. CT to be done. 3. I am giving Keppra to see if it helps prevent the tongue biting. 40 min critical care time spent with this patient. Thank you for an interesting re-consultation on this unfortunate mid 60s lady. Will sign off for now, could give [id number] low-dose lorazepam if need be to control the tongue biting if not resolving with Keppra. Will address CT findings if any significant change.
[2017-12-26] MEDS: TOBRAMYCIN INHALATION (NICU) (40 MG/ML) IH SCH (19:46)
--- NOTE | 2017-12-26 21:30 | Cat Scan Report ---
FINAL REPORT PROCEDURE: CT HEAD/BRAIN WO CON TECHNIQUE: Computerized tomography of the head was performed without contrast material. HISTORY: possible new stroke COMPARISON: 11/05/2017 FINDINGS: Skull and scalp: Normal. Paranasal sinuses: There fluid in the sphenoid sinus. The paranasal sinuses otherwise clear.. Ventricles and subarachnoid spaces: There is advanced central and cortical atrophy.. Cerebrum: No evidence of hemorrhage, acute infarction or mass. There is chronic periventricular deep white matter ischemic gliosis. Cerebellum and brainstem: No evidence of hemorrhage, acute infarction or mass. There is a 4 millimeter calcification in the left periaqueductal irizarry matter of the brainstem. This is unchanged from the prior study. Vasculature: There is calcified plaque in the vertebral arteries and the cavernous portions of the internal carotid arteries.. Comments: There is fluid in the left mastoid air cells.. IMPRESSION: There are chronic involutional and ischemic changes. There is an old calcification in the brainstem. There is no acute abnormality. There is left mastoiditis. There is sphenoid sinusitis.
[2017-12-26] MEDS: TYLENOL PO PRN (21:36)
[2017-12-26] MEDS: MILK OF MAGNESIA PO SCH (21:38)
[2017-12-27] MEDS: KEPPRA FEEDTUBE SCH ×2 (01:14→05:13)
[2017-12-27] MEDS: VITAMIN C PO SCH ×2 (01:15→13:51)
[2017-12-27] MEDS: TOBRAMYCIN INHALATION (NICU) (40 MG/ML) IH SCH ×2 (07:42→21:31)
[2017-12-27] MEDS: ROBINUL PO SCH ×3 (08:58→21:19)
[2017-12-27] MEDS: LIORESAL PO SCH ×3 (08:58→21:19)
[2017-12-27] MEDS: PREVACID SOLUTAB FEEDTUBE SCH (09:00)
[2017-12-27] MEDS: SENOKOT PO SCH ×2 (09:00→21:20)
[2017-12-27] MEDS: BABY ASPIRIN PO SCH (09:00)
[2017-12-27] MEDS: COREG PO SCH ×2 (09:00→21:19)
[2017-12-27] MEDS: HEPARIN SUB-Q SCH ×2 (09:01→21:18)
--- NOTE | 2017-12-27 09:04 | Progress Note ---
Assessment and Plan Assessment and plan: 67-year-old -[place] female with medical history significant for massive CVA, patient was comatose and on PEG and trach for long time. He was discharged to [facility] from the [facility] and presented back to the hospital, for respiratory failure, and low blood pressure. Patient is admitted to ICU Septic Shock - patient is off levophed, will continue to monitor - Blood culture grew gram-negative rods, was treated with merrem prior. Now on tobramycin. Aspiration Pneumonia continue IV abx aspiration precautions at all times Pulmonary recommends to transfer her to MICU for frequent suction on scopolamine Chronic Encephalopathuy, suspect Anoxic encephalopathy aspiration precautions supportive care STILL REQUIRING Q1 HR SUCTIONING Chronic physical debility h/o CVA bed bound, comatose, on PEG and trach Chronic Anemia monitor H/H closely Will transfuse as needed if Hemoglobin is below 7 ?seizure - Discussed with Neurologist - Started on Keppra. EEG done, showing some slowing. Awaiting final report from Neurologist Prognosis poor Physician to make any meaningful recovery. Disposition -no family present will call them following Neurology eval History Interval history: Patient was seen and evaluated this morning, patient was comatose, on PEG and trach. Patient is comatose. No family member were in the room. Per nursing staff still requiring lots of suction Hospitalist Physical - Physical exam Narrative exam: Not in cardiopulmonary distress. On trach and PEG. Biting her tongue. The patient appeared well nourished and normally developed. Vital signs as documented. Head exam is unremarkable. No scleral icterus . Neck is without jugular venous distension, thyromegaly, or carotid bruits. Lungs are clear to auscultation. Cardiac exam reveals regular rate and Rhythm. Abdominal exam reveals normal bowel sounds, no masses, no organomegaly and no aortic enlargement. Extremities are contracted. 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 - Constitutional Vitals: Temp Pulse Resp BP Pulse Ox 96.7 F L 90 21 121/74 100 12/27/17 08:00 12/27/17 09:00 12/27/17 08:30 12/27/17 09:00 12/27/17 08:30 General appearance: Present: no acute distress, mild distress, obese Results - Labs CBC & Chem 7: 12/28/17 04:47 12/26/17 04:21 Labs: Laboratory Last Values WBC 11.5 K/mm3 (4.5-11.0) H 12/26/17 04:21 RBC 2.88 M/mm3 (3.65-5.03) L 12/26/17 04:21 Hgb 8.5 gm/dl (10.1-14.3) L 12/26/17 04:21 Hct 26.0 % (30.3-42.9) L 12/26/17 04:21 MCV 90 fl (79-97) 12/26/17 04:21 MCH 30 pg (28-32) 12/26/17 04:21 MCHC 33 % (30-34) 12/26/17 04:21 RDW 19.4 % (13.2-15.2) H 12/26/17 04:21 Plt Count 321 K/mm3 (140-440) 12/26/17 04:21 Lymph % (Auto) 22.9 % (13.4-35.0) 12/19/17 04:55 [place] % (Auto) 5.8 % (0.0-7.3) 12/19/17 04:55 Eos % (Auto) 1.7 % (0.0-4.3) 12/19/17 04:55 Baso % (Auto) 0.7 % (0.0-1.8) 12/19/17 04:55 Lymph # 2.0 K/mm3 (1.2-5.4) 12/19/17 04:55 [place] # 0.5 K/mm3 (0.0-0.8) 12/19/17 04:55 Eos # 0.1 K/mm3 (0.0-0.4) 12/19/17 04:55 Baso # 0.1 K/mm3 (0.0-0.1) 12/19/17 04:55 Add Manual Diff Complete 12/15/17 09:22 Total Counted 200 12/15/17 09:22 Seg Neutrophils % 68.9 % (40.0-70.0) 12/19/17 04:55 Seg Neuts % (Manual) 73.0 % (40.0-70.0) H 12/15/17 09:22 Band Neutrophils % 5.0 % 12/15/17 09:22 Lymphocytes % (Manual) 11.0 % (13.4-35.0) L 12/15/17 09:22 Reactive Lymphs % (Man) 0 % 12/15/17 09:22 Monocytes % (Manual) 6.5 % (0.0-7.3) 12/15/17 09:22 Eosinophils % (Manual) 3.0 % (0.0-4.3) 12/15/17 09:22 Basophils % (Manual) 1.0 % (0.0-1.8) 12/15/17 09:22 Metamyelocytes % 0.5 % 12/15/17 09:22 Myelocytes % 0 % 12/15/17 09:22 Promyelocytes % 0 % 12/15/17 09:22 Blast Cells % 0 % 12/15/17 09:22 Nucleated RBC % Not Reportable 12/15/17 09:22 Seg Neutrophils # 6.1 K/mm3 (1.8-7.7) 12/19/17 04:55 Seg Neutrophils # Man 16.2 K/mm3 (1.8-7.7) H 12/15/17 09:22 Band Neutrophils # 1.1 K/mm3 12/15/17 09:22 Lymphocytes # (Manual) 2.4 K/mm3 (1.2-5.4) 12/15/17 09:22 Abs React Lymphs (Man) 0.0 K/mm3 12/15/17 09:22 Monocytes # (Manual) 1.4 K/mm3 (0.0-0.8) H 12/15/17 09:22 Eosinophils # (Manual) 0.7 K/mm3 (0.0-0.4) H 12/15/17 09:22 Basophils # (Manual) 0.2 K/mm3 (0.0-0.1) H 12/15/17 09:22 Metamyelocytes # 0.1 K/mm3 12/15/17 09:22 Myelocytes # 0.0 K/mm3 12/15/17 09:22 Promyelocytes # 0.0 K/mm3 12/15/17 09:22 Blast Cells # 0.0 K/mm3 12/15/17 09:22 WBC Morphology Not Reportable 12/15/17 09:22 Hypersegmented Neuts Not Reportable 12/15/17 09:22 Hyposegmented Neuts Not Reportable 12/15/17 09:22 Hypogranular Neuts Not Reportable 12/15/17 09:22 Smudge Cells Not Reportable 12/15/17 09:22 Toxic Granulation Not Reportable 12/15/17 09:22 Toxic Vacuolation Not Reportable 12/15/17 09:22 Dohle Bodies Not Reportable 12/15/17 09:22 Pelger-Huet Anomaly Not Reportable 12/15/17 09:22 Eileen Rods Not Reportable 12/15/17 09:22 Platelet Estimate Consistent w auto 12/15/17 09:22 Clumped Platelets Not Reportable 12/15/17 09:22 Plt Clumps, EDTA Not Reportable 12/15/17 09:22 Large Platelets Not Reportable 12/15/17 09:22 Giant Platelets Not Reportable 12/15/17 09:22 Platelet Satelliting Not Reportable 12/15/17 09:22 Plt Morphology Comment Not Reportable 12/15/17 09:22 RBC Morphology Not Reportable 12/15/17 09:22 Dimorphic RBCs Not Reportable 12/15/17 09:22 Polychromasia 1+ 12/15/17 09:22 Hypochromasia 1+ 12/15/17 09:22 Poikilocytosis Not Reportable 12/15/17 09:22 Anisocytosis 1+ 12/15/17 09:22 Microcytosis Not Reportable 12/15/17 09:22 Macrocytosis 1+ 12/15/17 09:22 Spherocytes Not Reportable 12/15/17 09:22 Pappenheimer Bodies Not Reportable 12/15/17 09:22 Sickle Cells Not Reportable 12/15/17 09:22 Target Cells Not Reportable 12/15/17 09:22 Tear Drop Cells Few 12/15/17 09:22 Ovalocytes Few 12/15/17 09:22 Helmet Cells Not Reportable 12/15/17 09:22 [place] Bodies Not Reportable 12/15/17 09:22 [place] Rings Not Reportable 12/15/17 09:22 [place] Cells Not Reportable 12/15/17 09:22 Bite Cells Not Reportable 12/15/17 09:22 Crenated Cell Not Reportable 12/15/17 09:22 Elliptocytes Few 12/15/17 09:22 Acanthocytes (Spur) Not Reportable 12/15/17 09:22 Rouleaux Not Reportable 12/15/17 09:22 Hemoglobin C Crystals Not Reportable 12/15/17 09:22 Schistocytes Rare 12/15/17 09:22 Malaria parasites Not Reportable 12/15/17 09:22 [place] Bodies Not Reportable 12/15/17 09:22 Hem Pathologist Commnt No 12/15/17 09:22 PT 13.6 Sec. (12.2-14.9) 12/23/17 04:55 INR 0.99 (0.87-1.13) 12/23/17 04:55 Sodium 136 mmol/L (137-145) L 12/26/17 04:21 Potassium 4.2 mmol/L (3.6-5.0) 12/26/17 04:21 Chloride 97.8 mmol/L (98-107) L 12/26/17 04:21 Carbon Dioxide 27 mmol/L (22-30) 12/26/17 04:21 Anion Gap 15 mmol/L 12/26/17 04:21 BUN 13 mg/dL (7-17) 12/26/17 04:21 Creatinine 0.7 mg/dL (0.7-1.2) 12/26/17 04:21 Estimated GFR > 60 ml/min 12/26/17 04:21 BUN/Creatinine Ratio 19 % 12/26/17 04:21 Glucose 114 mg/dL (65-100) H 12/26/17 04:21 POC Glucose 117 (70-105) H 12/27/17 05:02 Lactic Acid 0.70 mmol/L (0.7-2.0) 12/22/17 16:10 Calcium 9.5 mg/dL (8.4-10.2) 12/26/17 04:21 Magnesium 2.50 mg/dL (1.7-2.3) H 12/22/17 16:10 Iron 32 ug/dL (37-170) L 12/16/17 22:27 TIBC 296 mcg/dL (250-450) 12/16/17 22:27 Total Bilirubin 0.20 mg/dL (0.1-1.2) 12/22/17 00:34 AST 29 units/L (5-40) 12/22/17 00:34 ALT 24 units/L (7-56) 12/22/17 00:34 Alkaline Phosphatase 108 units/L (35-129) 12/22/17 00:34 C-Reactive Protein 12.20 mg/dL (0.00-1.30) H 12/22/17 16:10 Total Protein 6.5 g/dL (6.3-8.2) 12/22/17 00:34 Albumin 3.1 g/dL (3.9-5) L 12/22/17 00:34 Albumin/Globulin Ratio 0.9 % 12/22/17 00:34 Vitamin B12 1675 pg/mL (211-911) H 12/16/17 22:27 RBC Folic Acid >1000 ng/mL (>280) 12/16/17 22:27 Urine Color Yellow (Yellow) 12/15/17 12:39 Urine Turbidity Clear (Clear) 12/15/17 12:39 Urine pH 7.0 (5.0-7.0) 12/15/17 12:39 Ur Specific [place] 1.009 (1.003-1.030) 12/15/17 12:39 Urine Protein <15 mg/dl mg/dL (Negative) 12/15/17 12:39 Urine Glucose (UA) Neg mg/dL (Negative) 12/15/17 12:39 Urine Ketones Neg mg/dL (Negative) 12/15/17 12:39 Urine Blood Neg (Negative) 12/15/17 12:39 Urine Nitrite Neg (Negative) 12/15/17 12:39 Urine Bilirubin Neg (Negative) 12/15/17 12:39 Urine Urobilinogen < 2.0 mg/dL (<2.0) 12/15/17 12:39 Ur Leukocyte Esterase Neg (Negative) 12/15/17 12:39 Urine WBC (Auto) < 1.0 /HPF (0.0-6.0) 12/15/17 12:39 Urine RBC (Auto) 2.0 /HPF (0.0-6.0) 12/15/17 12:39 U Epithel Cells (Auto) 1.0 /HPF (0-13.0) 12/15/17 12:39 Blood Type A POSITIVE 12/16/17 22: Antibody Screen Negative 12/16/17 22: Crossmatch See Detail 12/16/17 22:27
--- NOTE | 2017-12-27 09:30 | Progress Note ---
Assessment and Plan Severe sepsis with shock. Leukocytosis, probably secondary to occult aspiration. Acute on chronic hypoxemic respiratory failure. Chronic encephalopathy (secondary to both CVA +/- anoxic encephalopathy component) History of cerebrovascular accident. Anemia (chronic disease; normocytic) Oropharyngeal dysphagia. Obesity. Adult failure to thrive. Hypertension. Congestive heart failure. Diabetes. Gastroesophageal reflux disease. Chronic obstructive lung disease. Hypothyroidism. - reduced Coreg to 6.35 mg bid - continue t-piece trials RTC as tolerated - continue to wean FiO2 to keep sats > 90% - continue aspiration precautions - continue mobility protocol for pressure ulcer prophylaxis - continue robinul and scopolamine for secretion control - continue AB's (de-escalate based on clinical and microbiologic data) - continue GI & VTE prophylaxis - continue mobility protocol for pressure ulcer prophylaxis - continue other care per attending / other consultants - continue other care per attending/other consultants ... re-evaluate in am & prn Subjective Date of service: 12/27/17 Principal diagnosis: Acute CVA with encephalopathy; Acute Resp Failure s/p MVS; Sepsis Syndrome Interval history: Patient is seen today for: Acute CVA with encephalopathy; Acute Resp Failure s/ p MVS; Sepsis Syndrome Seen and examined at bedside; 24hour events reviewed; nursing and respiratory care staff consulted; no adverse overnight events reported to me; resting in bed ; AMS is persistent; no emesis or overt aspiration; secretions still mild to mod but overall improving Objective Vital Signs - 12hr 12/26/17 12/26/17 12/26/17 21:36 21:46 22:00 Temperature Pulse Rate 95 H 93 H 93 H Pulse Rate [ Anterior Bilateral Throughout] Pulse Rate [ Apical] Respiratory 22 23 Rate Respiratory Rate [Anterior Bilateral Throughout] Blood Pressure 112/59 112/59 100/60 O2 Sat by Pulse 97 95 Oximetry O2 Sat by Pulse Oximetry [ Assessment] 12/26/17 12/26/17 12/26/17 22:16 22:30 22:46 Temperature Pulse Rate 92 H 90 92 H Pulse Rate [ Anterior Bilateral Throughout] Pulse Rate [ Apical] Respiratory 23 20 27 H Rate Respiratory Rate [Anterior Bilateral Throughout] Blood Pressure 100/60 100/60 O2 Sat by Pulse 95 94 96 Oximetry O2 Sat by Pulse Oximetry [ Assessment] 12/26/17 12/26/17 12/26/17 23:00 23:16 23:30 Temperature Pulse Rate 90 87 87 Pulse Rate [ Anterior Bilateral Throughout] Pulse Rate [ Apical] Respiratory 21 20 19 Rate Respiratory Rate [Anterior Bilateral Throughout] Blood Pressure 100/54 100/54 100/54 O2 Sat by Pulse 95 93 95 Oximetry O2 Sat by Pulse Oximetry [ Assessment] 12/26/17 12/27/17 12/27/17 23:46 00:00 00:16 Temperature 97.8 F Pulse Rate 89 90 88 Pulse Rate [ Anterior Bilateral Throughout] Pulse Rate [ 96 H Apical] Respiratory 21 21 19 Rate Respiratory Rate [Anterior Bilateral Throughout] Blood Pressure 100/54 105/63 105/63 O2 Sat by Pulse 95 94 94 Oximetry O2 Sat by Pulse Oximetry [ Assessment] 12/27/17 12/27/17 12/27/17 00:30 00:46 01:00 Temperature Pulse Rate 89 90 89 Pulse Rate [ Anterior Bilateral Throughout] Pulse Rate [ Apical] Respiratory 19 22 21 Rate Respiratory Rate [Anterior Bilateral Throughout] Blood Pressure 105/63 105/63 101/59 O2 Sat by Pulse 94 95 95 Oximetry O2 Sat by Pulse Oximetry [ Assessment] 12/27/17 12/27/17 12/27/17 01:16 01:30 01:46 Temperature Pulse Rate 91 H 90 89 Pulse Rate [ Anterior Bilateral Throughout] Pulse Rate [ Apical] Respiratory 22 25 H 23 Rate Respiratory Rate [Anterior Bilateral Throughout] Blood Pressure 101/59 101/59 101/59 O2 Sat by Pulse 94 96 95 Oximetry O2 Sat by Pulse Oximetry [ Assessment] 12/27/17 12/27/17 12/27/17 02:00 02:16 02:30 Temperature Pulse Rate 89 88 88 Pulse Rate [ Anterior Bilateral Throughout] Pulse Rate [ Apical] Respiratory 23 21 22 Rate Respiratory Rate [Anterior Bilateral Throughout] Blood Pressure 106/62 106/62 106/62 O2 Sat by Pulse 95 95 100 Oximetry O2 Sat by Pulse Oximetry [ Assessment] 12/27/17 12/27/17 12/27/17 02:46 03:00 03:16 Temperature Pulse Rate 88 86 85 Pulse Rate [ Anterior Bilateral Throughout] Pulse Rate [ Apical] Respiratory 22 18 18 Rate Respiratory Rate [Anterior Bilateral Throughout] Blood Pressure 106/62 92/60 92/60 O2 Sat by Pulse 100 99 98 Oximetry O2 Sat by Pulse Oximetry [ Assessment] 12/27/17 12/27/17 12/27/17 03:20 03:30 03:46 Temperature Pulse Rate 86 89 Pulse Rate [ Anterior Bilateral Throughout] Pulse Rate [ Apical] Respiratory 18 16 Rate Respiratory Rate [Anterior Bilateral Throughout] Blood Pressure 92/60 92/60 O2 Sat by Pulse 98 100 Oximetry O2 Sat by Pulse 99 Oximetry [ Assessment] 12/27/17 12/27/17 12/27/17 04:00 04:16 04:30 Temperature 98.2 F Pulse Rate 88 88 88 Pulse Rate [ Anterior Bilateral Throughout] Pulse Rate [ 96 H Apical] Respiratory 21 22 20 Rate Respiratory Rate [Anterior Bilateral Throughout] Blood Pressure 91/61 91/61 91/61 O2 Sat by Pulse 98 98 100 Oximetry O2 Sat by Pulse Oximetry [ Assessment] 12/27/17 12/27/17 12/27/17 04:46 05:00 05:16 Temperature Pulse Rate 87 86 84 Pulse Rate [ Anterior Bilateral Throughout] Pulse Rate [ Apical] Respiratory 20 17 17 Rate Respiratory Rate [Anterior Bilateral Throughout] Blood Pressure 91/61 106/71 106/71 O2 Sat by Pulse 100 100 100 Oximetry O2 Sat by Pulse Oximetry [ Assessment] 12/27/17 12/27/17 12/27/17 05:30 05:46 06:00 Temperature Pulse Rate 88 88 88 Pulse Rate [ Anterior Bilateral Throughout] Pulse Rate [ Apical] Respiratory 20 20 21 Rate Respiratory Rate [Anterior Bilateral Throughout] Blood Pressure 106/71 106/71 103/63 O2 Sat by Pulse 100 100 99 Oximetry O2 Sat by Pulse Oximetry [ Assessment] 12/27/17 12/27/17 12/27/17 06:16 06:30 06:46 Temperature Pulse Rate 88 86 92 H Pulse Rate [ Anterior Bilateral Throughout] Pulse Rate [ Apical] Respiratory 22 18 26 H Rate Respiratory Rate [Anterior Bilateral Throughout] Blood Pressure 103/63 103/63 103/63 O2 Sat by Pulse 100 99 100 Oximetry O2 Sat by Pulse Oximetry [ Assessment] 12/27/17 12/27/17 12/27/17 07:00 07:16 07:30 Temperature Pulse Rate 87 85 88 Pulse Rate [ Anterior Bilateral Throughout] Pulse Rate [ Apical] Respiratory 20 18 20 Rate Respiratory Rate [Anterior Bilateral Throughout] Blood Pressure 115/59 115/59 115/59 O2 Sat by Pulse 99 100 99 Oximetry O2 Sat by Pulse Oximetry [ Assessment] 12/27/17 12/27/17 12/27/17 07:43 07:44 07:45 Temperature Pulse Rate Pulse Rate [ 90 90 Anterior Bilateral Throughout] Pulse Rate [ Apical] Respiratory Rate Respiratory 21 21 Rate [Anterior Bilateral Throughout] Blood Pressure O2 Sat by Pulse Oximetry O2 Sat by Pulse 100 Oximetry [ Assessment] 12/27/17 12/27/17 12/27/17 07:46 08:00 08:16 Temperature 96.7 F L Pulse Rate 89 89 87 Pulse Rate [ Anterior Bilateral Throughout] Pulse Rate [ 88 Apical] Respiratory 20 21 19 Rate Respiratory Rate [Anterior Bilateral Throughout] Blood Pressure 115/59 115/59 109/59 O2 Sat by Pulse 100 95 100 Oximetry O2 Sat by Pulse Oximetry [ Assessment] 12/27/17 12/27/17 08:30 09:00 Temperature Pulse Rate 89 90 Pulse Rate [ Anterior Bilateral Throughout] Pulse Rate [ Apical] Respiratory 21 Rate Respiratory Rate [Anterior Bilateral Throughout] Blood Pressure 109/59 121/74 O2 Sat by Pulse 100 Oximetry O2 Sat by Pulse Oximetry [ Assessment] Constitutional: no acute distress, other (elderly AAF, normocephalic and atraumatic) Eyes: non-icteric ENT: oropharynx moist, other (midline tracheostomy tube) Neck: supple, no lymphadenopathy, no JVD, other (No thyromegaly) Effort: mildly labored Ascultation: Bilateral: diminished breath sounds, rhonchi Percussion: Bilateral: not dull Cardiovascular: regular rate and rhythm, other (No R/M) Gastrointestinal: normoactive bowel sounds, soft, non-tender, non-distended, other (PEG tube; No HSM) Integumentary: other (poor turgor) Extremities: no cyanosis, no edema, pulses normal, no ischemia or petechiae Neurologic: pupils equal and round, unable to assess, other (+ pedal contractures; encephalopathic) Psychiatric: other (unable to assess) CBC and BMP: 12/29/17 04:50 12/29/17 04:50 ABG, PT/INR, D-dimer: PT/INR, D-dimer PT 13.6 Sec. (12.2-14.9) 12/23/17 04:55 INR 0.99 (0.87-1.13) 12/23/17 04:55 Abnormal lab findings: Abnormal Labs 12/15/17 12/15/17 12/15/17 09:22 09:22 10:53 WBC 22.2 H RBC 2.66 L Hgb 8.1 L Hct 25.2 L MCHC RDW 18.4 H Plt Count 529 H Seg Neuts % (Manual) 73.0 H Lymphocytes % (Manual) 11.0 L Seg Neutrophils # Man 16.2 H Monocytes # (Manual) 1.4 H Eosinophils # (Manual) 0.7 H Basophils # (Manual) 0.2 H Sodium 134 L Potassium 5.6 H D Chloride 96.8 L Carbon Dioxide BUN 18 H Creatinine Glucose 114 H POC Glucose Lactic Acid 2.50 H* Calcium Magnesium Iron C-Reactive Protein Albumin Vitamin B12 Crossmatch 12/15/17 12/16/17 12/16/17 13:21 11:14 11:14 WBC 13.1 H RBC 2.33 L Hgb 6.8 L Hct 21.8 L MCHC RDW 18.7 H Plt Count 467 H Seg Neuts % (Manual) Lymphocytes % (Manual) Seg Neutrophils # Man Monocytes # (Manual) Eosinophils # (Manual) Basophils # (Manual) Sodium Potassium Chloride Carbon Dioxide 21 L BUN Creatinine 0.4 L D Glucose POC Glucose Lactic Acid 2.60 H* Calcium 8.2 L Magnesium Iron C-Reactive Protein Albumin Vitamin B12 Crossmatch 12/16/17 12/16/17 12/16/17 14:51 22:27 22:27 WBC RBC Hgb 6.8 L Hct 21.7 L MCHC RDW Plt Count Seg Neuts % (Manual) Lymphocytes % (Manual) Seg Neutrophils # Man Monocytes # (Manual) Eosinophils # (Manual) Basophils # (Manual) Sodium Potassium Chloride Carbon Dioxide BUN Creatinine Glucose POC Glucose Lactic Acid Calcium Magnesium Iron 32 L C-Reactive Protein Albumin Vitamin B12 Crossmatch See Detail 12/16/17 12/17/17 12/17/17 22:27 10:03 10:03 WBC RBC 2.67 L Hgb 8.0 L Hct 24.9 L MCHC RDW 17.5 H Plt Count Seg Neuts % (Manual) Lymphocytes % (Manual) Seg Neutrophils # Man Monocytes # (Manual) Eosinophils # (Manual) Basophils # (Manual) Sodium Potassium Chloride 107.8 H Carbon Dioxide BUN Creatinine 0.4 L Glucose POC Glucose Lactic Acid Calcium 8.2 L Magnesium Iron C-Reactive Protein Albumin Vitamin B12 1675 H Crossmatch 12/18/17 12/19/17 12/20/17 03:19 04:55 00:12 WBC 12.2 H RBC 2.79 L 2.81 L 2.93 L Hgb 8.4 L 8.7 L 8.7 L Hct 25.9 L 25.8 L 27.4 L MCHC RDW 19.0 H 19.6 H 20.4 H Plt Count Seg Neuts % (Manual) Lymphocytes % (Manual) Seg Neutrophils # Man Monocytes # (Manual) Eosinophils # (Manual) Basophils # (Manual) Sodium Potassium Chloride Carbon Dioxide BUN Creatinine Glucose POC Glucose Lactic Acid Calcium Magnesium Iron C-Reactive Protein Albumin Vitamin B12 Crossmatch 12/20/17 12/20/17 12/20/17 00:12 11:51 21:02 WBC RBC Hgb Hct MCHC RDW Plt Count Seg Neuts % (Manual) Lymphocytes % (Manual) Seg Neutrophils # Man Monocytes # (Manual) Eosinophils # (Manual) Basophils # (Manual) Sodium Potassium Chloride Carbon Dioxide BUN Creatinine 0.6 L Glucose 102 H POC Glucose 122 H 108 H Lactic Acid Calcium Magnesium Iron C-Reactive Protein Albumin 3.4 L Vitamin B12 Crossmatch 12/21/17 12/21/17 12/21/17 01:05 13:07 17:43 WBC 13.3 H RBC 2.79 L Hgb 8.4 L Hct 26.0 L MCHC RDW 20.7 H Plt Count Seg Neuts % (Manual) Lymphocytes % (Manual) Seg Neutrophils # Man Monocytes # (Manual) Eosinophils # (Manual) Basophils # (Manual) Sodium Potassium Chloride Carbon Dioxide BUN Creatinine Glucose POC Glucose 109 H 115 H Lactic Acid Calcium Magnesium Iron C-Reactive Protein Albumin Vitamin B12 Crossmatch 12/22/17 12/22/17 12/22/17 00:34 00:34 16:10 WBC RBC 2.33 L Hgb 7.5 L Hct 21.2 L MCHC 35 H RDW 19.4 H Plt Count Seg Neuts % (Manual) Lymphocytes % (Manual) Seg Neutrophils # Man Monocytes # (Manual) Eosinophils # (Manual) Basophils # (Manual) Sodium Potassium Chloride Carbon Dioxide BUN Creatinine 0.6 L Glucose POC Glucose Lactic Acid Calcium Magnesium 2.50 H Iron C-Reactive Protein 12.20 H Albumin 3.1 L Vitamin B12 Crossmatch 12/23/17 12/23/17 12/24/17 04:55 12:15 05:16 WBC RBC Hgb 7.4 L Hct 22.5 L MCHC RDW Plt Count Seg Neuts % (Manual) Lymphocytes % (Manual) Seg Neutrophils # Man Monocytes # (Manual) Eosinophils # (Manual) Basophils # (Manual) Sodium Potassium Chloride Carbon Dioxide BUN Creatinine Glucose POC Glucose 109 H 111 H Lactic Acid Calcium Magnesium Iron C-Reactive Protein Albumin Vitamin B12 Crossmatch 12/24/17 12/24/17 12/24/17 06:45 17:57 23:45 WBC RBC Hgb Hct MCHC RDW Plt Count Seg Neuts % (Manual) Lymphocytes % (Manual) Seg Neutrophils # Man Monocytes # (Manual) Eosinophils # (Manual) Basophils # (Manual) Sodium 136 L Potassium Chloride Carbon Dioxide BUN Creatinine 0.5 L Glucose POC Glucose 108 H 108 H Lactic Acid Calcium Magnesium Iron C-Reactive Protein Albumin Vitamin B12 Crossmatch 12/25/17 12/25/17 12/25/17 05:28 11:57 17:49 WBC RBC Hgb Hct MCHC RDW Plt Count Seg Neuts % (Manual) Lymphocytes % (Manual) Seg Neutrophils # Man Monocytes # (Manual) Eosinophils # (Manual) Basophils # (Manual) Sodium Potassium Chloride Carbon Dioxide BUN Creatinine Glucose POC Glucose 109 H 113 H 110 H Lactic Acid Calcium Magnesium Iron C-Reactive Protein Albumin Vitamin B12 Crossmatch 12/26/17 12/26/17 12/26/17 00:02 04:21 04:21 WBC 11.5 H RBC 2.88 L Hgb 8.5 L Hct 26.0 L MCHC RDW 19.4 H Plt Count Seg Neuts % (Manual) Lymphocytes % (Manual) Seg Neutrophils # Man Monocytes # (Manual) Eosinophils # (Manual) Basophils # (Manual) Sodium 136 L Potassium Chloride 97.8 L Carbon Dioxide BUN Creatinine Glucose 114 H POC Glucose 123 H Lactic Acid Calcium Magnesium Iron C-Reactive Protein Albumin Vitamin B12 Crossmatch 12/26/17 12/26/17 12/26/17 11:54 18:31 23:45 WBC RBC Hgb Hct MCHC RDW Plt Count Seg Neuts % (Manual) Lymphocytes % (Manual) Seg Neutrophils # Man Monocytes # (Manual) Eosinophils # (Manual) Basophils # (Manual) Sodium Potassium Chloride Carbon Dioxide BUN Creatinine Glucose POC Glucose 108 H 110 H 116 H Lactic Acid Calcium Magnesium Iron C-Reactive Protein Albumin Vitamin B12 Crossmatch 12/27/17 05:02 WBC RBC Hgb Hct MCHC RDW Plt Count Seg Neuts % (Manual) Lymphocytes % (Manual) Seg Neutrophils # Man Monocytes # (Manual) Eosinophils # (Manual) Basophils # (Manual) Sodium Potassium Chloride Carbon Dioxide BUN Creatinine Glucose POC Glucose 117 H Lactic Acid Calcium Magnesium Iron C-Reactive Protein Albumin Vitamin B12 Crossmatch Allied health notes reviewed: nursing
[2017-12-27] MEDS: TRANSDERM-SCOP TD SCH (13:18)
[2017-12-27] MEDS: MILK OF MAGNESIA PO SCH (21:19)
[2017-12-27] MEDS: TOBRAMYCIN INHALATION (ADULT) IH SCH (21:31)
[2017-12-28] MEDS: VITAMIN C PO SCH ×2 (02:40→17:02)
[2017-12-28 05:18] LABS: Hematocrit 25.2 % (30.3-42.9); Hemoglobin 8.4 gm/dl (10.1-14.3); Mean Corpuscular HGB Conc 34 % (30-34); Mean Corpuscular Hemoglobin 30 pg (28-32); Mean Corpuscular Volume 89 fl (79-97); Red Blood Count 2.81 M/mm3 (3.65-5.03); Red Cell Distribution Width 19.7 % (13.2-15.2)
[2017-12-28 05:20] LABS: Platelet Count 240 K/mm3 (140-440)
[2017-12-28] MEDS: KEPPRA FEEDTUBE SCH ×6 (06:28→19:50)
--- NOTE | 2017-12-28 08:20 | Progress Note ---
Assessment and Plan Patient not responding to verbal stimuli.Resting on T tube, FIO2 28% and O2 saturation running 99%. - Patient Problems (1) Aspiration pneumonia Current Visit: Yes Status: Acute Qualifiers: Laterality: right Lung location: middle lobe of lung Plan to address problem: Patient is on tobramycin inhalational treatment. (2) Acute cerebrovascular accident (CVA) Current Visit: No Status: Acute Plan to address problem: Management as per primary and neurology. (3) Altered mental status Current Visit: Yes Status: Acute Qualifiers: Altered mental status type: unspecified Qualified Code(s): R41.82 - Altered mental status, unspecified Plan to address problem: Management as per primary care. (4) Acute kidney injury Current Visit: No Status: Acute Plan to address problem: Management as per nephrology. Subjective Date of service: 12/28/17 Principal diagnosis: Acute CVA with encephalopathy; Acute Resp Failure s/p MVS; Sepsis Syndrome Interval history: Patient not responding to verbal stimuli.Resting on T tube, FIO2 28% and O2 saturation running 99%. Objective Vital Signs - 12hr 12/27/17 12/27/17 12/27/17 20:30 20:46 21:00 Temperature Pulse Rate 91 H 90 91 H Pulse Rate [ Anterior Bilateral Throughout] Pulse Rate [ Apical] Respiratory 18 19 18 Rate Respiratory Rate [Anterior Bilateral Throughout] Blood Pressure 113/68 113/68 119/68 O2 Sat by Pulse 100 100 100 Oximetry O2 Sat by Pulse Oximetry [ Assessment] 12/27/17 12/27/17 12/27/17 21:16 21:19 21:29 Temperature Pulse Rate 91 H 92 H Pulse Rate [ Anterior Bilateral Throughout] Pulse Rate [ Apical] Respiratory 19 Rate Respiratory Rate [Anterior Bilateral Throughout] Blood Pressure 119/68 119/68 O2 Sat by Pulse 100 100 Oximetry O2 Sat by Pulse Oximetry [ Assessment] 12/27/17 12/27/17 12/27/17 21:30 21:31 21:43 Temperature Pulse Rate 91 H Pulse Rate [ 92 H 90 Anterior Bilateral Throughout] Pulse Rate [ Apical] Respiratory 20 Rate Respiratory 18 16 Rate [Anterior Bilateral Throughout] Blood Pressure 119/68 O2 Sat by Pulse 100 Oximetry O2 Sat by Pulse Oximetry [ Assessment] 12/27/17 12/27/17 12/27/17 21:46 22:00 22:16 Temperature Pulse Rate 91 H 90 90 Pulse Rate [ Anterior Bilateral Throughout] Pulse Rate [ 92 H Apical] Respiratory 20 20 18 Rate Respiratory Rate [Anterior Bilateral Throughout] Blood Pressure 119/68 113/71 113/71 O2 Sat by Pulse 98 100 98 Oximetry O2 Sat by Pulse Oximetry [ Assessment] 12/27/17 12/27/17 12/27/17 22:30 22:46 23:00 Temperature Pulse Rate 88 86 85 Pulse Rate [ Anterior Bilateral Throughout] Pulse Rate [ Apical] Respiratory 17 18 19 Rate Respiratory Rate [Anterior Bilateral Throughout] Blood Pressure 113/71 113/71 118/70 O2 Sat by Pulse 99 99 99 Oximetry O2 Sat by Pulse Oximetry [ Assessment] 12/27/17 12/27/17 12/27/17 23:16 23:30 23:46 Temperature Pulse Rate 86 86 85 Pulse Rate [ Anterior Bilateral Throughout] Pulse Rate [ Apical] Respiratory 19 19 17 Rate Respiratory Rate [Anterior Bilateral Throughout] Blood Pressure 118/70 118/70 118/70 O2 Sat by Pulse 100 99 98 Oximetry O2 Sat by Pulse Oximetry [ Assessment] 12/27/17 12/28/17 12/28/17 23:59 00:00 00:16 Temperature Pulse Rate 86 96 H Pulse Rate [ Anterior Bilateral Throughout] Pulse Rate [ Apical] Respiratory 19 26 H Rate Respiratory Rate [Anterior Bilateral Throughout] Blood Pressure 119/72 119/72 O2 Sat by Pulse 100 97 Oximetry O2 Sat by Pulse 100 Oximetry [ Assessment] 12/28/17 12/28/17 12/28/17 00:30 00:43 00:46 Temperature 98.1 F Pulse Rate 87 88 Pulse Rate [ Anterior Bilateral Throughout] Pulse Rate [ Apical] Respiratory 19 21 Rate Respiratory Rate [Anterior Bilateral Throughout] Blood Pressure 119/72 119/72 O2 Sat by Pulse 93 93 Oximetry O2 Sat by Pulse Oximetry [ Assessment] 12/28/17 12/28/17 12/28/17 00:59 01:00 01:16 Temperature Pulse Rate 86 87 Pulse Rate [ Anterior Bilateral Throughout] Pulse Rate [ Apical] Respiratory 20 19 Rate Respiratory Rate [Anterior Bilateral Throughout] Blood Pressure 99/61 99/61 O2 Sat by Pulse 99 99 Oximetry O2 Sat by Pulse 100 Oximetry [ Assessment] 12/28/17 12/28/17 12/28/17 01:30 01:46 02:00 Temperature Pulse Rate 86 89 91 H Pulse Rate [ Anterior Bilateral Throughout] Pulse Rate [ Apical] Respiratory 16 16 19 Rate Respiratory Rate [Anterior Bilateral Throughout] Blood Pressure 99/61 99/61 118/69 O2 Sat by Pulse 99 100 100 Oximetry O2 Sat by Pulse Oximetry [ Assessment] 12/28/17 12/28/17 12/28/17 02:16 02:30 02:46 Temperature Pulse Rate 94 H 96 H 98 H Pulse Rate [ Anterior Bilateral Throughout] Pulse Rate [ Apical] Respiratory 22 23 26 H Rate Respiratory Rate [Anterior Bilateral Throughout] Blood Pressure 118/69 118/69 118/69 O2 Sat by Pulse 100 100 100 Oximetry O2 Sat by Pulse Oximetry [ Assessment] 12/28/17 12/28/17 12/28/17 03:00 03:16 03:30 Temperature Pulse Rate 97 H 100 H 101 H Pulse Rate [ Anterior Bilateral Throughout] Pulse Rate [ Apical] Respiratory 25 H 25 H 30 H Rate Respiratory Rate [Anterior Bilateral Throughout] Blood Pressure 130/76 130/76 130/76 O2 Sat by Pulse 100 99 99 Oximetry O2 Sat by Pulse Oximetry [ Assessment] 12/28/17 12/28/17 12/28/17 03:46 04:00 04:16 Temperature Pulse Rate 102 H 103 H Pulse Rate [ Anterior Bilateral Throughout] Pulse Rate [ Apical] Respiratory 29 H 30 H Rate Respiratory Rate [Anterior Bilateral Throughout] Blood Pressure 130/76 148/79 148/79 O2 Sat by Pulse 100 99 93 Oximetry O2 Sat by Pulse Oximetry [ Assessment] 12/28/17 12/28/17 12/28/17 04:30 04:41 04:46 Temperature 98.2 F Pulse Rate 94 H 94 H Pulse Rate [ Anterior Bilateral Throughout] Pulse Rate [ Apical] Respiratory 17 16 Rate Respiratory Rate [Anterior Bilateral Throughout] Blood Pressure 148/79 O2 Sat by Pulse 90 98 Oximetry O2 Sat by Pulse Oximetry [ Assessment] 12/28/17 12/28/17 12/28/17 05:00 05:16 05:30 Temperature Pulse Rate 92 H 92 H 91 H Pulse Rate [ Anterior Bilateral Throughout] Pulse Rate [ Apical] Respiratory 18 23 18 Rate Respiratory Rate [Anterior Bilateral Throughout] Blood Pressure 107/59 107/59 107/59 O2 Sat by Pulse 96 97 99 Oximetry O2 Sat by Pulse Oximetry [ Assessment] 12/28/17 12/28/17 12/28/17 05:46 06:00 06:16 Temperature Pulse Rate 92 H 91 H 89 Pulse Rate [ Anterior Bilateral Throughout] Pulse Rate [ Apical] Respiratory 19 21 18 Rate Respiratory Rate [Anterior Bilateral Throughout] Blood Pressure 107/59 107/59 107/59 O2 Sat by Pulse 98 99 98 Oximetry O2 Sat by Pulse Oximetry [ Assessment] Constitutional: no acute distress, other (Encephalopathic. Not responding to verbal stimuli.) Eyes: non-icteric ENT: oropharynx moist, other (midline tracheostomy tube) Neck: supple, no lymphadenopathy, no JVD, other (No thyromegaly) Effort: mildly labored Ascultation: Bilateral: diminished breath sounds, rhonchi Percussion: Bilateral: not dull Cardiovascular: regular rate and rhythm, other (No R/M) Gastrointestinal: normoactive bowel sounds, soft, non-tender, non-distended, other (PEG tube; No HSM) Integumentary: other (poor turgor) Extremities: no cyanosis, no edema, pulses normal, no ischemia or petechiae Neurologic: pupils equal and round, unable to assess, other (+ pedal contractures; encephalopathic) Psychiatric: other (unable to assess) CBC and BMP: 12/28/17 04:47 12/26/17 04:21 ABG, PT/INR, D-dimer: PT/INR, D-dimer PT 13.6 Sec. (12.2-14.9) 12/23/17 04:55 INR 0.99 (0.87-1.13) 12/23/17 04:55 Abnormal lab findings: Abnormal Labs 12/15/17 12/15/17 12/15/17 09:22 09:22 10:53 WBC 22.2 H RBC 2.66 L Hgb 8.1 L Hct 25.2 L MCHC RDW 18.4 H Plt Count 529 H Seg Neuts % (Manual) 73.0 H Lymphocytes % (Manual) 11.0 L Seg Neutrophils # Man 16.2 H Monocytes # (Manual) 1.4 H Eosinophils # (Manual) 0.7 H Basophils # (Manual) 0.2 H Sodium 134 L Potassium 5.6 H D Chloride 96.8 L Carbon Dioxide BUN 18 H Creatinine Glucose 114 H POC Glucose Lactic Acid 2.50 H* Calcium Magnesium Iron C-Reactive Protein Albumin Vitamin B12 Crossmatch 12/15/17 12/16/17 12/16/17 13:21 11:14 11:14 WBC 13.1 H RBC 2.33 L Hgb 6.8 L Hct 21.8 L MCHC RDW 18.7 H Plt Count 467 H Seg Neuts % (Manual) Lymphocytes % (Manual) Seg Neutrophils # Man Monocytes # (Manual) Eosinophils # (Manual) Basophils # (Manual) Sodium Potassium Chloride Carbon Dioxide 21 L BUN Creatinine 0.4 L D Glucose POC Glucose Lactic Acid 2.60 H* Calcium 8.2 L Magnesium Iron C-Reactive Protein Albumin Vitamin B12 Crossmatch 12/16/17 12/16/17 12/16/17 14:51 22:27 22:27 WBC RBC Hgb 6.8 L Hct 21.7 L MCHC RDW Plt Count Seg Neuts % (Manual) Lymphocytes % (Manual) Seg Neutrophils # Man Monocytes # (Manual) Eosinophils # (Manual) Basophils # (Manual) Sodium Potassium Chloride Carbon Dioxide BUN Creatinine Glucose POC Glucose Lactic Acid Calcium Magnesium Iron 32 L C-Reactive Protein Albumin Vitamin B12 Crossmatch See Detail 12/16/17 12/17/17 12/17/17 22:27 10:03 10:03 WBC RBC 2.67 L Hgb 8.0 L Hct 24.9 L MCHC RDW 17.5 H Plt Count Seg Neuts % (Manual) Lymphocytes % (Manual) Seg Neutrophils # Man Monocytes # (Manual) Eosinophils # (Manual) Basophils # (Manual) Sodium Potassium Chloride 107.8 H Carbon Dioxide BUN Creatinine 0.4 L Glucose POC Glucose Lactic Acid Calcium 8.2 L Magnesium Iron C-Reactive Protein Albumin Vitamin B12 1675 H Crossmatch 12/18/17 12/19/17 12/20/17 03:19 04:55 00:12 WBC 12.2 H RBC 2.79 L 2.81 L 2.93 L Hgb 8.4 L 8.7 L 8.7 L Hct 25.9 L 25.8 L 27.4 L MCHC RDW 19.0 H 19.6 H 20.4 H Plt Count Seg Neuts % (Manual) Lymphocytes % (Manual) Seg Neutrophils # Man Monocytes # (Manual) Eosinophils # (Manual) Basophils # (Manual) Sodium Potassium Chloride Carbon Dioxide BUN Creatinine Glucose POC Glucose Lactic Acid Calcium Magnesium Iron C-Reactive Protein Albumin Vitamin B12 Crossmatch 12/20/17 12/20/17 12/20/17 00:12 11:51 21:02 WBC RBC Hgb Hct MCHC RDW Plt Count Seg Neuts % (Manual) Lymphocytes % (Manual) Seg Neutrophils # Man Monocytes # (Manual) Eosinophils # (Manual) Basophils # (Manual) Sodium Potassium Chloride Carbon Dioxide BUN Creatinine 0.6 L Glucose 102 H POC Glucose 122 H 108 H Lactic Acid Calcium Magnesium Iron C-Reactive Protein Albumin 3.4 L Vitamin B12 Crossmatch 12/21/17 12/21/17 12/21/17 01:05 13:07 17:43 WBC 13.3 H RBC 2.79 L Hgb 8.4 L Hct 26.0 L MCHC RDW 20.7 H Plt Count Seg Neuts % (Manual) Lymphocytes % (Manual) Seg Neutrophils # Man Monocytes # (Manual) Eosinophils # (Manual) Basophils # (Manual) Sodium Potassium Chloride Carbon Dioxide BUN Creatinine Glucose POC Glucose 109 H 115 H Lactic Acid Calcium Magnesium Iron C-Reactive Protein Albumin Vitamin B12 Crossmatch 12/22/17 12/22/17 12/22/17 00:34 00:34 16:10 WBC RBC 2.33 L Hgb 7.5 L Hct 21.2 L MCHC 35 H RDW 19.4 H Plt Count Seg Neuts % (Manual) Lymphocytes % (Manual) Seg Neutrophils # Man Monocytes # (Manual) Eosinophils # (Manual) Basophils # (Manual) Sodium Potassium Chloride Carbon Dioxide BUN Creatinine 0.6 L Glucose POC Glucose Lactic Acid Calcium Magnesium 2.50 H Iron C-Reactive Protein 12.20 H Albumin 3.1 L Vitamin B12 Crossmatch 12/23/17 12/23/17 12/24/17 04:55 12:15 05:16 WBC RBC Hgb 7.4 L Hct 22.5 L MCHC RDW Plt Count Seg Neuts % (Manual) Lymphocytes % (Manual) Seg Neutrophils # Man Monocytes # (Manual) Eosinophils # (Manual) Basophils # (Manual) Sodium Potassium Chloride Carbon Dioxide BUN Creatinine Glucose POC Glucose 109 H 111 H Lactic Acid Calcium Magnesium Iron C-Reactive Protein Albumin Vitamin B12 Crossmatch 12/24/17 12/24/17 12/24/17 06:45 17:57 23:45 WBC RBC Hgb Hct MCHC RDW Plt Count Seg Neuts % (Manual) Lymphocytes % (Manual) Seg Neutrophils # Man Monocytes # (Manual) Eosinophils # (Manual) Basophils # (Manual) Sodium 136 L Potassium Chloride Carbon Dioxide BUN Creatinine 0.5 L Glucose POC Glucose 108 H 108 H Lactic Acid Calcium Magnesium Iron C-Reactive Protein Albumin Vitamin B12 Crossmatch 12/25/17 12/25/17 12/25/17 05:28 11:57 17:49 WBC RBC Hgb Hct MCHC RDW Plt Count Seg Neuts % (Manual) Lymphocytes % (Manual) Seg Neutrophils # Man Monocytes # (Manual) Eosinophils # (Manual) Basophils # (Manual) Sodium Potassium Chloride Carbon Dioxide BUN Creatinine Glucose POC Glucose 109 H 113 H 110 H Lactic Acid Calcium Magnesium Iron C-Reactive Protein Albumin Vitamin B12 Crossmatch 12/26/17 12/26/17 12/26/17 00:02 04:21 04:21 WBC 11.5 H RBC 2.88 L Hgb 8.5 L Hct 26.0 L MCHC RDW 19.4 H Plt Count Seg Neuts % (Manual) Lymphocytes % (Manual) Seg Neutrophils # Man Monocytes # (Manual) Eosinophils # (Manual) Basophils # (Manual) Sodium 136 L Potassium Chloride 97.8 L Carbon Dioxide BUN Creatinine Glucose 114 H POC Glucose 123 H Lactic Acid Calcium Magnesium Iron C-Reactive Protein Albumin Vitamin B12 Crossmatch 12/26/17 12/26/17 12/26/17 11:54 18:31 23:45 WBC RBC Hgb Hct MCHC RDW Plt Count Seg Neuts % (Manual) Lymphocytes % (Manual) Seg Neutrophils # Man Monocytes # (Manual) Eosinophils # (Manual) Basophils # (Manual) Sodium Potassium Chloride Carbon Dioxide BUN Creatinine Glucose POC Glucose 108 H 110 H 116 H Lactic Acid Calcium Magnesium Iron C-Reactive Protein Albumin Vitamin B12 Crossmatch 12/27/17 12/27/17 12/27/17 05:02 12:31 18:19 WBC RBC Hgb Hct MCHC RDW Plt Count Seg Neuts % (Manual) Lymphocytes % (Manual) Seg Neutrophils # Man Monocytes # (Manual) Eosinophils # (Manual) Basophils # (Manual) Sodium Potassium Chloride Carbon Dioxide BUN Creatinine Glucose POC Glucose 117 H 115 H 117 H Lactic Acid Calcium Magnesium Iron C-Reactive Protein Albumin Vitamin B12 Crossmatch 12/28/17 12/28/17 12/28/17 00:10 04:47 06:30 WBC 13.7 H RBC 2.81 L Hgb 8.4 L Hct 25.2 L MCHC RDW 19.7 H Plt Count Seg Neuts % (Manual) Lymphocytes % (Manual) Seg Neutrophils # Man Monocytes # (Manual) Eosinophils # (Manual) Basophils # (Manual) Sodium Potassium Chloride Carbon Dioxide BUN Creatinine Glucose POC Glucose 108 H 114 H Lactic Acid Calcium Magnesium Iron C-Reactive Protein Albumin Vitamin B12 Crossmatch Chest x-ray: report reviewed (Reported no evidence of acute pulmonary process.) , image reviewed Allied health notes reviewed: nursing
[2017-12-28] MEDS: TOBRAMYCIN INHALATION (ADULT) IH SCH ×2 (08:44→19:48)
[2017-12-28] MEDS: ROBINUL PO SCH ×3 (08:55→19:50)
[2017-12-28] MEDS: LIORESAL PO SCH ×2 (08:55→17:02)
[2017-12-28] MEDS: HEPARIN SUB-Q SCH ×2 (11:00→23:00)
[2017-12-28] MEDS: PREVACID SOLUTAB FEEDTUBE SCH (11:01)
[2017-12-28] MEDS: BABY ASPIRIN PO SCH (11:01)
[2017-12-28] MEDS: SENOKOT PO SCH (11:01)
[2017-12-28] MEDS: COREG PO SCH (11:01)
[2017-12-28] MEDS: TOBRAMYCIN INHALATION (NICU) (40 MG/ML) IH SCH (16:10)
--- NOTE | 2017-12-28 18:55 | Progress Note ---
Assessment and Plan Assessment and plan: 67-year-old -Swiss female with medical history significant for massive CVA, patient was comatose and on PEG and trach for long time. [facility] and presented back to the hospital, for respiratory failure, and low blood pressure. Patient is admitted to ICU Septic Shock - patient is off levophed, will continue to monitor - Blood culture grew gram-negative rods, was treated with merrem prior. Now on tobramycin. Aspiration Pneumonia continue IV abx aspiration precautions at all times Transfered her to MICU for frequent suction on scopolamine Chronic Encephalopathy, suspect Anoxic encephalopathy aspiration precautions supportive care Improving on secretion management Chronic physical debility h/o CVA bed bound, comatose, on PEG and trach Chronic Anemia monitor H/H closely Will transfuse as needed if Hemoglobin is below 7 ?seizure - Discussed with Neurologist - Started on Keppra. EEG done, showing some slowing. Awaiting final report from Neurologist Prognosis poor Physician to make any meaningful recovery. Disposition -no family present will call them following Neurology eval Will transfer to [facility] AND IF SUCTIONING INTERVAL IS IMPROVING CAN PROCEED WITH SNF DISCHARGE IN A FEW DAYS History Interval history: Patient was seen and evaluated this morning, patient was comatose, on PEG and trach. Patient is comatose. No family member were in the room. Hospitalist Physical - Physical exam Narrative exam: Not in cardiopulmonary distress. On trach and PEG. Biting her tongue. The patient appeared well nourished and normally developed. Vital signs as documented. Head exam is unremarkable. No scleral icterus . Neck is without jugular venous distension, thyromegaly, or carotid bruits. Lungs are clear to auscultation. Cardiac exam reveals regular rate and Rhythm. Abdominal exam reveals normal bowel sounds, no masses, no organomegaly and no aortic enlargement. Extremities are contracted. 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 - Constitutional Vitals: Temp Pulse Resp BP Pulse Ox 98.7 F 89 26 H 114/72 98 12/28/17 16:00 12/28/17 14:46 12/28/17 14:46 12/28/17 14:46 12/28/17 16:20 General appearance: Present: no acute distress, mild distress, obese Results - Labs CBC & Chem 7: 12/28/17 04:47 12/26/17 04:21 Labs: Laboratory Last Values WBC 13.7 K/mm3 (4.5-11.0) H 12/28/17 04:47 RBC 2.81 M/mm3 (3.65-5.03) L 12/28/17 04:47 Hgb 8.4 gm/dl (10.1-14.3) L 12/28/17 04:47 Hct 25.2 % (30.3-42.9) L 12/28/17 04:47 MCV 89 fl (79-97) 12/28/17 04:47 MCH 30 pg (28-32) 12/28/17 04:47 MCHC 34 % (30-34) 12/28/17 04:47 RDW 19.7 % (13.2-15.2) H 12/28/17 04:47 Plt Count 240 K/mm3 (140-440) 12/28/17 04:47 Lymph % (Auto) 22.9 % (13.4-35.0) 12/19/17 04:55 [place] % (Auto) 5.8 % (0.0-7.3) 12/19/17 04:55 Eos % (Auto) 1.7 % (0.0-4.3) 12/19/17 04:55 Baso % (Auto) 0.7 % (0.0-1.8) 12/19/17 04:55 Lymph # 2.0 K/mm3 (1.2-5.4) 12/19/17 04:55 [place]uyler # 0.5 K/mm3 (0.0-0.8) 12/19/17 04:55 Eos # 0.1 K/mm3 (0.0-0.4) 12/19/17 04:55 Baso # 0.1 K/mm3 (0.0-0.1) 12/19/17 04:55 Add Manual Diff Complete 12/15/17 09:22 Total Counted 200 12/15/17 09:22 Seg Neutrophils % 68.9 % (40.0-70.0) 12/19/17 04:55 Seg Neuts % (Manual) 73.0 % (40.0-70.0) H 12/15/17 09:22 Band Neutrophils % 5.0 % 12/15/17 09:22 Lymphocytes % (Manual) 11.0 % (13.4-35.0) L 12/15/17 09:22 Reactive Lymphs % (Man) 0 % 12/15/17 09:22 Monocytes % (Manual) 6.5 % (0.0-7.3) 12/15/17 09:22 Eosinophils % (Manual) 3.0 % (0.0-4.3) 12/15/17 09:22 Basophils % (Manual) 1.0 % (0.0-1.8) 12/15/17 09:22 Metamyelocytes % 0.5 % 12/15/17 09:22 Myelocytes % 0 % 12/15/17 09:22 Promyelocytes % 0 % 12/15/17 09:22 Blast Cells % 0 % 12/15/17 09:22 Nucleated RBC % Not Reportable 12/15/17 09:22 Seg Neutrophils # 6.1 K/mm3 (1.8-7.7) 12/19/17 04:55 Seg Neutrophils # Man 16.2 K/mm3 (1.8-7.7) H 12/15/17 09:22 Band Neutrophils # 1.1 K/mm3 12/15/17 09:22 Lymphocytes # (Manual) 2.4 K/mm3 (1.2-5.4) 12/15/17 09:22 Abs React Lymphs (Man) 0.0 K/mm3 12/15/17 09:22 Monocytes # (Manual) 1.4 K/mm3 (0.0-0.8) H 12/15/17 09:22 Eosinophils # (Manual) 0.7 K/mm3 (0.0-0.4) H 12/15/17 09:22 Basophils # (Manual) 0.2 K/mm3 (0.0-0.1) H 12/15/17 09:22 Metamyelocytes # 0.1 K/mm3 12/15/17 09:22 Myelocytes # 0.0 K/mm3 12/15/17 09:22 Promyelocytes # 0.0 K/mm3 12/15/17 09:22 Blast Cells # 0.0 K/mm3 12/15/17 09:22 WBC Morphology Not Reportable 12/15/17 09:22 Hypersegmented Neuts Not Reportable 12/15/17 09:22 Hyposegmented Neuts Not Reportable 12/15/17 09:22 Hypogranular Neuts Not Reportable 12/15/17 09:22 Smudge Cells Not Reportable 12/15/17 09:22 Toxic Granulation Not Reportable 12/15/17 09:22 Toxic Vacuolation Not Reportable 12/15/17 09:22 Dohle Bodies Not Reportable 12/15/17 09:22 Pelger-Huet Anomaly Not Reportable 12/15/17 09:22 Eileen Rods Not Reportable 12/15/17 09:22 Platelet Estimate Consistent w auto 12/15/17 09:22 Clumped Platelets Not Reportable 12/15/17 09:22 Plt Clumps, EDTA Not Reportable 12/15/17 09:22 Large Platelets Not Reportable 12/15/17 09:22 Giant Platelets Not Reportable 12/15/17 09:22 Platelet Satelliting Not Reportable 12/15/17 09:22 Plt Morphology Comment Not Reportable 12/15/17 09:22 RBC Morphology Not Reportable 12/15/17 09:22 Dimorphic RBCs Not Reportable 12/15/17 09:22 Polychromasia 1+ 12/15/17 09:22 Hypochromasia 1+ 12/15/17 09:22 Poikilocytosis Not Reportable 12/15/17 09:22 Anisocytosis 1+ 12/15/17 09:22 Microcytosis Not Reportable 12/15/17 09:22 Macrocytosis 1+ 12/15/17 09:22 Spherocytes Not Reportable 12/15/17 09:22 Pappenheimer Bodies Not Reportable 12/15/17 09:22 Sickle Cells Not Reportable 12/15/17 09:22 Target Cells Not Reportable 12/15/17 09:22 Tear Drop Cells Few 12/15/17 09:22 Ovalocytes Few 12/15/17 09:22 Helmet Cells Not Reportable 12/15/17 09:22 [place] Bodies Not Reportable 12/15/17 09:22 Hersey Rings Not Reportable 12/15/17 09:22 [place] Cells Not Reportable 12/15/17 09:22 Bite Cells Not Reportable 12/15/17 09:22 Crenated Cell Not Reportable 12/15/17 09:22 Elliptocytes Few 12/15/17 09:22 Acanthocytes (Spur) Not Reportable 12/15/17 09:22 Rouleaux Not Reportable 12/15/17 09:22 Hemoglobin C Crystals Not Reportable 12/15/17 09:22 Schistocytes Rare 12/15/17 09:22 Malaria parasites Not Reportable 12/15/17 09:22 Adriano Bodies Not Reportable 12/15/17 09:22 Hem Pathologist Commnt No 12/15/17 09:22 PT 13.6 Sec. (12.2-14.9) 12/23/17 04:55 INR 0.99 (0.87-1.13) 12/23/17 04:55 Sodium 136 mmol/L (137-145) L 12/26/17 04:21 Potassium 4.2 mmol/L (3.6-5.0) 12/26/17 04:21 Chloride 97.8 mmol/L (98-107) L 12/26/17 04:21 Carbon Dioxide 27 mmol/L (22-30) 12/26/17 04:21 Anion Gap 15 mmol/L 12/26/17 04:21 BUN 13 mg/dL (7-17) 12/26/17 04:21 Creatinine 0.7 mg/dL (0.7-1.2) 12/26/17 04:21 Estimated GFR > 60 ml/min 12/26/17 04:21 BUN/Creatinine Ratio 19 % 12/26/17 04:21 Glucose 114 mg/dL (65-100) H 12/26/17 04:21 POC Glucose 117 (70-105) H 12/28/17 18:21 Lactic Acid 0.70 mmol/L (0.7-2.0) 12/22/17 16:10 Calcium 9.5 mg/dL (8.4-10.2) 12/26/17 04:21 Magnesium 2.50 mg/dL (1.7-2.3) H 12/22/17 16:10 Iron 32 ug/dL (37-170) L 12/16/17 22:27 TIBC 296 mcg/dL (250-450) 12/16/17 22:27 Total Bilirubin 0.20 mg/dL (0.1-1.2) 12/22/17 00:34 AST 29 units/L (5-40) 12/22/17 00:34 ALT 24 units/L (7-56) 12/22/17 00:34 Alkaline Phosphatase 108 units/L (35-129) 12/22/17 00:34 C-Reactive Protein 12.20 mg/dL (0.00-1.30) H 12/22/17 16:10 Total Protein 6.5 g/dL (6.3-8.2) 12/22/17 00:34 Albumin 3.1 g/dL (3.9-5) L 12/22/17 00:34 Albumin/Globulin Ratio 0.9 % 12/22/17 00:34 Vitamin B12 1675 pg/mL (211-911) H 12/16/17 22:27 RBC Folic Acid >1000 ng/mL (>280) 12/16/17 22:27 Urine Color Yellow (Yellow) 12/15/17 12:39 Urine Turbidity Clear (Clear) 12/15/17 12:39 Urine pH 7.0 (5.0-7.0) 12/15/17 12:39 Ur Specific [place] 1.009 (1.003-1.030) 12/15/17 12:39 Urine Protein <15 mg/dl mg/dL (Negative) 12/15/17 12:39 Urine Glucose (UA) Neg mg/dL (Negative) 12/15/17 12:39 Urine Ketones Neg mg/dL (Negative) 12/15/17 12:39 Urine Blood Neg (Negative) 12/15/17 12:39 Urine Nitrite Neg (Negative) 12/15/17 12:39 Urine Bilirubin Neg (Negative) 12/15/17 12:39 Urine Urobilinogen < 2.0 mg/dL (<2.0) 12/15/17 12:39 Ur Leukocyte Esterase Neg (Negative) 12/15/17 12:39 Urine WBC (Auto) < 1.0 /HPF (0.0-6.0) 12/15/17 12:39 Urine RBC (Auto) 2.0 /HPF (0.0-6.0) 12/15/17 12:39 U Epithel Cells (Auto) 1.0 /HPF (0-13.0) 12/15/17 12:39 Blood Type A POSITIVE 12/16/17 22:27 Antibody Screen Negative 12/16/17 22:27 Crossmatch See Detail 12/16/17 22:27
[2017-12-29] MEDS: KEPPRA FEEDTUBE SCH ×3 (02:01→18:04)
[2017-12-29] MEDS: TOBRAMYCIN INHALATION (NICU) (40 MG/ML) IH SCH (04:37)
[2017-12-29] MEDS: TOBRAMYCIN INHALATION (ADULT) IH SCH ×2 (04:38→08:14)
[2017-12-29 05:19] LABS: Hematocrit 25.7 % (30.3-42.9); Hemoglobin 8.8 gm/dl (10.1-14.3); Mean Corpuscular HGB Conc 34 % (30-34); Mean Corpuscular Hemoglobin 30 pg (28-32); Mean Corpuscular Volume 88 fl (79-97); Platelet Count 394 K/mm3 (140-440); Red Blood Count 2.92 M/mm3 (3.65-5.03); Red Cell Distribution Width 19.6 % (13.2-15.2)
[2017-12-29 05:45] LABS: BUN/Creatinine Ratio 20; Blood Urea Nitrogen 12 mg/dL (7-17); Calcium 9.4 mg/dL (8.4-10.2); Hemolysis Index 160
[2017-12-29] MEDS ORDERED: COREG PO SCH (08:00)
[2017-12-29] MEDS ORDERED: KIONEX PO NR (08:03)
[2017-12-29] MEDS: ROBINUL PO SCH ×3 (09:35→22:03)
[2017-12-29] MEDS: SENOKOT PO SCH ×2 (09:35→22:04)
[2017-12-29] MEDS: LIORESAL PO SCH ×3 (09:35→22:03)
[2017-12-29] MEDS: PREVACID SOLUTAB FEEDTUBE SCH (09:35)
[2017-12-29] MEDS: BABY ASPIRIN PO SCH (09:36)
[2017-12-29] MEDS: HEPARIN SUB-Q SCH ×2 (09:36→22:04)
[2017-12-29] MEDS: COREG PO SCH ×2 (09:36→22:04)
--- NOTE | 2017-12-29 14:38 | Progress Note ---
Assessment and Plan Severe sepsis with shock. Leukocytosis, probably secondary to occult aspiration. Acute on chronic hypoxemic respiratory failure. Chronic encephalopathy (secondary to both CVA +/- anoxic encephalopathy component) History of cerebrovascular accident. Anemia (chronic disease; normocytic) Oropharyngeal dysphagia. Obesity. Adult failure to thrive. Hypertension. Congestive heart failure. Diabetes. Gastroesophageal reflux disease. Chronic obstructive lung disease. Hypothyroidism. - continue robinul and scopolamine for secretion control - continue t-piece trials RTC as tolerated - continue to wean FiO2 to keep sats > 90% - coreg uptitrated with better BP's - continue aspiration precautions - continue mobility protocol for pressure ulcer prophylaxis - de-escalate AB's - continue GI & VTE prophylaxis - continue mobility protocol for pressure ulcer prophylaxis - continue other care per attending / other consultants - continue other care per attending/other consultants ... re-evaluate in am & prn Subjective Date of service: 12/29/17 Principal diagnosis: Acute CVA with encephalopathy; Acute Resp Failure s/p MVS; Sepsis Syndrome Interval history: Patient is seen today for: Acute CVA with encephalopathy; Acute Resp Failure s/ p MVS; Sepsis Syndrome Seen and examined at bedside; 24hour events reviewed; nursing and respiratory care staff consulted; no adverse overnight events reported to me; resting in bed ; secretion moderate at times; no emesis or overt aspiration; no seizure activity Objective Vital Signs - 12hr 12/29/17 12/29/17 12/29/17 03:05 07:06 08:00 Temperature 99.4 F Pulse Rate 107 H 109 H Respiratory 30 H 32 H Rate Blood Pressure Blood Pressure 151/88 [Left] O2 Sat by Pulse 97 99 Oximetry O2 Sat by Pulse 100 96 Oximetry [ Assessment] 12/29/17 12/29/17 08:08 09:36 Temperature Pulse Rate 109 H Respiratory Rate Blood Pressure 151/88 Blood Pressure [Left] O2 Sat by Pulse 96 Oximetry O2 Sat by Pulse Oximetry [ Assessment] Constitutional: no acute distress, other (elderly AAF, normocephalic and atraumatic) Eyes: non-icteric ENT: oropharynx moist, oropharyngeal exudate pre, other (midline tracheostomy tube) Neck: supple, no lymphadenopathy, no JVD, other (No thyromegaly) Effort: mildly labored Ascultation: Bilateral: diminished breath sounds, rhonchi Percussion: Bilateral: not dull Cardiovascular: regular rate and rhythm, other (No R/M) Gastrointestinal: normoactive bowel sounds, soft, non-tender, non-distended, other (PEG tube; No HSM) Integumentary: other (poor turgor) Extremities: no cyanosis, no edema, pulses normal, no ischemia or petechiae Neurologic: pupils equal and round, unable to assess, other (+ pedal contractures; encephalopathic) Psychiatric: other (unable to assess) CBC and BMP: 12/31/17 00:43 12/30/17 04:06 ABG, PT/INR, D-dimer: PT/INR, D-dimer PT 13.6 Sec. (12.2-14.9) 12/23/17 04:55 INR 0.99 (0.87-1.13) 12/23/17 04:55 Abnormal lab findings: Abnormal Labs 12/15/17 12/15/17 12/15/17 09:22 09:22 10:53 WBC 22.2 H RBC 2.66 L Hgb 8.1 L Hct 25.2 L MCHC RDW 18.4 H Plt Count 529 H Seg Neuts % (Manual) 73.0 H Lymphocytes % (Manual) 11.0 L Seg Neutrophils # Man 16.2 H Monocytes # (Manual) 1.4 H Eosinophils # (Manual) 0.7 H Basophils # (Manual) 0.2 H Sodium 134 L Potassium 5.6 H D Chloride 96.8 L Carbon Dioxide BUN 18 H Creatinine Glucose 114 H POC Glucose Lactic Acid 2.50 H* Calcium Magnesium Iron C-Reactive Protein Albumin Vitamin B12 Crossmatch 12/15/17 12/16/17 12/16/17 13:21 11:14 11:14 WBC 13.1 H RBC 2.33 L Hgb 6.8 L Hct 21.8 L MCHC RDW 18.7 H Plt Count 467 H Seg Neuts % (Manual) Lymphocytes % (Manual) Seg Neutrophils # Man Monocytes # (Manual) Eosinophils # (Manual) Basophils # (Manual) Sodium Potassium Chloride Carbon Dioxide 21 L BUN Creatinine 0.4 L D Glucose POC Glucose Lactic Acid 2.60 H* Calcium 8.2 L Magnesium Iron C-Reactive Protein Albumin Vitamin B12 Crossmatch 12/16/17 12/16/17 12/16/17 14:51 22:27 22:27 WBC RBC Hgb 6.8 L Hct 21.7 L MCHC RDW Plt Count Seg Neuts % (Manual) Lymphocytes % (Manual) Seg Neutrophils # Man Monocytes # (Manual) Eosinophils # (Manual) Basophils # (Manual) Sodium Potassium Chloride Carbon Dioxide BUN Creatinine Glucose POC Glucose Lactic Acid Calcium Magnesium Iron 32 L C-Reactive Protein Albumin Vitamin B12 Crossmatch See Detail 12/16/17 12/17/17 12/17/17 22:27 10:03 10:03 WBC RBC 2.67 L Hgb 8.0 L Hct 24.9 L MCHC RDW 17.5 H Plt Count Seg Neuts % (Manual) Lymphocytes % (Manual) Seg Neutrophils # Man Monocytes # (Manual) Eosinophils # (Manual) Basophils # (Manual) Sodium Potassium Chloride 107.8 H Carbon Dioxide BUN Creatinine 0.4 L Glucose POC Glucose Lactic Acid Calcium 8.2 L Magnesium Iron C-Reactive Protein Albumin Vitamin B12 1675 H Crossmatch 12/18/17 12/19/17 12/20/17 03:19 04:55 00:12 WBC 12.2 H RBC 2.79 L 2.81 L 2.93 L Hgb 8.4 L 8.7 L 8.7 L Hct 25.9 L 25.8 L 27.4 L MCHC RDW 19.0 H 19.6 H 20.4 H Plt Count Seg Neuts % (Manual) Lymphocytes % (Manual) Seg Neutrophils # Man Monocytes # (Manual) Eosinophils # (Manual) Basophils # (Manual) Sodium Potassium Chloride Carbon Dioxide BUN Creatinine Glucose POC Glucose Lactic Acid Calcium Magnesium Iron C-Reactive Protein Albumin Vitamin B12 Crossmatch 12/20/17 12/20/17 12/20/17 00:12 11:51 21:02 WBC RBC Hgb Hct MCHC RDW Plt Count Seg Neuts % (Manual) Lymphocytes % (Manual) Seg Neutrophils # Man Monocytes # (Manual) Eosinophils # (Manual) Basophils # (Manual) Sodium Potassium Chloride Carbon Dioxide BUN Creatinine 0.6 L Glucose 102 H POC Glucose 122 H 108 H Lactic Acid Calcium Magnesium Iron C-Reactive Protein Albumin 3.4 L Vitamin B12 Crossmatch 12/21/17 12/21/17 12/21/17 01:05 13:07 17:43 WBC 13.3 H RBC 2.79 L Hgb 8.4 L Hct 26.0 L MCHC RDW 20.7 H Plt Count Seg Neuts % (Manual) Lymphocytes % (Manual) Seg Neutrophils # Man Monocytes # (Manual) Eosinophils # (Manual) Basophils # (Manual) Sodium Potassium Chloride Carbon Dioxide BUN Creatinine Glucose POC Glucose 109 H 115 H Lactic Acid Calcium Magnesium Iron C-Reactive Protein Albumin Vitamin B12 Crossmatch 12/22/17 12/22/17 12/22/17 00:34 00:34 16:10 WBC RBC 2.33 L Hgb 7.5 L Hct 21.2 L MCHC 35 H RDW 19.4 H Plt Count Seg Neuts % (Manual) Lymphocytes % (Manual) Seg Neutrophils # Man Monocytes # (Manual) Eosinophils # (Manual) Basophils # (Manual) Sodium Potassium Chloride Carbon Dioxide BUN Creatinine 0.6 L Glucose POC Glucose Lactic Acid Calcium Magnesium 2.50 H Iron C-Reactive Protein 12.20 H Albumin 3.1 L Vitamin B12 Crossmatch 12/23/17 12/23/17 12/24/17 04:55 12:15 05:16 WBC RBC Hgb 7.4 L Hct 22.5 L MCHC RDW Plt Count Seg Neuts % (Manual) Lymphocytes % (Manual) Seg Neutrophils # Man Monocytes # (Manual) Eosinophils # (Manual) Basophils # (Manual) Sodium Potassium Chloride Carbon Dioxide BUN Creatinine Glucose POC Glucose 109 H 111 H Lactic Acid Calcium Magnesium Iron C-Reactive Protein Albumin Vitamin B12 Crossmatch 12/24/17 12/24/17 12/24/17 06:45 17:57 23:45 WBC RBC Hgb Hct MCHC RDW Plt Count Seg Neuts % (Manual) Lymphocytes % (Manual) Seg Neutrophils # Man Monocytes # (Manual) Eosinophils # (Manual) Basophils # (Manual) Sodium 136 L Potassium Chloride Carbon Dioxide BUN Creatinine 0.5 L Glucose POC Glucose 108 H 108 H Lactic Acid Calcium Magnesium Iron C-Reactive Protein Albumin Vitamin B12 Crossmatch 12/25/17 12/25/17 12/25/17 05:28 11:57 17:49 WBC RBC Hgb Hct MCHC RDW Plt Count Seg Neuts % (Manual) Lymphocytes % (Manual) Seg Neutrophils # Man Monocytes # (Manual) Eosinophils # (Manual) Basophils # (Manual) Sodium Potassium Chloride Carbon Dioxide BUN Creatinine Glucose POC Glucose 109 H 113 H 110 H Lactic Acid Calcium Magnesium Iron C-Reactive Protein Albumin Vitamin B12 Crossmatch 12/26/17 12/26/17 12/26/17 00:02 04:21 04:21 WBC 11.5 H RBC 2.88 L Hgb 8.5 L Hct 26.0 L MCHC RDW 19.4 H Plt Count Seg Neuts % (Manual) Lymphocytes % (Manual) Seg Neutrophils # Man Monocytes # (Manual) Eosinophils # (Manual) Basophils # (Manual) Sodium 136 L Potassium Chloride 97.8 L Carbon Dioxide BUN Creatinine Glucose 114 H POC Glucose 123 H Lactic Acid Calcium Magnesium Iron C-Reactive Protein Albumin Vitamin B12 Crossmatch 12/26/17 12/26/17 12/26/17 11:54 18:31 23:45 WBC RBC Hgb Hct MCHC RDW Plt Count Seg Neuts % (Manual) Lymphocytes % (Manual) Seg Neutrophils # Man Monocytes # (Manual) Eosinophils # (Manual) Basophils # (Manual) Sodium Potassium Chloride Carbon Dioxide BUN Creatinine Glucose POC Glucose 108 H 110 H 116 H Lactic Acid Calcium Magnesium Iron C-Reactive Protein Albumin Vitamin B12 Crossmatch 12/27/17 12/27/17 12/27/17 05:02 12:31 18:19 WBC RBC Hgb Hct MCHC RDW Plt Count Seg Neuts % (Manual) Lymphocytes % (Manual) Seg Neutrophils # Man Monocytes # (Manual) Eosinophils # (Manual) Basophils # (Manual) Sodium Potassium Chloride Carbon Dioxide BUN Creatinine Glucose POC Glucose 117 H 115 H 117 H Lactic Acid Calcium Magnesium Iron C-Reactive Protein Albumin Vitamin B12 Crossmatch 12/28/17 12/28/17 12/28/17 00:10 04:47 06:30 WBC 13.7 H RBC 2.81 L Hgb 8.4 L Hct 25.2 L MCHC RDW 19.7 H Plt Count Seg Neuts % (Manual) Lymphocytes % (Manual) Seg Neutrophils # Man Monocytes # (Manual) Eosinophils # (Manual) Basophils # (Manual) Sodium Potassium Chloride Carbon Dioxide BUN Creatinine Glucose POC Glucose 108 H 114 H Lactic Acid Calcium Magnesium Iron C-Reactive Protein Albumin Vitamin B12 Crossmatch 12/28/17 12/28/17 12/29/17 11:54 18:21 00:06 WBC RBC Hgb Hct MCHC RDW Plt Count Seg Neuts % (Manual) Lymphocytes % (Manual) Seg Neutrophils # Man Monocytes # (Manual) Eosinophils # (Manual) Basophils # (Manual) Sodium Potassium Chloride Carbon Dioxide BUN Creatinine Glucose POC Glucose 148 H 117 H 114 H Lactic Acid Calcium Magnesium Iron C-Reactive Protein Albumin Vitamin B12 Crossmatch 12/29/17 12/29/17 12/29/17 04:50 04:50 06:58 WBC 12.8 H RBC 2.92 L Hgb 8.8 L Hct 25.7 L MCHC RDW 19.6 H Plt Count Seg Neuts % (Manual) Lymphocytes % (Manual) Seg Neutrophils # Man Monocytes # (Manual) Eosinophils # (Manual) Basophils # (Manual) Sodium 135 L Potassium 5.3 H D Chloride 96.4 L Carbon Dioxide BUN Creatinine 0.6 L Glucose 109 H POC Glucose 117 H Lactic Acid Calcium Magnesium Iron C-Reactive Protein Albumin Vitamin B12 Crossmatch 12/29/17 11:56 WBC RBC Hgb Hct MCHC RDW Plt Count Seg Neuts % (Manual) Lymphocytes % (Manual) Seg Neutrophils # Man Monocytes # (Manual) Eosinophils # (Manual) Basophils # (Manual) Sodium Potassium Chloride Carbon Dioxide BUN Creatinine Glucose POC Glucose 121 H Lactic Acid Calcium Magnesium Iron C-Reactive Protein Albumin Vitamin B12 Crossmatch Allied health notes reviewed: nursing
--- NOTE | 2017-12-29 14:47 | Progress Note ---
Assessment and Plan Assessment and plan: Severe sepsis with Shock - patient is off levophed, will continue to monitor - Blood culture grew gram-negative rods - off iv antibiotic Aspiration Pneumonia - off IV abx - on scopolamine - cont frequent suctioning and aspiration precautions Chronic encephalopathy, suspect Anoxic encephalopathy - aspiration precautions - supportive care - Prognosis is very poor h/o CVA -bed bound and comatose Acute on Chronic hypoxic respiratory failure -Status post tracheostomy on t-piece -Continue oxygen supplementation as needed Chronic Anemia - H/H stable - Will transfuse as needed if Hemoglobin is below 7 Possible seizure -on Keppra per neurology recommendation -EEG showed some slowing. No definite epileptiform activity seen. Mild hyperkalemia -Status post Kayexalate, will monitor level HTN -Uncontrolled -Coreg dose increased Chronic physical debility Chronic dysphagia -Status post PEG tube placement and tube feeding Disposition: Prognosis is very poor. Patient will benefit from palliative/ hospice care History Interval history: Patient is nonverbal. Her nurse reported high respiratory rate Hospitalist Physical - Constitutional Vitals: Temp Pulse Resp BP Pulse Ox 99.4 F 109 H 32 H 151/88 96 12/29/17 08:00 12/29/17 09:36 12/29/17 08:00 12/29/17 09:36 12/29/17 08:08 General appearance: Present: mild distress, obese - EENT Eyes: Present: PERRL ENT: clear oral mucosa - Neck Neck: Present: supple, other (status post tracheostomy on t-piece) - Respiratory Respiratory effort: labored Respiratory: bilateral: diminished - Cardiovascular Rhythm: other (tachycardia with regular rhythm) Heart Sounds: Present: S1 & S2 - Extremities Extremity abnormal: edema (in both feet with contraction) - Abdominal General gastrointestinal: non-tender, distended, normal bowel sounds, other ( firm on palpation) - Neurologic Neurologic: other (patient is unresponsive) Results - Labs CBC & Chem 7: 12/29/17 04:50 12/29/17 04:50 Labs: Laboratory Last Values WBC 12.8 K/mm3 (4.5-11.0) H 12/29/17 04:50 RBC 2.92 M/mm3 (3.65-5.03) L 12/29/17 04:50 Hgb 8.8 gm/dl (10.1-14.3) L 12/29/17 04:50 Hct 25.7 % (30.3-42.9) L 12/29/17 04:50 MCV 88 fl (79-97) 12/29/17 04:50 MCH 30 pg (28-32) 12/29/17 04:50 MCHC 34 % (30-34) 12/29/17 04:50 RDW 19.6 % (13.2-15.2) H 12/29/17 04:50 Plt Count 394 K/mm3 (140-440) 12/29/17 04:50 Lymph % (Auto) 22.9 % (13.4-35.0) 12/19/17 04:55 [place] % (Auto) 5.8 % (0.0-7.3) 12/19/17 04:55 Eos % (Auto) 1.7 % (0.0-4.3) 12/19/17 04:55 Baso % (Auto) 0.7 % (0.0-1.8) 12/19/17 04:55 Lymph # 2.0 K/mm3 (1.2-5.4) 12/19/17 04:55 [place] # 0.5 K/mm3 (0.0-0.8) 12/19/17 04:55 Eos # 0.1 K/mm3 (0.0-0.4) 12/19/17 04:55 Baso # 0.1 K/mm3 (0.0-0.1) 12/19/17 04:55 Add Manual Diff Complete 12/15/17 09:22 Total Counted 200 12/15/17 09:22 Seg Neutrophils % 68.9 % (40.0-70.0) 12/19/17 04:55 Seg Neuts % (Manual) 73.0 % (40.0-70.0) H 12/15/17 09:22 Band Neutrophils % 5.0 % 12/15/17 09:22 Lymphocytes % (Manual) 11.0 % (13.4-35.0) L 12/15/17 09:22 Reactive Lymphs % (Man) 0 % 12/15/17 09:22 Monocytes % (Manual) 6.5 % (0.0-7.3) 12/15/17 09:22 Eosinophils % (Manual) 3.0 % (0.0-4.3) 12/15/17 09:22 Basophils % (Manual) 1.0 % (0.0-1.8) 12/15/17 09:22 Metamyelocytes % 0.5 % 12/15/17 09:22 Myelocytes % 0 % 12/15/17 09:22 Promyelocytes % 0 % 12/15/17 09:22 Blast Cells % 0 % 12/15/17 09:22 Nucleated RBC % Not Reportable 12/15/17 09:22 Seg Neutrophils # 6.1 K/mm3 (1.8-7.7) 12/19/17 04:55 Seg Neutrophils # Man 16.2 K/mm3 (1.8-7.7) H 12/15/17 09:22 Band Neutrophils # 1.1 K/mm3 12/15/17 09:22 Lymphocytes # (Manual) 2.4 K/mm3 (1.2-5.4) 12/15/17 09:22 Abs React Lymphs (Man) 0.0 K/mm3 12/15/17 09:22 Monocytes # (Manual) 1.4 K/mm3 (0.0-0.8) H 12/15/17 09:22 Eosinophils # (Manual) 0.7 K/mm3 (0.0-0.4) H 12/15/17 09:22 Basophils # (Manual) 0.2 K/mm3 (0.0-0.1) H 12/15/17 09:22 Metamyelocytes # 0.1 K/mm3 12/15/17 09:22 Myelocytes # 0.0 K/mm3 12/15/17 09:22 Promyelocytes # 0.0 K/mm3 12/15/17 09:22 Blast Cells # 0.0 K/mm3 12/15/17 09:22 WBC Morphology Not Reportable 12/15/17 09:22 Hypersegmented Neuts Not Reportable 12/15/17 09:22 Hyposegmented Neuts Not Reportable 12/15/17 09:22 Hypogranular Neuts Not Reportable 12/15/17 09:22 Smudge Cells Not Reportable 12/15/17 09:22 Toxic Granulation Not Reportable 12/15/17 09:22 Toxic Vacuolation Not Reportable 12/15/17 09:22 Dohle Bodies Not Reportable 12/15/17 09:22 Pelger-Huet Anomaly Not Reportable 12/15/17 09:22 Eileen Rods Not Reportable 12/15/17 09:22 Platelet Estimate Consistent w auto 12/15/17 09:22 Clumped Platelets Not Reportable 12/15/17 09:22 Plt Clumps, EDTA Not Reportable 12/15/17 09:22 Large Platelets Not Reportable 12/15/17 09:22 Giant Platelets Not Reportable 12/15/17 09:22 Platelet Satelliting Not Reportable 12/15/17 09:22 Plt Morphology Comment Not Reportable 12/15/17 09:22 RBC Morphology Not Reportable 12/15/17 09:22 Dimorphic RBCs Not Reportable 12/15/17 09:22 Polychromasia 1+ 12/15/17 09:22 Hypochromasia 1+ 12/15/17 09:22 Poikilocytosis Not Reportable 12/15/17 09:22 Anisocytosis 1+ 12/15/17 09:22 Microcytosis Not Reportable 12/15/17 09:22 Macrocytosis 1+ 12/15/17 09:22 Spherocytes Not Reportable 12/15/17 09:22 Pappenheimer Bodies Not Reportable 12/15/17 09:22 Sickle Cells Not Reportable 12/15/17 09:22 Target Cells Not Reportable 12/15/17 09:22 Tear Drop Cells Few 12/15/17 09:22 Ovalocytes Few 12/15/17 09:22 Helmet Cells Not Reportable 12/15/17 09:22 [place] Bodies Not Reportable 12/15/17 09:22 [place] Rings Not Reportable 12/15/17 09:22 [place] Cells Not Reportable 12/15/17 09:22 Bite Cells Not Reportable 12/15/17 09:22 Crenated Cell Not Reportable 12/15/17 09:22 Elliptocytes Few 12/15/17 09:22 Acanthocytes (Spur) Not Reportable 12/15/17 09:22 Rouleaux Not Reportable 12/15/17 09:22 Hemoglobin C Crystals Not Reportable 12/15/17 09:22 Schistocytes Rare 12/15/17 09:22 Malaria parasites Not Reportable 12/15/17 09:22 Adriano Bodies Not Reportable 12/15/17 09:22 Hem Pathologist Commnt No 12/15/17 09:22 PT 13.6 Sec. (12.2-14.9) 12/23/17 04:55 INR 0.99 (0.87-1.13) 12/23/17 04:55 Sodium 135 mmol/L (137-145) L 12/29/17 04:50 Potassium 5.3 mmol/L (3.6-5.0) H D 12/29/17 04:50 Chloride 96.4 mmol/L (98-107) L 12/29/17 04:50 Carbon Dioxide 22 mmol/L (22-30) 12/29/17 04:50 Anion Gap 22 mmol/L 12/29/17 04:50 BUN 12 mg/dL (7-17) 12/29/17 04:50 Creatinine 0.6 mg/dL (0.7-1.2) L 12/29/17 04:50 Estimated GFR > 60 ml/min 12/29/17 04:50 BUN/Creatinine Ratio 20 % 12/29/17 04:50 Glucose 109 mg/dL (65-100) H 12/29/17 04:50 POC Glucose 121 (70-105) H 12/29/17 11:56 Lactic Acid 0.70 mmol/L (0.7-2.0) 12/22/17 16:10 Calcium 9.4 mg/dL (8.4-10.2) 12/29/17 04:50 Magnesium 2.50 mg/dL (1.7-2.3) H 12/22/17 16:10 Iron 32 ug/dL (37-170) L 12/16/17 22:27 TIBC 296 mcg/dL (250-450) 12/16/17 22:27 Total Bilirubin 0.20 mg/dL (0.1-1.2) 12/22/17 00:34 AST 29 units/L (5-40) 12/22/17 00:34 ALT 24 units/L (7-56) 12/22/17 00:34 Alkaline Phosphatase 108 units/L (35-129) 12/22/17 00:34 C-Reactive Protein 12.20 mg/dL (0.00-1.30) H 12/22/17 16:10 Total Protein 6.5 g/dL (6.3-8.2) 12/22/17 00:34 Albumin 3.1 g/dL (3.9-5) L 12/22/17 00:34 Albumin/Globulin Ratio 0.9 % 12/22/17 00:34 Vitamin B12 1675 pg/mL (211-911) H 12/16/17 22:27 RBC Folic Acid >1000 ng/mL (>280) 12/16/17 22:27 Urine Color Yellow (Yellow) 12/15/17 12:39 Urine Turbidity Clear (Clear) 12/15/17 12:39 Urine pH 7.0 (5.0-7.0) 12/15/17 12:39 Ur Specific [place] 1.009 (1.003-1.030) 12/15/17 12:39 Urine Protein <15 mg/dl mg/dL (Negative) 12/15/17 12:39 Urine Glucose (UA) Neg mg/dL (Negative) 12/15/17 12:39 Urine Ketones Neg mg/dL (Negative) 12/15/17 12:39 Urine Blood Neg (Negative) 12/15/17 12:39 Urine Nitrite Neg (Negative) 12/15/17 12:39 Urine Bilirubin Neg (Negative) 12/15/17 12:39 Urine Urobilinogen < 2.0 mg/dL (<2.0) 12/15/17 12:39 Ur Leukocyte Esterase Neg (Negative) 12/15/17 12:39 Urine WBC (Auto) < 1.0 /HPF (0.0-6.0) 12/15/17 12:39 Urine RBC (Auto) 2.0 /HPF (0.0-6.0) 12/15/17 12:39 U Epithel Cells (Auto) 1.0 /HPF (0-13.0) 12/15/17 12:39 Blood Type A POSITIVE 12/16/17: Antibody Screen Negative 12/16/17: Crossmatch See Detail 12/16/17
[2017-12-29] MEDS: VITAMIN C PO SCH (14:54)
[2017-12-29] MEDS: MILK OF MAGNESIA PO SCH (22:04)
[2017-12-30] MEDS: KEPPRA FEEDTUBE SCH ×4 (01:16→19:00)
[2017-12-30] MEDS: VITAMIN C PO SCH ×2 (01:17→15:30)
[2017-12-30 04:51] LABS: Basophils # (Auto) 0.1 K/mm3 (0.0-0.1); Basophils % (Auto) 0.6 % (0.0-1.8); Eosinophils # (Auto) 0.2 K/mm3 (0.0-0.4); Eosinophils % (Auto) 1.7 % (0.0-4.3); Hemoglobin 8.1 gm/dl (10.1-14.3); Lymphocytes # (Auto) 2.8 K/mm3 (1.2-5.4); Lymphocytes % (Auto) 20.6 % (13.4-35.0); Mean Corpuscular HGB Conc 34 % (30-34); Mean Corpuscular Hemoglobin 31 pg (28-32); Mean Corpuscular Volume 91 fl (79-97); Monocytes # (Auto) 0.8 K/mm3 (0.0-0.8); Platelet Count 391 K/mm3 (140-440); Red Blood Count 2.64 M/mm3 (3.65-5.03)
[2017-12-30 05:11] LABS: BUN/Creatinine Ratio 28; Blood Urea Nitrogen 14 mg/dL (7-17); Calcium 9.3 mg/dL (8.4-10.2); Hemolysis Index 2
[2017-12-30 05:16] LABS: Red Cell Distribution Width 20.3 % (13.2-15.2)
--- NOTE | 2017-12-30 09:03 | Progress Note ---
Assessment and Plan Assessment and plan: 67-year-old -[place]inames[place] female with medical history significant for massive CVA, patient was comatose and on PEG and trach for long time. He was discharged to [facility] from the hospital and presented back to the hospital, for respiratory failure, and low blood pressure. Patient is admitted to ICU Severe sepsis with Shock - patient is off levophed, will continue to monitor - Worsening leukocytosis - Blood culture grew gram-negative rods - off iv antibiotic -Blood culture grew gram-negative rods, was treated with merrem prior. Now on tobramycin. appears on final to be resistant. - ID consult Due to worsening leukocytosis Aspiration Pneumonia - off IV abx - on scopolamine - cont frequent suctioning and aspiration precautions Chronic encephalopathy, suspect Anoxic encephalopathy - aspiration precautions - supportive care - Prognosis is very poor h/o CVA -bed bound and comatose Acute on Chronic hypoxic respiratory failure -Status post tracheostomy on t-piece -Continue oxygen supplementation as needed Chronic Anemia - H/H stable - Will transfuse as needed if Hemoglobin is below 7 Possible seizure -on Keppra per neurology recommendation -EEG showed some slowing. No definite epileptiform activity seen. Mild hyperkalemia -Status post Kayexalate, will monitor level HTN -Uncontrolled -Coreg dose increased Chronic physical debility Chronic dysphagia -Status post PEG tube placement and tube feeding Disposition: Prognosis is very poor. Patient will benefit from palliative/ hospice care History Interval history: Patient was seen and evaluated this morning, patient remains comatose, on PEG and trach. No family member were in the room. continues with blood tinged secretions on suctioning Hospitalist Physical - Physical exam Narrative exam: Not in cardiopulmonary distress. On trach and PEG. Biting her tongue. The patient appeared well nourished and normally developed. Vital signs as documented. Head exam is unremarkable. No scleral icterus . Neck is without jugular venous distension, thyromegaly, or carotid bruits. Lungs are clear to auscultation. Cardiac exam reveals regular rate and Rhythm. Abdominal exam reveals normal bowel sounds, no masses, no organomegaly and no aortic enlargement. Extremities are contracted. [employer]: Comatose. - Constitutional Vitals: Temp Pulse Resp BP Pulse Ox 99.6 F 100 H 28 H 120/67 98 12/30/17 07:32 12/30/17 07:32 12/30/17 07:32 12/30/17 07:32 12/30/17 07:32 General appearance: Present: mild distress, obese Results - Labs CBC & Chem 7: 12/30/17 04:06 12/30/17 04:06 Labs: Laboratory Last Values WBC 13.8 K/mm3 (4.5-11.0) H 12/30/17 04:06 RBC 2.64 M/mm3 (3.65-5.03) L 12/30/17 04:06 Hgb 8.1 gm/dl (10.1-14.3) L 12/30/17 04:06 Hct 24.0 % (30.3-42.9) L 12/30/17 04:06 MCV 91 fl (79-97) 12/30/17 04:06 MCH 31 pg (28-32) 12/30/17 04:06 MCHC 34 % (30-34) 12/30/17 04:06 RDW 20.3 % (13.2-15.2) H 12/30/17 04:06 Plt Count 391 K/mm3 (140-440) 12/30/17 04:06 Lymph % (Auto) 20.6 % (13.4-35.0) 12/30/17 04:06 Blaine % (Auto) 6.0 % (0.0-7.3) 12/30/17 04:06 Eos % (Auto) 1.7 % (0.0-4.3) 12/30/17 04:06 Baso % (Auto) 0.6 % (0.0-1.8) 12/30/17 04:06 Lymph # 2.8 K/mm3 (1.2-5.4) 12/30/17 04:06 Blaine # 0.8 K/mm3 (0.0-0.8) 12/30/17 04:06 Eos # 0.2 K/mm3 (0.0-0.4) 12/30/17 04:06 Baso # 0.1 K/mm3 (0.0-0.1) 12/30/17 04:06 Add Manual Diff Complete 12/15/17 09:22 Total Counted 200 12/15/17 09:22 Seg Neutrophils % 71.1 % (40.0-70.0) H 12/30/17 04:06 Seg Neuts % (Manual) 73.0 % (40.0-70.0) H 12/15/17 09:22 Band Neutrophils % 5.0 % 12/15/17 09:22 Lymphocytes % (Manual) 11.0 % (13.4-35.0) L 12/15/17 09:22 Reactive Lymphs % (Man) 0 % 12/15/17 09:22 Monocytes % (Manual) 6.5 % (0.0-7.3) 12/15/17 09:22 Eosinophils % (Manual) 3.0 % (0.0-4.3) 12/15/17 09:22 Basophils % (Manual) 1.0 % (0.0-1.8) 12/15/17 09: Metamyelocytes % 0.5 % 12/15/17 09: Myelocytes % 0 % 12/15/17 09:22 Promyelocytes % 0 % 12/15/17 09:22 Blast Cells % 0 % 12/15/17 09:22 Nucleated RBC % Not Reportable 12/15/17 09:22 Seg Neutrophils # 9.8 K/mm3 (1.8-7.7) H 12/30/17 04:06 Seg Neutrophils # Man 16.2 K/mm3 (1.8-7.7) H 12/15/17 09:22 Band Neutrophils # 1.1 K/mm3 12/15/17 09:22 Lymphocytes # (Manual) 2.4 K/mm3 (1.2-5.4) 12/15/17 09:22 Abs React Lymphs (Man) 0.0 K/mm3 12/15/17 09:22 Monocytes # (Manual) 1.4 K/mm3 (0.0-0.8) H 12/15/17 09:22 Eosinophils # (Manual) 0.7 K/mm3 (0.0-0.4) H 12/15/17 09:22 Basophils # (Manual) 0.2 K/mm3 (0.0-0.1) H 12/15/17 09:22 Metamyelocytes # 0.1 K/mm3 12/15/17 09:22 Myelocytes # 0.0 K/mm3 12/15/17 09:22 Promyelocytes # 0.0 K/mm3 12/15/17 09:22 Blast Cells # 0.0 K/mm3 12/15/17 09:22 WBC Morphology Not Reportable 12/15/17 09:22 Hypersegmented Neuts Not Reportable 12/15/17 09:22 Hyposegmented Neuts Not Reportable 12/15/17 09:22 Hypogranular Neuts Not Reportable 12/15/17 09:22 Smudge Cells Not Reportable 12/15/17 09:22 Toxic Granulation Not Reportable 12/15/17 09:22 Toxic Vacuolation Not Reportable 12/15/17 09:22 Dohle Bodies Not Reportable 12/15/17 09:22 Pelger-Huet Anomaly Not Reportable 12/15/17 09:22 Eileen Rods Not Reportable 12/15/17 09:22 Platelet Estimate Consistent w auto 12/15/17 09:22 Clumped Platelets Not Reportable 12/15/17 09:22 Plt Clumps, EDTA Not Reportable 12/15/17 09:22 Large Platelets Not Reportable 12/15/17 09:22 Giant Platelets Not Reportable 12/15/17 09:22 Platelet Satelliting Not Reportable 12/15/17 09:22 Plt Morphology Comment Not Reportable 12/15/17 09:22 RBC Morphology Not Reportable 12/15/17 09:22 Dimorphic RBCs Not Reportable 12/15/17 09:22 Polychromasia 1+ 12/15/17 09:22 Hypochromasia 1+ 12/15/17 09:22 Poikilocytosis Not Reportable 12/15/17 09:22 Anisocytosis 1+ 12/15/17 09:22 Microcytosis Not Reportable 12/15/17 09:22 Macrocytosis 1+ 12/15/17 09:22 Spherocytes Not Reportable 12/15/17 09:22 Pappenheimer Bodies Not Reportable 12/15/17 09:22 Sickle Cells Not Reportable 12/15/17 09:22 Target Cells Not Reportable 12/15/17 09:22 Tear Drop Cells Few 12/15/17 09:22 Ovalocytes Few 12/15/17 09:22 Helmet Cells Not Reportable 12/15/17 09:22 Boone-Green Level Bodies Not Reportable 12/15/17 09:22 Syosset Rings Not Reportable 12/15/17 09:22 Elvin Cells Not Reportable 12/15/17 09:22 Bite Cells Not Reportable 12/15/17 09:22 Crenated Cell Not Reportable 12/15/17 09:22 Elliptocytes Few 12/15/17 09:22 Acanthocytes (Spur) Not Reportable 12/15/17 09:22 Rouleaux Not Reportable 12/15/17 09:22 Hemoglobin C Crystals Not Reportable 12/15/17 09:22 Schistocytes Rare 12/15/17 09:22 Malaria parasites Not Reportable 12/15/17 09:22 Adriano Bodies Not Reportable 12/15/17 09:22 Hem Pathologist Commnt No 12/15/17 09:22 PT 13.6 Sec. (12.2-14.9) 12/23/17 04:55 INR 0.99 (0.87-1.13) 12/23/17 04:55 Sodium 138 mmol/L (137-145) 12/30/17 04:06 Potassium 3.9 mmol/L (3.6-5.0) D 12/30/17 04:06 Chloride 98.5 mmol/L (98-107) 12/30/17 04:06 Carbon Dioxide 27 mmol/L (22-30) 12/30/17 04:06 Anion Gap 16 mmol/L 12/30/17 04:06 BUN 14 mg/dL (7-17) 12/30/17 04:06 Creatinine 0.5 mg/dL (0.7-1.2) L 12/30/17 04:06 Estimated GFR > 60 ml/min 12/30/17 04:06 BUN/Creatinine Ratio 28 % 12/30/17 04:06 Glucose 116 mg/dL (65-100) H 12/30/17 04:06 POC Glucose 129 (70-105) H 12/30/17 06:27 Lactic Acid 0.70 mmol/L (0.7-2.0) 12/22/17 16:10 Calcium 9.3 mg/dL (8.4-10.2) 12/30/17 04:06 Magnesium 2.50 mg/dL (1.7-2.3) H 12/22/17 16:10 Iron 32 ug/dL (37-170) L 12/16/17 22:27 TIBC 296 mcg/dL (250-450) 12/16/17 22:27 Total Bilirubin 0.20 mg/dL (0.1-1.2) 12/22/17 00:34 AST 29 units/L (5-40) 12/22/17 00:34 ALT 24 units/L (7-56) 12/22/17 00:34 Alkaline Phosphatase 108 units/L (35-129) 12/22/17 00:34 C-Reactive Protein 12.20 mg/dL (0.00-1.30) H 12/22/17 16:10 Total Protein 6.5 g/dL (6.3-8.2) 12/22/17 00:34 Albumin 3.1 g/dL (3.9-5) L 12/22/17 00:34 Albumin/Globulin Ratio 0.9 % 12/22/17 00:34 Vitamin B12 1675 pg/mL (211-911) H 12/16/17 22:27 RBC Folic Acid >1000 ng/mL (>280) 12/16/17 22:27 Urine Color Yellow (Yellow) 12/15/17 12:39 Urine Turbidity Clear (Clear) 12/15/17 12:39 Urine pH 7.0 (5.0-7.0) 12/15/17 12:39 Ur Specific [place] 1.009 (1.003-1.030) 12/15/17 12:39 Urine Protein <15 mg/dl mg/dL (Negative) 12/15/17 12:39 Urine Glucose (UA) Neg mg/dL (Negative) 12/15/17 12:39 Urine Ketones Neg mg/dL (Negative) 12/15/17 12:39 Urine Blood Neg (Negative) 12/15/17 12:39 Urine Nitrite Neg (Negative) 12/15/17 12:39 Urine Bilirubin Neg (Negative) 12/15/17 12:39 Urine Urobilinogen < 2.0 mg/dL (<2.0) 12/15/17 12:39 Ur Leukocyte Esterase Neg (Negative) 12/15/17 12:39 Urine WBC (Auto) < 1.0 /HPF (0.0-6.0) 12/15/17 12:39 Urine RBC (Auto) 2.0 /HPF (0.0-6.0) 12/15/17 12:39 U Epithel Cells (Auto) 1.0 /HPF (0-13.0) 12/15/17 12:39 Blood Type A POSITIVE 12/16/17 22:27 Antibody Screen Negative 12/16/17 22:27 Crossmatch See Detail 12/16/17 22:27
[2017-12-30] MEDS: LIORESAL PO SCH ×3 (09:58→21:54)
[2017-12-30] MEDS: ROBINUL PO SCH ×3 (09:58→21:54)
[2017-12-30] MEDS: BABY ASPIRIN PO SCH (10:00)
[2017-12-30] MEDS: PREVACID SOLUTAB FEEDTUBE SCH (10:00)
[2017-12-30] MEDS: SENOKOT PO SCH ×2 (10:00→21:54)
[2017-12-30] MEDS: HEPARIN SUB-Q SCH ×2 (10:02→21:56)
[2017-12-30] MEDS: COREG PO SCH ×2 (10:02→21:55)
--- NOTE | 2017-12-30 12:15 | Consultation ---
History of Present Illness - Reason for Consult Consult date: 12/30/17 Worsening leucocytosis Requesting physician: SUNDAY TURK - History of Present Illness The patient is a 67-year-old female retirement resident with COPD, chronic respiratory failure status post tracheostomy, congestive heart failure, hypertension, hypothyroidism, coronary artery disease, CVA status post PEG tube who was brought to the emergency room by EMS with respiratory distress. She is nonverbal and able to provide any history. History was obtained by chart review and discussing with patient's nurse at bedside. Upon initial evaluation in ER, patient was noted to have hypotension and hypoxia. She was admitted to the hospital with concerns for aspiration pneumonia since there was report of tube feeds in her oral cavity. Patient was given IV fluids, transferred to ICU and also started on pressors briefly and placed on the ventilator. Due to penicillin allergy, patient was started on aztreonam. Sputum cultures / tracheal aspirate grew gram-negative rods. Due to worsening leukocytosis, infectious diseases was consulted today. Patient continues with low-grade temperatures in the 99F range. She has been on the floor, receiving suction, otherwise hemodynamically stable. Antibiotics received: Levofloxacin from 12/21/2017 to 12/24/2017 Tobramycin inhalation from 12/24/2017 to 12/29/2017 Past History Past Medical History: CAD, COPD, diabetes, heart failure, hypothyroidism, stroke Past Surgical History: hysterectomy, Other (Trach/Peg placement, pacemaker? ) Social history: , other (retirement resident). denies: smoking, alcohol abuse, prescription drug abuse Family history: hypertension Medications and Allergies Allergies Allergy/AdvReac Type Severity Reaction Status Date / Time ibuprofen Allergy Unknown Verified 09/12/15 23:04 Penicillins Allergy Unknown Verified 09/12/15 23:04 Home Medications Medication Instructions Recorded Confirmed Last Taken Type Ascorbic Acid [Vitamin C] 500 mg PO Q12H 09/12/15 12/17/17 07/11/16 History Baclofen [Lioresal] 10 mg PO TID 09/12/15 12/17/17 07/11/16 History Ipratropium/Albuterol Sulfate 1 ampul IH Q6HR PRN 09/12/15 12/17/17 Unknown History [DUONEB *Not for PRN Use*] Magnesium Hydroxide [Milk of 30 ml PO HS 09/12/15 12/17/17 07/11/16 History Magnesia] clonazePAM [KlonoPIN] 2 mg PO BID 09/12/15 12/17/17 07/10/16 History Pravastatin Sodium [Pravastatin] 10 mg PO QHS 07/13/16 12/17/17 07/11/16 History Carvedilol [Coreg] 12.5 mg PO BID #60 tablet 08/07/16 12/17/17 Unknown Rx Lisinopril [Zestril TAB] 20 mg PO QDAY #30 tablet 08/07/16 12/17/17 Unknown Rx Polyethylene Glycol 3350 [Miralax 17 gm PO QDAY PRN #7 packet 04/21/17 12/17/17 Unknown Rx 3350] Aspirin [Aspirin BABY CHEW TAB] 81 mg PO QDAY 10/29/17 12/17/17 Unknown History Citalopram [celeXA] 20 mg PO QDAY 10/29/17 12/17/17 Unknown History Docusate Sodium [Colace] 100 mg PO BID 10/29/17 12/17/17 Unknown History Gabapentin [Neurontin] 600 mg PO TID 10/29/17 12/17/17 Unknown History Levothyroxine [Synthroid] 125 mcg PO QAM 10/29/17 12/17/17 Unknown History Pantoprazole [Protonix] 40 mg PO QAM 10/29/17 12/17/17 Unknown History Potassium Chloride [K-Dur] 20 meq PO QDAY 10/29/17 12/17/17 Unknown History Sennosides [Senna] 8.6 mg PO BID 10/29/17 12/17/17 Unknown History Active Meds: Active Medications Acetaminophen (Tylenol) 650 mg PO Q4H PRN PRN Reason: Pain MILD(1-3)/Fever >100.5/BIRD Last Admin: 12/26/17 21:36 Dose: 650 mg Albuterol (Proventil) 2.5 mg IH Q4HRT PRN PRN Reason: Shortness Of Breath Ascorbic Acid (Vitamin C) 500 mg PO Q12H [facility] Last Admin: 12/30/17 01:17 Dose: 500 mg Aspirin (Baby Aspirin) 81 mg PO QDAY [facility] Last Admin: 12/30/17 10:00 Dose: 81 mg Baclofen (Lioresal) 10 mg PO TID [facility] Last Admin: 12/30/17 09:58 Dose: 10 mg Carvedilol (Coreg) 12.5 mg PO BID [facility] Last Admin: 12/30/17 10:02 Dose: Not Given Clonazepam (Klonopin) 2 mg PO BID [facility] Last Admin: 12/30/17 10:00 Dose: 2 mg Cyclobenzaprine HCl (Flexeril) 10 mg PO BID PRN PRN Reason: Muscle Spasm Glycopyrrolate (Robinul) 2 mg PO TID [facility] Last Admin: 12/30/17 09:58 Dose: 2 mg Heparin Sodium (Porcine) (Heparin) 5,000 unit SUB-Q Q12HR [facility] Last Admin: 12/30/17 10:02 Dose: 5,000 unit Lansoprazole (Prevacid Solutab) 30 mg FEEDTUBE QDAY [facility] Last Admin: 12/30/17 10:00 Dose: 30 mg Levetiracetam (Keppra) 750 mg FEEDTUBE Q6H [facility] Last Admin: 12/30/17 05:28 Dose: 750 mg Magnesium Hydroxide (Milk Of Magnesia) 30 ml PO HS [facility] Last Admin: 12/29/17 22:04 Dose: 30 ml Oxycodone HCl (Roxicodone) 5 mg PO Q6H PRN PRN Reason: Pain, Moderate (4-6) Last Admin: 12/15/17 15:19 Dose: 5 mg Oxycodone/Acetaminophen (Percocet 5/325) 1 tab PO Q6H PRN PRN Reason: Pain, Moderate (4-6) Last Admin: 12/25/17 17:00 Dose: 1 tab Polyethylene Glycol (Miralax 3350) 17 gm PO QDAY PRN PRN Reason: Constipation Scopolamine (Transderm-Scop) 1 each TD Q3D [facility] Last Admin: 12/27/17 13:18 Dose: Not Given Senna (Senokot) 8.6 mg PO BID [facility] Last Admin: 12/30/17 10:00 Dose: 8.6 mg Simple Syrup (Simple Syrup) 15 ml FEEDTUBE PRN PRN PRN Reason: Hypoglycemia Simple Syrup (Simple Syrup) 30 ml FEEDTUBE PRN PRN PRN Reason: Hypoglycemia Review of Systems ROS unobtainable: due to endotracheal tube (patient with trach and non verbal at baseline), due to mental status Physical Examination - Physical Exam Narrative exam: Physical Exam: Constitutional: non verbal. No acute distress Head, Ears, Nose: Normocephalic, atraumatic. External ears, nose normal Eyes: No icterus. No ptosis. Neck: Supple, no meningeal signs, trach + Oral: could not be examined since patient doesn't open mouth on command Cardiovascular: S1, S2 normal. Respiratory: extensive gurgling and transmitted upper airway sounds GI: Soft, non-tender; bowel sounds normal. No peritoneal signs. PEG tube +, RLQ subcutaneous lump felt on palpation, non tender Musculoskeletal: No pedal edema, no cyanosis. right neck CVL + Skin: No rash or abscess Hem/Lymphatic: No palpable cervical or supraclavicular nodes. No lymphangitis Psych: no agitation Neurological: non verbal, doesn't follow commands. exam limited. - Constitutional Vitals: Vital Signs Temp Pulse Resp BP Pulse Ox 99.6 F 100 H 28 H 120/67 99 12/30/17 07:32 12/30/17 10:02 12/30/17 09:11 12/30/17 10:02 12/30/17 09:02 Temperature -Last 24 Hours Temperature 99.6 F Temperature 99.4 F Temperature 99.3 F Temperature 99.6 F General appearance: Present: no acute distress, well-nourished Results - Labs CBC & Chem 7: 12/30/17 04:06 12/30/17 04:06 Labs: Abnormal lab results 12/29/17 12/29/17 12/30/17 Range/Units 16:39 23:09 04:06 WBC 13.8 H (4.5-11.0) K/mm3 RBC 2.64 L (3.65-5.03) M/mm3 Hgb 8.1 L (10.1-14.3) gm/dl Hct 24.0 L (30.3-42.9) % RDW 20.3 H (13.2-15.2) % Seg Neutrophils % 71.1 H (40.0-70.0) % Seg Neutrophils # 9.8 H (1.8-7.7) K/mm3 Creatinine (0.7-1.2) mg/dL Glucose (65-100) mg/dL POC Glucose 131 H 117 H (70-105) 12/30/17 12/30/17 12/30/17 Range/Units 04:06 06:27 11:48 WBC (4.5-11.0) K/mm3 RBC (3.65-5.03) M/mm3 Hgb (10.1-14.3) gm/dl Hct (30.3-42.9) % RDW (13.2-15.2) % Seg Neutrophils % (40.0-70.0) % Seg Neutrophils # (1.8-7.7) K/mm3 Creatinine 0.5 L (0.7-1.2) mg/dL Glucose 116 H (65-100) mg/dL POC Glucose 129 H 126 H (70-105) - Imaging and Cardiology Chest x-ray: report reviewed, image reviewed (Chest x-ray shows tracheostomy in place, AICD in place, no evidence of pneumonia.) CT Scan - head: report reviewed, image reviewed (CT head shows chronic ischemic changes.) Assessment and Plan Cultures: 12/15/2017 Blood cultures: No growth 12/20/2017 tracheal aspirate culture: light growth of Acinetobacter baumannii, rare growth of ESBL Klebsiella pneumoniae. 12/20/2017 blood culture: No growth Previous cultures reviewed: October 2017 sputum culture grew Acinetobacter baumannii, prior to that she grew MSSA. Assessment & Plan: 67-year-old female retirement resident with COPD, chronic respiratory failure status post tracheostomy, congestive heart failure, hypertension, hypothyroidism , coronary artery disease, CVA status post PEG tube: 1) Acute on chronic respiratory failure 2) MDRO colonization 3) chronic recurrent aspiration 4) Tracheobronchitis and aspiration pneumonitis 5) Penicillin allergy, though has tolerated Meropenem in the past 6) Leucocytosis, probably secondary to aspiration pneumonitis Patient with significant gurgling suggestive of chronic recurrent aspiration. Chest x-ray is without any evidence of pneumonia, she is stable from a respiratory standpoint with oxygen requirements being quite minimal at 28%. 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 Blood cultures negative. Continued antibiotics are unlikely to be of much benefit and will only breed further resistance. Hence, at this point would recommend holding off on additional antibiotics. Continue to trend CBC, we will follow along. Recs: - Continue aggressive suctioning and supportive care - Hold off on additional antibiotics at this moment - follow up CBC in AM (ordered) - Prognosis is poor - continue contact isolation due to MDRO colonization Please call with questions. Plan discussed with Dr. Truk. Jeronimo Olvera MD [facility] C: [phone] O: [phone] F: [phone]
[2017-12-30] MEDS: TYLENOL PO PRN (13:30)
--- NOTE | 2017-12-30 13:53 | Progress Note ---
Assessment and Plan Severe sepsis with shock. Leukocytosis, probably secondary to occult aspiration. Acute on chronic hypoxemic respiratory failure. Chronic encephalopathy (secondary to both CVA +/- anoxic encephalopathy component) History of cerebrovascular accident. Anemia (chronic disease; normocytic) Oropharyngeal dysphagia. Obesity. Adult failure to thrive. Hypertension. Congestive heart failure. Diabetes. Gastroesophageal reflux disease. Chronic obstructive lung disease. Hypothyroidism. - continue robinul and scopolamine for secretion control - continue t-piece trials RTC as tolerated - continue to wean FiO2 to keep sats > 90% - continue coreg re: CMOP - continue aspiration precautions - continue mobility protocol for pressure ulcer prophylaxis - de-escalate AB's - continue GI & VTE prophylaxis - continue mobility protocol for pressure ulcer prophylaxis - continue other care per attending / other consultants - continue other care per attending/other consultants ... re-evaluate in am & prn Subjective Date of service: 12/30/17 Principal diagnosis: Acute CVA with encephalopathy; Acute Resp Failure s/p MVS; Sepsis Syndrome Interval history: Patient is seen today for: Acute CVA with encephalopathy; Acute Resp Failure s/ p MVS; Sepsis Syndrome Seen and examined at bedside; 24hour events reviewed; nursing and respiratory care staff consulted; no adverse overnight events reported to me; resting in bed ; no new issues respiratory-lora Objective Vital Signs - 12hr 12/30/17 12/30/17 12/30/17 02:57 07:32 09:02 Temperature 99.4 F 99.6 F Pulse Rate 105 H 100 H Respiratory 22 28 H Rate Blood Pressure 144/69 120/67 O2 Sat by Pulse 98 98 99 Oximetry O2 Sat by Pulse 99 Oximetry [ Assessment] 12/30/17 12/30/17 09:11 10:02 Temperature Pulse Rate 100 H Respiratory 28 H Rate Blood Pressure 120/67 O2 Sat by Pulse Oximetry O2 Sat by Pulse Oximetry [ Assessment] Constitutional: no acute distress, other (elderly AAF, normocephalic and atraumatic) Eyes: non-icteric ENT: oropharynx moist, oropharyngeal exudate pre, other (midline tracheostomy tube) Neck: supple, no lymphadenopathy, no JVD, other (No thyromegaly) Effort: mildly labored Ascultation: Bilateral: diminished breath sounds, rhonchi Percussion: Bilateral: not dull Cardiovascular: regular rate and rhythm, other (No R/M) Gastrointestinal: normoactive bowel sounds, soft, non-tender, non-distended, other (PEG tube; No HSM) Integumentary: other (poor turgor) Extremities: no cyanosis, no edema, pulses normal, no ischemia or petechiae Neurologic: pupils equal and round, unable to assess, other (+ pedal contractures; encephalopathic) Psychiatric: other (unable to assess) CBC and BMP: 12/31/17 00:43 12/30/17 04:06 ABG, PT/INR, D-dimer: PT/INR, D-dimer PT 13.6 Sec. (12.2-14.9) 12/23/17 04:55 INR 0.99 (0.87-1.13) 12/23/17 04:55 Abnormal lab findings: Abnormal Labs 12/15/17 12/15/17 12/15/17 09:22 09:22 10:53 WBC 22.2 H RBC 2.66 L Hgb 8.1 L Hct 25.2 L MCHC RDW 18.4 H Plt Count 529 H Seg Neutrophils % Seg Neuts % (Manual) 73.0 H Lymphocytes % (Manual) 11.0 L Seg Neutrophils # Seg Neutrophils # Man 16.2 H Monocytes # (Manual) 1.4 H Eosinophils # (Manual) 0.7 H Basophils # (Manual) 0.2 H Sodium 134 L Potassium 5.6 H D Chloride 96.8 L Carbon Dioxide BUN 18 H Creatinine Glucose 114 H POC Glucose Lactic Acid 2.50 H* Calcium Magnesium Iron C-Reactive Protein Albumin Vitamin B12 Crossmatch 12/15/17 12/16/17 12/16/17 13:21 11:14 11:14 WBC 13.1 H RBC 2.33 L Hgb 6.8 L Hct 21.8 L MCHC RDW 18.7 H Plt Count 467 H Seg Neutrophils % Seg Neuts % (Manual) Lymphocytes % (Manual) Seg Neutrophils # Seg Neutrophils # Man Monocytes # (Manual) Eosinophils # (Manual) Basophils # (Manual) Sodium Potassium Chloride Carbon Dioxide 21 L BUN Creatinine 0.4 L D Glucose POC Glucose Lactic Acid 2.60 H* Calcium 8.2 L Magnesium Iron C-Reactive Protein Albumin Vitamin B12 Crossmatch 12/16/17 12/16/17 12/16/17 14:51 22:27 22:27 WBC RBC Hgb 6.8 L Hct 21.7 L MCHC RDW Plt Count Seg Neutrophils % Seg Neuts % (Manual) Lymphocytes % (Manual) Seg Neutrophils # Seg Neutrophils # Man Monocytes # (Manual) Eosinophils # (Manual) Basophils # (Manual) Sodium Potassium Chloride Carbon Dioxide BUN Creatinine Glucose POC Glucose Lactic Acid Calcium Magnesium Iron 32 L C-Reactive Protein Albumin Vitamin B12 Crossmatch See Detail 12/16/17 12/17/17 12/17/17 22:27 10:03 10:03 WBC RBC 2.67 L Hgb 8.0 L Hct 24.9 L MCHC RDW 17.5 H Plt Count Seg Neutrophils % Seg Neuts % (Manual) Lymphocytes % (Manual) Seg Neutrophils # Seg Neutrophils # Man Monocytes # (Manual) Eosinophils # (Manual) Basophils # (Manual) Sodium Potassium Chloride 107.8 H Carbon Dioxide BUN Creatinine 0.4 L Glucose POC Glucose Lactic Acid Calcium 8.2 L Magnesium Iron C-Reactive Protein Albumin Vitamin B12 1675 H Crossmatch 12/18/17 12/19/17 12/20/17 03:19 04:55 00:12 WBC 12.2 H RBC 2.79 L 2.81 L 2.93 L Hgb 8.4 L 8.7 L 8.7 L Hct 25.9 L 25.8 L 27.4 L MCHC RDW 19.0 H 19.6 H 20.4 H Plt Count Seg Neutrophils % Seg Neuts % (Manual) Lymphocytes % (Manual) Seg Neutrophils # Seg Neutrophils # Man Monocytes # (Manual) Eosinophils # (Manual) Basophils # (Manual) Sodium Potassium Chloride Carbon Dioxide BUN Creatinine Glucose POC Glucose Lactic Acid Calcium Magnesium Iron C-Reactive Protein Albumin Vitamin B12 Crossmatch 12/20/17 12/20/17 12/20/17 00:12 11:51 21:02 WBC RBC Hgb Hct MCHC RDW Plt Count Seg Neutrophils % Seg Neuts % (Manual) Lymphocytes % (Manual) Seg Neutrophils # Seg Neutrophils # Man Monocytes # (Manual) Eosinophils # (Manual) Basophils # (Manual) Sodium Potassium Chloride Carbon Dioxide BUN Creatinine 0.6 L Glucose 102 H POC Glucose 122 H 108 H Lactic Acid Calcium Magnesium Iron C-Reactive Protein Albumin 3.4 L Vitamin B12 Crossmatch 12/21/17 12/21/17 12/21/17 01:05 13:07 17:43 WBC 13.3 H RBC 2.79 L Hgb 8.4 L Hct 26.0 L MCHC RDW 20.7 H Plt Count Seg Neutrophils % Seg Neuts % (Manual) Lymphocytes % (Manual) Seg Neutrophils # Seg Neutrophils # Man Monocytes # (Manual) Eosinophils # (Manual) Basophils # (Manual) Sodium Potassium Chloride Carbon Dioxide BUN Creatinine Glucose POC Glucose 109 H 115 H Lactic Acid Calcium Magnesium Iron C-Reactive Protein Albumin Vitamin B12 Crossmatch 12/22/17 12/22/17 12/22/17 00:34 00:34 16:10 WBC RBC 2.33 L Hgb 7.5 L Hct 21.2 L MCHC 35 H RDW 19.4 H Plt Count Seg Neutrophils % Seg Neuts % (Manual) Lymphocytes % (Manual) Seg Neutrophils # Seg Neutrophils # Man Monocytes # (Manual) Eosinophils # (Manual) Basophils # (Manual) Sodium Potassium Chloride Carbon Dioxide BUN Creatinine 0.6 L Glucose POC Glucose Lactic Acid Calcium Magnesium 2.50 H Iron C-Reactive Protein 12.20 H Albumin 3.1 L Vitamin B12 Crossmatch 12/23/17 12/23/17 12/24/17 04:55 12:15 05:16 WBC RBC Hgb 7.4 L Hct 22.5 L MCHC RDW Plt Count Seg Neutrophils % Seg Neuts % (Manual) Lymphocytes % (Manual) Seg Neutrophils # Seg Neutrophils # Man Monocytes # (Manual) Eosinophils # (Manual) Basophils # (Manual) Sodium Potassium Chloride Carbon Dioxide BUN Creatinine Glucose POC Glucose 109 H 111 H Lactic Acid Calcium Magnesium Iron C-Reactive Protein Albumin Vitamin B12 Crossmatch 12/24/17 12/24/17 12/24/17 06:45 17:57 23:45 WBC RBC Hgb Hct MCHC RDW Plt Count Seg Neutrophils % Seg Neuts % (Manual) Lymphocytes % (Manual) Seg Neutrophils # Seg Neutrophils # Man Monocytes # (Manual) Eosinophils # (Manual) Basophils # (Manual) Sodium 136 L Potassium Chloride Carbon Dioxide BUN Creatinine 0.5 L Glucose POC Glucose 108 H 108 H Lactic Acid Calcium Magnesium Iron C-Reactive Protein Albumin Vitamin B12 Crossmatch 12/25/17 12/25/17 12/25/17 05:28 11:57 17:49 WBC RBC Hgb Hct MCHC RDW Plt Count Seg Neutrophils % Seg Neuts % (Manual) Lymphocytes % (Manual) Seg Neutrophils # Seg Neutrophils # Man Monocytes # (Manual) Eosinophils # (Manual) Basophils # (Manual) Sodium Potassium Chloride Carbon Dioxide BUN Creatinine Glucose POC Glucose 109 H 113 H 110 H Lactic Acid Calcium Magnesium Iron C-Reactive Protein Albumin Vitamin B12 Crossmatch 12/26/17 12/26/17 12/26/17 00:02 04:21 04:21 WBC 11.5 H RBC 2.88 L Hgb 8.5 L Hct 26.0 L MCHC RDW 19.4 H Plt Count Seg Neutrophils % Seg Neuts % (Manual) Lymphocytes % (Manual) Seg Neutrophils # Seg Neutrophils # Man Monocytes # (Manual) Eosinophils # (Manual) Basophils # (Manual) Sodium 136 L Potassium Chloride 97.8 L Carbon Dioxide BUN Creatinine Glucose 114 H POC Glucose 123 H Lactic Acid Calcium Magnesium Iron C-Reactive Protein Albumin Vitamin B12 Crossmatch 12/26/17 12/26/17 12/26/17 11:54 18:31 23:45 WBC RBC Hgb Hct MCHC RDW Plt Count Seg Neutrophils % Seg Neuts % (Manual) Lymphocytes % (Manual) Seg Neutrophils # Seg Neutrophils # Man Monocytes # (Manual) Eosinophils # (Manual) Basophils # (Manual) Sodium Potassium Chloride Carbon Dioxide BUN Creatinine Glucose POC Glucose 108 H 110 H 116 H Lactic Acid Calcium Magnesium Iron C-Reactive Protein Albumin Vitamin B12 Crossmatch 12/27/17 12/27/17 12/27/17 05:02 12:31 18:19 WBC RBC Hgb Hct MCHC RDW Plt Count Seg Neutrophils % Seg Neuts % (Manual) Lymphocytes % (Manual) Seg Neutrophils # Seg Neutrophils # Man Monocytes # (Manual) Eosinophils # (Manual) Basophils # (Manual) Sodium Potassium Chloride Carbon Dioxide BUN Creatinine Glucose POC Glucose 117 H 115 H 117 H Lactic Acid Calcium Magnesium Iron C-Reactive Protein Albumin Vitamin B12 Crossmatch 12/28/17 12/28/17 12/28/17 00:10 04:47 06:30 WBC 13.7 H RBC 2.81 L Hgb 8.4 L Hct 25.2 L MCHC RDW 19.7 H Plt Count Seg Neutrophils % Seg Neuts % (Manual) Lymphocytes % (Manual) Seg Neutrophils # Seg Neutrophils # Man Monocytes # (Manual) Eosinophils # (Manual) Basophils # (Manual) Sodium Potassium Chloride Carbon Dioxide BUN Creatinine Glucose POC Glucose 108 H 114 H Lactic Acid Calcium Magnesium Iron C-Reactive Protein Albumin Vitamin B12 Crossmatch 12/28/17 12/28/17 12/29/17 11:54 18:21 00:06 WBC RBC Hgb Hct MCHC RDW Plt Count Seg Neutrophils % Seg Neuts % (Manual) Lymphocytes % (Manual) Seg Neutrophils # Seg Neutrophils # Man Monocytes # (Manual) Eosinophils # (Manual) Basophils # (Manual) Sodium Potassium Chloride Carbon Dioxide BUN Creatinine Glucose POC Glucose 148 H 117 H 114 H Lactic Acid Calcium Magnesium Iron C-Reactive Protein Albumin Vitamin B12 Crossmatch 12/29/17 12/29/17 12/29/17 04:50 04:50 06:58 WBC 12.8 H RBC 2.92 L Hgb 8.8 L Hct 25.7 L MCHC RDW 19.6 H Plt Count Seg Neutrophils % Seg Neuts % (Manual) Lymphocytes % (Manual) Seg Neutrophils # Seg Neutrophils # Man Monocytes # (Manual) Eosinophils # (Manual) Basophils # (Manual) Sodium 135 L Potassium 5.3 H D Chloride 96.4 L Carbon Dioxide BUN Creatinine 0.6 L Glucose 109 H POC Glucose 117 H Lactic Acid Calcium Magnesium Iron C-Reactive Protein Albumin Vitamin B12 Crossmatch 12/29/17 12/29/17 12/29/17 11:56 16:39 23:09 WBC RBC Hgb Hct MCHC RDW Plt Count Seg Neutrophils % Seg Neuts % (Manual) Lymphocytes % (Manual) Seg Neutrophils # Seg Neutrophils # Man Monocytes # (Manual) Eosinophils # (Manual) Basophils # (Manual) Sodium Potassium Chloride Carbon Dioxide BUN Creatinine Glucose POC Glucose 121 H 131 H 117 H Lactic Acid Calcium Magnesium Iron C-Reactive Protein Albumin Vitamin B12 Crossmatch 12/30/17 12/30/17 12/30/17 04:06 04:06 06:27 WBC 13.8 H RBC 2.64 L Hgb 8.1 L Hct 24.0 L MCHC RDW 20.3 H Plt Count Seg Neutrophils % 71.1 H Seg Neuts % (Manual) Lymphocytes % (Manual) Seg Neutrophils # 9.8 H Seg Neutrophils # Man Monocytes # (Manual) Eosinophils # (Manual) Basophils # (Manual) Sodium Potassium Chloride Carbon Dioxide BUN Creatinine 0.5 L Glucose 116 H POC Glucose 129 H Lactic Acid Calcium Magnesium Iron C-Reactive Protein Albumin Vitamin B12 Crossmatch 12/30/17 11:48 WBC RBC Hgb Hct MCHC RDW Plt Count Seg Neutrophils % Seg Neuts % (Manual) Lymphocytes % (Manual) Seg Neutrophils # Seg Neutrophils # Man Monocytes # (Manual) Eosinophils # (Manual) Basophils # (Manual) Sodium Potassium Chloride Carbon Dioxide BUN Creatinine Glucose POC Glucose 126 H Lactic Acid Calcium Magnesium Iron C-Reactive Protein Albumin Vitamin B12 Crossmatch Allied health notes reviewed: nursing
[2017-12-30] MEDS: TRANSDERM-SCOP TD SCH (15:00)
[2017-12-30] MEDS: MILK OF MAGNESIA PO SCH (21:55)
[2017-12-31 01:02] LABS: Hematocrit 23.4 % (30.3-42.9); Hemoglobin 8.2 gm/dl (10.1-14.3); Mean Corpuscular HGB Conc 35 % (30-34); Mean Corpuscular Hemoglobin 32 pg (28-32); Mean Corpuscular Volume 90 fl (79-97); Platelet Count 378 K/mm3 (140-440); Red Blood Count 2.59 M/mm3 (3.65-5.03); Red Cell Distribution Width 19.8 % (13.2-15.2)
[2017-12-31] MEDS: VITAMIN C PO SCH ×3 (01:48→20:49)
[2017-12-31] MEDS: KEPPRA FEEDTUBE SCH ×5 (01:48→20:50)
--- NOTE | 2017-12-31 08:08 | Progress Note ---
Assessment and Plan Cultures: 12/15/2017 Blood cultures: No growth 12/20/2017 tracheal aspirate culture: light growth of Acinetobacter baumannii, rare growth of ESBL Klebsiella pneumoniae. 12/20/2017 blood culture: No growth Previous cultures reviewed: October 2017 sputum culture grew Acinetobacter baumannii, prior to that she grew MSSA. Assessment & Plan: 67-year-old female long-term resident with COPD, chronic respiratory failure status post tracheostomy, congestive heart failure, hypertension, hypothyroidism , coronary artery disease, CVA status post PEG tube: 1) Acute on chronic respiratory failure 2) MDRO colonization 3) chronic recurrent aspiration 4) Tracheobronchitis and aspiration pneumonitis 5) Penicillin allergy, though has tolerated Meropenem in the past 6) Leucocytosis, probably secondary to aspiration pneumonitis Patient contnues to have significant gurgling suggestive of chronic recurrent aspiration. Chest x-ray is without any evidence of pneumonia, she is stable from a respiratory standpoint with oxygen requirements being quite minimal at 28 %. 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 Blood cultures negative. Continued antibiotics are unlikely to be of much benefit and will only breed further resistance. Continue to hold off on antibiotics. Continue to trend CBC. Recs: - Continue aggressive suctioning and supportive care - Hold off on additional antibiotics at this moment - Prognosis is poor - continue contact isolation due to MDRO colonization Subjective Date of service: 12/31/17 Principal diagnosis: Acute CVA with encephalopathy; Acute Resp Failure s/p MVS; Sepsis Syndrome Interval history: Patient seen at the bedside this morning. No family members at bedside. Patient has endotracheal tube , with extensive gurgling and transmitted upper airway sounds. Current Antimicrobials: Previous Antimicrobials: Levofloxacin from 12/21/2017 to 12/24/2017 Tobramycin inhalation from 12/24/2017 to 12/29/2017 Objective - Exam Narrative Exam: Constitutional: non verbal. No acute distress Head, Ears, Nose: Normocephalic, atraumatic. External ears, nose normal Eyes: No icterus. No ptosis. Neck: Supple, no meningeal signs, trach + Oral: could not be examined since patient doesn't open mouth on command Cardiovascular: S1, S2 normal. Respiratory: significant gurgling GI: Soft, non-tender; bowel sounds normal. No peritoneal signs. PEG tube +, RLQ subcutaneous lump felt on palpation, non tender Musculoskeletal: No pedal edema, no cyanosis. right neck CVL + Skin: No rash or abscess Hem/Lymphatic: No palpable cervical or supraclavicular nodes. No lymphangitis Psych: no agitation Neurological: non verbal, doesn't follow commands. exam limited. - Constitutional Vitals: Vital Signs Temp Pulse Resp BP Pulse Ox 99.5 F 104 H 20 142/80 98 12/31/17 02:00 12/31/17 02:00 12/31/17 02:00 12/31/17 02:00 12/31/17 03:05 Temperature -Last 24 Hours Temperature 99.5 F Temperature 99.5 F Temperature 100.2 F - Labs CBC & Chem 7: 12/31/17 00:43 12/30/17 04:06 Labs: Abnormal lab results 12/30/17 12/30/17 12/31/17 Range/Units 11:48 17:41 00:15 WBC (4.5-11.0) K/mm3 RBC (3.65-5.03) M/mm3 Hgb (10.1-14.3) gm/dl Hct (30.3-42.9) % MCHC (30-34) % RDW (13.2-15.2) % POC Glucose 126 H 124 H 116 H (70-105) 12/31/17 12/31/17 Range/Units 00:43 06:27 WBC 12.3 H (4.5-11.0) K/mm3 RBC 2.59 L (3.65-5.03) M/mm3 Hgb 8.2 L (10.1-14.3) gm/dl Hct 23.4 L (30.3-42.9) % MCHC 35 H (30-34) % RDW 19.8 H (13.2-15.2) % POC Glucose 116 H (70-105)
--- NOTE | 2017-12-31 09:58 | Progress Note ---
Assessment and Plan Assessment and plan: 67-year-old -[place] female with medical history significant for massive CVA, patient was comatose and on PEG and trach for long time. He was discharged to [facility] from the [facility] and presented back to the hospital, for respiratory failure, and low blood pressure. Patient is admitted to ICU Severe sepsis with Shock - Patient was managed with pressors and discontinued,. Continues to have persistent leukocytosis - ID consulted. will hold off on abx. Patient treated initially with Levaquin and then Merrem and recently Tobramycing -Cultures grew MRDO-GNR species Aspiration Pneumonia - off IV abx - on scopolamine - cont frequent suctioning and aspiration precautions Chronic encephalopathy, suspect Anoxic encephalopathy - aspiration precautions - supportive care - Prognosis is very poor h/o CVA -bed bound and comatose Acute on Chronic hypoxic respiratory failure -Status post tracheostomy on t-piece -Continue oxygen supplementation as needed Chronic Anemia - H/H stable - Will transfuse as needed if Hemoglobin is below 7 Possible seizure -on Keppra per neurology recommendation -EEG showed some slowing. No definite epileptiform activity seen. Mild hyperkalemia -Status post Kayexalate, will monitor level HTN -Uncontrolled -Coreg dose increased Chronic physical debility Chronic dysphagia -Status post PEG tube placement and tube feeding Due to high suctioning requirement patient is a poor candidiate for SNF placement until this resolves. Called son and left message, awaiting call back to discuss goals of care. Disposition: Prognosis is very poor. Patient will benefit from palliative/ hospice care History Interval history: Patient was seen and evaluated this morning, patient remains comatose, No family member were in the room, called and left message to the son to call me back. continues with blood tinged secretions on suctioning Hospitalist Physical - Physical exam Narrative exam: Mild respiratory cardiopulmonary distress. On trach and PEG. no new tongue biting noted. chronically ill The patient appeared well nourished and normally developed. Vital signs as documented. Head exam is unremarkable. No scleral icterus . Neck is without jugular venous distension, thyromegaly, or carotid bruits. Lungs are clear to auscultation. Cardiac exam reveals regular rate and Rhythm. Abdominal exam reveals normal bowel sounds, no masses, no organomegaly and no aortic enlargement. Extremities are contracted. 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 - Constitutional Vitals: Temp Pulse Resp BP Pulse Ox 99.6 F 105 H 22 123/65 100 12/31/17 08:17 12/31/17 08:17 12/31/17 08:17 12/31/17 08:17 12/31/17 09:31 General appearance: Present: no acute distress, well-nourished Results - Labs CBC & Chem 7: 12/31/17 00:43 12/30/17 04:06 Labs: Laboratory Last Values WBC 12.3 K/mm3 (4.5-11.0) H 12/31/17 00:43 RBC 2.59 M/mm3 (3.65-5.03) L 12/31/17 00:43 Hgb 8.2 gm/dl (10.1-14.3) L 12/31/17 00:43 Hct 23.4 % (30.3-42.9) L 12/31/17 00:43 MCV 90 fl (79-97) 12/31/17 00:43 MCH 32 pg (28-32) 12/31/17 00:43 MCHC 35 % (30-34) H 12/31/17 00:43 RDW 19.8 % (13.2-15.2) H 12/31/17 00:43 Plt Count 378 K/mm3 (140-440) 12/31/17 00:43 Lymph % (Auto) 20.6 % (13.4-35.0) 12/30/17 04:06 [place] % (Auto) 6.0 % (0.0-7.3) 12/30/17 04:06 Eos % (Auto) 1.7 % (0.0-4.3) 12/30/17 04:06 Baso % (Auto) 0.6 % (0.0-1.8) 12/30/17 04:06 Lymph # 2.8 K/mm3 (1.2-5.4) 12/30/17 04:06 [place] # 0.8 K/mm3 (0.0-0.8) 12/30/17 04:06 Eos # 0.2 K/mm3 (0.0-0.4) 12/30/17 04:06 Baso # 0.1 K/mm3 (0.0-0.1) 12/30/17 04:06 Add Manual Diff Complete 12/15/17 09:22 Total Counted 200 12/15/17 09:22 Seg Neutrophils % 71.1 % (40.0-70.0) H 12/30/17 04:06 Seg Neuts % (Manual) 73.0 % (40.0-70.0) H 12/15/17 09:22 Band Neutrophils % 5.0 % 12/15/17 09:22 Lymphocytes % (Manual) 11.0 % (13.4-35.0) L 12/15/17 09:22 Reactive Lymphs % (Man) 0 % 12/15/17 09:22 Monocytes % (Manual) 6.5 % (0.0-7.3) 12/15/17 09:22 Eosinophils % (Manual) 3.0 % (0.0-4.3) 12/15/17 09:22 Basophils % (Manual) 1.0 % (0.0-1.8) 12/15/17 09:22 Metamyelocytes % 0.5 % 12/15/17 09:22 Myelocytes % 0 % 12/15/17 09:22 Promyelocytes % 0 % 12/15/17 09:22 Blast Cells % 0 % 12/15/17 09:22 Nucleated RBC % Not Reportable 12/15/17 09:22 Seg Neutrophils # 9.8 K/mm3 (1.8-7.7) H 12/30/17 04:06 Seg Neutrophils # Man 16.2 K/mm3 (1.8-7.7) H 12/15/17 09:22 Band Neutrophils # 1.1 K/mm3 12/15/17 09:22 Lymphocytes # (Manual) 2.4 K/mm3 (1.2-5.4) 12/15/17 09:22 Abs React Lymphs (Man) 0.0 K/mm3 12/15/17 09:22 Monocytes # (Manual) 1.4 K/mm3 (0.0-0.8) H 12/15/17 09:22 Eosinophils # (Manual) 0.7 K/mm3 (0.0-0.4) H 12/15/17 09:22 Basophils # (Manual) 0.2 K/mm3 (0.0-0.1) H 12/15/17 09:22 Metamyelocytes # 0.1 K/mm3 12/15/17 09:22 Myelocytes # 0.0 K/mm3 12/15/17 09:22 Promyelocytes # 0.0 K/mm3 12/15/17 09:22 Blast Cells # 0.0 K/mm3 12/15/17 09:22 WBC Morphology Not Reportable 12/15/17 09:22 Hypersegmented Neuts Not Reportable 12/15/17 09:22 Hyposegmented Neuts Not Reportable 12/15/17 09:22 Hypogranular Neuts Not Reportable 12/15/17 09:22 Smudge Cells Not Reportable 12/15/17 09:22 Toxic Granulation Not Reportable 12/15/17 09:22 Toxic Vacuolation Not Reportable 12/15/17 09:22 Dohle Bodies Not Reportable 12/15/17 09:22 Pelger-Huet Anomaly Not Reportable 12/15/17 09:22 Eileen Rods Not Reportable 12/15/17 09:22 Platelet Estimate Consistent w auto 12/15/17 09:22 Clumped Platelets Not Reportable 12/15/17 09:22 Plt Clumps, EDTA Not Reportable 12/15/17 09:22 Large Platelets Not Reportable 12/15/17 09:22 Giant Platelets Not Reportable 12/15/17 09:22 Platelet Satelliting Not Reportable 12/15/17 09:22 Plt Morphology Comment Not Reportable 12/15/17 09:22 RBC Morphology Not Reportable 12/15/17 09:22 Dimorphic RBCs Not Reportable 12/15/17 09:22 Polychromasia 1+ 12/15/17 09:22 Hypochromasia 1+ 12/15/17 09:22 Poikilocytosis Not Reportable 12/15/17 09:22 Anisocytosis 1+ 12/15/17 09:22 Microcytosis Not Reportable 12/15/17 09:22 Macrocytosis 1+ 12/15/17 09:22 Spherocytes Not Reportable 12/15/17 09:22 Pappenheimer Bodies Not Reportable 12/15/17 09:22 Sickle Cells Not Reportable 12/15/17 09:22 Target Cells Not Reportable 12/15/17 09:22 Tear Drop Cells Few 12/15/17 09:22 Ovalocytes Few 12/15/17 09:22 Helmet Cells Not Reportable 12/15/17 09:22 [place] Bodies Not Reportable 12/15/17 09:22 [place] Rings Not Reportable 12/15/17 09:22 Elvin Cells Not Reportable 12/15/17 09:22 Bite Cells Not Reportable 12/15/17 09:22 Crenated Cell Not Reportable 12/15/17 09:22 Elliptocytes Few 12/15/17 09:22 Acanthocytes (Spur) Not Reportable 12/15/17 09:22 Rouleaux Not Reportable 12/15/17 09:22 Hemoglobin C Crystals Not Reportable 12/15/17 09:22 Schistocytes Rare 12/15/17 09:22 Malaria parasites Not Reportable 12/15/17 09:22 Adriano Bodies Not Reportable 12/15/17 09:22 Hem Pathologist Commnt No 12/15/17 09:22 PT 13.6 Sec. (12.2-14.9) 12/23/17 04:55 INR 0.99 (0.87-1.13) 12/23/17 04:55 Sodium 138 mmol/L (137-145) 12/30/17 04:06 Potassium 3.9 mmol/L (3.6-5.0) D 12/30/17 04:06 Chloride 98.5 mmol/L (98-107) 12/30/17 04:06 Carbon Dioxide 27 mmol/L (22-30) 12/30/17 04:06 Anion Gap 16 mmol/L 12/30/17 04:06 BUN 14 mg/dL (7-17) 12/30/17 04:06 Creatinine 0.5 mg/dL (0.7-1.2) L 12/30/17 04:06 Estimated GFR > 60 ml/min 12/30/17 04:06 BUN/Creatinine Ratio 28 % 12/30/17 04:06 Glucose 116 mg/dL (65-100) H 12/30/17 04:06 POC Glucose 116 (70-105) H 12/31/17 06:27 Lactic Acid 0.70 mmol/L (0.7-2.0) 12/22/17 16:10 Calcium 9.3 mg/dL (8.4-10.2) 12/30/17 04:06 Magnesium 2.50 mg/dL (1.7-2.3) H 12/22/17 16:10 Iron 32 ug/dL (37-170) L 12/16/17 22:27 TIBC 296 mcg/dL (250-450) 12/16/17 22:27 Total Bilirubin 0.20 mg/dL (0.1-1.2) 12/22/17 00:34 AST 29 units/L (5-40) 12/22/17 00:34 ALT 24 units/L (7-56) 12/22/17 00:34 Alkaline Phosphatase 108 units/L (35-129) 12/22/17 00:34 C-Reactive Protein 12.20 mg/dL (0.00-1.30) H 12/22/17 16:10 Total Protein 6.5 g/dL (6.3-8.2) 12/22/17 00:34 Albumin 3.1 g/dL (3.9-5) L 12/22/17 00:34 Albumin/Globulin Ratio 0.9 % 12/22/17 00:34 Vitamin B12 1675 pg/mL (211-911) H 12/16/17 22:27 RBC Folic Acid >1000 ng/mL (>280) 12/16/17 22:27 Urine Color Yellow (Yellow) 12/15/17 12:39 Urine Turbidity Clear (Clear) 12/15/17 12:39 Urine pH 7.0 (5.0-7.0) 12/15/17 12:39 Ur Specific [place] 1.009 (1.003-1.030) 12/15/17 12:39 Urine Protein <15 mg/dl mg/dL (Negative) 12/15/17 12:39 Urine Glucose (UA) Neg mg/dL (Negative) 12/15/17 12:39 Urine Ketones Neg mg/dL (Negative) 12/15/17 12:39 Urine Blood Neg (Negative) 12/15/17 12:39 Urine Nitrite Neg (Negative) 12/15/17 12:39 Urine Bilirubin Neg (Negative) 12/15/17 12:39 Urine Urobilinogen < 2.0 mg/dL (<2.0) 12/15/17 12:39 Ur Leukocyte Esterase Neg (Negative) 12/15/17 12:39 Urine WBC (Auto) < 1.0 /HPF (0.0-6.0) 12/15/17 12:39 Urine RBC (Auto) 2.0 /HPF (0.0-6.0) 12/15/17 12:39 U Epithel Cells (Auto) 1.0 /HPF (0-13.0) 12/15/17 12:39 Blood Type A POSITIVE 12/16/17 22:27 Antibody Screen Negative 12/16/17 22:27 Crossmatch See Detail 12/16/17 22:27
[2017-12-31] MEDS: BABY ASPIRIN PO SCH (11:16)
[2017-12-31] MEDS: COREG PO SCH ×3 (11:16→22:14)
[2017-12-31] MEDS: ROBINUL PO SCH ×2 (11:17→19:04)
[2017-12-31] MEDS: HEPARIN SUB-Q SCH ×2 (11:18→22:14)
[2017-12-31] MEDS: PREVACID SOLUTAB FEEDTUBE SCH (11:21)
[2017-12-31] MEDS: LIORESAL PO SCH ×4 (11:23→22:14)
[2017-12-31] MEDS: SENOKOT PO SCH ×3 (11:23→22:15)
--- NOTE | 2017-12-31 13:21 | Progress Note ---
Assessment and Plan Severe sepsis with shock. Leukocytosis, probably secondary to occult aspiration. Acute on chronic hypoxemic respiratory failure. Chronic encephalopathy (secondary to both CVA +/- anoxic encephalopathy component) History of cerebrovascular accident. Anemia (chronic disease; normocytic) Oropharyngeal dysphagia. Obesity. Adult failure to thrive. Hypertension. Congestive heart failure. Diabetes. Gastroesophageal reflux disease. Chronic obstructive lung disease. Hypothyroidism. - repeat CXR in am - Increase Robinul to 2mg q6h - continue scopolamine also for secretion control - continue t-piece RTC as tolerated - continue bronchodilators with pulmonary hygiene per RT - continue to wean FiO2 to keep sats > 90% - continue coreg re: CMOP - continue aspiration precautions - continue mobility protocol for pressure ulcer prophylaxis - de-escalate AB's - continue GI & VTE prophylaxis - continue mobility protocol for pressure ulcer prophylaxis - continue other care per attending / other consultants - continue other care per attending/other consultants ... re-evaluate in am & prn Subjective Date of service: 12/31/17 Principal diagnosis: Acute CVA with encephalopathy; Acute Resp Failure s/p MVS; Sepsis Syndrome Interval history: Patient is seen today for: Acute CVA with encephalopathy; Acute Resp Failure s/ p MVS; Sepsis Syndrome Seen and examined at bedside; 24hour events reviewed; nursing and respiratory care staff consulted; no adverse overnight events reported to me; resting in bed ; secretions remain copious; no high grade fevers; no emesis or overt aspiration reported Objective Vital Signs - 12hr 12/31/17 12/31/17 12/31/17 02:00 03:05 08:00 Temperature 99.5 F Pulse Rate 104 H 106 H Respiratory 20 Rate Blood Pressure Blood Pressure 142/80 [Left] O2 Sat by Pulse 96 Oximetry O2 Sat by Pulse 98 Oximetry [ Assessment] 12/31/17 12/31/17 12/31/17 08:17 09:31 11:16 Temperature 99.6 F Pulse Rate 105 H Respiratory 22 Rate Blood Pressure 123/65 123/65 Blood Pressure [Left] O2 Sat by Pulse 99 100 Oximetry O2 Sat by Pulse 100 Oximetry [ Assessment] Constitutional: no acute distress, other (elderly AAF, normocephalic and atraumatic) Eyes: non-icteric ENT: oropharynx moist, oropharyngeal exudate pre, other (midline tracheostomy tube) Neck: supple, no lymphadenopathy, no JVD, other (No thyromegaly) Effort: mildly labored Ascultation: Bilateral: diminished breath sounds, rhonchi Percussion: Bilateral: not dull Cardiovascular: regular rate and rhythm, other (No R/M) Gastrointestinal: normoactive bowel sounds, soft, non-tender, non-distended, other (PEG tube; No HSM) Integumentary: other (poor turgor) Extremities: no cyanosis, no edema, pulses normal, no ischemia or petechiae Neurologic: pupils equal and round, unable to assess, other (+ pedal contractures; encephalopathic) Psychiatric: other (unable to assess) CBC and BMP: 12/31/17 00:43 12/30/17 04:06 ABG, PT/INR, D-dimer: PT/INR, D-dimer PT 13.6 Sec. (12.2-14.9) 12/23/17 04:55 INR 0.99 (0.87-1.13) 12/23/17 04:55 Abnormal lab findings: Abnormal Labs 12/15/17 12/15/17 12/15/17 09:22 09:22 10:53 WBC 22.2 H RBC 2.66 L Hgb 8.1 L Hct 25.2 L MCHC RDW 18.4 H Plt Count 529 H Seg Neutrophils % Seg Neuts % (Manual) 73.0 H Lymphocytes % (Manual) 11.0 L Seg Neutrophils # Seg Neutrophils # Man 16.2 H Monocytes # (Manual) 1.4 H Eosinophils # (Manual) 0.7 H Basophils # (Manual) 0.2 H Sodium 134 L Potassium 5.6 H D Chloride 96.8 L Carbon Dioxide BUN 18 H Creatinine Glucose 114 H POC Glucose Lactic Acid 2.50 H* Calcium Magnesium Iron C-Reactive Protein Albumin Vitamin B12 Crossmatch 12/15/17 12/16/17 12/16/17 13:21 11:14 11:14 WBC 13.1 H RBC 2.33 L Hgb 6.8 L Hct 21.8 L MCHC RDW 18.7 H Plt Count 467 H Seg Neutrophils % Seg Neuts % (Manual) Lymphocytes % (Manual) Seg Neutrophils # Seg Neutrophils # Man Monocytes # (Manual) Eosinophils # (Manual) Basophils # (Manual) Sodium Potassium Chloride Carbon Dioxide 21 L BUN Creatinine 0.4 L D Glucose POC Glucose Lactic Acid 2.60 H* Calcium 8.2 L Magnesium Iron C-Reactive Protein Albumin Vitamin B12 Crossmatch 12/16/17 12/16/17 12/16/17 14:51 22:27 22:27 WBC RBC Hgb 6.8 L Hct 21.7 L MCHC RDW Plt Count Seg Neutrophils % Seg Neuts % (Manual) Lymphocytes % (Manual) Seg Neutrophils # Seg Neutrophils # Man Monocytes # (Manual) Eosinophils # (Manual) Basophils # (Manual) Sodium Potassium Chloride Carbon Dioxide BUN Creatinine Glucose POC Glucose Lactic Acid Calcium Magnesium Iron 32 L C-Reactive Protein Albumin Vitamin B12 Crossmatch See Detail 12/16/17 12/17/17 12/17/17 22:27 10:03 10:03 WBC RBC 2.67 L Hgb 8.0 L Hct 24.9 L MCHC RDW 17.5 H Plt Count Seg Neutrophils % Seg Neuts % (Manual) Lymphocytes % (Manual) Seg Neutrophils # Seg Neutrophils # Man Monocytes # (Manual) Eosinophils # (Manual) Basophils # (Manual) Sodium Potassium Chloride 107.8 H Carbon Dioxide BUN Creatinine 0.4 L Glucose POC Glucose Lactic Acid Calcium 8.2 L Magnesium Iron C-Reactive Protein Albumin Vitamin B12 1675 H Crossmatch 12/18/17 12/19/17 12/20/17 03:19 04:55 00:12 WBC 12.2 H RBC 2.79 L 2.81 L 2.93 L Hgb 8.4 L 8.7 L 8.7 L Hct 25.9 L 25.8 L 27.4 L MCHC RDW 19.0 H 19.6 H 20.4 H Plt Count Seg Neutrophils % Seg Neuts % (Manual) Lymphocytes % (Manual) Seg Neutrophils # Seg Neutrophils # Man Monocytes # (Manual) Eosinophils # (Manual) Basophils # (Manual) Sodium Potassium Chloride Carbon Dioxide BUN Creatinine Glucose POC Glucose Lactic Acid Calcium Magnesium Iron C-Reactive Protein Albumin Vitamin B12 Crossmatch 12/20/17 12/20/17 12/20/17 00:12 11:51 21:02 WBC RBC Hgb Hct MCHC RDW Plt Count Seg Neutrophils % Seg Neuts % (Manual) Lymphocytes % (Manual) Seg Neutrophils # Seg Neutrophils # Man Monocytes # (Manual) Eosinophils # (Manual) Basophils # (Manual) Sodium Potassium Chloride Carbon Dioxide BUN Creatinine 0.6 L Glucose 102 H POC Glucose 122 H 108 H Lactic Acid Calcium Magnesium Iron C-Reactive Protein Albumin 3.4 L Vitamin B12 Crossmatch 12/21/17 12/21/17 12/21/17 01:05 13:07 17:43 WBC 13.3 H RBC 2.79 L Hgb 8.4 L Hct 26.0 L MCHC RDW 20.7 H Plt Count Seg Neutrophils % Seg Neuts % (Manual) Lymphocytes % (Manual) Seg Neutrophils # Seg Neutrophils # Man Monocytes # (Manual) Eosinophils # (Manual) Basophils # (Manual) Sodium Potassium Chloride Carbon Dioxide BUN Creatinine Glucose POC Glucose 109 H 115 H Lactic Acid Calcium Magnesium Iron C-Reactive Protein Albumin Vitamin B12 Crossmatch 12/22/17 12/22/17 12/22/17 00:34 00:34 16:10 WBC RBC 2.33 L Hgb 7.5 L Hct 21.2 L MCHC 35 H RDW 19.4 H Plt Count Seg Neutrophils % Seg Neuts % (Manual) Lymphocytes % (Manual) Seg Neutrophils # Seg Neutrophils # Man Monocytes # (Manual) Eosinophils # (Manual) Basophils # (Manual) Sodium Potassium Chloride Carbon Dioxide BUN Creatinine 0.6 L Glucose POC Glucose Lactic Acid Calcium Magnesium 2.50 H Iron C-Reactive Protein 12.20 H Albumin 3.1 L Vitamin B12 Crossmatch 12/23/17 12/23/17 12/24/17 04:55 12:15 05:16 WBC RBC Hgb 7.4 L Hct 22.5 L MCHC RDW Plt Count Seg Neutrophils % Seg Neuts % (Manual) Lymphocytes % (Manual) Seg Neutrophils # Seg Neutrophils # Man Monocytes # (Manual) Eosinophils # (Manual) Basophils # (Manual) Sodium Potassium Chloride Carbon Dioxide BUN Creatinine Glucose POC Glucose 109 H 111 H Lactic Acid Calcium Magnesium Iron C-Reactive Protein Albumin Vitamin B12 Crossmatch 12/24/17 12/24/17 12/24/17 06:45 17:57 23:45 WBC RBC Hgb Hct MCHC RDW Plt Count Seg Neutrophils % Seg Neuts % (Manual) Lymphocytes % (Manual) Seg Neutrophils # Seg Neutrophils # Man Monocytes # (Manual) Eosinophils # (Manual) Basophils # (Manual) Sodium 136 L Potassium Chloride Carbon Dioxide BUN Creatinine 0.5 L Glucose POC Glucose 108 H 108 H Lactic Acid Calcium Magnesium Iron C-Reactive Protein Albumin Vitamin B12 Crossmatch 1012/25/17 12/25/17 05:28 11:57 17:49 WBC RBC Hgb Hct MCHC RDW Plt Count Seg Neutrophils % Seg Neuts % (Manual) Lymphocytes % (Manual) Seg Neutrophils # Seg Neutrophils # Man Monocytes # (Manual) Eosinophils # (Manual) Basophils # (Manual) Sodium Potassium Chloride Carbon Dioxide BUN Creatinine Glucose POC Glucose 109 H 113 H 110 H Lactic Acid Calcium Magnesium Iron C-Reactive Protein Albumin Vitamin B12 Crossmatch 12/26/17 12/26/17 12/26/17 00:02 04:21 04:21 WBC 11.5 H RBC 2.88 L Hgb 8.5 L Hct 26.0 L MCHC RDW 19.4 H Plt Count Seg Neutrophils % Seg Neuts % (Manual) Lymphocytes % (Manual) Seg Neutrophils # Seg Neutrophils # Man Monocytes # (Manual) Eosinophils # (Manual) Basophils # (Manual) Sodium 136 L Potassium Chloride 97.8 L Carbon Dioxide BUN Creatinine Glucose 114 H POC Glucose 123 H Lactic Acid Calcium Magnesium Iron C-Reactive Protein Albumin Vitamin B12 Crossmatch 12/26/17 12/26/17 12/26/17 11:54 18:31 23:45 WBC RBC Hgb Hct MCHC RDW Plt Count Seg Neutrophils % Seg Neuts % (Manual) Lymphocytes % (Manual) Seg Neutrophils # Seg Neutrophils # Man Monocytes # (Manual) Eosinophils # (Manual) Basophils # (Manual) Sodium Potassium Chloride Carbon Dioxide BUN Creatinine Glucose POC Glucose 108 H 110 H 116 H Lactic Acid Calcium Magnesium Iron C-Reactive Protein Albumin Vitamin B12 Crossmatch 12/27/17 12/27/17 12/27/17 05:02 12:31 18:19 WBC RBC Hgb Hct MCHC RDW Plt Count Seg Neutrophils % Seg Neuts % (Manual) Lymphocytes % (Manual) Seg Neutrophils # Seg Neutrophils # Man Monocytes # (Manual) Eosinophils # (Manual) Basophils # (Manual) Sodium Potassium Chloride Carbon Dioxide BUN Creatinine Glucose POC Glucose 117 H 115 H 117 H Lactic Acid Calcium Magnesium Iron C-Reactive Protein Albumin Vitamin B12 Crossmatch 12/28/17 12/28/17 12/28/17 00:10 04:47 06:30 WBC 13.7 H RBC 2.81 L Hgb 8.4 L Hct 25.2 L MCHC RDW 19.7 H Plt Count Seg Neutrophils % Seg Neuts % (Manual) Lymphocytes % (Manual) Seg Neutrophils # Seg Neutrophils # Man Monocytes # (Manual) Eosinophils # (Manual) Basophils # (Manual) Sodium Potassium Chloride Carbon Dioxide BUN Creatinine Glucose POC Glucose 108 H 114 H Lactic Acid Calcium Magnesium Iron C-Reactive Protein Albumin Vitamin B12 Crossmatch 12/28/17 12/28/17 12/29/17 11:54 18:21 00:06 WBC RBC Hgb Hct MCHC RDW Plt Count Seg Neutrophils % Seg Neuts % (Manual) Lymphocytes % (Manual) Seg Neutrophils # Seg Neutrophils # Man Monocytes # (Manual) Eosinophils # (Manual) Basophils # (Manual) Sodium Potassium Chloride Carbon Dioxide BUN Creatinine Glucose POC Glucose 148 H 117 H 114 H Lactic Acid Calcium Magnesium Iron C-Reactive Protein Albumin Vitamin B12 Crossmatch 12/29/17 12/29/17 12/29/17 04:50 04:50 06:58 WBC 12.8 H RBC 2.92 L Hgb 8.8 L Hct 25.7 L MCHC RDW 19.6 H Plt Count Seg Neutrophils % Seg Neuts % (Manual) Lymphocytes % (Manual) Seg Neutrophils # Seg Neutrophils # Man Monocytes # (Manual) Eosinophils # (Manual) Basophils # (Manual) Sodium 135 L Potassium 5.3 H D Chloride 96.4 L Carbon Dioxide BUN Creatinine 0.6 L Glucose 109 H POC Glucose 117 H Lactic Acid Calcium Magnesium Iron C-Reactive Protein Albumin Vitamin B12 Crossmatch 12/29/17 12/29/17 12/29/17 11:56 16:39 23:09 WBC RBC Hgb Hct MCHC RDW Plt Count Seg Neutrophils % Seg Neuts % (Manual) Lymphocytes % (Manual) Seg Neutrophils # Seg Neutrophils # Man Monocytes # (Manual) Eosinophils # (Manual) Basophils # (Manual) Sodium Potassium Chloride Carbon Dioxide BUN Creatinine Glucose POC Glucose 121 H 131 H 117 H Lactic Acid Calcium Magnesium Iron C-Reactive Protein Albumin Vitamin B12 Crossmatch 12/30/17 12/30/17 12/30/17 04:06 04:06 06:27 WBC 13.8 H RBC 2.64 L Hgb 8.1 L Hct 24.0 L MCHC RDW 20.3 H Plt Count Seg Neutrophils % 71.1 H Seg Neuts % (Manual) Lymphocytes % (Manual) Seg Neutrophils # 9.8 H Seg Neutrophils # Man Monocytes # (Manual) Eosinophils # (Manual) Basophils # (Manual) Sodium Potassium Chloride Carbon Dioxide BUN Creatinine 0.5 L Glucose 116 H POC Glucose 129 H Lactic Acid Calcium Magnesium Iron C-Reactive Protein Albumin Vitamin B12 Crossmatch 12/30/17 12/30/17 12/31/17 11:48 17:41 00:15 WBC RBC Hgb Hct MCHC RDW Plt Count Seg Neutrophils % Seg Neuts % (Manual) Lymphocytes % (Manual) Seg Neutrophils # Seg Neutrophils # Man Monocytes # (Manual) Eosinophils # (Manual) Basophils # (Manual) Sodium Potassium Chloride Carbon Dioxide BUN Creatinine Glucose POC Glucose 126 H 124 H 116 H Lactic Acid Calcium Magnesium Iron C-Reactive Protein Albumin Vitamin B12 Crossmatch 12/31/17 12/31/17 00:43 06:27 WBC 12.3 H RBC 2.59 L Hgb 8.2 L Hct 23.4 L MCHC 35 H RDW 19.8 H Plt Count Seg Neutrophils % Seg Neuts % (Manual) Lymphocytes % (Manual) Seg Neutrophils # Seg Neutrophils # Man Monocytes # (Manual) Eosinophils # (Manual) Basophils # (Manual) Sodium Potassium Chloride Carbon Dioxide BUN Creatinine Glucose POC Glucose 116 H Lactic Acid Calcium Magnesium Iron C-Reactive Protein Albumin Vitamin B12 Crossmatch Allied health notes reviewed: nursing
--- NOTE | 2017-12-31 14:49 | XRay Report ---
AP CHEST: HISTORY: Aspiration AP view of the chest demonstrates a normal mediastinal and cardiac contour with clear lungs and normal bony and soft tissue structures. Right IJ venous catheter, tracheostomy and single lead pacemaker device are unchanged since 12/25/17. IMPRESSION: Unremarkable AP chest.
[2017-12-31] MEDS: MILK OF MAGNESIA PO SCH ×2 (20:49→22:15)
[2018-01-01] MEDS: ROBINUL PO SCH ×2 (00:59→06:11)
[2018-01-01] MEDS: KEPPRA FEEDTUBE SCH ×2 (00:59→06:11)
[2018-01-01] MEDS: VITAMIN C PO SCH (01:00)
--- NOTE | 2018-01-01 07:52 | Progress Note ---
Assessment and Plan Cultures: 12/15/2017 Blood cultures: No growth 12/20/2017 tracheal aspirate culture: light growth of Acinetobacter baumannii, rare growth of ESBL Klebsiella pneumoniae. 12/20/2017 blood culture: No growth Previous cultures reviewed: October 2017 sputum culture grew Acinetobacter baumannii, prior to that she grew MSSA. Assessment & Plan: 67-year-old female senior care resident with COPD, chronic respiratory failure status post tracheostomy, congestive heart failure, hypertension, hypothyroidism , coronary artery disease, CVA status post PEG tube: 1) Acute on chronic respiratory failure 2) MDRO colonization 3) chronic recurrent aspiration 4) Tracheobronchitis and aspiration pneumonitis 5) Penicillin allergy, though has tolerated Meropenem in the past 6) Leucocytosis, probably secondary to aspiration pneumonitis Patient's respiratory status improving, less gurgling observed this morning. Secretions being managed with Robinal and scopolamine respectively, with aspiration precautions being followed. Chest x-ray is without any evidence of pneumonia. Her oxygen requirements requirements continue to be minimal at 28% She is known to be colonized with Acinetobacter and given her chronic tracheostomy, will remain persistently colonized with MDROs. Blood cultures continue to be negative. Luekocystosis trending down, 13.8 -->12.3. Will continue to hold off on antibiotics. Patient being transferred to [facility] today. Recs: - Continue aggressive suctioning and supportive care - will continue to hold off on antibiotics -Transfer to [facility] - continue contact isolation due to MDRO colonization Subjective Date of service: 01/01/18 Principal diagnosis: Acute CVA with encephalopathy; Acute Resp Failure s/p MVS; Sepsis Syndrome Interval history: Patient observed laying in the bed, no acute distress noted. There is no family at bedside. Patient is nonverbal, unable to communicate. Patient appears comfortable. Current Antimicrobials: Previous Antimicrobials: Levofloxacin from 12/21/2017 to 12/24/2017 Tobramycin inhalation from 12/24/2017 to 12/29/2017 Objective - Exam Narrative Exam: Constitutional: non verbal. No acute distress Head, Ears, Nose: Normocephalic, atraumatic. External ears, nose normal Eyes: No icterus. No ptosis. Neck: Supple, no meningeal signs, trach + Oral: could not be examined since patient doesn't open mouth on command Cardiovascular: S1, S2 normal. Respiratory: Gurgling improved, SPO2 98%, FIO2 28 GI: Soft, non-tender; bowel sounds normal. No peritoneal signs. PEG tube +, RLQ subcutaneous lump felt on palpation, non tender Musculoskeletal: No pedal edema, no cyanosis. right neck CVL + Skin: No rash or abscess Hem/Lymphatic: No palpable cervical or supraclavicular nodes. No lymphangitis Psych: no agitation Neurological: non verbal, doesn't follow commands. exam limited. - Constitutional Vitals: Vital Signs Temp Pulse Resp BP Pulse Ox 99.4 F 96 H 22 131/72 100 01/01/18 02:34 01/01/18 02:34 01/01/18 02:34 01/01/18 02:34 01/01/18 02:34 Temperature -Last 24 Hours Temperature 99.4 F Temperature 99.5 F Temperature 99.7 F Temperature 99.6 F - Labs CBC & Chem 7: 12/31/17 00:43 12/30/17 04:06 Labs: Abnormal lab results 12/31/17 01/01/18 Range/Units 23:14 05:08 POC Glucose 110 H 133 H (70-105)
[2018-01-01] MEDS: PREVACID SOLUTAB FEEDTUBE SCH (09:36)
[2018-01-01] MEDS: SENOKOT PO SCH (09:36)
[2018-01-01] MEDS: LIORESAL PO SCH (09:36)
[2018-01-01] MEDS: BABY ASPIRIN PO SCH (09:36)
[2018-01-01] MEDS: COREG PO SCH (09:37)
[2018-01-01] MEDS: HEPARIN SUB-Q SCH (09:37)
[2018-01-01 11:51] VITALS: BP 108/61
--- NOTE | 2018-01-01 12:19 | Progress Note ---
Assessment and Plan Severe sepsis with shock. Leukocytosis, probably secondary to occult aspiration. Acute on chronic hypoxemic respiratory failure. Chronic encephalopathy (secondary to both CVA +/- anoxic encephalopathy component) History of cerebrovascular accident. Anemia (chronic disease; normocytic) Oropharyngeal dysphagia. Obesity. Adult failure to thrive. Hypertension. Congestive heart failure. Diabetes. Gastroesophageal reflux disease. Chronic obstructive lung disease. Hypothyroidism. - repeat CXR in am - Increase Robinul to 2mg q6h - continue scopolamine also for secretion control - continue t-piece RTC as tolerated - continue bronchodilators with pulmonary hygiene per RT - continue to wean FiO2 to keep sats > 90% - continue coreg re: CMOP - continue aspiration precautions - continue mobility protocol for pressure ulcer prophylaxis - de-escalate AB's - continue GI & VTE prophylaxis - continue mobility protocol for pressure ulcer prophylaxis - continue other care per attending / other consultants - continue other care per attending/other consultants ... re-evaluate in am & prn Subjective Date of service: 01/01/18 Principal diagnosis: Acute CVA with encephalopathy; Acute Resp Failure s/p MVS; Sepsis Syndrome Interval history: Patient is seen today for: Acute CVA with encephalopathy; Acute Resp Failure s/ p MVS; Sepsis Syndrome Seen and examined at bedside; 24hour events reviewed; nursing and respiratory care staff consulted; no adverse overnight events reported to me; resting in bed ; Objective Vital Signs - 12hr 01/01/18 01/01/18 01/01/18 01:57 02:34 07:34 Temperature 99.4 F 99.8 F H Pulse Rate 96 H 96 H 98 H Respiratory 22 22 Rate Blood Pressure 131/72 124/71 O2 Sat by Pulse 100 100 Oximetry 01/01/18 01/01/18 01/01/18 09:37 10:00 11:32 Temperature 99.8 F H Pulse Rate 93 H Respiratory 26 H Rate Blood Pressure 124/71 108/61 O2 Sat by Pulse 100 95 Oximetry Constitutional: no acute distress, other (elderly AAF, normocephalic and atraumatic) Eyes: non-icteric ENT: oropharynx moist, oropharyngeal exudate pre, other (midline tracheostomy tube) Neck: supple, no lymphadenopathy, no JVD, other (No thyromegaly) Effort: mildly labored Ascultation: Bilateral: diminished breath sounds, rhonchi Percussion: Bilateral: not dull Cardiovascular: regular rate and rhythm, other (No R/M) Gastrointestinal: normoactive bowel sounds, soft, non-tender, non-distended, other (PEG tube; No HSM) Integumentary: other (poor turgor) Extremities: no cyanosis, no edema, pulses normal, no ischemia or petechiae Neurologic: pupils equal and round, unable to assess, other (+ pedal contractures; encephalopathic) Psychiatric: other (unable to assess) CBC and BMP: 12/31/17 00:43 12/30/17 04:06 ABG, PT/INR, D-dimer: PT/INR, D-dimer PT 13.6 Sec. (12.2-14.9) 12/23/17 04:55 INR 0.99 (0.87-1.13) 12/23/17 04:55 Abnormal lab findings: Abnormal Labs 12/15/17 12/15/17 12/15/17 09:22 09:22 10:53 WBC 22.2 H RBC 2.66 L Hgb 8.1 L Hct 25.2 L MCHC RDW 18.4 H Plt Count 529 H Seg Neutrophils % Seg Neuts % (Manual) 73.0 H Lymphocytes % (Manual) 11.0 L Seg Neutrophils # Seg Neutrophils # Man 16.2 H Monocytes # (Manual) 1.4 H Eosinophils # (Manual) 0.7 H Basophils # (Manual) 0.2 H Sodium 134 L Potassium 5.6 H D Chloride 96.8 L Carbon Dioxide BUN 18 H Creatinine Glucose 114 H POC Glucose Lactic Acid 2.50 H* Calcium Magnesium Iron C-Reactive Protein Albumin Vitamin B12 Crossmatch 12/15/17 12/16/17 12/16/17 13:21 11:14 11:14 WBC 13.1 H RBC 2.33 L Hgb 6.8 L Hct 21.8 L MCHC RDW 18.7 H Plt Count 467 H Seg Neutrophils % Seg Neuts % (Manual) Lymphocytes % (Manual) Seg Neutrophils # Seg Neutrophils # Man Monocytes # (Manual) Eosinophils # (Manual) Basophils # (Manual) Sodium Potassium Chloride Carbon Dioxide 21 L BUN Creatinine 0.4 L D Glucose POC Glucose Lactic Acid 2.60 H* Calcium 8.2 L Magnesium Iron C-Reactive Protein Albumin Vitamin B12 Crossmatch 12/16/17 12/16/17 12/16/17 14:51 22:27 22:27 WBC RBC Hgb 6.8 L Hct 21.7 L MCHC RDW Plt Count Seg Neutrophils % Seg Neuts % (Manual) Lymphocytes % (Manual) Seg Neutrophils # Seg Neutrophils # Man Monocytes # (Manual) Eosinophils # (Manual) Basophils # (Manual) Sodium Potassium Chloride Carbon Dioxide BUN Creatinine Glucose POC Glucose Lactic Acid Calcium Magnesium Iron 32 L C-Reactive Protein Albumin Vitamin B12 Crossmatch See Detail 12/16/17 12/17/17 12/17/17 22:27 10:03 10:03 WBC RBC 2.67 L Hgb 8.0 L Hct 24.9 L MCHC RDW 17.5 H Plt Count Seg Neutrophils % Seg Neuts % (Manual) Lymphocytes % (Manual) Seg Neutrophils # Seg Neutrophils # Man Monocytes # (Manual) Eosinophils # (Manual) Basophils # (Manual) Sodium Potassium Chloride 107.8 H Carbon Dioxide BUN Creatinine 0.4 L Glucose POC Glucose Lactic Acid Calcium 8.2 L Magnesium Iron C-Reactive Protein Albumin Vitamin B12 1675 H Crossmatch 12/18/17 12/19/17 12/20/17 03:19 04:55 00:12 WBC 12.2 H RBC 2.79 L 2.81 L 2.93 L Hgb 8.4 L 8.7 L 8.7 L Hct 25.9 L 25.8 L 27.4 L MCHC RDW 19.0 H 19.6 H 20.4 H Plt Count Seg Neutrophils % Seg Neuts % (Manual) Lymphocytes % (Manual) Seg Neutrophils # Seg Neutrophils # Man Monocytes # (Manual) Eosinophils # (Manual) Basophils # (Manual) Sodium Potassium Chloride Carbon Dioxide BUN Creatinine Glucose POC Glucose Lactic Acid Calcium Magnesium Iron C-Reactive Protein Albumin Vitamin B12 Crossmatch 12/20/17 12/20/17 12/20/17 00:12 11:51 21:02 WBC RBC Hgb Hct MCHC RDW Plt Count Seg Neutrophils % Seg Neuts % (Manual) Lymphocytes % (Manual) Seg Neutrophils # Seg Neutrophils # Man Monocytes # (Manual) Eosinophils # (Manual) Basophils # (Manual) Sodium Potassium Chloride Carbon Dioxide BUN Creatinine 0.6 L Glucose 102 H POC Glucose 122 H 108 H Lactic Acid Calcium Magnesium Iron C-Reactive Protein Albumin 3.4 L Vitamin B12 Crossmatch 12/21/17 12/21/1712/21/18 01:05 13:07 17:43 WBC 13.3 H RBC 2.79 L Hgb 8.4 L Hct 26.0 L MCHC RDW 20.7 H Plt Count Seg Neutrophils % Seg Neuts % (Manual) Lymphocytes % (Manual) Seg Neutrophils # Seg Neutrophils # Man Monocytes # (Manual) Eosinophils # (Manual) Basophils # (Manual) Sodium Potassium Chloride Carbon Dioxide BUN Creatinine Glucose POC Glucose 109 H 115 H Lactic Acid Calcium Magnesium Iron C-Reactive Protein Albumin Vitamin B12 Crossmatch 12/22/17 12/22/17 12/22/17 00:34 00:34 16:10 WBC RBC 2.33 L Hgb 7.5 L Hct 21.2 L MCHC 35 H RDW 19.4 H Plt Count Seg Neutrophils % Seg Neuts % (Manual) Lymphocytes % (Manual) Seg Neutrophils # Seg Neutrophils # Man Monocytes # (Manual) Eosinophils # (Manual) Basophils # (Manual) Sodium Potassium Chloride Carbon Dioxide BUN Creatinine 0.6 L Glucose POC Glucose Lactic Acid Calcium Magnesium 2.50 H Iron C-Reactive Protein 12.20 H Albumin 3.1 L Vitamin B12 Crossmatch 12/23/17 12/23/17 12/24/17 04:55 12:15 05:16 WBC RBC Hgb 7.4 L Hct 22.5 L MCHC RDW Plt Count Seg Neutrophils % Seg Neuts % (Manual) Lymphocytes % (Manual) Seg Neutrophils # Seg Neutrophils # Man Monocytes # (Manual) Eosinophils # (Manual) Basophils # (Manual) Sodium Potassium Chloride Carbon Dioxide BUN Creatinine Glucose POC Glucose 109 H 111 H Lactic Acid Calcium Magnesium Iron C-Reactive Protein Albumin Vitamin B12 Crossmatch 12/24/17 12/24/17 12/24/17 06:45 17:57 23:45 WBC RBC Hgb Hct MCHC RDW Plt Count Seg Neutrophils % Seg Neuts % (Manual) Lymphocytes % (Manual) Seg Neutrophils # Seg Neutrophils # Man Monocytes # (Manual) Eosinophils # (Manual) Basophils # (Manual) Sodium 136 L Potassium Chloride Carbon Dioxide BUN Creatinine 0.5 L Glucose POC Glucose 108 H 108 H Lactic Acid Calcium Magnesium Iron C-Reactive Protein Albumin Vitamin B12 Crossmatch 12/25/17 12/25/17 12/25/17 05:28 11:57 17:49 WBC RBC Hgb Hct MCHC RDW Plt Count Seg Neutrophils % Seg Neuts % (Manual) Lymphocytes % (Manual) Seg Neutrophils # Seg Neutrophils # Man Monocytes # (Manual) Eosinophils # (Manual) Basophils # (Manual) Sodium Potassium Chloride Carbon Dioxide BUN Creatinine Glucose POC Glucose 109 H 113 H 110 H Lactic Acid Calcium Magnesium Iron C-Reactive Protein Albumin Vitamin B12 Crossmatch 12/26/17 12/26/17 12/26/17 00:02 04:21 04:21 WBC 11.5 H RBC 2.88 L Hgb 8.5 L Hct 26.0 L MCHC RDW 19.4 H Plt Count Seg Neutrophils % Seg Neuts % (Manual) Lymphocytes % (Manual) Seg Neutrophils # Seg Neutrophils # Man Monocytes # (Manual) Eosinophils # (Manual) Basophils # (Manual) Sodium 136 L Potassium Chloride 97.8 L Carbon Dioxide BUN Creatinine Glucose 114 H POC Glucose 123 H Lactic Acid Calcium Magnesium Iron C-Reactive Protein Albumin Vitamin B12 Crossmatch 12/26/17 12/26/17 12/26/17 11:54 18:31 23:45 WBC RBC Hgb Hct MCHC RDW Plt Count Seg Neutrophils % Seg Neuts % (Manual) Lymphocytes % (Manual) Seg Neutrophils # Seg Neutrophils # Man Monocytes # (Manual) Eosinophils # (Manual) Basophils # (Manual) Sodium Potassium Chloride Carbon Dioxide BUN Creatinine Glucose POC Glucose 108 H 110 H 116 H Lactic Acid Calcium Magnesium Iron C-Reactive Protein Albumin Vitamin B12 Crossmatch 12/27/17 12/27/17 12/27/17 05:02 12:31 18:19 WBC RBC Hgb Hct MCHC RDW Plt Count Seg Neutrophils % Seg Neuts % (Manual) Lymphocytes % (Manual) Seg Neutrophils # Seg Neutrophils # Man Monocytes # (Manual) Eosinophils # (Manual) Basophils # (Manual) Sodium Potassium Chloride Carbon Dioxide BUN Creatinine Glucose POC Glucose 117 H 115 H 117 H Lactic Acid Calcium Magnesium Iron C-Reactive Protein Albumin Vitamin B12 Crossmatch 12/28/17 12/28/17 12/28/17 00:10 04:47 06:30 WBC 13.7 H RBC 2.81 L Hgb 8.4 L Hct 25.2 L MCHC RDW 19.7 H Plt Count Seg Neutrophils % Seg Neuts % (Manual) Lymphocytes % (Manual) Seg Neutrophils # Seg Neutrophils # Man Monocytes # (Manual) Eosinophils # (Manual) Basophils # (Manual) Sodium Potassium Chloride Carbon Dioxide BUN Creatinine Glucose POC Glucose 108 H 114 H Lactic Acid Calcium Magnesium Iron C-Reactive Protein Albumin Vitamin B12 Crossmatch 12/28/17 12/28/17 12/29/17 11:54 18:21 00:06 WBC RBC Hgb Hct MCHC RDW Plt Count Seg Neutrophils % Seg Neuts % (Manual) Lymphocytes % (Manual) Seg Neutrophils # Seg Neutrophils # Man Monocytes # (Manual) Eosinophils # (Manual) Basophils # (Manual) Sodium Potassium Chloride Carbon Dioxide BUN Creatinine Glucose POC Glucose 148 H 117 H 114 H Lactic Acid Calcium Magnesium Iron C-Reactive Protein Albumin Vitamin B12 Crossmatch 12/29/17 12/29/17 12/29/17 04:50 04:50 06:58 WBC 12.8 H RBC 2.92 L Hgb 8.8 L Hct 25.7 L MCHC RDW 19.6 H Plt Count Seg Neutrophils % Seg Neuts % (Manual) Lymphocytes % (Manual) Seg Neutrophils # Seg Neutrophils # Man Monocytes # (Manual) Eosinophils # (Manual) Basophils # (Manual) Sodium 135 L Potassium 5.3 H D Chloride 96.4 L Carbon Dioxide BUN Creatinine 0.6 L Glucose 109 H POC Glucose 117 H Lactic Acid Calcium Magnesium Iron C-Reactive Protein Albumin Vitamin B12 Crossmatch 12/29/17 12/29/17 12/29/17 11:56 16:39 23:09 WBC RBC Hgb Hct MCHC RDW Plt Count Seg Neutrophils % Seg Neuts % (Manual) Lymphocytes % (Manual) Seg Neutrophils # Seg Neutrophils # Man Monocytes # (Manual) Eosinophils # (Manual) Basophils # (Manual) Sodium Potassium Chloride Carbon Dioxide BUN Creatinine Glucose POC Glucose 121 H 131 H 117 H Lactic Acid Calcium Magnesium Iron C-Reactive Protein Albumin Vitamin B12 Crossmatch 12/30/17 12/30/17 12/30/17 04:06 04:06 06:27 WBC 13.8 H RBC 2.64 L Hgb 8.1 L Hct 24.0 L MCHC RDW 20.3 H Plt Count Seg Neutrophils % 71.1 H Seg Neuts % (Manual) Lymphocytes % (Manual) Seg Neutrophils # 9.8 H Seg Neutrophils # Man Monocytes # (Manual) Eosinophils # (Manual) Basophils # (Manual) Sodium Potassium Chloride Carbon Dioxide BUN Creatinine 0.5 L Glucose 116 H POC Glucose 129 H Lactic Acid Calcium Magnesium Iron C-Reactive Protein Albumin Vitamin B12 Crossmatch 12/30/17 12/30/1712/31/18 11:48 17:41 00:15 WBC RBC Hgb Hct MCHC RDW Plt Count Seg Neutrophils % Seg Neuts % (Manual) Lymphocytes % (Manual) Seg Neutrophils # Seg Neutrophils # Man Monocytes # (Manual) Eosinophils # (Manual) Basophils # (Manual) Sodium Potassium Chloride Carbon Dioxide BUN Creatinine Glucose POC Glucose 126 H 124 H 116 H Lactic Acid Calcium Magnesium Iron C-Reactive Protein Albumin Vitamin B12 Crossmatch 12/31/17 12/31/17 12/31/17 00:43 06:27 23:14 WBC 12.3 H RBC 2.59 L Hgb 8.2 L Hct 23.4 L MCHC 35 H RDW 19.8 H Plt Count Seg Neutrophils % Seg Neuts % (Manual) Lymphocytes % (Manual) Seg Neutrophils # Seg Neutrophils # Man Monocytes # (Manual) Eosinophils # (Manual) Basophils # (Manual) Sodium Potassium Chloride Carbon Dioxide BUN Creatinine Glucose POC Glucose 116 H 110 H Lactic Acid Calcium Magnesium Iron C-Reactive Protein Albumin Vitamin B12 Crossmatch 01/01/18 01/01/18 05:08 11:32 WBC RBC Hgb Hct MCHC RDW Plt Count Seg Neutrophils % Seg Neuts % (Manual) Lymphocytes % (Manual) Seg Neutrophils # Seg Neutrophils # Man Monocytes # (Manual) Eosinophils # (Manual) Basophils # (Manual) Sodium Potassium Chloride Carbon Dioxide BUN Creatinine Glucose POC Glucose 133 H 111 H Lactic Acid Calcium Magnesium Iron C-Reactive Protein Albumin Vitamin B12 Crossmatch Allied health notes reviewed: nursing
--- NOTE | 2018-01-01 16:34 | Discharge Summary ---
Providers - Providers Date of Admission: 12/15/17 12:57 Date of discharge: 01/01/18 Attending physician: ROSHNI THAKKAR 12/15/17 13:02 Consult to Case Management [CONS] Routine Services Needed at Discharge: Other Notified:: case management Additional Physician Instructions: Please send out for LTACH/SNF placement 12/16/17 07:24 Consult to Wound/ET Nurse [CONS] Routine Reason For Exam: Bilateral feet 12/16/17 14:16 Consult to Dietitian/Nutrition [CONS] Routine Physician Instructions: Assess nutrtn needs, initiate, modify, manage TF Reason For Exam: Reason for Consult: Write/Manage Tube Feeding Reason for Consult: Write/Manage Tube Feeding 12/17/17 17:42 Consult to Physician [CONS] Routine Comment: Consulting Provider: SARAH DOMINGUEZ Physician Instructions: Reason For Exam: possible GI bleed 12/18/17 03:48 Consult to Wound/ET Nurse [CONS] Routine Reason For Exam: wound eval 12/21/17 11:35 Consult to Physician [CONS] Routine Comment: Consulting Provider: LEODAN GARCES Physician Instructions: Reason For Exam: Vent management 12/26/17 09:49 Consult to Physician [CONS] Routine Comment: Consulting Provider: MARSHALL ESTRELLA Physician Instructions: Reason For Exam: seizure 12/30/17 09:06 Consult to Physician [CONS] Routine Comment: spoke to ann marie HUTTON/zeynep Consulting Provider: NATALIA BROWN Physician Instructions: Reason For Exam: worseing leukocytosis. Aspiration penumonia Primary care physician: JODY SINGH Hospitalization Condition: Poor Hospital course: Patient is a 67-year-old woman with medical history significant for massive CVA , patient is comatose with a Tracheostomy and PEG tube in place. Severe sepsis with Shock - Patient was managed with pressors and discontinued,. Continues to have persistent leukocytosis - ID consulted. will hold off on abx. Patient treated initially with Levaquin and then Merrem and recently Tobramycin -Cultures grew MRDO-GNR species Aspiration Pneumonia with need for [id number] sunctioning - off IV abx - on scopolamine - cont frequent suctioning and aspiration precautions Chronic encephalopathy, suspect Anoxic encephalopathy - aspiration precautions - supportive care - Prognosis is very poor h/o CVA -bed bound and comatose Acute on Chronic hypoxic respiratory failure -Status post tracheostomy on t-piece -Continue oxygen supplementation as needed Chronic Anemia - H/H stable - Will transfuse as needed if Hemoglobin is below 7 Possible seizure -on Keppra per neurology recommendation -EEG showed some slowing. No definite epileptiform activity seen. Mild hyperkalemia -Status post Kayexalate, will monitor level HTN -Uncontrolled -Coreg dose increased Chronic physical debility Chronic dysphagia -Status post PEG tube placement and tube feeding Due to high suctioning requirement patient is a poor candidiate for SNF placement, Disposition: Prognosis is very poor. Patient will benefit from palliative/ hospice care Family has elected to send to inpatient hospice Discharge to Inpatient Hospice Disposition: [id number] ([facility]) Time spent for discharge: 34 minutes Core Measure Documentation - Palliative Care Palliative Care/ Comfort Measures: Hospice Care - Core Measures Any of the following diagnoses?: none - VTE Discharge Requirements Deep Vein Thrombosis/Pulmonary Embolism Present on Admission: No Has pt received <5 days of overlap therapy or INR<2.0: No Anticoagulant overlap therapy prescribed at discharge: No Contraindication No Overlap Therapy order at DC: Not Indicated Exam - Physical Exam Narrative exam: GEN: chronic debilated, ill appearing, semi-comatose state HEENT: drooling NECK: trach in placed CVS/HEART: RRR, normal S1S2, pulses present bilaterally CHEST/LUNGS: diminished bs bilaterally Symmetrical chest expansion, good air entry bilaterally GI/Abdomen: soft, +peg tube in place, good bowel sounds, no guarding or rebound /Bladder: no suprapubic tenderness, no CVA or paraspinal tenderness EXT/Skin: no new change MSK: contracted limbs Neuro: CN 2-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
== END 2018-01-01 12:12 | disposition hospice, inpatient (51) | DRG 871 ==
LOC: ED 08:34 → 4A 12:57 → CC1 12-20 21:08 → IMCU 12-24 16:42 → 2B-ACE 12-28 21:07
PROVIDERS: ADMIT Internal Medicine; ATTEND Internal Medicine
PROC: 30233N1 Transfusion of Nonautologous Red Blood Cells into Peripheral Vein, Percutaneous Approach (ICD-10-PCS; principal; 2017-12-17)
DX: A41.9 Sepsis, unspecified organism (principal); J69.0 Pneumonitis due to inhalation of food and vomit; J96.21 Acute and chronic respiratory failure with hypoxia; G93.41 Metabolic encephalopathy; R65.21 Severe sepsis with septic shock; I63.133 Cerebral infarction due to embolism of bilateral carotid arteries; G93.1 Anoxic brain damage, not elsewhere classified; E66.9 Obesity, unspecified; D50.0 Iron deficiency anemia secondary to blood loss (chronic); R56.9 Unspecified convulsions; E87.5 Hyperkalemia; R53.81 Other malaise; I11.0 Hypertensive heart disease with heart failure; I50.9 Heart failure, unspecified; E11.9 Type 2 diabetes mellitus without complications; K21.9 Gastro-esophageal reflux disease without esophagitis; E03.9 Hypothyroidism, unspecified; J44.9 Chronic obstructive pulmonary disease, unspecified; R13.12 Dysphagia, oropharyngeal phase; I42.9 Cardiomyopathy, unspecified; N17.9 Acute kidney failure, unspecified; I25.10 Atherosclerotic heart disease of native coronary artery without angina pectoris; Z82.49 Family history of ischemic heart disease and other diseases of the circulatory system; Z74.01 Bed confinement status; Z93.0 Tracheostomy status; Z90.710 Acquired absence of both cervix and uterus; Z68.29 Body mass index [BMI] 29.0-29.9, adult; Z93.1 Gastrostomy status; Z79.899 Other long term (current) drug therapy; Z79.82 Long term (current) use of aspirin; Z88.0 Allergy status to penicillin; Z87.11 Personal history of peptic ulcer disease
CPT/HCPCS: 36415; 70450; 71045; 80048; 80053; 81001; 82140; 82270; 82607; 82747; 82962; 83550; 83735; 85007; 85014; 85018; 85025; 85027; 85610; 86140; 86850; 86900; 86901; 86920; 87040; 87070; 87076; 87186; 87205; 93005; 93010; 94640; 94760; 95819; 96365; A9270-GY; J1644; J1650; J1953; J1956; J3370; J7030; J7040; J7050; J7682; P9016